=== PATIENT | female | born 1955 | race Hispanic/Latino ===

== ENCOUNTER 2023-05-29 23:35 | Inpatient (IN) | payer OTHER ==
[~2023-05-29] VITALS: Ht 160 cm; Wt 76.2 kg
[2023-05-29 23:56] LABS: BASOPHILS # (AUTO) 0.07 K/uL (0.00-0.20); BASOPHILS % (AUTO) 0.7 % (0.0-5.0); EOSINOPHILS # (AUTO) 0.31 K/uL (0.00-0.70); EOSINOPHILS % (AUTO) 3.3 % (0.0-8.0); IMMATURE GRANULOCYTE ABSOLUTE 0.02 K/uL (0-1); LYMPHOCYTES # (AUTO) 3.3 K/uL (1.0-4.8); LYMPHOCYTES % (AUTO) 35.5 % (21.0-51.0); MEAN CORPUSCULAR HEMOGLOBIN 29.6 pg (27.0-33.0); MEAN CORPUSCULAR HGB CONC 32.7 g/dL (32.0-36.0); MEAN CORPUSCULAR VOLUME 90.5 fL (79-99); MONOCYTES # (AUTO) 0.9 K/uL (0.1-1.0); MONOCYTES % (AUTO) 9.4 % (3.0-13.0); NEUTROPHILS # (AUTO) 4.7 K/uL (1.8-7.7); NEUTROPHILS % (AUTO) 50.9 % (40.0-77.0); PLATELET COUNT (AUTO) 315 K/uL (130-400); RED BLOOD CELL COUNT(AUTO) 4.09 MIL/uL (4.00-5.50); RED CELL DISTRIBUTION WIDTH 12.8 % (11.0-15.5); WHITE BLOOD COUNT (AUTO) 9.3 K/uL (4.8-10.8)
[2023-05-30] VITALS (7 sets, daily range): BP systolic 90–170; BP diastolic 51–78; PULSE 80–90; RESP 16–18; O2SAT 91–96
[2023-05-30 00:07] LABS: CREATININE 0.7 mg/dL (0.5-1.5); POTASSIUM 3.9 mmol/L (3.5-5.1)
[2023-05-30 00:09] LABS: SARS-CoV-2, RNA, NAAT NEGATIVE SARS CoV-2 (NEGATIVE)
[2023-05-30 00:12] LABS: ALBUMIN 3.3 g/dL (3.5-5.0); BILIRUBIN,TOTAL 0.2 mg/dL (0.2-1.0); TOTAL PROTEIN, SERUM 7.3 g/dL (6.0-8.3)
[2023-05-30 00:13] LABS: INFLUENZA TYPE A Negative For Type A (NEGATIVE); INFLUENZA TYPE B Negative For Type B (NEGATIVE)
[2023-05-30 01:00] LABS: APPEARANCE,URINE CLEAR (CLEAR); BILIRUBIN,URINE NEGATIVE (NEGATIVE); COLOR,URINE YELLOW (YELLOW); GLUCOSE, URINE (UA) NEGATIVE (NEGATIVE); KETONES,URINE NEGATIVE (NEGATIVE); LEUKOCYTE ESTERASE ,URINE 75 Leu/uL (NEGATIVE); NITRATE,URINE NEGATIVE (NEGATIVE); OCCULT BLOOD,URINE NEGATIVE (NEGATIVE); PH,URINE 5.5 (5.0-8.0); PROTEIN,URINE 10 mg/dL (NEGATIVE); UROBILINOGEN,URINE 0.2 mg/dL (0.2-1.0)
[2023-05-30 01:01] LABS: ADD UA MICROSCOPIC YES
[2023-05-30 01:06] LABS: MUCUS,URINE RARE LPF (None Seen); SQUAMOUS EPITHELIAL CELL,UR FEW /HPF (0-2)
[2023-05-30] MEDS ORDERED: IOHEXOL 350 MG/ML 100ML INFUS..BTL IV ONE (01:32)
[2023-05-30] MEDS ORDERED: ZOSYN 3.375GM +NS 50ML IVPB ONE (02:00)
[2023-05-30] MEDS ORDERED: MORPHINE 4 MG SYG IVP ONE (02:00)
[2023-05-30] MEDS ORDERED: MORPHINE 5 MG/ML VIAL (5MG OR GREATER DOSE) ONE (02:13)
[2023-05-30] MEDS: ZOSYN 3.375GM+NS 50ML 50 ML IVPB SCH ×3 (03:23→20:53)
[2023-05-30] MEDS: LACTATED RINGERS 1000ML 1,000 ML IV SCH ×2 (03:26→20:53)
[2023-05-30] MEDS ORDERED: NICOTINE 14 MG/ 24 HR PATCH TD SCH (03:30)
[2023-05-30] MEDS ORDERED: ACETAMINOPHEN 325 MG TAB PO PRN (03:30)
[2023-05-30] MEDS ORDERED: MORPHINE 4 MG SYG IV PRN (03:30)
[2023-05-30] MEDS ORDERED: ALBUTEROL 0.083% 2.5 MG/3 ML INH IH PRN (03:30)
[2023-05-30 03:54] LABS: INR 0.94 (0.85-1.15); PROTHROMBIN TIME 10.9 SEC (9.6-11.6)
[2023-05-30 03:56] LABS: PARTIAL THROMBOPLASTIN TIME 28.2 SEC (26.3-35.5)
[2023-05-30 04:03] LABS: MAGNESIUM 1.8 mg/dL (1.80-2.40)
[2023-05-30] MEDS: FAMOTIDINE 20MG VIAL IV SCH ×2 (09:00→20:53)
[2023-05-30] MEDS: NICOTINE 14 MG/ 24 HR PATCH TD SCH (09:00)
[2023-05-30] MEDS: MORPHINE 2 MG SYG IV PRN ×2 (12:28→21:05)
[2023-05-30 14:59] LABS: BASOPHILS # (AUTO) 0.06 K/uL (0.00-0.20); BASOPHILS % (AUTO) 0.3 % (0.0-5.0); EOSINOPHILS # (AUTO) 0.02 K/uL (0.00-0.70); EOSINOPHILS % (AUTO) 0.1 % (0.0-8.0); HEMATOCRIT 34.4 % (36-48); IMMATURE GRANULOCYTE ABSOLUTE 0.08 K/uL (0-1); LYMPHOCYTES # (AUTO) 2.3 K/uL (1.0-4.8); LYMPHOCYTES % (AUTO) 12.3 % (21.0-51.0); MEAN CORPUSCULAR HEMOGLOBIN 29.7 pg (27.0-33.0); MEAN CORPUSCULAR HGB CONC 32.8 g/dL (32.0-36.0); MEAN CORPUSCULAR VOLUME 90.3 fL (79-99); MONOCYTES # (AUTO) 0.8 K/uL (0.1-1.0); MONOCYTES % (AUTO) 4.4 % (3.0-13.0); NEUTROPHILS # (AUTO) 15.6 K/uL (1.8-7.7); NEUTROPHILS % (AUTO) 82.5 % (40.0-77.0); PLATELET COUNT (AUTO) 312 K/uL (130-400); RED BLOOD CELL COUNT(AUTO) 3.81 MIL/uL (4.00-5.50); RED CELL DISTRIBUTION WIDTH 13.1 % (11.0-15.5)
[2023-05-30] MEDS ORDERED: LACTATED RINGERS 1000ML IV SCH (15:00)
[2023-05-30 15:04] LABS: CREATININE 0.6 mg/dL (0.5-1.5); POTASSIUM 3.9 mmol/L (3.5-5.1)
[2023-05-30 15:09] LABS: ALBUMIN 2.6 g/dL (3.5-5.0); BILIRUBIN,TOTAL 0.3 mg/dL (0.2-1.0); TOTAL PROTEIN, SERUM 6.2 g/dL (6.0-8.3)
[2023-05-30] MEDS ORDERED: GUAIFENESIN-DM 200/20 MG 10 ML PO PRN (16:30)
[2023-05-31] MEDS: ACETAMINOPHEN 325 MG TAB PO PRN ×2 (00:14→18:08)
[2023-05-31 04:00] VITALS: BP 97/55; PULSE 77; RESP 17
[2023-05-31] MEDS: ZOSYN 3.375GM+NS 50ML 50 ML IVPB SCH ×3 (04:33→20:39)
[2023-05-31 05:50] LABS: BASOPHILS # (AUTO) 0.04 K/uL (0.00-0.20); BASOPHILS % (AUTO) 0.2 % (0.0-5.0); EOSINOPHILS # (AUTO) 0.08 K/uL (0.00-0.70); EOSINOPHILS % (AUTO) 0.5 % (0.0-8.0); IMMATURE GRANULOCYTE ABSOLUTE 0.09 K/uL (0-1); LYMPHOCYTES # (AUTO) 1.8 K/uL (1.0-4.8); MEAN CORPUSCULAR HEMOGLOBIN 29.2 pg (27.0-33.0); MEAN CORPUSCULAR HGB CONC 31.1 g/dL (32.0-36.0); MONOCYTES # (AUTO) 0.9 K/uL (0.1-1.0); MONOCYTES % (AUTO) 5.4 % (3.0-13.0); NEUTROPHILS # (AUTO) 13.4 K/uL (1.8-7.7); NEUTROPHILS % (AUTO) 82.3 % (40.0-77.0); PLATELET COUNT (AUTO) 292 K/uL (130-400); RED BLOOD CELL COUNT(AUTO) 3.83 MIL/uL (4.00-5.50); RED CELL DISTRIBUTION WIDTH 13.3 % (11.0-15.5); WHITE BLOOD COUNT (AUTO) 16.2 K/uL (4.8-10.8)
[2023-05-31 06:09] LABS: ALBUMIN 2.3 g/dL (3.5-5.0); BILIRUBIN,TOTAL 0.5 mg/dL (0.2-1.0); CREATININE 0.8 mg/dL (0.5-1.5); MAGNESIUM 1.8 mg/dL (1.80-2.40); PHOSPHORUS 3.5 mg/dL (2.5-4.9); POTASSIUM 3.7 mmol/L (3.5-5.1); TOTAL PROTEIN, SERUM 6.2 g/dL (6.0-8.3)
[2023-05-31 08:00] VITALS: BP 114/60; PULSE 86; RESP 17; O2SAT 93
[2023-05-31] MEDS: FAMOTIDINE 20MG VIAL IV SCH ×2 (09:24→20:39)
[2023-05-31] MEDS: NICOTINE 14 MG/ 24 HR PATCH TD SCH (09:28)
[2023-05-31] MEDS: LACTATED RINGERS 1000ML 1,000 ML IV SCH ×2 (09:28→12:30)
[2023-05-31 12:00] VITALS: BP 138/75; PULSE 95; RESP 17
[2023-05-31] MEDS: MORPHINE 2 MG SYG IV PRN (12:31)
[2023-05-31 16:00] VITALS: BP 107/71; PULSE 97; RESP 17
[2023-05-31 19:00] VITALS: BP 120/65; PULSE 92; RESP 18
[2023-05-31 20:40] VITALS: O2SAT 94
[2023-05-31] MEDS: KETOROLAC 30MG VIAL (30MG/ML) IVP PRN (20:46)
[2023-06-01] VITALS (8 sets, daily range): BP systolic 116–151; BP diastolic 65–88; PULSE 76–96; RESP 17–18; O2SAT 92–97
[2023-06-01] MEDS: LACTATED RINGERS 1000ML 1,000 ML IV SCH ×2 (00:55→13:59)
[2023-06-01] MEDS: ZOSYN 3.375GM+NS 50ML 50 ML IVPB SCH ×3 (04:09→19:55)
[2023-06-01] MEDS: KETOROLAC 30MG VIAL (30MG/ML) IVP PRN ×3 (04:14→23:10)
[2023-06-01 05:21] LABS: BASOPHILS # (AUTO) 0.05 K/uL (0.00-0.20); BASOPHILS % (AUTO) 0.3 % (0.0-5.0); EOSINOPHILS # (AUTO) 0.14 K/uL (0.00-0.70); EOSINOPHILS % (AUTO) 0.8 % (0.0-8.0); HEMATOCRIT 33.3 % (36-48); IMMATURE GRANULOCYTE ABSOLUTE 0.06 K/uL (0-1); LYMPHOCYTES # (AUTO) 1.5 K/uL (1.0-4.8); LYMPHOCYTES % (AUTO) 9.2 % (21.0-51.0); MEAN CORPUSCULAR HEMOGLOBIN 29.8 pg (27.0-33.0); MEAN CORPUSCULAR VOLUME 90.2 fL (79-99); MONOCYTES # (AUTO) 1.1 K/uL (0.1-1.0); MONOCYTES % (AUTO) 6.5 % (3.0-13.0); NEUTROPHILS # (AUTO) 13.8 K/uL (1.8-7.7); NEUTROPHILS % (AUTO) 82.8 % (40.0-77.0); PLATELET COUNT (AUTO) 290 K/uL (130-400); RED BLOOD CELL COUNT(AUTO) 3.69 MIL/uL (4.00-5.50); RED CELL DISTRIBUTION WIDTH 13.2 % (11.0-15.5); WHITE BLOOD COUNT (AUTO) 16.6 K/uL (4.8-10.8)
[2023-06-01 05:40] LABS: BILIRUBIN,TOTAL 0.5 mg/dL (0.2-1.0); CREATININE 0.7 mg/dL (0.5-1.5); POTASSIUM 3.6 mmol/L (3.5-5.1); TOTAL PROTEIN, SERUM 6.1 g/dL (6.0-8.3)
[2023-06-01] MEDS: FAMOTIDINE 20MG VIAL IV SCH ×2 (09:11→19:55)
[2023-06-01] MEDS: NICOTINE 14 MG/ 24 HR PATCH TD SCH (09:11)
[2023-06-01] MEDS ORDERED: SIMETHICONE 80 MG TAB.CHEW PO PRN (11:30)
[2023-06-01] MEDS: METRONIDAZOLE 500MG/100ML BAG 100 ML IVPB SCH ×2 (13:59→21:19)
[2023-06-01] MEDS: SIMETHICONE 80 MG TAB.CHEW PO PRN (14:14)
[2023-06-02] VITALS (7 sets, daily range): BP systolic 125–152; BP diastolic 65–86; PULSE 72–82; RESP 16–19; O2SAT 98
[2023-06-02] MEDS: LACTATED RINGERS 1000ML 1,000 ML IV SCH ×3 (03:50→19:53)
[2023-06-02] MEDS: ZOSYN 3.375GM+NS 50ML 50 ML IVPB SCH ×3 (04:11→19:48)
[2023-06-02] MEDS: METRONIDAZOLE 500MG/100ML BAG 100 ML IVPB SCH ×3 (05:03→21:16)
[2023-06-02 05:11] LABS: BASOPHILS # (AUTO) 0.03 K/uL (0.00-0.20); BASOPHILS % (AUTO) 0.2 % (0.0-5.0); EOSINOPHILS # (AUTO) 0.34 K/uL (0.00-0.70); EOSINOPHILS % (AUTO) 2.6 % (0.0-8.0); HEMATOCRIT 31.4 % (36-48); IMMATURE GRANULOCYTE ABSOLUTE 0.08 K/uL (0-1); LYMPHOCYTES # (AUTO) 1.6 K/uL (1.0-4.8); LYMPHOCYTES % (AUTO) 11.9 % (21.0-51.0); MEAN CORPUSCULAR HEMOGLOBIN 29.2 pg (27.0-33.0); MEAN CORPUSCULAR HGB CONC 31.8 g/dL (32.0-36.0); MEAN CORPUSCULAR VOLUME 91.8 fL (79-99); MONOCYTES # (AUTO) 1.3 K/uL (0.1-1.0); MONOCYTES % (AUTO) 9.4 % (3.0-13.0); NEUTROPHILS % (AUTO) 75.3 % (40.0-77.0); PLATELET COUNT (AUTO) 265 K/uL (130-400); RED BLOOD CELL COUNT(AUTO) 3.42 MIL/uL (4.00-5.50); RED CELL DISTRIBUTION WIDTH 13.2 % (11.0-15.5); WHITE BLOOD COUNT (AUTO) 13.3 K/uL (4.8-10.8)
[2023-06-02 05:54] LABS: ALBUMIN 1.9 g/dL (3.5-5.0); BILIRUBIN,TOTAL 0.4 mg/dL (0.2-1.0); CREATININE 0.6 mg/dL (0.5-1.5); POTASSIUM 3.4 mmol/L (3.5-5.1); TOTAL PROTEIN, SERUM 5.9 g/dL (6.0-8.3)
[2023-06-02 07:01] LABS: ERYTHROCYTE SEDIMENTATION RATE 117 MM/HR (0-30)
[2023-06-02] MEDS: FAMOTIDINE 20MG VIAL IV SCH ×2 (09:44→19:47)
[2023-06-02] MEDS: NICOTINE 14 MG/ 24 HR PATCH TD SCH (09:44)
[2023-06-02] MEDS: SIMETHICONE 80 MG TAB.CHEW PO PRN (09:44)
[2023-06-02] MEDS: FLUCONAZOLE 200 MG/NS 100 ML 100 ML IV SCH (09:44)
[2023-06-02] MEDS: KETOROLAC 30MG VIAL (30MG/ML) IVP PRN (16:29)
[2023-06-03] MEDS ORDERED: MAGNESIUM 2GM PREMIX 50ML 50 ML IV PRN
[2023-06-03] MEDS ORDERED: POTASSIUM CHLORIDE 20MEQ/100ML 100 ML IV PRN
[2023-06-03] MEDS: ONDANSETRON 4MG INJ IV PRN ×2 (01:59→22:02)
[2023-06-03] MEDS: SIMETHICONE 80 MG TAB.CHEW PO PRN ×2 (01:59→20:43)
[2023-06-03 03:30] VITALS: BP 124/73; PULSE 73; RESP 18
[2023-06-03] MEDS ORDERED: DIATR MEGLU/DIATRIZOATE SODIUM 30 ML BOTTLE ONE (05:06)
[2023-06-03] MEDS: ZOSYN 3.375GM+NS 50ML 50 ML IVPB SCH ×3 (05:26→20:43)
[2023-06-03] MEDS: METRONIDAZOLE 500MG/100ML BAG 100 ML IVPB SCH ×3 (05:26→21:46)
[2023-06-03] MEDS: LACTATED RINGERS 1000ML 1,000 ML IV SCH (05:32)
[2023-06-03 06:30] LABS: BASOPHILS # (AUTO) 0.05 K/uL (0.00-0.20); BASOPHILS % (AUTO) 0.4 % (0.0-5.0); EOSINOPHILS # (AUTO) 0.18 K/uL (0.00-0.70); EOSINOPHILS % (AUTO) 1.6 % (0.0-8.0); HEMATOCRIT 31.5 % (36-48); IMMATURE GRANULOCYTE ABSOLUTE 0.05 K/uL (0-1); LYMPHOCYTES # (AUTO) 1.6 K/uL (1.0-4.8); LYMPHOCYTES % (AUTO) 14.3 % (21.0-51.0); MEAN CORPUSCULAR HEMOGLOBIN 29.3 pg (27.0-33.0); MEAN CORPUSCULAR HGB CONC 32.7 g/dL (32.0-36.0); MEAN CORPUSCULAR VOLUME 89.7 fL (79-99); MONOCYTES % (AUTO) 9.2 % (3.0-13.0); NEUTROPHILS # (AUTO) 8.3 K/uL (1.8-7.7); NEUTROPHILS % (AUTO) 74.1 % (40.0-77.0); PLATELET COUNT (AUTO) 312 K/uL (130-400); RED BLOOD CELL COUNT(AUTO) 3.51 MIL/uL (4.00-5.50); RED CELL DISTRIBUTION WIDTH 13.2 % (11.0-15.5); WHITE BLOOD COUNT (AUTO) 11.3 K/uL (4.8-10.8)
[2023-06-03 06:56] LABS: ALBUMIN 1.8 g/dL (3.5-5.0); ASPARTATE AMINOTRANSFERASE 13 U/L (10-37); BILIRUBIN,TOTAL 0.4 mg/dL (0.2-1.0); CARBON DIOXIDE 26 mmol/L (21-32); CHLORIDE 106 mmol/L (101-111); CREATININE 0.5 mg/dL (0.5-1.5); GLOMERULAR FILTR. RATE CALC 102 mL/min (>90); GLUCOSE,RANDOM 98 mg/dL (70-105); POTASSIUM 3.4 mmol/L (3.5-5.1); SODIUM SERUM 138 mmol/L (136-145); UREA NITROGEN, BLOOD 16 mg/dL (7-18)
[2023-06-03 07:01] LABS: ALANINE AMINOTRANSFERASE < 6 U/L (12-78)
[2023-06-03 08:00] VITALS: BP 136/96; PULSE 73; RESP 18
[2023-06-03] MEDS ORDERED: IOHEXOL-350 75 ML VIAL IV ONE ×2 (08:19→12:23)
[2023-06-03] MEDS: NICOTINE 14 MG/ 24 HR PATCH TD SCH (09:37)
[2023-06-03] MEDS: FAMOTIDINE 20MG VIAL IV SCH ×2 (09:37→20:43)
[2023-06-03] MEDS: FLUCONAZOLE 200 MG/NS 100 ML 100 ML IV SCH (09:37)
[2023-06-03 11:44] VITALS: BP 158/85; PULSE 76; RESP 18
[2023-06-03 16:00] VITALS: BP 163/93; PULSE 62; RESP 18
[2023-06-03 20:00] VITALS: BP 146/81; PULSE 72; RESP 17; O2SAT 95
[2023-06-04] VITALS (11 sets, daily range): BP systolic 133–155; BP diastolic 75–88; PULSE 68–77; RESP 16–20; O2SAT 95–99
[2023-06-04] MEDS: ZOSYN 3.375GM+NS 50ML 50 ML IVPB SCH ×4 (00:27→21:08)
[2023-06-04 05:28] LABS: BASOPHILS # (AUTO) 0.06 K/uL (0.00-0.20); BASOPHILS % (AUTO) 0.6 % (0.0-5.0); EOSINOPHILS # (AUTO) 0.13 K/uL (0.00-0.70); EOSINOPHILS % (AUTO) 1.3 % (0.0-8.0); HEMATOCRIT 30.9 % (36-48); IMMATURE GRANULOCYTE ABSOLUTE 0.17 K/uL (0-1); LYMPHOCYTES # (AUTO) 1.6 K/uL (1.0-4.8); MEAN CORPUSCULAR HEMOGLOBIN 29.4 pg (27.0-33.0); MONOCYTES # (AUTO) 1.1 K/uL (0.1-1.0); MONOCYTES % (AUTO) 11.1 % (3.0-13.0); NEUTROPHILS % (AUTO) 69.3 % (40.0-77.0); PLATELET COUNT (AUTO) 308 K/uL (130-400); RED BLOOD CELL COUNT(AUTO) 3.47 MIL/uL (4.00-5.50); RED CELL DISTRIBUTION WIDTH 13.4 % (11.0-15.5); WHITE BLOOD COUNT (AUTO) 10.1 K/uL (4.8-10.8)
[2023-06-04 05:41] LABS: ALBUMIN 1.9 g/dL (3.5-5.0); BILIRUBIN,TOTAL 0.5 mg/dL (0.2-1.0); CREATININE 0.6 mg/dL (0.5-1.5); POTASSIUM 3.3 mmol/L (3.5-5.1); TOTAL PROTEIN, SERUM 5.8 g/dL (6.0-8.3)
[2023-06-04] MEDS: METRONIDAZOLE 500MG/100ML BAG 100 ML IVPB SCH ×3 (06:23→23:03)
[2023-06-04] MEDS: FLUCONAZOLE 200 MG/NS 100 ML 100 ML IV SCH (08:23)
[2023-06-04] MEDS: FAMOTIDINE 20MG VIAL IV SCH ×2 (08:23→21:08)
[2023-06-04] MEDS: ONDANSETRON 4MG INJ IV PRN ×3 (08:23→21:54)
[2023-06-04] MEDS: NICOTINE 14 MG/ 24 HR PATCH TD SCH (08:23)
[2023-06-04] MEDS: LACTATED RINGERS 1000ML 1,000 ML IV SCH ×3 (14:01→23:03)
[2023-06-04] MEDS: SIMETHICONE 80 MG TAB.CHEW PO PRN (18:22)
[2023-06-04] MEDS: POTASSIUM CHLORIDE 10% ELIXIR 20 MEQ/15 ML UDCUP PO PRN (19:08)
[2023-06-05] VITALS (8 sets, daily range): BP systolic 133–154; BP diastolic 69–77; PULSE 66–80; RESP 16–20; O2SAT 97–99
[2023-06-05] MEDS: SIMETHICONE 80 MG TAB.CHEW PO PRN (02:25)
[2023-06-05] MEDS: KCL 20 MEQ ERTAB PO PRN (03:08)
[2023-06-05] MEDS: ZOSYN 3.375GM+NS 50ML 50 ML IVPB SCH ×3 (05:29→19:34)
[2023-06-05] MEDS: METRONIDAZOLE 500MG/100ML BAG 100 ML IVPB SCH ×3 (06:05→21:10)
[2023-06-05] MEDS: ONDANSETRON 4MG INJ IV PRN ×2 (06:37→10:03)
[2023-06-05] MEDS: FAMOTIDINE 20MG VIAL IV SCH ×2 (10:02→19:34)
[2023-06-05] MEDS: NICOTINE 14 MG/ 24 HR PATCH TD SCH (10:02)
[2023-06-05] MEDS: FLUCONAZOLE 200 MG/NS 100 ML 100 ML IV SCH (10:02)
[2023-06-05 11:36] LABS: BASOPHILS # (AUTO) 0.05 K/uL (0.00-0.20); BASOPHILS % (AUTO) 0.4 % (0.0-5.0); EOSINOPHILS # (AUTO) 0.07 K/uL (0.00-0.70); EOSINOPHILS % (AUTO) 0.6 % (0.0-8.0); HEMATOCRIT 32.9 % (36-48); IMMATURE GRANULOCYTE ABSOLUTE 0.11 K/uL (0-1); LYMPHOCYTES # (AUTO) 1.9 K/uL (1.0-4.8); LYMPHOCYTES % (AUTO) 15.9 % (21.0-51.0); MEAN CORPUSCULAR HEMOGLOBIN 29.2 pg (27.0-33.0); MEAN CORPUSCULAR HGB CONC 32.2 g/dL (32.0-36.0); MEAN CORPUSCULAR VOLUME 90.6 fL (79-99); MONOCYTES # (AUTO) 1.2 K/uL (0.1-1.0); MONOCYTES % (AUTO) 9.7 % (3.0-13.0); NEUTROPHILS # (AUTO) 8.6 K/uL (1.8-7.7); NEUTROPHILS % (AUTO) 72.5 % (40.0-77.0); PLATELET COUNT (AUTO) 322 K/uL (130-400); RED BLOOD CELL COUNT(AUTO) 3.63 MIL/uL (4.00-5.50); RED CELL DISTRIBUTION WIDTH 13.5 % (11.0-15.5); WHITE BLOOD COUNT (AUTO) 11.9 K/uL (4.8-10.8)
[2023-06-05 11:58] LABS: ALBUMIN 2.1 g/dL (3.5-5.0); BILIRUBIN,TOTAL 0.4 mg/dL (0.2-1.0); CREATININE 0.6 mg/dL (0.5-1.5); POTASSIUM 3.6 mmol/L (3.5-5.1); TOTAL PROTEIN, SERUM 6.1 g/dL (6.0-8.3)
[2023-06-05] MEDS: METOCLOPRAMIDE 10 MG/2 ML VIAL IVP SCH ×2 (12:26→17:08)
[2023-06-05 13:06] LABS: ERYTHROCYTE SEDIMENTATION RATE 98 MM/HR (0-30)
[2023-06-05] MEDS: SUCRALFATE 1 GM TABLET PO SCH ×2 (17:08→19:34)
[2023-06-05] MEDS: LACTATED RINGERS 1000ML 1,000 ML IV SCH (19:38)
[2023-06-06] VITALS (7 sets, daily range): BP systolic 131–154; BP diastolic 67–94; PULSE 64–77; RESP 16–20; O2SAT 97
[2023-06-06] MEDS: SUCRALFATE 1 GM TABLET PO SCH ×4 (04:50→20:45)
[2023-06-06] MEDS: ZOSYN 3.375GM+NS 50ML 50 ML IVPB SCH ×3 (04:50→19:49)
[2023-06-06] MEDS: METRONIDAZOLE 500MG/100ML BAG 100 ML IVPB SCH ×3 (04:52→20:45)
[2023-06-06 05:40] LABS: BASOPHILS # (AUTO) 0.04 K/uL (0.00-0.20); BASOPHILS % (AUTO) 0.4 % (0.0-5.0); EOSINOPHILS # (AUTO) 0.15 K/uL (0.00-0.70); EOSINOPHILS % (AUTO) 1.4 % (0.0-8.0); HEMATOCRIT 32.3 % (36-48); IMMATURE GRANULOCYTE ABSOLUTE 0.07 K/uL (0-1); LYMPHOCYTES # (AUTO) 2.5 K/uL (1.0-4.8); LYMPHOCYTES % (AUTO) 22.1 % (21.0-51.0); MEAN CORPUSCULAR HEMOGLOBIN 29.1 pg (27.0-33.0); MEAN CORPUSCULAR HGB CONC 32.2 g/dL (32.0-36.0); MEAN CORPUSCULAR VOLUME 90.5 fL (79-99); MONOCYTES # (AUTO) 1.2 K/uL (0.1-1.0); MONOCYTES % (AUTO) 10.6 % (3.0-13.0); NEUTROPHILS # (AUTO) 7.2 K/uL (1.8-7.7); NEUTROPHILS % (AUTO) 64.9 % (40.0-77.0); PLATELET COUNT (AUTO) 345 K/uL (130-400); RED BLOOD CELL COUNT(AUTO) 3.57 MIL/uL (4.00-5.50); RED CELL DISTRIBUTION WIDTH 13.8 % (11.0-15.5); WHITE BLOOD COUNT (AUTO) 11.1 K/uL (4.8-10.8)
[2023-06-06 06:00] LABS: ALBUMIN 2.1 g/dL (3.5-5.0); BILIRUBIN,TOTAL 0.3 mg/dL (0.2-1.0); CREATININE 0.6 mg/dL (0.5-1.5); POTASSIUM 3.4 mmol/L (3.5-5.1); TOTAL PROTEIN, SERUM 5.8 g/dL (6.0-8.3)
[2023-06-06] MEDS: KCL 20 MEQ ERTAB PO PRN ×2 (06:24→08:16)
[2023-06-06] MEDS: METOCLOPRAMIDE 10 MG/2 ML VIAL IVP SCH ×3 (08:16→16:34)
[2023-06-06] MEDS: NICOTINE 14 MG/ 24 HR PATCH TD SCH (08:17)
[2023-06-06] MEDS: FAMOTIDINE 20MG VIAL IV SCH ×2 (08:17→19:49)
[2023-06-06] MEDS: FLUCONAZOLE 200 MG/NS 100 ML 100 ML IV SCH (08:17)
[2023-06-06] MEDS: LACTATED RINGERS 1000ML 1,000 ML IV SCH (08:19)
[2023-06-06] MEDS: ACETAMINOPHEN 325 MG TAB PO PRN (19:57)
[2023-06-06] MEDS ORDERED: DIATR MEGLU/DIATRIZOATE SODIUM 30 ML BOTTLE ONE (23:11)
[2023-06-07] MEDS: ONDANSETRON 4MG INJ IV PRN (01:39)
[2023-06-07] MEDS: LACTATED RINGERS 1000ML 1,000 ML IV SCH ×2 (01:40→17:35)
[2023-06-07 03:00] VITALS: BP 151/74; PULSE 78; RESP 18
[2023-06-07] MEDS: SUCRALFATE 1 GM TABLET PO SCH ×4 (04:09→23:15)
[2023-06-07] MEDS: METRONIDAZOLE 500MG/100ML BAG 100 ML IVPB SCH ×3 (05:08→22:22)
[2023-06-07] MEDS: ZOSYN 3.375GM+NS 50ML 50 ML IVPB SCH ×3 (05:08→20:11)
[2023-06-07 05:59] LABS: BASOPHILS # (AUTO) 0.04 K/uL (0.00-0.20); BASOPHILS % (AUTO) 0.4 % (0.0-5.0); EOSINOPHILS # (AUTO) 0.11 K/uL (0.00-0.70); HEMATOCRIT 31.9 % (36-48); IMMATURE GRANULOCYTE ABSOLUTE 0.07 K/uL (0-1); LYMPHOCYTES # (AUTO) 2.3 K/uL (1.0-4.8); LYMPHOCYTES % (AUTO) 21.8 % (21.0-51.0); MEAN CORPUSCULAR HEMOGLOBIN 29.5 pg (27.0-33.0); MEAN CORPUSCULAR HGB CONC 32.6 g/dL (32.0-36.0); MEAN CORPUSCULAR VOLUME 90.6 fL (79-99); MONOCYTES # (AUTO) 0.9 K/uL (0.1-1.0); MONOCYTES % (AUTO) 8.7 % (3.0-13.0); NEUTROPHILS # (AUTO) 7.3 K/uL (1.8-7.7); NEUTROPHILS % (AUTO) 67.4 % (40.0-77.0); PLATELET COUNT (AUTO) 384 K/uL (130-400); RED BLOOD CELL COUNT(AUTO) 3.52 MIL/uL (4.00-5.50); WHITE BLOOD COUNT (AUTO) 10.8 K/uL (4.8-10.8)
[2023-06-07 06:19] LABS: ALBUMIN 2.2 g/dL (3.5-5.0); BILIRUBIN,TOTAL 0.2 mg/dL (0.2-1.0); CREATININE 0.5 mg/dL (0.5-1.5); MAGNESIUM 1.9 mg/dL (1.80-2.40); POTASSIUM 3.6 mmol/L (3.5-5.1); TOTAL PROTEIN, SERUM 6.1 g/dL (6.0-8.3)
[2023-06-07 08:00] VITALS: BP 164/77; PULSE 96; RESP 17; O2SAT 96
[2023-06-07] MEDS: FLUCONAZOLE 200 MG/NS 100 ML 100 ML IV SCH (09:09)
[2023-06-07] MEDS: NICOTINE 14 MG/ 24 HR PATCH TD SCH (09:10)
[2023-06-07] MEDS: FAMOTIDINE 20MG VIAL IV SCH ×2 (09:10→20:11)
[2023-06-07] MEDS: METOCLOPRAMIDE 10 MG/2 ML VIAL IVP SCH ×3 (09:10→17:31)
[2023-06-07] MEDS ORDERED: IOHEXOL 350 MG/ML 100ML INFUS..BTL IV ONE (10:49)
[2023-06-07 12:00] VITALS: BP 121/56; PULSE 72; RESP 18
[2023-06-07] MEDS: POTASSIUM CHLORIDE 10% ELIXIR 20 MEQ/15 ML UDCUP PO PRN ×2 (14:32→17:32)
[2023-06-07] MEDS: ACETAMINOPHEN 325 MG TAB PO PRN (15:42)
[2023-06-07 16:00] VITALS: BP 131/73; PULSE 68; RESP 19
[2023-06-07 20:00] VITALS: BP 133/81; PULSE 66; RESP 18
[2023-06-07 22:10] VITALS: O2SAT 96
[2023-06-08] VITALS (14 sets, daily range): BP systolic 123–166; BP diastolic 63–94; PULSE 58–80; RESP 16–19; O2SAT 93–96
[2023-06-08] MEDS: SUCRALFATE 1 GM TABLET PO SCH ×5 (04:10→23:43)
[2023-06-08] MEDS: ZOSYN 3.375GM+NS 50ML 50 ML IVPB SCH ×3 (04:11→20:31)
[2023-06-08 05:30] LABS: BASOPHILS # (AUTO) 0.05 K/uL (0.00-0.20); BASOPHILS % (AUTO) 0.5 % (0.0-5.0); EOSINOPHILS # (AUTO) 0.24 K/uL (0.00-0.70); EOSINOPHILS % (AUTO) 2.5 % (0.0-8.0); HEMATOCRIT 32.4 % (36-48); IMMATURE GRANULOCYTE ABSOLUTE 0.05 K/uL (0-1); LYMPHOCYTES # (AUTO) 2.2 K/uL (1.0-4.8); LYMPHOCYTES % (AUTO) 22.3 % (21.0-51.0); MEAN CORPUSCULAR HEMOGLOBIN 28.8 pg (27.0-33.0); MEAN CORPUSCULAR HGB CONC 32.1 g/dL (32.0-36.0); MEAN CORPUSCULAR VOLUME 89.8 fL (79-99); MONOCYTES # (AUTO) 0.9 K/uL (0.1-1.0); MONOCYTES % (AUTO) 8.8 % (3.0-13.0); NEUTROPHILS # (AUTO) 6.3 K/uL (1.8-7.7); NEUTROPHILS % (AUTO) 65.4 % (40.0-77.0); PLATELET COUNT (AUTO) 394 K/uL (130-400); RED BLOOD CELL COUNT(AUTO) 3.61 MIL/uL (4.00-5.50); RED CELL DISTRIBUTION WIDTH 13.9 % (11.0-15.5); WHITE BLOOD COUNT (AUTO) 9.7 K/uL (4.8-10.8)
[2023-06-08 05:47] LABS: ALBUMIN 2.4 g/dL (3.5-5.0); BILIRUBIN,TOTAL 0.3 mg/dL (0.2-1.0); CREATININE 0.6 mg/dL (0.5-1.5); MAGNESIUM 2.2 mg/dL (1.80-2.40); POTASSIUM 3.8 mmol/L (3.5-5.1); TOTAL PROTEIN, SERUM 6.3 g/dL (6.0-8.3)
[2023-06-08] MEDS: METRONIDAZOLE 500MG/100ML BAG 100 ML IVPB SCH ×3 (05:53→22:13)
[2023-06-08] MEDS: LACTATED RINGERS 1000ML 1,000 ML IV SCH (06:20)
[2023-06-08] MEDS: METOCLOPRAMIDE 10 MG/2 ML VIAL IVP SCH ×3 (06:32→16:22)
[2023-06-08] MEDS: FAMOTIDINE 20MG VIAL IV SCH ×2 (08:30→20:31)
[2023-06-08] MEDS: NICOTINE 14 MG/ 24 HR PATCH TD SCH (08:30)
[2023-06-08] MEDS: FLUCONAZOLE 200 MG/NS 100 ML 100 ML IV SCH (08:30)
[2023-06-08] MEDS ORDERED: MIDAZOLAM HCL 1 MG/ML 2ML VIAL ONE (12:02)
[2023-06-08] MEDS ORDERED: FENTANYL CITRATE PF 50 MCG/1 ML 2ML VIAL ONE (12:02)
[2023-06-08] MEDS ORDERED: HYDRALAZINE 20MG/ML VIAL IV PRN (16:00)
[2023-06-08] MEDS ORDERED: LISINOPRIL 10 MG TABLET PO ONE (17:00)
[2023-06-08] MEDS: POTASSIUM CHLORIDE 10% ELIXIR 20 MEQ/15 ML UDCUP PO PRN (18:00)
[2023-06-08] MEDS: ACETAMINOPHEN 325 MG TAB PO PRN (20:39)
[2023-06-09] VITALS (7 sets, daily range): BP systolic 118–143; BP diastolic 72–92; PULSE 60–75; RESP 16–19; O2SAT 95–96
[2023-06-09] MEDS: SUCRALFATE 1 GM TABLET PO SCH ×4 (04:30→20:17)
[2023-06-09] MEDS: ZOSYN 3.375GM+NS 50ML 50 ML IVPB SCH ×3 (05:05→20:15)
[2023-06-09] MEDS: LACTATED RINGERS 1000ML 1,000 ML IV SCH ×3 (05:05→23:10)
[2023-06-09 05:49] LABS: BASOPHILS # (AUTO) 0.08 K/uL (0.00-0.20); EOSINOPHILS # (AUTO) 0.25 K/uL (0.00-0.70); EOSINOPHILS % (AUTO) 3.1 % (0.0-8.0); HEMATOCRIT 32.8 % (36-48); IMMATURE GRANULOCYTE ABSOLUTE 0.05 K/uL (0-1); LYMPHOCYTES # (AUTO) 2.2 K/uL (1.0-4.8); LYMPHOCYTES % (AUTO) 27.5 % (21.0-51.0); MEAN CORPUSCULAR HGB CONC 31.7 g/dL (32.0-36.0); MEAN CORPUSCULAR VOLUME 91.4 fL (79-99); MONOCYTES # (AUTO) 0.8 K/uL (0.1-1.0); MONOCYTES % (AUTO) 9.8 % (3.0-13.0); NEUTROPHILS # (AUTO) 4.7 K/uL (1.8-7.7); PLATELET COUNT (AUTO) 402 K/uL (130-400); RED BLOOD CELL COUNT(AUTO) 3.59 MIL/uL (4.00-5.50); RED CELL DISTRIBUTION WIDTH 13.9 % (11.0-15.5); WHITE BLOOD COUNT (AUTO) 8.2 K/uL (4.8-10.8)
[2023-06-09 06:15] LABS: ALBUMIN 2.3 g/dL (3.5-5.0); BILIRUBIN,TOTAL 0.3 mg/dL (0.2-1.0); CREATININE 0.6 mg/dL (0.5-1.5); POTASSIUM 3.9 mmol/L (3.5-5.1); TOTAL PROTEIN, SERUM 6.1 g/dL (6.0-8.3)
[2023-06-09] MEDS: METRONIDAZOLE 500MG/100ML BAG 100 ML IVPB SCH ×3 (06:23→20:15)
[2023-06-09] MEDS: METOCLOPRAMIDE 10 MG/2 ML VIAL IVP SCH ×3 (06:24→17:17)
[2023-06-09] MEDS: FAMOTIDINE 20MG VIAL IV SCH ×2 (09:56→20:17)
[2023-06-09] MEDS: FLUCONAZOLE 200 MG/NS 100 ML 100 ML IV SCH (09:56)
[2023-06-09] MEDS: LISINOPRIL 10 MG TABLET PO SCH (09:57)
[2023-06-09] MEDS: NICOTINE 14 MG/ 24 HR PATCH TD SCH (09:57)
[2023-06-09] MEDS: ACETAMINOPHEN 325 MG TAB PO PRN (17:17)
[2023-06-10 00:30] VITALS: BP 128/72; PULSE 64; RESP 18
[2023-06-10 03:43] VITALS: BP 141/83; PULSE 62; RESP 18
[2023-06-10] MEDS: ZOSYN 3.375GM+NS 50ML 50 ML IVPB SCH (04:37)
[2023-06-10] MEDS: METRONIDAZOLE 500MG/100ML BAG 100 ML IVPB SCH (04:37)
[2023-06-10] MEDS: SUCRALFATE 1 GM TABLET PO SCH (04:38)
[2023-06-10 08:00] VITALS: BP 141/78; PULSE 59; RESP 16; O2SAT 95
[2023-06-10] MEDS: FAMOTIDINE 20MG VIAL IV SCH (08:00)
[2023-06-10] MEDS: METOCLOPRAMIDE 10 MG/2 ML VIAL IVP SCH (08:01)
[2023-06-10] MEDS: LISINOPRIL 10 MG TABLET PO SCH (08:01)
[2023-06-10] MEDS: NICOTINE 14 MG/ 24 HR PATCH TD SCH (08:02)
[2023-06-10] MEDS: FLUCONAZOLE 200 MG/NS 100 ML 100 ML IV SCH (08:02)
[2023-06-10] MEDS ORDERED: LISI5TAB21 PO (10:01)
== END 2023-06-10 11:10 | disposition home or self-care (01) | DRG 391 ==
LOC: EDH 23:35 → EDHIP 23:36 → 3BH 05-30 03:33
PROVIDERS: ADMIT Hospitalist; ATTEND Hospitalist
PROC: 0W9F30Z Drainage of Abdominal Wall with Drainage Device, Percutaneous Approach (ICD-10-PCS; principal; 2023-06-08)
DX: K57.20 Diverticulitis of large intestine with perforation and abscess without bleeding (principal); K65.1 Peritoneal abscess; Z20.822 Contact with and (suspected) exposure to COVID-19; E87.6 Hypokalemia; F17.200 Nicotine dependence, unspecified, uncomplicated; E78.00 Pure hypercholesterolemia, unspecified; J45.909 Unspecified asthma, uncomplicated; D72.829 Elevated white blood cell count, unspecified; Z59.00 Homelessness unspecified
CPT/HCPCS: 10030; 36415; 71045; 72192; 74177; 74178; 76942; 80053; 81001; 82306; 82948; 83605; 83690; 83735; 84100; 84145; 84484; 85025; 85610; 85651; 85730; 86140; 87040; 87071; 87088; 87205; 87635; 87804; 93005; 99152; 99153; C9803; G0378; J1450; J1885; J2250; J2270; J2405; J2543; J2765; J3010; J3475; J3490; J7120; Q9963; Q9967; A4215; C1729; C1769; G0500

== ENCOUNTER 2023-06-24 13:27 | Emergency (ER) | payer OTHER ==
[~2023-06-24 13:27] MED LIST: LISI5TAB21 PO
[2023-06-24 13:40] VITALS: BP 123/74; PULSE 63; RESP 14
== END 2023-06-24 17:19 | disposition home or self-care (01) ==
LOC: EDH 13:27
DX: L02.211 Cutaneous abscess of abdominal wall (principal); Z48.01 Encounter for change or removal of surgical wound dressing
CPT/HCPCS: 99281

== ENCOUNTER 2023-09-29 05:44 | Inpatient (IN) | payer MEDICAID, OTHER ==
[~2023-09-29] VITALS: Ht 160 cm; Wt 108.0 kg
[2023-09-29] VITALS (30 sets, daily range): BP systolic 78–131; BP diastolic 44–62; PULSE 70–90; RESP 11–23; O2SAT 94–95
[2023-09-29] MEDS: ONDANSETRON 4MG INJ IVP ONE (06:15)
[2023-09-29] MEDS: MORPHINE 4 MG SYG IVP ONE (06:16)
[2023-09-29 06:19] LABS: BASOPHILS # (AUTO) 0.02 K/uL (0.00-0.20); BASOPHILS % (AUTO) 0.2 % (0.0-5.0); HEMATOCRIT 39.1 % (36-48); IMMATURE GRANULOCYTE ABSOLUTE 0.05 K/uL (0-1); LYMPHOCYTES # (AUTO) 1.9 K/uL (1.0-4.8); LYMPHOCYTES % (AUTO) 16.7 % (21.0-51.0); MEAN CORPUSCULAR HGB CONC 33.5 g/dL (32.0-36.0); MEAN CORPUSCULAR VOLUME 89.5 fL (79-99); MONOCYTES # (AUTO) 0.8 K/uL (0.1-1.0); NEUTROPHILS # (AUTO) 8.4 K/uL (1.8-7.7); NEUTROPHILS % (AUTO) 75.6 % (40.0-77.0); PLATELET COUNT (AUTO) 327 K/uL (130-400); RED BLOOD CELL COUNT(AUTO) 4.37 MIL/uL (4.00-5.50); RED CELL DISTRIBUTION WIDTH 12.7 % (11.0-15.5); WHITE BLOOD COUNT (AUTO) 11.1 K/uL (4.8-10.8)
[2023-09-29 06:23] LABS: CREATININE 0.8 mg/dL (0.5-1.5); POTASSIUM 4.2 mmol/L (3.5-5.1)
[2023-09-29] MEDS: 0.9%NACL 1000ML 2,500 ML IV ONE (06:27)
[2023-09-29] MEDS: ZOSYN 3.375GM+NS 50ML 50 ML IVPB STA (06:27)
[2023-09-29 06:31] LABS: ALBUMIN 3.2 g/dL (3.5-5.0); BILIRUBIN,TOTAL 0.2 mg/dL (0.2-1.0); TOTAL PROTEIN, SERUM 8.2 g/dL (6.0-8.3)
[2023-09-29] MEDS ORDERED: IOHEXOL 350 MG/ML 100ML INFUS..BTL IV ONE (06:41)
[2023-09-29] MEDS ORDERED: HYDROMORPHONE 1 MG INJ IVP ONE (07:30)
[2023-09-29] MEDS: LEVOFLOXACIN 750 MG/D5W 150 ML 150 ML IV ONE (07:53)
[2023-09-29] MEDS ORDERED: LACTULOSE 20 GM/30 ML UDCUP PO PRN (08:00)
[2023-09-29] MEDS ORDERED: DEXTROSE 50%-WATER 50 ML DISP.SYRIN IV PRN (08:00)
[2023-09-29] MEDS ORDERED: KCL 20 MEQ ERTAB PO PRN (08:00)
[2023-09-29] MEDS ORDERED: HYDROMORPHONE 0.5 MG SYG (0.5MG/0.5ML) IV PRN (08:00)
[2023-09-29] MEDS ORDERED: POTASSIUM CHLORIDE 20MEQ/100ML 100 ML IV PRN (08:00)
[2023-09-29] MEDS ORDERED: GUAIFENESIN-DM 200/20 MG 10 ML PO PRN (08:00)
[2023-09-29] MEDS ORDERED: GLUCAGON 1MG KIT 1 MG ML IM PRN (08:00)
[2023-09-29] MEDS ORDERED: DiphenhydrAMINE HCL 50 MG/ML VIAL IV PRN (08:00)
[2023-09-29] MEDS ORDERED: NITROGLYCERIN 0.4 MG SL TAB SL PRN (08:00)
[2023-09-29] MEDS: HYDROMORPHONE 1 MG INJ IVP ONE (08:07)
[2023-09-29] MEDS: FAMOTIDINE 20MG TAB PO SCH (09:00)
[2023-09-29] MEDS: ENOXAPARIN SODIUM 40 MG/0.4 ML SYRINGE SQ SCH (09:00)
[2023-09-29] MEDS: LACTATED RINGERS 1000ML 1,000 ML IV SCH (09:02)
[2023-09-29] MEDS: ONDANSETRON 4MG INJ IV PRN (12:13)
[2023-09-29] MEDS: ZOSYN 3.375GM+NS 50ML 50 ML IV SCH (12:13)
[2023-09-29] MEDS: HYDROCODONE/ACETAMINOPHEN 5/325 MG TAB PO PRN ×2 (12:13→16:33)
[2023-09-29 15:49] LABS: APPEARANCE,URINE CLEAR (CLEAR); BILIRUBIN,URINE NEGATIVE (NEGATIVE); COLOR,URINE YELLOW (YELLOW); GLUCOSE, URINE (UA) NEGATIVE (NEGATIVE); KETONES,URINE NEGATIVE (NEGATIVE); LEUKOCYTE ESTERASE ,URINE NEGATIVE Leu/uL (NEGATIVE); NITRATE,URINE NEGATIVE (NEGATIVE); OCCULT BLOOD,URINE NEGATIVE (NEGATIVE); PH,URINE 6.5 (5.0-8.0); PROTEIN,URINE 70 mg/dL (NEGATIVE); UROBILINOGEN,URINE 0.2 mg/dL (0.2-1.0)
[2023-09-29 15:50] LABS: ADD UA MICROSCOPIC YES
[2023-09-29 15:52] LABS: BACTERIA,URINE RARE /HPF (None Seen); MUCUS,URINE RARE LPF (None Seen); OTHER CASTS, URINE 3 /LPF (None Seen); SQUAMOUS EPITHELIAL CELL,UR FEW /HPF (0-2)
[2023-09-29] MEDS: LACTATED RINGERS 1000ML IV ONE ×2 (16:33→16:58)
[2023-09-30] VITALS (47 sets, daily range): BP systolic 84–108; BP diastolic 30–66; PULSE 76–107; RESP 9–28; O2SAT 94–98
[2023-09-30 04:48] LABS: BASOPHILS # (AUTO) 0.05 K/uL (0.00-0.20); BASOPHILS % (AUTO) 0.4 % (0.0-5.0); EOSINOPHILS # (AUTO) 0.08 K/uL (0.00-0.70); EOSINOPHILS % (AUTO) 0.7 % (0.0-8.0); IMMATURE GRANULOCYTE ABSOLUTE 0.07 K/uL (0-1); LYMPHOCYTES # (AUTO) 1.2 K/uL (1.0-4.8); LYMPHOCYTES % (AUTO) 10.2 % (21.0-51.0); MEAN CORPUSCULAR HEMOGLOBIN 29.9 pg (27.0-33.0); MEAN CORPUSCULAR HGB CONC 31.9 g/dL (32.0-36.0); MEAN CORPUSCULAR VOLUME 93.8 fL (79-99); MONOCYTES # (AUTO) 0.5 K/uL (0.1-1.0); MONOCYTES % (AUTO) 3.9 % (3.0-13.0); NEUTROPHILS # (AUTO) 9.6 K/uL (1.8-7.7); NEUTROPHILS % (AUTO) 84.2 % (40.0-77.0); PLATELET COUNT (AUTO) 277 K/uL (130-400); RED BLOOD CELL COUNT(AUTO) 3.84 MIL/uL (4.00-5.50); RED CELL DISTRIBUTION WIDTH 13.3 % (11.0-15.5); WHITE BLOOD COUNT (AUTO) 11.4 K/uL (4.8-10.8)
[2023-09-30 05:00] LABS: INR 1.09 (0.85-1.15); PARTIAL THROMBOPLASTIN TIME 27.9 SEC (26.3-35.5); PROTHROMBIN TIME 11.8 SEC (9.6-11.6)
[2023-09-30 05:07] LABS: % IRON SATURATION 5.5 % (22-44)
[2023-09-30 05:21] LABS: ALBUMIN 2.1 g/dL (3.5-5.0); BILIRUBIN,TOTAL 0.4 mg/dL (0.2-1.0); CREATININE 0.9 mg/dL (0.5-1.5); HEMOGLOBIN A1C 5.9 % (4.0-6.0); MAGNESIUM 1.8 mg/dL (1.80-2.40); PHOSPHORUS 3.9 mg/dL (2.5-4.9); POTASSIUM 4.3 mmol/L (3.5-5.1); THYROID STIMULATING HORMONE 2.11 uIU/mL (0.36-3.74); TOTAL PROTEIN, SERUM 6.3 g/dL (6.0-8.3)
[2023-09-30] MEDS: MAGNESIUM 2GM PREMIX 50ML 50 ML IV PRN (05:42)
[2023-09-30] MEDS: ALBUTEROL 0.083% 2.5 MG/3 ML INH IH PRN (08:10)
[2023-09-30 17:59] LABS: CREATININE 0.8 mg/dL (0.5-1.5); POTASSIUM 4.2 mmol/L (3.5-5.1)
[2023-10-01] VITALS (68 sets, daily range): BP systolic 88–131; BP diastolic 45–70; PULSE 73–86; RESP 12–27; O2SAT 93–95
[2023-10-01 05:17] LABS: BASOPHILS # (AUTO) 0.05 K/uL (0.00-0.20); BASOPHILS % (AUTO) 0.3 % (0.0-5.0); EOSINOPHILS # (AUTO) 0.06 K/uL (0.00-0.70); EOSINOPHILS % (AUTO) 0.4 % (0.0-8.0); HEMATOCRIT 32.5 % (36-48); LYMPHOCYTES % (AUTO) 7.2 % (21.0-51.0); MEAN CORPUSCULAR HEMOGLOBIN 29.6 pg (27.0-33.0); MEAN CORPUSCULAR VOLUME 92.6 fL (79-99); MONOCYTES # (AUTO) 0.6 K/uL (0.1-1.0); MONOCYTES % (AUTO) 4.2 % (3.0-13.0); NEUTROPHILS # (AUTO) 12.4 K/uL (1.8-7.7); NEUTROPHILS % (AUTO) 86.5 % (40.0-77.0); PLATELET COUNT (AUTO) 256 K/uL (130-400); RED BLOOD CELL COUNT(AUTO) 3.51 MIL/uL (4.00-5.50); RED CELL DISTRIBUTION WIDTH 13.6 % (11.0-15.5); WHITE BLOOD COUNT (AUTO) 14.3 K/uL (4.8-10.8)
[2023-10-01 05:27] LABS: ALBUMIN 1.9 g/dL (3.5-5.0); BILIRUBIN,TOTAL 0.3 mg/dL (0.2-1.0); CREATININE 0.7 mg/dL (0.5-1.5); TOTAL PROTEIN, SERUM 6.2 g/dL (6.0-8.3)
[2023-10-01] MEDS: LACTATED RINGERS 1000ML 1,000 ML IV SCH (11:55)
[2023-10-01] MEDS: IRON SUCROSE COMPLEX 300 MG in 0.9% NACL 250ML 250 ML IV SCH (12:04)
[2023-10-02] VITALS (70 sets, daily range): BP systolic 87–165; BP diastolic 43–96; PULSE 64–89; RESP 8–21; O2SAT 94–96
[2023-10-02 04:49] LABS: BASOPHILS # (AUTO) 0.05 K/uL (0.00-0.20); BASOPHILS % (AUTO) 0.4 % (0.0-5.0); EOSINOPHILS # (AUTO) 0.12 K/uL (0.00-0.70); EOSINOPHILS % (AUTO) 0.9 % (0.0-8.0); IMMATURE GRANULOCYTE ABSOLUTE 0.18 K/uL (0-1); LYMPHOCYTES # (AUTO) 1.3 K/uL (1.0-4.8); LYMPHOCYTES % (AUTO) 9.7 % (21.0-51.0); MEAN CORPUSCULAR HEMOGLOBIN 29.7 pg (27.0-33.0); MEAN CORPUSCULAR HGB CONC 31.9 g/dL (32.0-36.0); MONOCYTES # (AUTO) 0.9 K/uL (0.1-1.0); MONOCYTES % (AUTO) 6.3 % (3.0-13.0); NEUTROPHILS % (AUTO) 81.4 % (40.0-77.0); PLATELET COUNT (AUTO) 273 K/uL (130-400); RED BLOOD CELL COUNT(AUTO) 3.44 MIL/uL (4.00-5.50); RED CELL DISTRIBUTION WIDTH 13.5 % (11.0-15.5); WHITE BLOOD COUNT (AUTO) 13.5 K/uL (4.8-10.8)
[2023-10-02 05:14] LABS: ALBUMIN 1.6 g/dL (3.5-5.0); BILIRUBIN,TOTAL 0.2 mg/dL (0.2-1.0); CREATININE 0.7 mg/dL (0.5-1.5); POTASSIUM 3.7 mmol/L (3.5-5.1); TOTAL PROTEIN, SERUM 5.8 g/dL (6.0-8.3)
[2023-10-02] MEDS ORDERED: DIATR MEGLU/DIATRIZOATE SODIUM 30 ML BOTTLE ONE (12:25)
[2023-10-02] MEDS ORDERED: IOHEXOL-350 75 ML VIAL IV ONE (17:17)
[2023-10-02] MEDS: MAG/ALUM/SIMETH 30 ML UDCUP PO PRN (20:30)
[2023-10-03] VITALS (34 sets, daily range): BP systolic 98–149; BP diastolic 47–85; PULSE 64–77; RESP 6–23; O2SAT 96–97
[2023-10-03 09:13] LABS: INR 0.99 (0.85-1.15); PROTHROMBIN TIME 11.5 SEC (9.6-11.6)
[2023-10-03] MEDS: M.V.I. IV [ADULT] 10 ML in CLINIMIX-E 5%AA /D15%W 2000ML 2,000 ML IV ONE (10:00)
[2023-10-04] VITALS (22 sets, daily range): BP systolic 100–156; BP diastolic 55–87; PULSE 61–81; RESP 14–20; O2SAT 93–96
[2023-10-04 04:25] LABS: BASOPHILS # (AUTO) 0.07 K/uL (0.00-0.20); BASOPHILS % (AUTO) 0.6 % (0.0-5.0); EOSINOPHILS # (AUTO) 0.12 K/uL (0.00-0.70); EOSINOPHILS % (AUTO) 1.1 % (0.0-8.0); HEMATOCRIT 35.8 % (36-48); IMMATURE GRANULOCYTE ABSOLUTE 0.49 K/uL (0-1); LYMPHOCYTES # (AUTO) 1.6 K/uL (1.0-4.8); LYMPHOCYTES % (AUTO) 14.4 % (21.0-51.0); MEAN CORPUSCULAR HEMOGLOBIN 29.5 pg (27.0-33.0); MEAN CORPUSCULAR HGB CONC 32.1 g/dL (32.0-36.0); MEAN CORPUSCULAR VOLUME 91.8 fL (79-99); MONOCYTES # (AUTO) 1.4 K/uL (0.1-1.0); MONOCYTES % (AUTO) 11.9 % (3.0-13.0); NEUTROPHILS # (AUTO) 7.7 K/uL (1.8-7.7); NEUTROPHILS % (AUTO) 67.7 % (40.0-77.0); PLATELET COUNT (AUTO) 315 K/uL (130-400); RED CELL DISTRIBUTION WIDTH 13.7 % (11.0-15.5); WHITE BLOOD COUNT (AUTO) 11.3 K/uL (4.8-10.8)
[2023-10-04 04:37] LABS: INR 0.98 (0.85-1.15); PROTHROMBIN TIME 11.4 SEC (9.6-11.6)
[2023-10-04 04:38] LABS: PARTIAL THROMBOPLASTIN TIME 32.4 SEC (26.3-35.5)
[2023-10-04 04:39] LABS: CREATININE 0.6 mg/dL (0.5-1.5); POTASSIUM 3.5 mmol/L (3.5-5.1)
[2023-10-04] MEDS: KETOROLAC 15MG/ML VIAL (15MG/ML) ONE (10:12)
[2023-10-04] MEDS ORDERED: FENTANYL CITRATE PF 50 MCG/1 ML 2ML VIAL ONE (12:55)
[2023-10-04] MEDS: FLUCONAZOLE 200 MG/NS 100 ML IV SCH (15:30)
[2023-10-04] MEDS: KETOROLAC 15MG/ML VIAL (15MG/ML) IV PRN (20:27)
[2023-10-05] VITALS (7 sets, daily range): BP systolic 130–161; BP diastolic 72–90; PULSE 68–80; RESP 16–18; O2SAT 95–97
[2023-10-05 04:26] LABS: BASOPHILS % (AUTO) 0.8 % (0.0-5.0); EOSINOPHILS # (AUTO) 0.06 K/uL (0.00-0.70); EOSINOPHILS % (AUTO) 0.5 % (0.0-8.0); HEMATOCRIT 34.6 % (36-48); IMMATURE GRANULOCYTE ABSOLUTE 0.62 K/uL (0-1); LYMPHOCYTES % (AUTO) 15.7 % (21.0-51.0); MEAN CORPUSCULAR HEMOGLOBIN 29.8 pg (27.0-33.0); MEAN CORPUSCULAR HGB CONC 32.4 g/dL (32.0-36.0); MONOCYTES # (AUTO) 1.3 K/uL (0.1-1.0); MONOCYTES % (AUTO) 10.6 % (3.0-13.0); NEUTROPHILS # (AUTO) 8.4 K/uL (1.8-7.7); NEUTROPHILS % (AUTO) 67.4 % (40.0-77.0); PLATELET COUNT (AUTO) 328 K/uL (130-400); RED BLOOD CELL COUNT(AUTO) 3.76 MIL/uL (4.00-5.50); RED CELL DISTRIBUTION WIDTH 13.5 % (11.0-15.5); WHITE BLOOD COUNT (AUTO) 12.4 K/uL (4.8-10.8)
[2023-10-05 04:50] LABS: CREATININE 0.5 mg/dL (0.5-1.5); PHOSPHORUS 3.2 mg/dL (2.5-4.9); POTASSIUM 3.4 mmol/L (3.5-5.1)
[2023-10-05] MEDS: POTASSIUM CHLORIDE 10% ELIXIR 20 MEQ/15 ML UDCUP PO PRN (05:24)
[2023-10-05] MEDS: FAMOTIDINE 20MG VIAL IV PRN (08:57)
[2023-10-05] MEDS: M.V.I. IV [ADULT] 10 ML in CLINIMIX-E 5%AA /D15%W 2000ML 2,000 ML IV ONE (12:29)
[2023-10-05] MEDS ORDERED: COMPOUND IV REFRIGERATED 1 EACH IVSOLN MISC PRN ×2 (12:30→17:30)
[2023-10-05] MEDS ORDERED: COMPOUND IV MISC 1 EACH IVSOLN MISC PRN (12:30)
[2023-10-05] MEDS: HYDROMORPHONE 0.5 MG SYG (0.5MG/0.5ML) IVP PRN (14:22)
[2023-10-05] MEDS: PANTOPRAZOLE 40MG INJ 80 MG in 0.9%NACL 100ML 100 ML IVP SCH (18:08)
[2023-10-06] VITALS (7 sets, daily range): BP systolic 128–157; BP diastolic 72–86; PULSE 63–71; RESP 16–19; O2SAT 95
[2023-10-06 04:55] LABS: BASOPHILS # (AUTO) 0.05 K/uL (0.00-0.20); BASOPHILS % (AUTO) 0.4 % (0.0-5.0); EOSINOPHILS % (AUTO) 0.8 % (0.0-8.0); HEMATOCRIT 31.7 % (36-48); IMMATURE GRANULOCYTE ABSOLUTE 0.63 K/uL (0-1); LYMPHOCYTES # (AUTO) 1.9 K/uL (1.0-4.8); LYMPHOCYTES % (AUTO) 15.8 % (21.0-51.0); MEAN CORPUSCULAR HEMOGLOBIN 29.7 pg (27.0-33.0); MEAN CORPUSCULAR HGB CONC 32.5 g/dL (32.0-36.0); MEAN CORPUSCULAR VOLUME 91.4 fL (79-99); MONOCYTES # (AUTO) 1.2 K/uL (0.1-1.0); MONOCYTES % (AUTO) 10.1 % (3.0-13.0); NEUTROPHILS # (AUTO) 8.2 K/uL (1.8-7.7); NEUTROPHILS % (AUTO) 67.7 % (40.0-77.0); PLATELET COUNT (AUTO) 321 K/uL (130-400); RED BLOOD CELL COUNT(AUTO) 3.47 MIL/uL (4.00-5.50); WHITE BLOOD COUNT (AUTO) 12.1 K/uL (4.8-10.8)
[2023-10-06 05:02] LABS: CREATININE 0.6 mg/dL (0.5-1.5); POTASSIUM 3.4 mmol/L (3.5-5.1)
[2023-10-06 05:17] LABS: BAND NEUTROPHILS % (MANUAL) 9 % (0-2); LYMPHOCYTES % (MANUAL) 17 % (22-44); MAN.DIFF COMMENT-IMPRESSION MANUAL DIFFERENTIAL; MONOCYTES % (MANUAL) 3 % (2-9); PLATELET MORPHOLOGY COMMENT ADEQUATE; SEGMENTED NEUTROPHILS % 71 % (40-70); TOTAL CELLS COUNTED 100; WBC MORPHOLOGY CONSISTENT W/DIFF
[2023-10-06] MEDS: [UNRECOGNIZED DRUG - NUTRITION] IV ONE (20:14)
[2023-10-06] MEDS: DIPHENHYDRAMINE HCL 25 MG CAPSULE PO PRN (23:21)
[2023-10-07] VITALS (8 sets, daily range): BP systolic 124–150; BP diastolic 68–76; PULSE 62–66; RESP 16–20; O2SAT 95
[2023-10-07 05:41] LABS: BASOPHILS # (AUTO) 0.08 K/uL (0.00-0.20); BASOPHILS % (AUTO) 0.7 % (0.0-5.0); EOSINOPHILS % (AUTO) 1.7 % (0.0-8.0); HEMATOCRIT 32.8 % (36-48); IMMATURE GRANULOCYTE ABSOLUTE 0.58 K/uL (0-1); LYMPHOCYTES # (AUTO) 2.1 K/uL (1.0-4.8); LYMPHOCYTES % (AUTO) 17.4 % (21.0-51.0); MEAN CORPUSCULAR HEMOGLOBIN 29.5 pg (27.0-33.0); MEAN CORPUSCULAR HGB CONC 31.7 g/dL (32.0-36.0); MEAN CORPUSCULAR VOLUME 93.2 fL (79-99); MONOCYTES # (AUTO) 0.9 K/uL (0.1-1.0); MONOCYTES % (AUTO) 7.6 % (3.0-13.0); NEUTROPHILS # (AUTO) 8.2 K/uL (1.8-7.7); NEUTROPHILS % (AUTO) 67.8 % (40.0-77.0); PLATELET COUNT (AUTO) 321 K/uL (130-400); RED BLOOD CELL COUNT(AUTO) 3.52 MIL/uL (4.00-5.50); RED CELL DISTRIBUTION WIDTH 14.1 % (11.0-15.5); WHITE BLOOD COUNT (AUTO) 12.1 K/uL (4.8-10.8)
[2023-10-07 05:49] LABS: CREATININE 0.6 mg/dL (0.5-1.5); POTASSIUM 3.7 mmol/L (3.5-5.1)
[2023-10-07] MEDS: HYDROMORPHONE 1 MG INJ IVP PRN (14:30)
[2023-10-07] MEDS: [UNRECOGNIZED DRUG - NUTRITION] IV NR (20:55)
[2023-10-08] VITALS (33 sets, daily range): BP systolic 114–156; BP diastolic 46–79; PULSE 57–78; RESP 15–20; O2SAT 95–97
[2023-10-08] MEDS: LACTATED RINGERS 1000ML 1,000 ML IV ONE (08:25)
[2023-10-08] MEDS ORDERED: PROPOFOL 10 MG/ML 20ML VIAL IV ONE ×2 (09:17→09:57)
[2023-10-08] MEDS ORDERED: FENTANYL CITRATE PF 50 MCG/1 ML 2ML VIAL ONE ×3 (09:17→12:07)
[2023-10-08] MEDS ORDERED: ROCURONIUM BROMIDE 10MG/1ML 5ML VL ONE ×2 (09:17→10:16)
[2023-10-08] MEDS ORDERED: MIDAZOLAM HCL 1 MG/ML 2ML VIAL ONE (09:17)
[2023-10-08] MEDS ORDERED: ROPIVACAINE 0.5% 5MG/ML 30ML ONE (09:34)
[2023-10-08] MEDS ORDERED: SOLU-MEDROL 40MG VIAL ONE ×2 (10:01)
[2023-10-08] MEDS ORDERED: EPHEDRINE SULFATE 50 MG/ML AMPULE ONE (10:07)
[2023-10-08] MEDS ORDERED: OXYMETAZOLINE HCL SPRAY 15 ML BOTTLE ONE (10:41)
[2023-10-08] MEDS ORDERED: LIDOCAINE HCL 2% JELLY 5 ML ONE (10:41)
[2023-10-08] MEDS ORDERED: ONDANSETRON 4MG INJ ONE (10:56)
[2023-10-08] MEDS ORDERED: GLYCOPYRROLATE 0.2 MG/ML 5 ML VIAL ONE (12:02)
[2023-10-08] MEDS ORDERED: NEOSTIGMINE METHYLSULFATE 1MG/ML IV ONE (12:02)
[2023-10-08] MEDS ORDERED: KETOROLAC 30MG VIAL (30MG/ML) ONE (12:04)
[2023-10-08] MEDS: SUGAMMADEX SODIUM 200 MG/2 ML VIAL IV ONE (12:23)
[2023-10-08] MEDS: IPRATROPIUM/ALBUTEROL SULFATE 3 ML SOLUTION IH ONE ×3 (12:46→14:15)
[2023-10-08] MEDS: MEPERIDINE-PF 25 MG/ML SYG ONE ×2 (14:31→14:32)
[2023-10-08] MEDS: FUROSEMIDE 20MG VIAL ONE (14:32)
[2023-10-08] MEDS: KETOROLAC 15MG/ML VIAL (15MG/ML) IM PRN (15:24)
[2023-10-09] VITALS (7 sets, daily range): BP systolic 96–160; BP diastolic 53–79; PULSE 69–80; RESP 16–18; O2SAT 96–98
[2023-10-09] MEDS: MORPHINE 4 MG SYG IM PRN (00:42)
[2023-10-09 05:31] LABS: BASOPHILS # (AUTO) 0.08 K/uL (0.00-0.20); BASOPHILS % (AUTO) 0.3 % (0.0-5.0); HEMATOCRIT 33.5 % (36-48); IMMATURE GRANULOCYTE ABSOLUTE 0.35 K/uL (0-1); LYMPHOCYTES # (AUTO) 1.5 K/uL (1.0-4.8); LYMPHOCYTES % (AUTO) 5.1 % (21.0-51.0); MEAN CORPUSCULAR HEMOGLOBIN 30.1 pg (27.0-33.0); MEAN CORPUSCULAR HGB CONC 32.2 g/dL (32.0-36.0); MEAN CORPUSCULAR VOLUME 93.3 fL (79-99); MONOCYTES # (AUTO) 1.3 K/uL (0.1-1.0); MONOCYTES % (AUTO) 4.6 % (3.0-13.0); NEUTROPHILS # (AUTO) 25.3 K/uL (1.8-7.7); NEUTROPHILS % (AUTO) 88.8 % (40.0-77.0); PLATELET COUNT (AUTO) 360 K/uL (130-400); RED BLOOD CELL COUNT(AUTO) 3.59 MIL/uL (4.00-5.50); RED CELL DISTRIBUTION WIDTH 14.2 % (11.0-15.5); WHITE BLOOD COUNT (AUTO) 28.5 K/uL (4.8-10.8)
[2023-10-09 05:47] LABS: CREATININE 0.7 mg/dL (0.5-1.5); MAGNESIUM 2.4 mg/dL (1.80-2.40); PHOSPHORUS 3.4 mg/dL (2.5-4.9); POTASSIUM 4.6 mmol/L (3.5-5.1)
[2023-10-09] MEDS: [UNRECOGNIZED DRUG - NUTRITION] IV ONE (13:06)
[2023-10-10 04:00] VITALS: BP 104/62; PULSE 80; RESP 20
[2023-10-10 04:48] LABS: BASOPHILS # (AUTO) 0.06 K/uL (0.00-0.20); BASOPHILS % (AUTO) 0.3 % (0.0-5.0); EOSINOPHILS # (AUTO) 0.06 K/uL (0.00-0.70); EOSINOPHILS % (AUTO) 0.3 % (0.0-8.0); HEMATOCRIT 30.2 % (36-48); IMMATURE GRANULOCYTE ABSOLUTE 0.27 K/uL (0-1); LYMPHOCYTES # (AUTO) 1.7 K/uL (1.0-4.8); LYMPHOCYTES % (AUTO) 7.4 % (21.0-51.0); MEAN CORPUSCULAR HEMOGLOBIN 29.8 pg (27.0-33.0); MEAN CORPUSCULAR HGB CONC 31.5 g/dL (32.0-36.0); MEAN CORPUSCULAR VOLUME 94.7 fL (79-99); MONOCYTES # (AUTO) 1.4 K/uL (0.1-1.0); NEUTROPHILS # (AUTO) 19.1 K/uL (1.8-7.7); NEUTROPHILS % (AUTO) 84.8 % (40.0-77.0); PLATELET COUNT (AUTO) 358 K/uL (130-400); RED BLOOD CELL COUNT(AUTO) 3.19 MIL/uL (4.00-5.50); RED CELL DISTRIBUTION WIDTH 14.5 % (11.0-15.5); WHITE BLOOD COUNT (AUTO) 22.5 K/uL (4.8-10.8)
[2023-10-10 05:00] LABS: ALBUMIN 1.8 g/dL (3.5-5.0); BILIRUBIN,TOTAL 0.3 mg/dL (0.2-1.0); CREATININE 0.7 mg/dL (0.5-1.5); POTASSIUM 4.4 mmol/L (3.5-5.1)
[2023-10-10 08:00] VITALS: BP 109/57; PULSE 76; RESP 18
[2023-10-10 08:30] VITALS: O2SAT 97
[2023-10-10 11:00] VITALS: BP 116/62; PULSE 74; RESP 17
[2023-10-10 16:00] VITALS: BP 112/64; PULSE 77; RESP 17
[2023-10-10] MEDS ORDERED: PHENOL 177 ML BOTTLE PO PRN (18:30)
[2023-10-10] MEDS: [UNRECOGNIZED DRUG - NUTRITION] IV ONE (18:32)
[2023-10-10 20:00] VITALS: BP 135/65; PULSE 79; RESP 20; O2SAT 92
[2023-10-10] MEDS ORDERED: METOCLOPRAMIDE 5 MG TABLET PO SCH (21:00)
[2023-10-10] MEDS: METOCLOPRAMIDE 10 MG/2 ML VIAL IVP SCH (21:02)
[2023-10-11] VITALS (11 sets, daily range): BP systolic 109–140; BP diastolic 58–74; PULSE 72–83; RESP 16–19; O2SAT 92–94
[2023-10-11 06:08] LABS: BASOPHILS # (AUTO) 0.07 K/uL (0.00-0.20); BASOPHILS % (AUTO) 0.3 % (0.0-5.0); EOSINOPHILS # (AUTO) 0.16 K/uL (0.00-0.70); EOSINOPHILS % (AUTO) 0.7 % (0.0-8.0); HEMATOCRIT 27.1 % (36-48); IMMATURE GRANULOCYTE ABSOLUTE 0.19 K/uL (0-1); LYMPHOCYTES # (AUTO) 1.7 K/uL (1.0-4.8); MEAN CORPUSCULAR HEMOGLOBIN 29.9 pg (27.0-33.0); MEAN CORPUSCULAR HGB CONC 32.1 g/dL (32.0-36.0); MEAN CORPUSCULAR VOLUME 93.1 fL (79-99); MONOCYTES # (AUTO) 1.6 K/uL (0.1-1.0); MONOCYTES % (AUTO) 7.4 % (3.0-13.0); NEUTROPHILS % (AUTO) 82.7 % (40.0-77.0); PLATELET COUNT (AUTO) 369 K/uL (130-400); RED BLOOD CELL COUNT(AUTO) 2.91 MIL/uL (4.00-5.50); RED CELL DISTRIBUTION WIDTH 14.6 % (11.0-15.5); WHITE BLOOD COUNT (AUTO) 21.8 K/uL (4.8-10.8)
[2023-10-11 06:17] LABS: CREATININE 0.6 mg/dL (0.5-1.5); POTASSIUM 4.4 mmol/L (3.5-5.1)
[2023-10-11] MEDS: HEPARIN 5,000 UNIT VIAL SQ SCH (17:45)
[2023-10-11] MEDS: [UNRECOGNIZED DRUG - NUTRITION] IV ONE (20:47)
[2023-10-12] VITALS (9 sets, daily range): BP systolic 95–129; BP diastolic 58–68; PULSE 62–81; RESP 18–22; O2SAT 94–95
[2023-10-12 05:34] LABS: BASOPHILS # (AUTO) 0.04 K/uL (0.00-0.20); BASOPHILS % (AUTO) 0.2 % (0.0-5.0); EOSINOPHILS # (AUTO) 0.16 K/uL (0.00-0.70); EOSINOPHILS % (AUTO) 0.8 % (0.0-8.0); HEMATOCRIT 26.7 % (36-48); IMMATURE GRANULOCYTE ABSOLUTE 0.13 K/uL (0-1); LYMPHOCYTES # (AUTO) 1.9 K/uL (1.0-4.8); LYMPHOCYTES % (AUTO) 9.7 % (21.0-51.0); MEAN CORPUSCULAR HEMOGLOBIN 29.5 pg (27.0-33.0); MEAN CORPUSCULAR HGB CONC 32.2 g/dL (32.0-36.0); MEAN CORPUSCULAR VOLUME 91.4 fL (79-99); MONOCYTES # (AUTO) 1.7 K/uL (0.1-1.0); MONOCYTES % (AUTO) 8.9 % (3.0-13.0); NEUTROPHILS # (AUTO) 15.3 K/uL (1.8-7.7); NEUTROPHILS % (AUTO) 79.7 % (40.0-77.0); PLATELET COUNT (AUTO) 375 K/uL (130-400); RED BLOOD CELL COUNT(AUTO) 2.92 MIL/uL (4.00-5.50); RED CELL DISTRIBUTION WIDTH 14.4 % (11.0-15.5); WHITE BLOOD COUNT (AUTO) 19.2 K/uL (4.8-10.8)
[2023-10-12 15:12] LABS: CHOLESTEROL 122 mg/dL (<200); HDL CHOLESTEROL 24 mg/dL (35-85); LDL DIRECT 83 mg/dL (0-99); TRIGLYCERIDES 106 mg/dL (30-200)
[2023-10-12] MEDS: KETOROLAC 15MG/ML VIAL (15MG/ML) IV PRN (17:45)
[2023-10-12] MEDS: M.V.I. IV [ADULT] 10 ML in CLINIMIX-E 5%AA /D15%W 2000ML 2,000 ML IV ONE (20:41)
[2023-10-13] VITALS (8 sets, daily range): BP systolic 97–137; BP diastolic 54–76; PULSE 70–83; RESP 16–24; O2SAT 94–96
[2023-10-13 05:08] LABS: BASOPHILS # (AUTO) 0.06 K/uL (0.00-0.20); BASOPHILS % (AUTO) 0.3 % (0.0-5.0); EOSINOPHILS # (AUTO) 0.06 K/uL (0.00-0.70); EOSINOPHILS % (AUTO) 0.3 % (0.0-8.0); HEMATOCRIT 27.8 % (36-48); IMMATURE GRANULOCYTE ABSOLUTE 0.15 K/uL (0-1); LYMPHOCYTES # (AUTO) 1.7 K/uL (1.0-4.8); MEAN CORPUSCULAR HEMOGLOBIN 29.8 pg (27.0-33.0); MEAN CORPUSCULAR HGB CONC 31.7 g/dL (32.0-36.0); MEAN CORPUSCULAR VOLUME 94.2 fL (79-99); MONOCYTES # (AUTO) 1.8 K/uL (0.1-1.0); MONOCYTES % (AUTO) 9.4 % (3.0-13.0); NEUTROPHILS # (AUTO) 15.5 K/uL (1.8-7.7); NEUTROPHILS % (AUTO) 80.2 % (40.0-77.0); PLATELET COUNT (AUTO) 431 K/uL (130-400); RED BLOOD CELL COUNT(AUTO) 2.95 MIL/uL (4.00-5.50); RED CELL DISTRIBUTION WIDTH 14.3 % (11.0-15.5); WHITE BLOOD COUNT (AUTO) 19.4 K/uL (4.8-10.8)
[2023-10-13 05:41] LABS: ALBUMIN 1.8 g/dL (3.5-5.0); BILIRUBIN,TOTAL 1.1 mg/dL (0.2-1.0); CREATININE 0.6 mg/dL (0.5-1.5); POTASSIUM 3.9 mmol/L (3.5-5.1); TOTAL PROTEIN, SERUM 6.8 g/dL (6.0-8.3)
[2023-10-13] MEDS: M.V.I. IV [ADULT] 10 ML in CLINIMIX-E 5%AA /D15%W 2000ML 2,000 ML IV ONE (23:50)
[2023-10-14] VITALS (9 sets, daily range): BP systolic 115–138; BP diastolic 56–72; PULSE 62–71; RESP 17–20; O2SAT 95–97
[2023-10-14 04:38] LABS: BASOPHILS # (AUTO) 0.05 K/uL (0.00-0.20); BASOPHILS % (AUTO) 0.4 % (0.0-5.0); EOSINOPHILS # (AUTO) 0.17 K/uL (0.00-0.70); EOSINOPHILS % (AUTO) 1.2 % (0.0-8.0); HEMATOCRIT 26.2 % (36-48); IMMATURE GRANULOCYTE ABSOLUTE 0.12 K/uL (0-1); LYMPHOCYTES % (AUTO) 13.8 % (21.0-51.0); MEAN CORPUSCULAR HEMOGLOBIN 29.2 pg (27.0-33.0); MEAN CORPUSCULAR HGB CONC 32.1 g/dL (32.0-36.0); MONOCYTES # (AUTO) 1.5 K/uL (0.1-1.0); MONOCYTES % (AUTO) 10.9 % (3.0-13.0); NEUTROPHILS # (AUTO) 10.3 K/uL (1.8-7.7); NEUTROPHILS % (AUTO) 72.8 % (40.0-77.0); PLATELET COUNT (AUTO) 404 K/uL (130-400); RED BLOOD CELL COUNT(AUTO) 2.88 MIL/uL (4.00-5.50); RED CELL DISTRIBUTION WIDTH 14.4 % (11.0-15.5); WHITE BLOOD COUNT (AUTO) 14.1 K/uL (4.8-10.8)
[2023-10-14 05:06] LABS: ALBUMIN 1.8 g/dL (3.5-5.0); BILIRUBIN,TOTAL 0.8 mg/dL (0.2-1.0); CREATININE 0.7 mg/dL (0.5-1.5); POTASSIUM 3.8 mmol/L (3.5-5.1); TOTAL PROTEIN, SERUM 6.8 g/dL (6.0-8.3)
[2023-10-14] MEDS: SIMETHICONE 80 MG TAB.CHEW PO PRN (11:57)
[2023-10-14] MEDS ORDERED: 0.9%NACL 50ML IV SCH (12:30)
[2023-10-14] MEDS: ZOSYN 3.375GM +NS 50ML IVPB SCH (13:51)
[2023-10-14] MEDS: M.V.I. IV [ADULT] 10 ML in CLINIMIX-E 5%AA /D15%W 2000ML 2,000 ML IV NR (21:43)
[2023-10-15] VITALS: BP 103/56; PULSE 74; RESP 20
[2023-10-15 04:00] VITALS: BP 97/58; PULSE 68; RESP 19
[2023-10-15 07:12] LABS: BASOPHILS # (AUTO) 0.03 K/uL (0.00-0.20); BASOPHILS % (AUTO) 0.3 % (0.0-5.0); EOSINOPHILS # (AUTO) 0.15 K/uL (0.00-0.70); EOSINOPHILS % (AUTO) 1.7 % (0.0-8.0); HEMATOCRIT 26.5 % (36-48); IMMATURE GRANULOCYTE ABSOLUTE 0.05 K/uL (0-1); LYMPHOCYTES # (AUTO) 1.8 K/uL (1.0-4.8); LYMPHOCYTES % (AUTO) 19.6 % (21.0-51.0); MEAN CORPUSCULAR HEMOGLOBIN 29.6 pg (27.0-33.0); MEAN CORPUSCULAR HGB CONC 32.1 g/dL (32.0-36.0); MEAN CORPUSCULAR VOLUME 92.3 fL (79-99); MONOCYTES # (AUTO) 0.9 K/uL (0.1-1.0); MONOCYTES % (AUTO) 9.7 % (3.0-13.0); NEUTROPHILS # (AUTO) 6.2 K/uL (1.8-7.7); NEUTROPHILS % (AUTO) 68.1 % (40.0-77.0); PLATELET COUNT (AUTO) 389 K/uL (130-400); RED BLOOD CELL COUNT(AUTO) 2.87 MIL/uL (4.00-5.50); RED CELL DISTRIBUTION WIDTH 14.6 % (11.0-15.5)
[2023-10-15 07:38] LABS: ALBUMIN 1.9 g/dL (3.5-5.0); BILIRUBIN,TOTAL 0.5 mg/dL (0.2-1.0); CREATININE 0.7 mg/dL (0.5-1.5); POTASSIUM 4.2 mmol/L (3.5-5.1); TOTAL PROTEIN, SERUM 6.9 g/dL (6.0-8.3)
[2023-10-15 08:00] VITALS: BP 108/60; PULSE 65; RESP 17; O2SAT 97
[2023-10-15 12:00] VITALS: BP 104/69; PULSE 64; RESP 18
[2023-10-15 16:00] VITALS: BP 108/62; PULSE 75; RESP 18
[2023-10-15 20:00] VITALS: BP 113/63; PULSE 63; RESP 20; O2SAT 96
[2023-10-15] MEDS: M.V.I. IV [ADULT] 10 ML in CLINIMIX-E 5%AA /D15%W 2000ML 2,000 ML IV ONE (21:00)
[2023-10-16] VITALS (8 sets, daily range): BP systolic 94–112; BP diastolic 51–68; PULSE 61–86; RESP 18–20; O2SAT 96
[2023-10-16 05:30] LABS: BASOPHILS # (AUTO) 0.03 K/uL (0.00-0.20); BASOPHILS % (AUTO) 0.4 % (0.0-5.0); EOSINOPHILS # (AUTO) 0.21 K/uL (0.00-0.70); EOSINOPHILS % (AUTO) 2.7 % (0.0-8.0); HEMATOCRIT 25.5 % (36-48); IMMATURE GRANULOCYTE ABSOLUTE 0.07 K/uL (0-1); LYMPHOCYTES % (AUTO) 25.5 % (21.0-51.0); MEAN CORPUSCULAR HEMOGLOBIN 29.5 pg (27.0-33.0); MEAN CORPUSCULAR HGB CONC 31.8 g/dL (32.0-36.0); MEAN CORPUSCULAR VOLUME 92.7 fL (79-99); MONOCYTES # (AUTO) 1.1 K/uL (0.1-1.0); NEUTROPHILS # (AUTO) 4.4 K/uL (1.8-7.7); NEUTROPHILS % (AUTO) 56.5 % (40.0-77.0); PLATELET COUNT (AUTO) 366 K/uL (130-400); RED BLOOD CELL COUNT(AUTO) 2.75 MIL/uL (4.00-5.50); RED CELL DISTRIBUTION WIDTH 14.7 % (11.0-15.5); WHITE BLOOD COUNT (AUTO) 7.8 K/uL (4.8-10.8)
[2023-10-16 05:47] LABS: ALBUMIN 1.8 g/dL (3.5-5.0); BILIRUBIN,TOTAL 0.5 mg/dL (0.2-1.0); CREATININE 0.7 mg/dL (0.5-1.5); POTASSIUM 4.2 mmol/L (3.5-5.1); TOTAL PROTEIN, SERUM 6.7 g/dL (6.0-8.3)
[2023-10-16] MEDS: PANTOPRAZOLE 40 MG TAB DR PO SCH (08:22)
[2023-10-16] MEDS: M.V.I. IV [ADULT] 10 ML in CLINIMIX-E 5%AA /D15%W 2000ML 2,000 ML IV ONE (21:12)
[2023-10-17] VITALS (8 sets, daily range): BP systolic 97–120; BP diastolic 56–74; PULSE 66–76; RESP 18–20; O2SAT 96–97
[2023-10-17 05:05] LABS: BASOPHILS # (AUTO) 0.05 K/uL (0.00-0.20); BASOPHILS % (AUTO) 0.6 % (0.0-5.0); EOSINOPHILS # (AUTO) 0.18 K/uL (0.00-0.70); EOSINOPHILS % (AUTO) 2.1 % (0.0-8.0); HEMATOCRIT 26.6 % (36-48); IMMATURE GRANULOCYTE ABSOLUTE 0.07 K/uL (0-1); LYMPHOCYTES # (AUTO) 1.8 K/uL (1.0-4.8); LYMPHOCYTES % (AUTO) 21.2 % (21.0-51.0); MEAN CORPUSCULAR HEMOGLOBIN 29.5 pg (27.0-33.0); MEAN CORPUSCULAR HGB CONC 31.6 g/dL (32.0-36.0); MEAN CORPUSCULAR VOLUME 93.3 fL (79-99); MONOCYTES # (AUTO) 1.2 K/uL (0.1-1.0); NEUTROPHILS # (AUTO) 5.2 K/uL (1.8-7.7); NEUTROPHILS % (AUTO) 61.3 % (40.0-77.0); PLATELET COUNT (AUTO) 331 K/uL (130-400); RED BLOOD CELL COUNT(AUTO) 2.85 MIL/uL (4.00-5.50); RED CELL DISTRIBUTION WIDTH 14.6 % (11.0-15.5); WHITE BLOOD COUNT (AUTO) 8.5 K/uL (4.8-10.8)
[2023-10-17 05:23] LABS: ALBUMIN 1.9 g/dL (3.5-5.0); BILIRUBIN,TOTAL 0.4 mg/dL (0.2-1.0); CREATININE 0.7 mg/dL (0.5-1.5); POTASSIUM 4.1 mmol/L (3.5-5.1); TOTAL PROTEIN, SERUM 6.9 g/dL (6.0-8.3)
[2023-10-17] MEDS: M.V.I. IV [ADULT] 10 ML in CLINIMIX-E 5%AA /D15%W 2000ML 2,000 ML IV ONE (21:13)
[2023-10-17] MEDS: ACETAMINOPHEN 325 MG TAB PO PRN (21:21)
[2023-10-18] VITALS (8 sets, daily range): BP systolic 96–117; BP diastolic 58–72; PULSE 60–75; RESP 18–19; O2SAT 97
[2023-10-18 06:56] LABS: BASOPHILS # (AUTO) 0.06 K/uL (0.00-0.20); BASOPHILS % (AUTO) 0.8 % (0.0-5.0); EOSINOPHILS # (AUTO) 0.29 K/uL (0.00-0.70); EOSINOPHILS % (AUTO) 3.7 % (0.0-8.0); IMMATURE GRANULOCYTE ABSOLUTE 0.05 K/uL (0-1); LYMPHOCYTES # (AUTO) 1.9 K/uL (1.0-4.8); LYMPHOCYTES % (AUTO) 24.5 % (21.0-51.0); MEAN CORPUSCULAR HEMOGLOBIN 30.3 pg (27.0-33.0); MEAN CORPUSCULAR HGB CONC 32.2 g/dL (32.0-36.0); MEAN CORPUSCULAR VOLUME 94.1 fL (79-99); MONOCYTES # (AUTO) 1.1 K/uL (0.1-1.0); MONOCYTES % (AUTO) 14.7 % (3.0-13.0); NEUTROPHILS # (AUTO) 4.3 K/uL (1.8-7.7); NEUTROPHILS % (AUTO) 55.7 % (40.0-77.0); PLATELET COUNT (AUTO) 320 K/uL (130-400); RED BLOOD CELL COUNT(AUTO) 2.87 MIL/uL (4.00-5.50); RED CELL DISTRIBUTION WIDTH 14.7 % (11.0-15.5); WHITE BLOOD COUNT (AUTO) 7.7 K/uL (4.8-10.8)
[2023-10-18 07:24] LABS: ALBUMIN 1.9 g/dL (3.5-5.0); BILIRUBIN,TOTAL 0.3 mg/dL (0.2-1.0); CREATININE 0.7 mg/dL (0.5-1.5); POTASSIUM 4.1 mmol/L (3.5-5.1)
[2023-10-19] VITALS (8 sets, daily range): BP systolic 95–112; BP diastolic 47–60; PULSE 72–84; RESP 18–19; O2SAT 97–98
[2023-10-19 06:14] LABS: BASOPHILS # (AUTO) 0.06 K/uL (0.00-0.20); BASOPHILS % (AUTO) 0.7 % (0.0-5.0); EOSINOPHILS # (AUTO) 0.26 K/uL (0.00-0.70); EOSINOPHILS % (AUTO) 2.9 % (0.0-8.0); HEMATOCRIT 29.6 % (36-48); IMMATURE GRANULOCYTE ABSOLUTE 0.07 K/uL (0-1); LYMPHOCYTES # (AUTO) 2.2 K/uL (1.0-4.8); LYMPHOCYTES % (AUTO) 24.4 % (21.0-51.0); MEAN CORPUSCULAR HEMOGLOBIN 29.6 pg (27.0-33.0); MEAN CORPUSCULAR HGB CONC 31.8 g/dL (32.0-36.0); MEAN CORPUSCULAR VOLUME 93.1 fL (79-99); MONOCYTES # (AUTO) 1.3 K/uL (0.1-1.0); MONOCYTES % (AUTO) 14.3 % (3.0-13.0); NEUTROPHILS # (AUTO) 5.1 K/uL (1.8-7.7); NEUTROPHILS % (AUTO) 56.9 % (40.0-77.0); PLATELET COUNT (AUTO) 297 K/uL (130-400); RED BLOOD CELL COUNT(AUTO) 3.18 MIL/uL (4.00-5.50); RED CELL DISTRIBUTION WIDTH 14.6 % (11.0-15.5)
[2023-10-19 06:41] LABS: ALBUMIN 2.2 g/dL (3.5-5.0); BILIRUBIN,TOTAL 0.3 mg/dL (0.2-1.0); CREATININE 0.7 mg/dL (0.5-1.5); POTASSIUM 4.5 mmol/L (3.5-5.1); TOTAL PROTEIN, SERUM 7.5 g/dL (6.0-8.3)
[2023-10-19] MEDS: KETOROLAC 15MG/ML VIAL (15MG/ML) IV PRN (20:21)
[2023-10-20] VITALS (8 sets, daily range): BP systolic 95–136; BP diastolic 50–64; PULSE 58–101; RESP 19–20; TEMP 99.5; O2SAT 98
[2023-10-20] MEDS: HYDROCODONE/ACETAMINOPHEN 5/325 MG TAB PO ONE (00:36)
[2023-10-20 05:25] LABS: BASOPHILS # (AUTO) 0.06 K/uL (0.00-0.20); BASOPHILS % (AUTO) 0.5 % (0.0-5.0); EOSINOPHILS # (AUTO) 0.21 K/uL (0.00-0.70); EOSINOPHILS % (AUTO) 1.7 % (0.0-8.0); HEMATOCRIT 29.1 % (36-48); IMMATURE GRANULOCYTE ABSOLUTE 0.11 K/uL (0-1); LYMPHOCYTES # (AUTO) 2.4 K/uL (1.0-4.8); LYMPHOCYTES % (AUTO) 18.8 % (21.0-51.0); MEAN CORPUSCULAR HEMOGLOBIN 29.9 pg (27.0-33.0); MEAN CORPUSCULAR VOLUME 93.6 fL (79-99); MONOCYTES # (AUTO) 1.7 K/uL (0.1-1.0); MONOCYTES % (AUTO) 13.4 % (3.0-13.0); NEUTROPHILS # (AUTO) 8.2 K/uL (1.8-7.7); NEUTROPHILS % (AUTO) 64.7 % (40.0-77.0); PLATELET COUNT (AUTO) 312 K/uL (130-400); RED BLOOD CELL COUNT(AUTO) 3.11 MIL/uL (4.00-5.50); WHITE BLOOD COUNT (AUTO) 12.7 K/uL (4.8-10.8)
[2023-10-20 05:40] LABS: ALBUMIN 2.2 g/dL (3.5-5.0); BILIRUBIN,TOTAL 0.3 mg/dL (0.2-1.0); CREATININE 1.2 mg/dL (0.5-1.5); POTASSIUM 4.9 mmol/L (3.5-5.1); TOTAL PROTEIN, SERUM 7.6 g/dL (6.0-8.3)
[2023-10-20] MEDS ORDERED: SIME125C81 PO (13:59)
[2023-10-20] MEDS ORDERED: METR-172 PO (13:59)
[2023-10-20] MEDS ORDERED: LEVO750T39 PO (13:59)
[2023-10-20] MEDS ORDERED: DICY-20 PO (13:59)
[2023-10-20] MEDS ORDERED: 0.9% NACL 500ML IV.SOLN 500 ML IV SCH (14:00)
[2023-10-20] MEDS: ACETAMINOPHEN 325 MG TAB PO PRN (20:04)
[2023-10-21] VITALS (7 sets, daily range): BP systolic 94–105; BP diastolic 41–69; PULSE 85–98; RESP 18–20; O2SAT 93–96
[2023-10-21 05:37] LABS: BASOPHILS # (AUTO) 0.07 K/uL (0.00-0.20); BASOPHILS % (AUTO) 0.4 % (0.0-5.0); EOSINOPHILS # (AUTO) 0.06 K/uL (0.00-0.70); EOSINOPHILS % (AUTO) 0.4 % (0.0-8.0); HEMATOCRIT 28.5 % (36-48); LYMPHOCYTES # (AUTO) 1.9 K/uL (1.0-4.8); LYMPHOCYTES % (AUTO) 11.8 % (21.0-51.0); MEAN CORPUSCULAR HGB CONC 32.6 g/dL (32.0-36.0); MEAN CORPUSCULAR VOLUME 91.9 fL (79-99); MONOCYTES # (AUTO) 2.1 K/uL (0.1-1.0); MONOCYTES % (AUTO) 12.9 % (3.0-13.0); NEUTROPHILS # (AUTO) 12.1 K/uL (1.8-7.7); NEUTROPHILS % (AUTO) 73.9 % (40.0-77.0); PLATELET COUNT (AUTO) 297 K/uL (130-400); RED CELL DISTRIBUTION WIDTH 15.1 % (11.0-15.5); WHITE BLOOD COUNT (AUTO) 16.4 K/uL (4.8-10.8)
[2023-10-21 05:52] LABS: BILIRUBIN,TOTAL 0.4 mg/dL (0.2-1.0); CREATININE 0.9 mg/dL (0.5-1.5); MAGNESIUM 2.2 mg/dL (1.80-2.40); POTASSIUM 4.1 mmol/L (3.5-5.1); TOTAL PROTEIN, SERUM 7.6 g/dL (6.0-8.3)
[2023-10-22] VITALS: BP 90/56; PULSE 81; RESP 18
[2023-10-22 04:00] VITALS: BP 98/52; PULSE 80; RESP 18
[2023-10-22 08:00] VITALS: BP 92/66; PULSE 82; RESP 18; O2SAT 90
[2023-10-22 10:42] LABS: BASOPHILS # (AUTO) 0.04 K/uL (0.00-0.20); BASOPHILS % (AUTO) 0.4 % (0.0-5.0); EOSINOPHILS # (AUTO) 0.15 K/uL (0.00-0.70); EOSINOPHILS % (AUTO) 1.4 % (0.0-8.0); IMMATURE GRANULOCYTE ABSOLUTE 0.07 K/uL (0-1); LYMPHOCYTES # (AUTO) 1.8 K/uL (1.0-4.8); LYMPHOCYTES % (AUTO) 16.8 % (21.0-51.0); MEAN CORPUSCULAR HEMOGLOBIN 29.8 pg (27.0-33.0); MEAN CORPUSCULAR HGB CONC 32.5 g/dL (32.0-36.0); MEAN CORPUSCULAR VOLUME 91.8 fL (79-99); MONOCYTES # (AUTO) 1.2 K/uL (0.1-1.0); MONOCYTES % (AUTO) 11.1 % (3.0-13.0); NEUTROPHILS # (AUTO) 7.4 K/uL (1.8-7.7); NEUTROPHILS % (AUTO) 69.6 % (40.0-77.0); PLATELET COUNT (AUTO) 312 K/uL (130-400); RED BLOOD CELL COUNT(AUTO) 3.05 MIL/uL (4.00-5.50); RED CELL DISTRIBUTION WIDTH 15.1 % (11.0-15.5); WHITE BLOOD COUNT (AUTO) 10.6 K/uL (4.8-10.8)
[2023-10-22 10:51] LABS: CREATININE 1.1 mg/dL (0.5-1.5)
[2023-10-22 10:55] LABS: BILIRUBIN,TOTAL 0.3 mg/dL (0.2-1.0); TOTAL PROTEIN, SERUM 7.7 g/dL (6.0-8.3)
[2023-10-22 11:55] VITALS: BP 101/66; PULSE 77; RESP 18
[2023-10-22 12:40] LABS: ERYTHROCYTE SEDIMENTATION RATE 144 MM/HR (0-30)
[2023-10-22 13:03] LABS: B-TYPE NATRIURETIC PEPTIDE 74 pg/mL (0-100)
[2023-10-22 16:00] VITALS: BP 104/64; PULSE 79; RESP 18
[2023-10-22 20:00] VITALS: BP 100/53; PULSE 73; RESP 19; O2SAT 94
[2023-10-23] VITALS (7 sets, daily range): BP systolic 82–108; BP diastolic 46–64; PULSE 76–96; RESP 16–20; O2SAT 95–96
[2023-10-23 05:09] LABS: BASOPHILS # (AUTO) 0.03 K/uL (0.00-0.20); BASOPHILS % (AUTO) 0.2 % (0.0-5.0); EOSINOPHILS # (AUTO) 0.18 K/uL (0.00-0.70); EOSINOPHILS % (AUTO) 1.4 % (0.0-8.0); HEMATOCRIT 27.1 % (36-48); IMMATURE GRANULOCYTE ABSOLUTE 0.08 K/uL (0-1); LYMPHOCYTES # (AUTO) 1.5 K/uL (1.0-4.8); LYMPHOCYTES % (AUTO) 11.9 % (21.0-51.0); MEAN CORPUSCULAR HEMOGLOBIN 29.6 pg (27.0-33.0); MEAN CORPUSCULAR HGB CONC 32.8 g/dL (32.0-36.0); MONOCYTES % (AUTO) 7.5 % (3.0-13.0); NEUTROPHILS # (AUTO) 10.2 K/uL (1.8-7.7); NEUTROPHILS % (AUTO) 78.4 % (40.0-77.0); PLATELET COUNT (AUTO) 353 K/uL (130-400); RED BLOOD CELL COUNT(AUTO) 3.01 MIL/uL (4.00-5.50); RED CELL DISTRIBUTION WIDTH 14.8 % (11.0-15.5)
[2023-10-23 05:32] LABS: BILIRUBIN,TOTAL 0.4 mg/dL (0.2-1.0); CREATININE 0.9 mg/dL (0.5-1.5); TOTAL PROTEIN, SERUM 7.4 g/dL (6.0-8.3)
[2023-10-24] VITALS (7 sets, daily range): BP systolic 96–113; BP diastolic 56–64; PULSE 73–91; RESP 18–20; O2SAT 95–96
[2023-10-24 05:18] LABS: BASOPHILS # (AUTO) 0.04 K/uL (0.00-0.20); BASOPHILS % (AUTO) 0.4 % (0.0-5.0); EOSINOPHILS # (AUTO) 0.36 K/uL (0.00-0.70); EOSINOPHILS % (AUTO) 3.7 % (0.0-8.0); HEMATOCRIT 26.7 % (36-48); IMMATURE GRANULOCYTE ABSOLUTE 0.06 K/uL (0-1); LYMPHOCYTES % (AUTO) 20.2 % (21.0-51.0); MEAN CORPUSCULAR HEMOGLOBIN 29.7 pg (27.0-33.0); MEAN CORPUSCULAR HGB CONC 32.2 g/dL (32.0-36.0); MEAN CORPUSCULAR VOLUME 92.1 fL (79-99); MONOCYTES % (AUTO) 10.2 % (3.0-13.0); NEUTROPHILS # (AUTO) 6.3 K/uL (1.8-7.7); NEUTROPHILS % (AUTO) 64.9 % (40.0-77.0); PLATELET COUNT (AUTO) 308 K/uL (130-400); RED CELL DISTRIBUTION WIDTH 14.8 % (11.0-15.5); WHITE BLOOD COUNT (AUTO) 9.7 K/uL (4.8-10.8)
[2023-10-24 05:30] LABS: ALBUMIN 1.9 g/dL (3.5-5.0); BILIRUBIN,TOTAL 0.3 mg/dL (0.2-1.0); POTASSIUM 4.2 mmol/L (3.5-5.1); TOTAL PROTEIN, SERUM 7.4 g/dL (6.0-8.3)
[2023-10-24] MEDS ORDERED: METOCLOPRAMIDE 10 MG/2 ML VIAL IVP PRN (10:00)
[2023-10-24] MEDS ORDERED: MONT-39 PO (19:26)
[2023-10-25] VITALS: BP 111/60; PULSE 72; RESP 20
[2023-10-25 02:15] VITALS: PULSE 72; RESP 18; O2SAT 97
[2023-10-25 04:00] VITALS: BP 104/55; PULSE 78; RESP 20
[2023-10-25 05:15] LABS: BASOPHILS # (AUTO) 0.05 K/uL (0.00-0.20); BASOPHILS % (AUTO) 0.5 % (0.0-5.0); EOSINOPHILS # (AUTO) 0.35 K/uL (0.00-0.70); EOSINOPHILS % (AUTO) 3.6 % (0.0-8.0); HEMATOCRIT 27.9 % (36-48); IMMATURE GRANULOCYTE ABSOLUTE 0.08 K/uL (0-1); LYMPHOCYTES # (AUTO) 2.1 K/uL (1.0-4.8); LYMPHOCYTES % (AUTO) 22.1 % (21.0-51.0); MEAN CORPUSCULAR HEMOGLOBIN 29.5 pg (27.0-33.0); MEAN CORPUSCULAR HGB CONC 31.5 g/dL (32.0-36.0); MEAN CORPUSCULAR VOLUME 93.6 fL (79-99); MONOCYTES # (AUTO) 0.8 K/uL (0.1-1.0); MONOCYTES % (AUTO) 7.9 % (3.0-13.0); NEUTROPHILS # (AUTO) 6.3 K/uL (1.8-7.7); NEUTROPHILS % (AUTO) 65.1 % (40.0-77.0); PLATELET COUNT (AUTO) 290 K/uL (130-400); RED BLOOD CELL COUNT(AUTO) 2.98 MIL/uL (4.00-5.50); RED CELL DISTRIBUTION WIDTH 14.9 % (11.0-15.5); WHITE BLOOD COUNT (AUTO) 9.6 K/uL (4.8-10.8)
[2023-10-25 05:39] LABS: ALBUMIN 2.1 g/dL (3.5-5.0); BILIRUBIN,TOTAL 0.3 mg/dL (0.2-1.0); POTASSIUM 3.8 mmol/L (3.5-5.1); TOTAL PROTEIN, SERUM 7.7 g/dL (6.0-8.3)
[2023-10-25 08:00] VITALS: BP 115/66; PULSE 76; RESP 18
[2023-10-25 10:45] VITALS: O2SAT 97
[2023-10-25 12:00] VITALS: BP 108/70; PULSE 77; RESP 18
== END 2023-10-25 16:15 | disposition home or self-care (01) | DRG 330 ==
LOC: EDH 05:44 → EDHIP 05:45 → 2CH 09:34 → 3DH 10-04 20:08
PROVIDERS: ADMIT Hospitalist; ATTEND Hospitalist
PROC: 0W9G3ZZ Drainage of Peritoneal Cavity, Percutaneous Approach (ICD-10-PCS; 2023-10-04)
PROC: 0D1B0Z4 Bypass Ileum to Cutaneous, Open Approach (ICD-10-PCS; principal; 2023-10-08 11:40)
PROC: 0DTN0ZZ Resection of Sigmoid Colon, Open Approach (ICD-10-PCS; 2023-10-08 11:40)
PROC: 0DB80ZZ Excision of Small Intestine, Open Approach (ICD-10-PCS; 2023-10-08 11:40)
DX: K57.20 Diverticulitis of large intestine with perforation and abscess without bleeding (principal); J90 Pleural effusion, not elsewhere classified; K55.9 Vascular disorder of intestine, unspecified; K56.7 Ileus, unspecified; K91.89 Other postprocedural complications and disorders of digestive system; J98.11 Atelectasis; N73.9 Female pelvic inflammatory disease, unspecified; E66.9 Obesity, unspecified; J45.909 Unspecified asthma, uncomplicated; K52.9 Noninfective gastroenteritis and colitis, unspecified; K66.0 Peritoneal adhesions (postprocedural) (postinfection); B96.29 Other Escherichia coli [E. coli] as the cause of diseases classified elsewhere; N28.1 Cyst of kidney, acquired; Z68.30 Body mass index [BMI] 30.0-30.9, adult; Z79.2 Long term (current) use of antibiotics; Z87.891 Personal history of nicotine dependence; Z98.51 Tubal ligation status
CPT/HCPCS: 10009; 36415; 71045; 74018; 74176; 74177; 74178; 76604; 77012; 80048; 80053; 80061; 81001; 82306; 82550; 82948; 83036; 83540; 83550; 83605; 83690; 83735; 83880; 84100; 84443; 84484; 85025; 85610; 85651; 85730; 86140; 87040; 87070; 87071; 87076; 87077; 87186; 87205; 88307; 88309; 93971; 94640; 94667; 99151; 99153; 99291; A4344; C1894; C9113; G0378; J1170; J1450; J1644; J1650; J1756; J1885; J1940; J1956; J2175; J2250; J2270; J2405; J2543; J2704; J2710; J2765; J2795; J2920; J3010; J3475; J3490; J7050; J7120; Q0163; Q9963; Q9967; A4216; A4222; A4223; A4452; A4600; A4649; A4930; C1713; C1769

== ENCOUNTER 2023-10-28 09:33 | Inpatient (IN) | payer OTHER ==
[~2023-10-28] VITALS: Ht 167.6 cm; Wt 76.4 kg
[~2023-10-28 09:33] MED LIST changes: +DICY-20 PO; +LEVO750T39 PO; -LISI5TAB21 PO; +METR-172 PO; +MONT-39 PO; +SIME125C81 PO
[2023-10-28 10:09] LABS: BASOPHILS # (AUTO) 0.08 K/uL (0.00-0.20); BASOPHILS % (AUTO) 0.6 % (0.0-5.0); EOSINOPHILS # (AUTO) 0.18 K/uL (0.00-0.70); EOSINOPHILS % (AUTO) 1.4 % (0.0-8.0); HEMATOCRIT 33.4 % (36-48); IMMATURE GRANULOCYTE ABSOLUTE 0.08 K/uL (0-1); LYMPHOCYTES # (AUTO) 2.5 K/uL (1.0-4.8); LYMPHOCYTES % (AUTO) 19.4 % (21.0-51.0); MEAN CORPUSCULAR HEMOGLOBIN 29.6 pg (27.0-33.0); MEAN CORPUSCULAR HGB CONC 31.4 g/dL (32.0-36.0); MEAN CORPUSCULAR VOLUME 94.1 fL (79-99); MONOCYTES % (AUTO) 7.6 % (3.0-13.0); NEUTROPHILS % (AUTO) 70.4 % (40.0-77.0); PLATELET COUNT (AUTO) 206 K/uL (130-400); RED BLOOD CELL COUNT(AUTO) 3.55 MIL/uL (4.00-5.50); RED CELL DISTRIBUTION WIDTH 14.8 % (11.0-15.5); WHITE BLOOD COUNT (AUTO) 12.8 K/uL (4.8-10.8)
[2023-10-28 10:15] LABS: APPEARANCE,URINE CLEAR (CLEAR); BILIRUBIN,URINE NEGATIVE (NEGATIVE); COLOR,URINE YELLOW (YELLOW); GLUCOSE, URINE (UA) NEGATIVE (NEGATIVE); KETONES,URINE NEGATIVE (NEGATIVE); LEUKOCYTE ESTERASE ,URINE 25 Leu/uL (NEGATIVE); NITRATE,URINE NEGATIVE (NEGATIVE); OCCULT BLOOD,URINE NEGATIVE (NEGATIVE); PH,URINE 5.5 (5.0-8.0); PROTEIN,URINE 30 mg/dL (NEGATIVE); UROBILINOGEN,URINE 0.2 mg/dL (0.2-1.0)
[2023-10-28 10:18] LABS: ADD UA MICROSCOPIC YES
[2023-10-28 10:20] LABS: ALBUMIN 2.7 g/dL (3.5-5.0); BILIRUBIN,TOTAL 0.3 mg/dL (0.2-1.0); TOTAL PROTEIN, SERUM 8.6 g/dL (6.0-8.3)
[2023-10-28 10:20] LABS: MUCUS,URINE FEW LPF (None Seen); SQUAMOUS EPITHELIAL CELL,UR RARE /HPF (0-2)
[2023-10-28] MEDS: FAMOTIDINE 20MG VIAL IV ONE (11:20)
[2023-10-28] MEDS: METOCLOPRAMIDE 10 MG/2 ML VIAL IVP ONE (11:23)
[2023-10-28] MEDS: CEFTRIAXONE 2GM VIAL IVPB ONE (11:24)
[2023-10-28] MEDS: 0.9%NACL 1000ML 1,434 ML IV ONE (11:25)
[2023-10-28 11:38] LABS: RAPID GROUP A STREP negative (NEGATIVE)
[2023-10-28 11:48] LABS: INFLUENZA TYPE A Negative For Type A (NEGATIVE); INFLUENZA TYPE B Negative For Type B (NEGATIVE)
[2023-10-28 12:05] LABS: COVID19 (SARS ANTIGEN RAPID) PRESUMPTIVE NEGATIVE (NEGATIVE)
[2023-10-28] MEDS ORDERED: 0.9%NACL 50ML IV SCH (14:00)
[2023-10-28 15:23] LABS: MAGNESIUM 1.8 mg/dL (1.80-2.40)
[2023-10-28] MEDS: ZOSYN 3.375GM +NS 50ML IVPB SCH (16:17)
[2023-10-28] MEDS: 0.9%NACL 1000ML 1,000 ML IV SCH (16:17)
[2023-10-28] MEDS: ONDANSETRON 4MG INJ IVP PRN (16:22)
[2023-10-28] MEDS: MORPHINE 2 MG SYG IVP PRN (16:22)
[2023-10-28] MEDS: ACETAMINOPHEN 500 MG TABLET PO PRN (19:56)
[2023-10-28 20:35] VITALS: PULSE 81; RESP 20; O2SAT 95
[2023-10-28] MEDS: FAMOTIDINE 20MG VIAL IV SCH (21:29)
[2023-10-28 23:15] VITALS: BP 113/60; PULSE 94; RESP 18
[2023-10-28 23:20] VITALS: O2SAT 100
[2023-10-29] VITALS (8 sets, daily range): BP systolic 98–118; BP diastolic 50–71; PULSE 83–88; RESP 14–18; O2SAT 93
[2023-10-29 05:25] LABS: BASOPHILS # (AUTO) 0.09 K/uL (0.00-0.20); BASOPHILS % (AUTO) 0.9 % (0.0-5.0); EOSINOPHILS # (AUTO) 0.24 K/uL (0.00-0.70); EOSINOPHILS % (AUTO) 2.3 % (0.0-8.0); HEMATOCRIT 25.5 % (36-48); IMMATURE GRANULOCYTE ABSOLUTE 0.09 K/uL (0-1); LYMPHOCYTES # (AUTO) 1.8 K/uL (1.0-4.8); LYMPHOCYTES % (AUTO) 17.4 % (21.0-51.0); MEAN CORPUSCULAR HEMOGLOBIN 29.7 pg (27.0-33.0); MEAN CORPUSCULAR HGB CONC 32.5 g/dL (32.0-36.0); MEAN CORPUSCULAR VOLUME 91.4 fL (79-99); MONOCYTES # (AUTO) 0.9 K/uL (0.1-1.0); MONOCYTES % (AUTO) 8.9 % (3.0-13.0); NEUTROPHILS # (AUTO) 7.2 K/uL (1.8-7.7); NEUTROPHILS % (AUTO) 69.6 % (40.0-77.0); PLATELET COUNT (AUTO) 166 K/uL (130-400); RED BLOOD CELL COUNT(AUTO) 2.79 MIL/uL (4.00-5.50); RED CELL DISTRIBUTION WIDTH 15.1 % (11.0-15.5); WHITE BLOOD COUNT (AUTO) 10.4 K/uL (4.8-10.8)
[2023-10-29 05:56] LABS: ALBUMIN 2.2 g/dL (3.5-5.0); BILIRUBIN,TOTAL 0.3 mg/dL (0.2-1.0); CREATININE 0.7 mg/dL (0.5-1.5); MAGNESIUM 1.7 mg/dL (1.80-2.40); POTASSIUM 3.8 mmol/L (3.5-5.1); TOTAL PROTEIN, SERUM 6.9 g/dL (6.0-8.3)
[2023-10-29] MEDS: IPRATROPIUM/ALBUTEROL SULFATE 3 ML SOLUTION IH PRN (07:55)
[2023-10-29] MEDS: ZOSYN 3.375GM +NS 50ML IVPB SCH (10:25)
[2023-10-30] VITALS (9 sets, daily range): BP systolic 99–124; BP diastolic 58–65; PULSE 80–92; RESP 18–20; O2SAT 94–95
[2023-10-30] MEDS ORDERED: RENAL DOSE IV SCH (11:00)
[2023-10-30] MEDS ORDERED: POTASSIUM CHLORIDE 10% ELIXIR 20 MEQ/15 ML UDCUP PO PRN (11:00)
[2023-10-30] MEDS ORDERED: POTASSIUM CHLORIDE 20MEQ/100ML 100 ML IV PRN (11:00)
[2023-10-30] MEDS: MAGNESIUM 2GM PREMIX 50ML 50 ML IV PRN (17:54)
[2023-10-30] MEDS: KETOROLAC 15MG/ML VIAL (15MG/ML) IV PRN (18:09)
[2023-10-31] VITALS (8 sets, daily range): BP systolic 106–119; BP diastolic 57–67; PULSE 63–82; RESP 18; O2SAT 95–100
[2023-10-31 06:00] LABS: HEMATOCRIT 24.3 % (36-48); MEAN CORPUSCULAR HEMOGLOBIN 29.7 pg (27.0-33.0); MEAN CORPUSCULAR HGB CONC 32.1 g/dL (32.0-36.0); MEAN CORPUSCULAR VOLUME 92.4 fL (79-99); RED BLOOD CELL COUNT(AUTO) 2.63 MIL/uL (4.00-5.50); WHITE BLOOD COUNT (AUTO) 10.4 K/uL (4.8-10.8)
[2023-10-31 06:19] LABS: CREATININE 0.6 mg/dL (0.5-1.5); MAGNESIUM 2.1 mg/dL (1.80-2.40); POTASSIUM 3.7 mmol/L (3.5-5.1)
[2023-10-31] MEDS: PANTOPRAZOLE 40 MG/VIAL IVP SCH (12:36)
[2023-10-31 14:21] LABS: RETICULOCYTE % (AUTO) 1.99 % (0.42-2.23)
[2023-10-31 15:47] LABS: % IRON SATURATION 17.5 % (22-44)
[2023-11-01] VITALS (11 sets, daily range): BP systolic 112–126; BP diastolic 63–73; PULSE 73–83; RESP 14–18; O2SAT 93–98
[2023-11-01 03:54] LABS: HEMATOCRIT 24.1 % (36-48); MEAN CORPUSCULAR HEMOGLOBIN 29.9 pg (27.0-33.0); MEAN CORPUSCULAR HGB CONC 32.4 g/dL (32.0-36.0); MEAN CORPUSCULAR VOLUME 92.3 fL (79-99); RED BLOOD CELL COUNT(AUTO) 2.61 MIL/uL (4.00-5.50); RED CELL DISTRIBUTION WIDTH 14.8 % (11.0-15.5); WHITE BLOOD COUNT (AUTO) 11.1 K/uL (4.8-10.8)
[2023-11-01 04:08] LABS: CREATININE 0.6 mg/dL (0.5-1.5); POTASSIUM 3.4 mmol/L (3.5-5.1)
[2023-11-01] MEDS: KCL 20 MEQ ERTAB PO PRN (06:15)
[2023-11-02 04:08] VITALS: BP 124/77; PULSE 76; RESP 17
[2023-11-02 04:44] LABS: HEMATOCRIT 23.6 % (36-48); MEAN CORPUSCULAR HEMOGLOBIN 29.6 pg (27.0-33.0); MEAN CORPUSCULAR HGB CONC 32.6 g/dL (32.0-36.0); MEAN CORPUSCULAR VOLUME 90.8 fL (79-99); RED BLOOD CELL COUNT(AUTO) 2.6 MIL/uL (4.00-5.50); RED CELL DISTRIBUTION WIDTH 14.9 % (11.0-15.5); WHITE BLOOD COUNT (AUTO) 9.9 K/uL (4.8-10.8)
[2023-11-02 05:05] LABS: CREATININE 0.6 mg/dL (0.5-1.5); POTASSIUM 3.3 mmol/L (3.5-5.1)
[2023-11-02 06:42] VITALS: PULSE 86; RESP 18; O2SAT 95
[2023-11-02 08:00] VITALS: BP 118/73; PULSE 79; RESP 18
[2023-11-02 12:00] VITALS: BP 115/63; PULSE 77; RESP 18
[2023-11-02] MEDS ORDERED: ONDA4TAB10 PO (13:29)
== END 2023-11-02 14:10 | disposition home or self-care (01) | DRG 641 ==
LOC: EDH 09:33 → EDHIP 09:34 → UNDOADMIN 13:40 → EDHIP 13:40 → 4DH 22:06
PROVIDERS: ADMIT Internal Medicine; ATTEND Internal Medicine
DX: E86.0 Dehydration (principal); E66.9 Obesity, unspecified; I10 Essential (primary) hypertension; J45.909 Unspecified asthma, uncomplicated; M54.50 Low back pain, unspecified; Z87.891 Personal history of nicotine dependence; Z90.49 Acquired absence of other specified parts of digestive tract; Z93.3 Colostomy status; Z98.51 Tubal ligation status; Z68.27 Body mass index [BMI] 27.0-27.9, adult
CPT/HCPCS: 36415; 71045; 74176; 80048; 80053; 81001; 82607; 82728; 83605; 83690; 83735; 84145; 85025; 85027; 85651; 86140; 87040; 87070; 87076; 87420; 87426; 87804; 87880; 94640; 94664; C9113; G0378; J0696; J1885; J2270; J2405; J2543; J2765; J3475; J3490; J7030

== ENCOUNTER 2024-04-10 09:12 | Emergency (ER) | payer MEDICAID ==
[~2024-04-10] VITALS: Ht 152.4 cm; Wt 68.0 kg
[~2024-04-10 09:12] MED LIST changes: -DICY-20 PO; +DICY10CA2 PO; +ONDA-243 PO
[2024-04-10 10:02] LABS: APPEARANCE,URINE CLEAR (CLEAR); BILIRUBIN,URINE NEGATIVE (NEGATIVE); COLOR,URINE LIGHT-YELLOW (YELLOW); GLUCOSE, URINE (UA) NEGATIVE (NEGATIVE); KETONES,URINE NEGATIVE (NEGATIVE); LEUKOCYTE ESTERASE ,URINE 250 Leu/uL (NEGATIVE); NITRATE,URINE NEGATIVE (NEGATIVE); OCCULT BLOOD,URINE NEGATIVE (NEGATIVE); PROTEIN,URINE NEGATIVE (NEGATIVE); UROBILINOGEN,URINE 0.2 mg/dL (0.2-1.0)
[2024-04-10 10:07] LABS: POTASSIUM 3.7 mmol/L (3.5-5.1)
[2024-04-10 10:15] LABS: ADD UA MICROSCOPIC YES
[2024-04-10] MEDS ORDERED: IOHEXOL-350 75 ML VIAL IV ONE (10:19)
[2024-04-10 10:22] LABS: BASOPHILS # (AUTO) 0.07 K/uL (0.00-0.20); EOSINOPHILS # (AUTO) 0.38 K/uL (0.00-0.70); EOSINOPHILS % (AUTO) 5.3 % (0.0-8.0); HEMATOCRIT 39.6 % (36-48); IMMATURE GRANULOCYTE ABSOLUTE 0.01 K/uL (0-1); LYMPHOCYTES % (AUTO) 42.1 % (21.0-51.0); MEAN CORPUSCULAR HEMOGLOBIN 30.8 pg (27.0-33.0); MEAN CORPUSCULAR HGB CONC 32.6 g/dL (32.0-36.0); MEAN CORPUSCULAR VOLUME 94.5 fL (79-99); MONOCYTES # (AUTO) 0.7 K/uL (0.1-1.0); NEUTROPHILS % (AUTO) 41.5 % (40.0-77.0); PLATELET COUNT (AUTO) 238 K/uL (130-400); RED BLOOD CELL COUNT(AUTO) 4.19 MIL/uL (4.00-5.50); RED CELL DISTRIBUTION WIDTH 12.7 % (11.0-15.5); WHITE BLOOD COUNT (AUTO) 7.1 K/uL (4.8-10.8)
[2024-04-10 10:27] LABS: MUCUS,URINE RARE LPF (None Seen); SQUAMOUS EPITHELIAL CELL,UR RARE /HPF (0-2)
[2024-04-10 10:30] LABS: BACTERIA,URINE RARE /HPF (None Seen)
[2024-04-10] MEDS ORDERED: LACT10SO5 PO (11:07)
[2024-04-10 11:25] VITALS: BP 122/65; PULSE 59; RESP 18; TEMP 97.9; O2SAT 99
== END 2024-04-10 11:34 | disposition home or self-care (01) ==
LOC: EDH 09:12
DX: R10.31 Right lower quadrant pain (principal); K59.00 Constipation, unspecified; Z43.3 Encounter for attention to colostomy; E78.00 Pure hypercholesterolemia, unspecified; I10 Essential (primary) hypertension; J45.909 Unspecified asthma, uncomplicated; Z79.899 Other long term (current) drug therapy
CPT/HCPCS: 99285; 74177; 80048; 83690; 85025; 87086; 81001; 36415; Q9967

== ENCOUNTER → 2024-05-03 | Outpatient (CLI) | payer OTHER, SELFPAY ==
[~2024-05-03] MED LIST changes: +LACT10SO5 PO
== END | disposition home or self-care (01) ==
LOC: RAH 04-12 12:49
PROVIDERS: ATTEND Surgery
DX: K57.20 Diverticulitis of large intestine with perforation and abscess without bleeding (principal); Z93.2 Ileostomy status
CPT/HCPCS: 74270; Q9958

== ENCOUNTER 2024-11-30 08:00 | Inpatient (IN) | payer OTHER ==
[~2024-11-30] VITALS: Ht 157.5 cm; Wt 82.1 kg
[2024-11-30 09:00] LABS: BASOPHILS # (AUTO) 0.07 K/uL (0.00-0.20); EOSINOPHILS # (AUTO) 0.41 K/uL (0.00-0.70); IMMATURE GRANULOCYTE ABSOLUTE 0.01 K/uL (0-1); LYMPHOCYTES # (AUTO) 2.2 K/uL (1.0-4.8); LYMPHOCYTES % (AUTO) 31.9 % (21.0-51.0); MEAN CORPUSCULAR HEMOGLOBIN 30.3 pg (27.0-33.0); MEAN CORPUSCULAR HGB CONC 32.1 g/dL (32.0-36.0); MEAN CORPUSCULAR VOLUME 94.5 fL (79-99); MONOCYTES # (AUTO) 0.6 K/uL (0.1-1.0); MONOCYTES % (AUTO) 8.7 % (3.0-13.0); NEUTROPHILS # (AUTO) 3.5 K/uL (1.8-7.7); NEUTROPHILS % (AUTO) 52.3 % (40.0-77.0); PLATELET COUNT (AUTO) 247 K/uL (130-400); RED BLOOD CELL COUNT(AUTO) 4.02 MIL/uL (4.00-5.50); RED CELL DISTRIBUTION WIDTH 12.6 % (11.0-15.5); WHITE BLOOD COUNT (AUTO) 6.8 K/uL (4.8-10.8)
[2024-11-30 09:08] VITALS: BP 153/71; PULSE 72; RESP 18; TEMP 98.1
[2024-11-30] MEDS ORDERED: ACET-2743 PO (09:11)
[2024-11-30] MEDS ORDERED: salbutamol IH (09:11)
[2024-11-30 09:16] LABS: ALANINE AMINOTRANSFERASE 25 U/L (12-78); ALBUMIN 3.7 g/dL (3.5-5.0); ASPARTATE AMINOTRANSFERASE 19 U/L (10-37); BILIRUBIN,DIRECT < 0.1 mg/dL (0.0-0.3); BILIRUBIN,TOTAL 0.2 mg/dL (0.2-1.0); CARBON DIOXIDE 27 mmol/L (21-32); CHLORIDE 106 mmol/L (101-111); CREATININE 0.8 mg/dL (0.5-1.0); GLOMERULAR FILTR. RATE CALC 80 mL/min (>90); GLUCOSE,RANDOM 108 mg/dL (70-105); POTASSIUM 4.4 mmol/L (3.5-5.1); SODIUM SERUM 141 mmol/L (136-145); TOTAL PROTEIN, SERUM 7.6 g/dL (6.0-8.3); UREA NITROGEN, BLOOD 16 mg/dL (7-18)
[2024-11-30 09:20] LABS: INR 0.97 (0.85-1.15); PROTHROMBIN TIME 10.3 SEC (9.6-11.6)
--- NOTE | 2024-11-30 15:04 | HMCIMG ---
PORTABLE CHEST RADIOGRAPH INDICATION: PRE OP COMPARISON: 10/28/2023 FINDINGS: Heart size is normal. The pulmonary vascularity and timmy appear normal. No abnormal pulmonary parenchymal opacity or consolidation identified. Hyperexpansion of the lungs and flattening of the diaphragms suggests an underlying chronic obstructive pulmonary airway disease process. No significant pleural effusion noted. No pneumothorax detected. IMPRESSION: Findings suggesting the presence of an underlying chronic obstructive pulmonary airway disease process without superimposed pneumonia.
[2024-12-04] VITALS (26 sets, daily range): BP systolic 129–164; BP diastolic 67–92; PULSE 63–70; RESP 12–18; TEMP 97.4–98.1; O2SAT 97–98
[2024-12-04] MEDS: ceFAZolin SODIUM 2 GM VIAL ONE (07:01)
[2024-12-04] MEDS: LACTATED RINGERS 1000ML 1,000 ML IV ONE (07:01)
[2024-12-04] MEDS ORDERED: proPOFol 10 MG/ML 20ML VIAL IV ONE (10:05)
[2024-12-04] MEDS ORDERED: LIDOCAINE PF 100MG/5ML (2%) SYRINGE 5ML ONE (10:05)
[2024-12-04] MEDS ORDERED: MIDAZOLAM HCL 1 MG/ML 2ML VIAL ONE (10:05)
[2024-12-04] MEDS ORDERED: FENTanyl CITRate PF 50 MCG/1 ML 2ML VIAL ONE ×2 (10:06→11:33)
[2024-12-04] MEDS ORDERED: SUCCINYLCHOLINE CHLORIDE 20 MG/ML 10 ML VIAL ONE (10:06)
[2024-12-04] MEDS ORDERED: rocuRONium bROMide 10MG/1ML 5ML VL ONE (10:06)
[2024-12-04] MEDS ORDERED: ondanSETRON 4MG INJ ONE (11:00)
[2024-12-04] MEDS ORDERED: GLYCOPYRROLATE 0.2 MG/ML 5 ML VIAL ONE (11:07)
[2024-12-04] MEDS: SUGAMMADEX SODIUM 200 MG/2 ML VIAL IV ONE (11:23)
[2024-12-04] MEDS: MEPERIDINE-PF 50 MG/ML SYG ONE (12:18)
[2024-12-04] MEDS: LACTATED RINGERS 1000ML 1,000 ML IV SCH (13:30)
--- NOTE | 2024-12-04 13:38 | OP ---
Operative Note: DATE OF PROCEDURE: 12/04/24 SURGEON: PAUL LIN MD ADMINISTRATIVE UNDERWRITER: [] ANESTHESIA: [] General ANESTHESIOLOGIST/MUSICAL THERAPIST: [] PREOPERATIVE DIAGNOSIS: [] Ileostomy status POSTOPERATIVE DIAGNOSIS: [] The same SYNOPSIS: [] PROCEDURE: [] Closure of ileostomy ESTIMATED BLOOD LOSS: [] Minimal INDICATIONS: [] DESCRIPTION OF PROCEDURE: [] With the patient under general anesthesia I did the an elliptical incision around the loop ileostomy. Using cautery and blunt dissection I was able to get to the fascia in the ileostomy was completely freed. After this was done I transected one of the loop of the ileostomy with a ARVIN 75 blue. I did the same thing to the other looped of the ileostomy. Using a electrical device a remove the mesentery of this area. I then do a sdjy-ax-sond anastomosis using ARVIN 75 and closing the enterotomy with ARVIN 75 blue. I closed the mesenteric defect with a 3-0 Vicryl. I reinforced the anastomosis with 3-0 silk. After this was done and adequate hemostasis I reduced the small bowel to the abdomen. I closed the ileostomy site with the interrupted figure eight 0 Prolene sutures. After irrigation I placed 3-0 Vicryl to approximate subcutaneous tissue and the skin was closed with staplers. Local anesthesia was given to the patient PAUL LIN MD Dec 04, 2024 13:38
[2024-12-04] MEDS: ketOROlac 15MG/ML VIAL (15MG/ML) IV SCH (17:25)
[2024-12-05 01:05] VITALS: BP 116/73; PULSE 67; RESP 19; TEMP 98.1
[2024-12-05 04:14] LABS: BASOPHILS # (AUTO) 0.01 K/uL (0.00-0.20); BASOPHILS % (AUTO) 0.1 % (0.0-5.0); HEMATOCRIT 35.6 % (36-48); IMMATURE GRANULOCYTE ABSOLUTE 0.03 K/uL (0-1); LYMPHOCYTES # (AUTO) 1.4 K/uL (1.0-4.8); LYMPHOCYTES % (AUTO) 12.3 % (21.0-51.0); MEAN CORPUSCULAR HEMOGLOBIN 30.5 pg (27.0-33.0); MEAN CORPUSCULAR VOLUME 95.2 fL (79-99); MONOCYTES # (AUTO) 0.9 K/uL (0.1-1.0); MONOCYTES % (AUTO) 7.8 % (3.0-13.0); NEUTROPHILS # (AUTO) 9.4 K/uL (1.8-7.7); NEUTROPHILS % (AUTO) 79.5 % (40.0-77.0); PLATELET COUNT (AUTO) 234 K/uL (130-400); RED BLOOD CELL COUNT(AUTO) 3.74 MIL/uL (4.00-5.50); RED CELL DISTRIBUTION WIDTH 12.5 % (11.0-15.5); WHITE BLOOD COUNT (AUTO) 11.8 K/uL (4.8-10.8)
[2024-12-05 04:26] VITALS: BP 117/63; PULSE 46; RESP 18; TEMP 98.4
[2024-12-05 04:43] LABS: ALBUMIN 3.1 g/dL (3.5-5.0); BILIRUBIN,TOTAL 0.3 mg/dL (0.2-1.0); CREATININE 0.8 mg/dL (0.5-1.0); POTASSIUM 4.2 mmol/L (3.5-5.1); TOTAL PROTEIN, SERUM 6.8 g/dL (6.0-8.3)
[2024-12-05 08:00] VITALS: BP 110/63; PULSE 64; RESP 18; TEMP 98.2
[2024-12-05] MEDS: HEParin 5,000 UNIT VIAL SQ SCH (09:02)
--- NOTE | 2024-12-05 13:28 | NUR ---
DCP -- Home Patient speaks Estonian. Patient lives alone in a one bedroom house with a walk in shower. States she is unemployed, remains independent and does not drive. States she is able to complete ADL's on her own. States she has a walker with a seat. Denies home health services, home care provider or dialysis. PCP - Shreya Ramachandran MD Pharmacy - [facility]. Upon discharge, states She Taylor, Daughter [phone]/Kera Brush, Daughter [phone] and assist with care, as needed. HX - Status post Closure of ileostomy with Dr. Whalen Addendum: 12/05/24 at 1338 by JAYA BONILLA RN CM Amended: Links added.
[2024-12-05 16:00] VITALS: BP 148/74; PULSE 65; RESP 18; TEMP 98.5
--- NOTE | 2024-12-05 16:39 | PN ---
This is a 69-year-old female status post ileostomy reversal Interval history: This 69-year-old female seen in her room resting WBCs unremarkable hemoglobin stable Patient's pain controlled Patient on clear liquids and passing minimal flatus Patient compliant with the abdominal binder Physical exam General: Awake alert and oriented Heart: Regular rate and rhythm} Lungs: [Clear to auscultation no distress Abdomen: [ Incisions clean abdominal binder in place bandaging in place Assessment : This is a 69-year-old female status post ileostomy reversal Plan: Patient to remain on clear liquids today we will start advancement of diet tomorrow Patient to continue with IV fluids and IV antibiotics Dr. Whalen to be updated in patient's status Patient encouraged to ambulate Surgical team to follow patient closely Vitals/Labs Vital Signs Date Time Temp Pulse Resp B/P (MAP) Pulse Ox O2 Delivery O2 Flow Rate FiO2 12/05/24 16:00 98.4 65 18 148/74 95 Room Air 12/04/24 23:50 0 21 Laboratory Tests 12/05/24 03:43 Medications Current Medications Cefazolin Sodium 2 gm STK-MED ONCE .ROUTE Last administered on 12/04/24at 10:20; Start 12/04/24 at 06:37; Stop 12/04/24 at 06:37; Status DC Lactated Ringer's 1,000 ml @ As Directed STK-MED ONCE IV Last administered on 12/04/24at 07:01; Start 12/04/24 at 06:37; Stop 12/04/24 at 06:37; Status DC Lidocaine HCl 100 mg STK-MED ONCE .ROUTE; Start 12/04/24 at 10:05; Stop 12/04/24 at 10:06; Status DC Midazolam HCl 2 mg STK-MED ONCE .ROUTE; Start 12/04/24 at 10:05; Stop 12/04/24 at 10:06; Status DC Propofol 200 mg STK-MED ONCE IV; Start 12/04/24 at 10:05; Stop 12/04/24 at 10:06; Status DC Succinylcholine Chloride 200 mg STK-MED ONCE .ROUTE; Start 12/04/24 at 10:06; Stop 12/04/24 at 10:06; Status DC Rocuronium [place] 50 mg STK-MED ONCE .ROUTE; Start 12/04/24 at 10:06; Stop 12/04/24 at 10:06; Status DC Fentanyl Citrate 100 mcg STK-MED ONCE .ROUTE; Start 12/04/24 at 10:06; Stop 12/04/24 at 10:06; Status DC Ondansetron HCl 4 mg STK-MED ONCE .ROUTE; Start 12/04/24 at 11:00; Stop 12/04/24 at 11:01; Status DC Glycopyrrolate 1 mg STK-MED ONCE .ROUTE; Start 12/04/24 at 11:07; Stop 12/04/24 at 11:07; Status DC Fentanyl Citrate 100 mcg STK-MED ONCE .ROUTE; Start 12/04/24 at 11:33; Stop 12/04/24 at 11:33; Status DC Meperidine HCl 50 mg STK-MED ONCE .ROUTE Last administered on 12/04/24at 12:18; Start 12/04/24 at 12:15; Stop 12/04/24 at 12:16; Status DC Lactated Ringer's 1,000 ml @ 75 mls/hr [id number] IV Last administered on 12/05/24at 02:39; Start 12/04/24 at 13:30; Stop 01/03/25 at 13:29 Morphine Sulfate 4 mg Q6H PRN IVP; Start 12/04/24 at 17:30; Stop 12/11/24 at 17:29 Ketorolac Tromethamine 15 mg Q6H IV Last administered on 12/05/24at 11:09; Start 12/04/24 at 17:30; Stop 12/09/24 at 17:29 Ondansetron HCl 4 mg Q6H PRN IVP; Start 12/04/24 at 17:30; Stop 01/03/25 at 17:29 Heparin Sodium (Porcine) 5,000 unit TID SQ Last administered on 12/05/24at 09:02; Start 12/05/24 at 09:00; Stop 01/04/25 at 08:59 CELINE FLOWER Jr. Dec 05, 2024 16:39
[2024-12-05 19:48] VITALS: O2SAT 98
[2024-12-05 20:47] VITALS: BP 151/78; PULSE 71; RESP 19; TEMP 98.4
[2024-12-06] VITALS (9 sets, daily range): BP systolic 132–154; BP diastolic 62–89; PULSE 65–89; RESP 17–19; TEMP 98.1–99.3; O2SAT 92–96
[2024-12-06] MEDS: acetaMINOPHEN 500 MG TABLET PO PRN (08:15)
[2024-12-06] MEDS: ondanSETRON 4MG INJ IVP PRN (10:47)
[2024-12-06] MEDS: morPHINE 4 MG SYG IVP PRN (15:03)
--- NOTE | 2024-12-06 16:48 | PN ---
This is a 69-year-old female postop day two for ileostomy reversal Interval history: This 69-year-old female seen in her room resting Patient appears to be tolerating clear liquids Patient with the abdominal binder in place No new labs drawn today Patient is having positive flatus Physical exam General: Awake alert and oriented Heart: Regular rate and rhythm} Lungs: Clear to auscultation no distress Abdomen: [Soft, nontender, nondistended incision from surgery clean and dry bowel ostomy site with packing in place Assessment : This is a 69-year-old female status post ileostomy reversal Plan: Patient to be advanced to fulls but not further Patient encouraged to ambulate Repeat CBC and CMP tomorrow Surgical team to follow patient closely Dr. Novak to be updated in patient's status Vitals/Labs Vital Signs Date Time Temp Pulse Resp B/P (MAP) Pulse Ox O2 Delivery O2 Flow Rate FiO2 12/06/24 16:00 98.1 67 19 133/72 93 Nasal Cannula 2.0 12/05/24 19:48 21 Medications Current Medications Cefazolin Sodium 2 gm STK-MED ONCE .ROUTE Last administered on 12/04/24at 10:20; Start 12/04/24 at 06:37; Stop 12/04/24 at 06:37; Status DC Lactated Ringer's 1,000 ml @ As Directed STK-MED ONCE IV Last administered on 12/04/24at 07:01; Start 12/04/24 at 06:37; Stop 12/04/24 at 06:37; Status DC Lidocaine HCl 100 mg STK-MED ONCE .ROUTE; Start 12/04/24 at 10:05; Stop 12/04/24 at 10:06; Status DC Midazolam HCl 2 mg STK-MED ONCE .ROUTE; Start 12/04/24 at 10:05; Stop 12/04/24 at 10:06; Status DC Propofol 200 mg STK-MED ONCE IV; Start 12/04/24 at 10:05; Stop 12/04/24 at 10:06; Status DC Succinylcholine Chloride 200 mg STK-MED ONCE .ROUTE; Start 12/04/24 at 10:06; Stop 12/04/24 at 10:06; Status DC Rocuronium [place] 50 mg STK-MED ONCE .ROUTE; Start 12/04/24 at 10:06; Stop 12/04/24 at 10:06; Status DC Fentanyl Citrate 100 mcg STK-MED ONCE .ROUTE; Start 12/04/24 at 10:06; Stop 12/04/24 at 10:06; Status DC Ondansetron HCl 4 mg STK-MED ONCE .ROUTE; Start 12/04/24 at 11:00; Stop 12/04/24 at 11:01; Status DC Glycopyrrolate 1 mg STK-MED ONCE .ROUTE; Start 12/04/24 at 11:07; Stop 12/04/24 at 11:07; Status DC Fentanyl Citrate 100 mcg STK-MED ONCE .ROUTE; Start 12/04/24 at 11:33; Stop 12/04/24 at 11:33; Status DC Meperidine HCl 50 mg STK-MED ONCE .ROUTE Last administered on 12/04/24at 12:18; Start 12/04/24 at 12:15; Stop 12/04/24 at 12:16; Status DC Lactated Ringer's 1,000 ml @ 75 mls/hr [id number] IV Last administered on 12/06/24at 05:31; Start 12/04/24 at 13:30; Stop 01/03/25 at 13:29 Morphine Sulfate 4 mg Q6H PRN IVP Last administered on 12/06/24at 15:03; Start 12/04/24 at 17:30; Stop 12/11/24 at 17:29 Ketorolac Tromethamine 15 mg Q6H IV Last administered on 12/06/24at 11:34; Start 12/04/24 at 17:30; Stop 12/09/24 at 17:29 Ondansetron HCl 4 mg Q6H PRN IVP Last administered on 12/06/24at 10:47; Start 12/04/24 at 17:30; Stop 01/03/25 at 17:29 Heparin Sodium (Porcine) 5,000 unit TID SQ Last administered on 12/06/24at 15:03; Start 12/05/24 at 09:00; Stop 01/04/25 at 08:59 Acetaminophen 500 mg Q6H PRN PO Last administered on 12/06/24at 08:15; Start 12/05/24 at 21:00; Stop 01/04/25 at 20:59 CELINE FLOWER Jr. Dec 06, 2024 16:48
[2024-12-06] MEDS: FAMOTIDINE 20MG VIAL IV SCH (20:59)
[2024-12-07] VITALS (8 sets, daily range): BP systolic 115–124; BP diastolic 66–78; PULSE 85–108; RESP 17–21; TEMP 98.1–98.8; O2SAT 93–96
[2024-12-07 04:13] LABS: BASOPHILS # (AUTO) 0.02 K/uL (0.00-0.20); BASOPHILS % (AUTO) 0.3 % (0.0-5.0); EOSINOPHILS # (AUTO) 0.02 K/uL (0.00-0.70); EOSINOPHILS % (AUTO) 0.3 % (0.0-8.0); HEMATOCRIT 35.4 % (36-48); IMMATURE GRANULOCYTE ABSOLUTE 0.01 K/uL (0-1); LYMPHOCYTES # (AUTO) 1.5 K/uL (1.0-4.8); LYMPHOCYTES % (AUTO) 19.9 % (21.0-51.0); MEAN CORPUSCULAR HEMOGLOBIN 30.7 pg (27.0-33.0); MEAN CORPUSCULAR HGB CONC 32.5 g/dL (32.0-36.0); MEAN CORPUSCULAR VOLUME 94.4 fL (79-99); MONOCYTES # (AUTO) 0.8 K/uL (0.1-1.0); MONOCYTES % (AUTO) 10.1 % (3.0-13.0); NEUTROPHILS # (AUTO) 5.3 K/uL (1.8-7.7); NEUTROPHILS % (AUTO) 69.3 % (40.0-77.0); PLATELET COUNT (AUTO) 228 K/uL (130-400); RED BLOOD CELL COUNT(AUTO) 3.75 MIL/uL (4.00-5.50); RED CELL DISTRIBUTION WIDTH 12.7 % (11.0-15.5); WHITE BLOOD COUNT (AUTO) 7.7 K/uL (4.8-10.8)
[2024-12-07 04:30] LABS: ALBUMIN 2.7 g/dL (3.5-5.0); BILIRUBIN,TOTAL 0.5 mg/dL (0.2-1.0); CREATININE 0.8 mg/dL (0.5-1.0); POTASSIUM 3.5 mmol/L (3.5-5.1); TOTAL PROTEIN, SERUM 6.3 g/dL (6.0-8.3)
[2024-12-07] MEDS ORDERED: PoTASSium chl 10% ELIXIR 20MEQ 20 MEQ/15 ML UDCUP PO PRN (06:00)
--- NOTE | 2024-12-07 15:40 | PN ---
This is a 69-year-old female postop day three for ileostomy reversal Interval history: This 69-year-old female seen in her room Patient with an episode of emesis yesterday Incisions clean and dry Abdomen soft labs and vitals unremarkable Patient on full liquid diet Patient complaining of reflux Physical exam General: Awake alert and oriented Heart: Regular rate and rhythm} Lungs: Clear to auscultation no distress Abdomen: [Soft, nontender, nondistended incisions clean Assessment : This is a 69-year-old female status post ileostomy reversal Plan: Patient to be started on IV PPI Patient to be kept on full liquid diet for today with possible advancement plan for tomorrow Surgical team to follow patient closely Repeat CBC and CMP tomorrow Dr. Novak to be updated in patient's status Vitals/Labs Vital Signs Date Time Temp Pulse Resp B/P (MAP) Pulse Ox O2 Delivery O2 Flow Rate FiO2 12/07/24 15:33 98.1 87 21 115/68 90 Room Air 12/07/24 03:53 2.0 12/06/24 19:48 21 Laboratory Tests 12/07/24 04:08 Medications Current Medications Cefazolin Sodium 2 gm STK-MED ONCE .ROUTE Last administered on 12/04/24at 10:20; Start 12/04/24 at 06:37; Stop 12/04/24 at 06:37; Status DC Lactated Ringer's 1,000 ml @ As Directed STK-MED ONCE IV Last administered on 12/04/24at 07:01; Start 12/04/24 at 06:37; Stop 12/04/24 at 06:37; Status DC Lidocaine HCl 100 mg STK-MED ONCE .ROUTE; Start 12/04/24 at 10:05; Stop 12/04/24 at 10:06; Status DC Midazolam HCl 2 mg STK-MED ONCE .ROUTE; Start 12/04/24 at 10:05; Stop 12/04/24 at 10:06; Status DC Propofol 200 mg STK-MED ONCE IV; Start 12/04/24 at 10:05; Stop 12/04/24 at 10:06; Status DC Succinylcholine Chloride 200 mg STK-MED ONCE .ROUTE; Start 12/04/24 at 10:06; Stop 12/04/24 at 10:06; Status DC Rocuronium [place] 50 mg STK-MED ONCE .ROUTE; Start 12/04/24 at 10:06; Stop 12/04/24 at 10:06; Status DC Fentanyl Citrate 100 mcg STK-MED ONCE .ROUTE; Start 12/04/24 at 10:06; Stop 12/04/24 at 10:06; Status DC Ondansetron HCl 4 mg STK-MED ONCE .ROUTE; Start 12/04/24 at 11:00; Stop 12/04/24 at 11:01; Status DC Glycopyrrolate 1 mg STK-MED ONCE .ROUTE; Start 12/04/24 at 11:07; Stop 12/04/24 at 11:07; Status DC Fentanyl Citrate 100 mcg STK-MED ONCE .ROUTE; Start 12/04/24 at 11:33; Stop 12/04/24 at 11:33; Status DC Meperidine HCl 50 mg STK-MED ONCE .ROUTE Last administered on 12/04/24at 12:18; Start 12/04/24 at 12:15; Stop 12/04/24 at 12:16; Status DC Lactated Ringer's 1,000 ml @ 75 mls/hr [id number] IV Last administered on 12/07/24at 08:00; Start 12/04/24 at 13:30; Stop 01/03/25 at 13:29 Morphine Sulfate 4 mg Q6H PRN IVP Last administered on 12/07/24at 10:56; Start 12/04/24 at 17:30; Stop 12/11/24 at 17:29 Ketorolac Tromethamine 15 mg Q6H IV Last administered on 12/07/24at 12:26; Start 12/04/24 at 17:30; Stop 12/09/24 at 17:29 Ondansetron HCl 4 mg Q6H PRN IVP Last administered on 12/07/24at 15:25; Start 12/04/24 at 17:30; Stop 01/03/25 at 17:29 Heparin Sodium (Porcine) 5,000 unit TID SQ Last administered on 12/07/24at 13:52; Start 12/05/24 at 09:00; Stop 01/04/25 at 08:59 Acetaminophen 500 mg Q6H PRN PO Last administered on 12/06/24at 08:15; Start 12/05/24 at 21:00; Stop 01/04/25 at 20:59 Famotidine 20 mg BID IV Last administered on 12/07/24at 07:55; Start 12/06/24 at 21:00; Stop 12/07/24 at 15:20; Status DC Potassium Chloride 100 ml @ 100 mls/hr AD PRN IV; Start 12/07/24 at 06:00; Stop 01/06/25 at 05:59 Potassium Chloride 20 meq AD PRN PO; Start 12/07/24 at 06:00; Stop 01/06/25 at 05:59 Potassium Chloride 20 meq AD PRN PO; Start 12/07/24 at 06:00; Stop 01/06/25 at 05:59 Pantoprazole Sodium 40 mg BID IVP; Start 12/07/24 at 21:00; Stop 01/06/25 at 20:59 CELINE FLOWER Jr. Dec 07, 2024 15:40
[2024-12-07] MEDS: PoTASSium chloRIDE 20MEQ ER 20 MEQ ERTAB PO PRN (17:31)
[2024-12-07] MEDS: PANTOPrazole 40 MG/VIAL IVP SCH (19:48)
--- NOTE | 2024-12-07 19:50 | NUR ---
MEDS SHIFT ASSESSMENT DONE, PLEASE REFER TO CHART. PT CLAIMS OF HAVING POST OP PAINS STILL. RE-POSITIONED COMFORTABLY IN BED WITH HOB ELEVATED. TYLENOL PO GIVEN FOR PAIN AND DUE MEDS ADMINISTERED, TOLERATED WELL. WILL RE-ASSESS PT.
[2024-12-08] VITALS (7 sets, daily range): BP systolic 114–140; BP diastolic 63–77; PULSE 73–85; RESP 17–18; TEMP 98.1–98.8; O2SAT 93
--- NOTE | 2024-12-08 04:00 | NUR ---
PAIN PT COMPLAINTS OF ABDOMINAL PAIN AND NAUSEA. MEDICATED WITH MORPHINE AND ZOFRAN IV. SEAFOOD CLERK IN TO DRAW BLOOD. WILL RE-ASSESS PT. Addendum: 12/08/24 at 0407 by JEANNIE GUNTER RN RN Amended: Links added.
[2024-12-08 04:38] LABS: HEMATOCRIT 35.1 % (36-48); MEAN CORPUSCULAR HEMOGLOBIN 30.1 pg (27.0-33.0); MEAN CORPUSCULAR HGB CONC 31.6 g/dL (32.0-36.0); MEAN CORPUSCULAR VOLUME 95.1 fL (79-99); RED BLOOD CELL COUNT(AUTO) 3.69 MIL/uL (4.00-5.50); RED CELL DISTRIBUTION WIDTH 12.8 % (11.0-15.5); WHITE BLOOD COUNT (AUTO) 5.6 K/uL (4.8-10.8)
[2024-12-08 05:01] LABS: ALBUMIN 2.5 g/dL (3.5-5.0); BILIRUBIN,TOTAL 0.5 mg/dL (0.2-1.0); POTASSIUM 3.7 mmol/L (3.5-5.1); TOTAL PROTEIN, SERUM 6.4 g/dL (6.0-8.3)
--- NOTE | 2024-12-08 06:16 | NUR ---
ROUNDS PT STILL ASLEEP AT THIS TIME WITH RESPIRATIONS EVEN AND UNLABORED. NO NOTED DISTRESS. KEPT UNDISTURBED FOR NOW. CALL LIGHT WITHIN REACH. FOR MORE CARE.
--- NOTE | 2024-12-08 16:40 | PN ---
This is a 69-year-old female postop day four for ileostomy reversal Interval history: This 69-year-old female seen in her room Patient with continued nausea KUB performed earlier today currently pending Patient reporting flatus and bowel movements Abdomen no significant tenderness noted No other acute events reported at this time Physical exam General: Awake alert and oriented Heart: Regular rate and rhythm} Lungs: Clear to auscultation no distress Abdomen: [Soft, nontender, nondistended Assessment : This is a 69-year-old female status post ileostomy reversal Plan: Patient to continue with current antiemetic medications Reglan to be started for assistance Patient to be made NPO for now Patient to continue ambulation Surgical team to follow patient closely nursing report any further acute events Vitals/Labs Vital Signs Date Time Temp Pulse Resp B/P (MAP) Pulse Ox O2 Delivery O2 Flow Rate FiO2 12/08/24 11:37 98.8 73 18 123/68 93 Room Air 12/08/24 08:00 3 32 Laboratory Tests 12/08/24 04:00 Medications Current Medications Cefazolin Sodium 2 gm STK-MED ONCE .ROUTE Last administered on 12/04/24at 10:20; Start 12/04/24 at 06:37; Stop 12/04/24 at 06:37; Status DC Lactated Ringer's 1,000 ml @ As Directed STK-MED ONCE IV Last administered on 12/04/24at 07:01; Start 12/04/24 at 06:37; Stop 12/04/24 at 06:37; Status DC Lidocaine HCl 100 mg STK-MED ONCE .ROUTE; Start 12/04/24 at 10:05; Stop 12/04/24 at 10:06; Status DC Midazolam HCl 2 mg STK-MED ONCE .ROUTE; Start 12/04/24 at 10:05; Stop 12/04/24 at 10:06; Status DC Propofol 200 mg STK-MED ONCE IV; Start 12/04/24 at 10:05; Stop 12/04/24 at 10:06; Status DC Succinylcholine Chloride 200 mg STK-MED ONCE .ROUTE; Start 12/04/24 at 10:06; Stop 12/04/24 at 10:06; Status DC Rocuronium [place] 50 mg STK-MED ONCE .ROUTE; Start 12/04/24 at 10:06; Stop 12/04/24 at 10:06; Status DC Fentanyl Citrate 100 mcg STK-MED ONCE .ROUTE; Start 12/04/24 at 10:06; Stop 12/04/24 at 10:06; Status DC Ondansetron HCl 4 mg STK-MED ONCE .ROUTE; Start 12/04/24 at 11:00; Stop 12/04/24 at 11:01; Status DC Glycopyrrolate 1 mg STK-MED ONCE .ROUTE; Start 12/04/24 at 11:07; Stop 12/04/24 at 11:07; Status DC Fentanyl Citrate 100 mcg STK-MED ONCE .ROUTE; Start 12/04/24 at 11:33; Stop 12/04/24 at 11:33; Status DC Meperidine HCl 50 mg STK-MED ONCE .ROUTE Last administered on 12/04/24at 12:18; Start 12/04/24 at 12:15; Stop 12/04/24 at 12:16; Status DC Lactated Ringer's 1,000 ml @ 75 mls/hr [id number] IV Last administered on 12/07/24at 23:37; Start 12/04/24 at 13:30; Stop 01/03/25 at 13:29 Morphine Sulfate 4 mg Q6H PRN IVP Last administered on 12/08/24at 03:53; Start 12/04/24 at 17:30; Stop 12/11/24 at 17:29 Ketorolac Tromethamine 15 mg Q6H IV Last administered on 12/08/24at 10:47; Start 12/04/24 at 17:30; Stop 12/09/24 at 17:29 Ondansetron HCl 4 mg Q6H PRN IVP Last administered on 12/08/24at 09:46; Start 12/04/24 at 17:30; Stop 01/03/25 at 17:29 Heparin Sodium (Porcine) 5,000 unit TID SQ Last administered on 12/08/24at 08:18; Start 12/05/24 at 09:00; Stop 01/04/25 at 08:59 Acetaminophen 500 mg Q6H PRN PO Last administered on 12/08/24at 09:25; Start 12/05/24 at 21:00; Stop 01/04/25 at 20:59 Famotidine 20 mg BID IV Last administered on 12/07/24at 07:55; Start 12/06/24 at 21:00; Stop 12/07/24 at 15:20; Status DC Potassium Chloride 100 ml @ 100 mls/hr AD PRN IV; Start 12/07/24 at 06:00; Stop 01/06/25 at 05:59 Potassium Chloride 20 meq AD PRN PO; Start 12/07/24 at 06:00; Stop 01/06/25 at 05:59 Potassium Chloride 20 meq AD PRN PO Last administered on 12/07/24at 19:49; Start 12/07/24 at 06:00; Stop 01/06/25 at 05:59 Pantoprazole Sodium 40 mg BID IVP Last administered on 12/08/24at 08:12; Start 12/07/24 at 21:00; Stop 01/06/25 at 20:59 Metoclopramide HCl 5 mg BID IVP; Start 12/08/24 at 21:00; Stop 01/07/25 at 20:59 CELINE FLOWER Jr. PA Dec 08, 2024 16:40
--- NOTE | 2024-12-08 16:54 | HMCIMG ---
ABD 1VW HISTORY: Apnea and vomiting COMPARISON: 05/03/2024 FINDINGS: A frontal projection of the abdomen was obtained. Small bowel dilatation is seen with colonic distention. Fecal material is seen in the colon. Degenerative changes of the thoracolumbar spine are noted. IMPRESSIO 1. Small bowel dilatation or colonic distention.
[2024-12-08] MEDS: metoCLOPRAmide 10 MG/2 ML VIAL IVP SCH (19:46)
--- NOTE | 2024-12-08 19:50 | NUR ---
MEDS SHIFT ASSESSMENT DONE, PLEASE REFER TO CHART. TRIED TO REMOVE O2 BUT PT DROPS TO 90% ON RA. KEEP O2 ON VIA NC AT 2LPM. KEPT COMFORTABLE IN BED WITH HOB ELEVATED. ENCOURAGED TO USE IS EVERY HOUR WHILE AWAKE. DUE MEDS ADMINISTERED, TOLERATED WELL. KEPT NPO ORDERED. CALL LIGHT WITHIN REACH.
[2024-12-09 04:00] VITALS: BP 129/71; PULSE 74; RESP 18; TEMP 98.1
--- NOTE | 2024-12-09 04:00 | NUR ---
PAIN PT CALLS AND COMPLAINTS OF ABDOMINAL PAINS. MEDICATED WITH MORPHINE IV. KEPT COMFORTABLE IN BED. WILL RE-ASSESS PT. Addendum: 12/09/24 at 0405 by JEANNIE GUNTER RN RN Amended: Links added.
--- NOTE | 2024-12-09 05:18 | NUR ---
PAIN PT AWAKENED AND STILL COMPLAINTS OF ABDOMINAL PAINS. SCHEDULED TORADOL IV ADMINISTERED. KEPT RESTED AND COMFORTABLE. WILL RE-ASSESS PT.
[2024-12-09 08:00] VITALS: BP 108/62; PULSE 74; RESP 16; TEMP 98.3; O2SAT 96
--- NOTE | 2024-12-09 11:38 | PN ---
GENERAL SURGERY PROGRESS NOTE Date/Time Patient Seen: [12/09/2024 ] Problem List: [ ] Interval History: [69-year-old female, postop day 5., ileostomy reversal by Dr. Whalen Patient had been placed NPO yesterday due to complaints of nausea KUB done yesterday showed small bowel dilation Today, patient states she had a large bowel movement and has been passing gas No further complaints of nausea or vomiting this morning Abdomen exam shows soft, nontender, nondistended with positive bowel movements Surgical incision to right lower quadrant with toñito in place, edges well approximated, no drainage or erythema We will start patient on clear liquid diet today Recommend not advancing diet yet Encourage ambulation Surgical team will continue to follow closely Dr. Whalen/Roxanne updated on patient's status] Current Medications Medications (Trade) Dose Ordered Sig/Paul Route Start Time Stop Time Status Last Admin Dose Admin Famotidine (Pepcid 20mg Vial) 20 mg BID IV 12/06/24 21:00 12/07/24 15:20 DC 12/07/24 07:55 20 MG Heparin Sodium (Porcine) (HEParin 5,000 UNIT VIAL) 5,000 unit TID SQ 12/05/24 09:00 01/04/25 08:59 12/09/24 08:21 5,000 UNIT Ketorolac Tromethamine (toRADol) 15 mg Q6H IV 12/04/24 17:30 12/09/24 17:29 12/09/24 05:18 15 MG Lactated Ringer's 1,000 ml @ 75 mls/hr [id number] IV 12/04/24 13:30 01/03/25 13:29 12/08/24 23:20 75 MLS/HR Metoclopramide HCl (regLAN 10MG IV) 5 mg BID IVP 12/08/24 21:00 01/07/25 20:59 12/09/24 08:14 5 MG Pantoprazole Sodium (PROTonix 40MG INJ) 40 mg BID IVP 12/07/24 21:00 01/06/25 20:59 12/09/24 08:14 40 MG Vital Signs (last 8hr) Date Time Temp Pulse Resp B/P (MAP) Pulse Ox O2 Delivery O2 Flow Rate FiO2 12/09/24 08:00 96 Nasal Cannula* 2 28 12/09/24 08:00 98.2 74 16 108/62 96 Nasal Cannula 2.0 12/09/24 04:00 98.1 74 18 129/71 97 Nasal Cannula 2.0 Laboratory: [ ] Hematology Labs: Test 12/08/24 04:00 Range/Units White Blood Count 5.6 # 4.8-10.8 K/uL Red Blood Count 3.69 L 4.00-5.50 MIL/uL Hemoglobin 11.1 L 12.0-16.0 g/dL Hematocrit 35.1 L 36-48 % Mean Corpuscular Volume 95.1 79-99 fL Mean Corpuscular Hemoglobin 30.1 27.0-33.0 pg Mean Corpuscular Hemoglobin Concent 31.6 L 32.0-36.0 g/dL Red Cell Distribution Width 12.8 11.0-15.5 % Platelet Count 245 130-400 K/uL Mean Platelet Volume 10.2 7.5-10.5 fL Nucleated Red Blood Cells 0.0 0.0-0.19 % Chemistry Labs: Test 12/08/24 04:00 Range/Units Sodium Level 142 136-145 mmol/L Potassium Level 3.7 3.5-5.1 mmol/L Chloride Level 102 101-111 mmol/L Carbon Dioxide Level 30 21-32 mmol/L Blood Urea Nitrogen 24 H 7-18 mg/dL Creatinine 1.0 0.5-1.0 mg/dL Glomerular Filtration Rate Calc 61 >90 mL/min Random Glucose 113 H 70-105 mg/dL Total Calcium 9.1 8.5-10.1 mg/dL Total Bilirubin 0.5 0.2-1.0 mg/dL Aspartate Amino Transf (AST/SGOT) 28 10-37 U/L Alanine Aminotransferase (ALT/SGPT) 29 # 12-78 U/L Alkaline Phosphatase 60 50-136 U/L Total Protein 6.4 6.0-8.3 g/dL Albumin 2.5 L 3.5-5.0 g/dL Diagnostics / Radiology: [Copy/Paste Echos/Imaging Report here] Impression and Plan: [ ] ATTESTATION BY PHYSICIAN I have seen and examined the patient. I reviewed the documentation, medical decision making, and treatment plan as noted by the mid-level provider above. I agree with the findings and plan of care. MD PRASANNA SHRESTHA LETICIA A EQUIPMENT ANALYST Dec 09, 2024 11:38
[2024-12-09 12:00] VITALS: BP 134/79; PULSE 84; RESP 16; TEMP 98.4
[2024-12-09] MEDS: PSYLLIUM SEED 1 EACH PACKET PO ONE (14:57)
--- NOTE | 2024-12-09 15:22 | NUR ---
PT mario attempted, patient refused reports that she has already walked the halls, takes self to restroom and transfers. Pt has abd binder in place. Pt reports pain but refuses meds bc they make her feel worse. Nurse is aware. Pt education provided on walking more, ad giulia to decrease pain and other risks. Pt with no further needs at this time. DC home no PT needs.
[2024-12-09 16:00] VITALS: BP 143/80; PULSE 86; RESP 18; TEMP 98.4
[2024-12-09 19:50] VITALS: O2SAT 96
--- NOTE | 2024-12-09 19:50 | NUR ---
MEDS SHIFT ASSESSMENT ODNE, PLEASE REFER TO CHART. NO REPORTED ABDOMINAL PAINS NOR NAUSEA AT THIS TIME. DUE IV MEDS AMDINISTERED, TOLERATED WELL. KEPT COMFORTABLE IN BED WITH HOB ELEVATED. CALL LIGHT WITHIN REACH.
[2024-12-09 20:00] VITALS: BP 130/72; PULSE 75; RESP 16; TEMP 98.8
--- NOTE | 2024-12-09 21:28 | NUR ---
PAIN PT COMPLAINTS OF ABDOMINAL PAINS AND NAUSEA. MEDICATED WITH TYLENOL PO AND ZOFRAN IV. ICE CHIPS PROVIDED TO TAKE WELL. KEPT COMFORTABLE IN BED WITH HOB ELEVATED. WILL RE-ASSESS PT.
--- NOTE | 2024-12-09 21:44 | NUR ---
PAGED PT WANTS A STRONG PAIN MEDICATION. PAGED DR LIN VIA ANSWERING SERVICE, AWAITING CALL BACK.
--- NOTE | 2024-12-09 22:03 | NUR ---
RE-PAGED NO CALL BACK FROM . RE-PAGED VIA ANSWERING SERVICE, AWAITING CALL BACK.
--- NOTE | 2024-12-09 22:26 | NUR ---
MD DR LIN CALLED BACK AND REFERRED PT'S PAIN COMPLAINTS. NEW MED ORDER RECEIVED, PLEASE REFER TO CPOE. WILL MEDICATE PT.
[2024-12-09] MEDS: morPHINE 2 MG SYG IVP PRN (22:32)
[2024-12-10] VITALS (9 sets, daily range): BP systolic 119–147; BP diastolic 59–76; PULSE 74–85; RESP 16–24; TEMP 97.5–98.6; O2SAT 92–93
[2024-12-10 09:50] LABS: BASOPHILS # (AUTO) 0.05 K/uL (0.00-0.20); BASOPHILS % (AUTO) 0.6 % (0.0-5.0); EOSINOPHILS # (AUTO) 0.06 K/uL (0.00-0.70); EOSINOPHILS % (AUTO) 0.7 % (0.0-8.0); HEMATOCRIT 33.8 % (36-48); IMMATURE GRANULOCYTE ABSOLUTE 0.06 K/uL (0-1); LYMPHOCYTES # (AUTO) 1.4 K/uL (1.0-4.8); LYMPHOCYTES % (AUTO) 17.3 % (21.0-51.0); MEAN CORPUSCULAR HEMOGLOBIN 30.5 pg (27.0-33.0); MEAN CORPUSCULAR VOLUME 95.5 fL (79-99); MONOCYTES # (AUTO) 1.6 K/uL (0.1-1.0); NEUTROPHILS # (AUTO) 4.9 K/uL (1.8-7.7); NEUTROPHILS % (AUTO) 60.7 % (40.0-77.0); PLATELET COUNT (AUTO) 237 K/uL (130-400); RED BLOOD CELL COUNT(AUTO) 3.54 MIL/uL (4.00-5.50); RED CELL DISTRIBUTION WIDTH 12.5 % (11.0-15.5); WHITE BLOOD COUNT (AUTO) 8.1 K/uL (4.8-10.8)
[2024-12-10 10:00] LABS: ALBUMIN 2.3 g/dL (3.5-5.0); BILIRUBIN,TOTAL 0.3 mg/dL (0.2-1.0); CREATININE 0.6 mg/dL (0.5-1.0); POTASSIUM 3.4 mmol/L (3.5-5.1); TOTAL PROTEIN, SERUM 6.2 g/dL (6.0-8.3)
[2024-12-10] MEDS ORDERED: IOHEXOL-350 75 ML VIAL IV ONE (10:48)
--- NOTE | 2024-12-10 10:57 | PN ---
GENERAL SURGERY PROGRESS NOTE Date/Time Patient Seen: [12/10/2024 ] Problem List: [ ] Interval History: [69-year-old female, postop day 6., ileostomy reversal by Dr. Whalen Patient has been having diarrhea since yesterday Today complaining of increased abdominal pain, distention and continues with diarrhea Patient has been tolerating clear liquids Abdomen exam today shows abdominal distention with tenderness on the left upper quadrant Surgical incision to right lower quadrant with toñito in place, edges well approximated, no drainage or erythema Order stat CBC and CMP Stat CT abdomen pelvis with oral and IV contrast Continue with Metamucil Add simethicone 80 mg q.i.d. Add probiotics daily Surgical team will continue to follow closely Dr. Oliveira updated on patient's status] Current Medications Medications (Trade) Dose Ordered Sig/Paul Route Start Time Stop Time Status Last Admin Dose Admin Famotidine (Pepcid 20mg Vial) 20 mg BID IV 12/06/24 21:00 12/07/24 15:20 DC 12/07/24 07:55 20 MG Heparin Sodium (Porcine) (HEParin 5,000 UNIT VIAL) 5,000 unit TID SQ 12/05/24 09:00 01/04/25 08:59 12/10/24 08:46 5,000 UNIT Ketorolac Tromethamine (toRADol) 15 mg Q6H IV 12/04/24 17:30 12/09/24 17:29 DC 12/09/24 05:18 15 MG Lactated Ringer's 1,000 ml @ 75 mls/hr [id number] IV 12/04/24 13:30 01/03/25 13:29 12/10/24 02:09 75 MLS/HR Metoclopramide HCl (regLAN 10MG IV) 5 mg BID IVP 12/08/24 21:00 01/07/25 20:59 12/10/24 08:31 5 MG Pantoprazole Sodium (PROTonix 40MG INJ) 40 mg BID IVP 12/07/24 21:00 01/06/25 20:59 12/10/24 08:31 40 MG Simethicone (Mylicon) 80 mg QID PO 12/10/24 13:00 01/09/25 12:59 Physical Examination: GENERAL: [Patient with obvious discomfort today.] HEAD: [Normocephalic.] EYES: [Conjunctiva and sclera normal.] ENT: [Hearing grossly intact.] NECK: [Supple without JVD.] LUNGS: [Clear breath sounds bilaterally..] HEART: [Normal rate and rhythm.] VASC: [No edema.] ABD: [Bowel sounds normal, diffuse distention and left upper quadrant tenderness on palpation, RLQ surgical incision with edges well approximated with toñito, no drainage or signs of infection.] : [Not examined] EXT: [No edema.] SKIN: [No lesions noted.] NEURO: [Awake, alert, and oriented x3. No focal sensory or strength deficits noted.] Vital Signs (last 8hr) Date Time Temp Pulse Resp B/P (MAP) Pulse Ox O2 Delivery O2 Flow Rate FiO2 12/10/24 08:00 92 Nasal Cannula* 1 24 12/10/24 07:50 98.1 81 18 133/72 92 Nasal Cannula 1.0 12/10/24 03:52 97.9 83 16 122/68 94 Nasal Cannula 1.0 Laboratory: [ ] Hematology Labs: Test 12/10/24 09:40 Range/Units White Blood Count 8.1 4.8-10.8 K/uL Red Blood Count 3.54 L 4.00-5.50 MIL/uL Hemoglobin 10.8 L 12.0-16.0 g/dL Hematocrit 33.8 L 36-48 % Mean Corpuscular Volume 95.5 79-99 fL Mean Corpuscular Hemoglobin 30.5 27.0-33.0 pg Mean Corpuscular Hemoglobin Concent 32.0 32.0-36.0 g/dL Red Cell Distribution Width 12.5 11.0-15.5 % Platelet Count 237 130-400 K/uL Mean Platelet Volume 9.7 7.5-10.5 fL Immature Granulocyte % (Auto) 0.7 0-1 % Neutrophils (%) (Auto) 60.7 40.0-77.0 % Lymphocytes (%) (Auto) 17.3 L 21.0-51.0 % Monocytes (%) (Auto) 20.0 H 3.0-13.0 % Eosinophils (%) (Auto) 0.7 0.0-8.0 % Basophils (%) (Auto) 0.6 0.0-5.0 % Neutrophils # (Auto) 4.9 1.8-7.7 K/uL Lymphocytes # (Auto) 1.4 1.0-4.8 K/uL Monocytes # (Auto) 1.6 H 0.1-1.0 K/uL Eosinophils # (Auto) 0.06 0.00-0.70 K/uL Basophils # (Auto) 0.05 0.00-0.20 K/uL Absolute Immature Granulocyte (auto 0.06 0-1 K/uL Nucleated Red Blood Cells 0.0 0.0-0.19 % Chemistry Labs: Test 12/10/24 09:40 Range/Units Sodium Level 139 136-145 mmol/L Potassium Level 3.4 L 3.5-5.1 mmol/L Chloride Level 104 101-111 mmol/L Carbon Dioxide Level 29 21-32 mmol/L Blood Urea Nitrogen 20 H 7-18 mg/dL Creatinine 0.6 0.5-1.0 mg/dL Glomerular Filtration Rate Calc 97 >90 mL/min Random Glucose 103 70-105 mg/dL Total Calcium 9.2 8.5-10.1 mg/dL Total Bilirubin 0.3 0.2-1.0 mg/dL Aspartate Amino Transf (AST/SGOT) 22 10-37 U/L Alanine Aminotransferase (ALT/SGPT) 26 12-78 U/L Alkaline Phosphatase 59 50-136 U/L Total Protein 6.2 6.0-8.3 g/dL Albumin 2.3 L 3.5-5.0 g/dL Diagnostics / Radiology: [Copy/Paste Echos/Imaging Report here] Impression and Plan: [ ] ATTESTATION BY PHYSICIAN I have seen and examined the patient. I reviewed the documentation, medical decision making, and treatment plan as noted by the mid-level provider above. I agree with the findings and plan of care. MD PRASANNA HUNT LETICIA A [employer] Dec 10, 2024 10:57
--- NOTE | 2024-12-10 11:14 | HMCIMG ---
Exam Type: CT ABDOMEN/PELVIS W/WO CONTRAS Clinical Information: BOWEL OBSTRUCTION Comparison: None Contrast: 100 cc's Isovue 370 IV, no complications or adverse reactions CT Dose Index (CTDI): 31.60 mGy Dose Length Product (DLP): 1740.80 total mGy-cm Findings: There is dilatation of the entire large bowel. While no large bowel obstruction site is identified, there is dilatation of the proximal to mid small bowel, with transition point within the right lower quadrant at the site of prior small bowel surgery, close to and overlying incisional hernia of the right lower anterior abdominal wall. This probably represents early obstruction, probably caused by the site of anastomosis. There is a fluid collection of the right anterior abdominal wall subcutaneous tissues measuring 8.8 x 3.5 cm suggestive of seroma versus abscess. Overlying surgical staple changes seen. No evidence of nephro or ureterolithiasis is found. No hydronephrosis or ureteral dilatation is seen. The lung bases are clear. The stomach is unremarkable. It shows no wall thickening. No gross ulceration is seen. It is not overly distended. There are no surrounding inflammatory changes. No wall lesions are identified to suggest cancer. The spleen is unremarkable. It is not enlarged. The pancreas shows normal anatomy. It is not fatty replaced. It shows no lesions. The pancreatic duct is not dilated. The gallbladder is unremarkable. It shows no cholelithiasis. The gallbladder wall is normal in thickness. There is no pericholecystic fluid. The is no acute or chronic inflammation noted. The adrenal glands are unremarkable. There is no enlargement. No lesions are noted. The liver is unremarkable. It shows no focal masses. The appendix is unremarkable. It shows no evidence of inflammation. No appendicolith is seen. The urinary bladder is unremarkable. There is no wall thickening to suggest tumor or inflammation. There are no intraluminal calculi. There are no diverticula. There is no evidence of chronic bladder outlet obstruction. There is no evidence of urinary bladder distention to suggest urinary retention. The other pelvic structures are unremarkable. The bony and vascular structures are unremarkable for the patient's age. IMPRESSION: Evolving small bowel obstruction at anastomosis site. 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 This study was performed using dose reduction techniques to include automated exposure control and/or adjustment of the mA and/or kV according to patient size.
[2024-12-10] MEDS: SIMETHICONE 80 MG TAB.CHEW PO SCH (13:00)
[2024-12-10] MEDS: PoTASSium chloRIDE 20MEQ/100ML 100 ML IV PRN (18:39)
[2024-12-11 03:55] VITALS: BP 122/73; PULSE 102; RESP 20; TEMP 98.3
[2024-12-11 08:00] VITALS: O2SAT 93
--- NOTE | 2024-12-11 16:29 | PN ---
This is a 69-year-old female postop day seven for ileostomy reversal by Dr. Whalen Interval history: This 69-year-old female seen in her room resting Patient with a episodes of nausea and vomiting with diarrhea throughout the day Abdomen soft but distended CT imaging reviewed WBCs and vitals stable Physical exam General: Awake alert and oriented Heart: Regular rate and rhythm} Lungs: Clear to auscultation no distress Abdomen: [Soft, nontender, some distention Assessment : This is a 69-year-old female status post ileostomy reversal Plan: Patient is made NPO for now Repeat CMP and CBC tomorrow KUB stat No immediate surgical intervention Patient encouraged to continue ambulating continue with the aggressive IS Dr. Hawley to be updated in patient's status and surgical team to follow patient closely Vitals/Labs Vital Signs Date Time Temp Pulse Resp B/P (MAP) Pulse Ox O2 Delivery O2 Flow Rate FiO2 12/11/24 08:00 93 Nasal Cannula* 1 24 12/11/24 03:55 98.2 102 20 122/73 Medications Current Medications Cefazolin Sodium 2 gm STK-MED ONCE .ROUTE Last administered on 12/04/24at 10:20; Start 12/04/24 at 06:37; Stop 12/04/24 at 06:37; Status DC Lactated Ringer's 1,000 ml @ As Directed STK-MED ONCE IV Last administered on 12/04/24at 07:01; Start 12/04/24 at 06:37; Stop 12/04/24 at 06:37; Status DC Lidocaine HCl 100 mg STK-MED ONCE .ROUTE; Start 12/04/24 at 10:05; Stop 12/04/24 at 10:06; Status DC Midazolam HCl 2 mg STK-MED ONCE .ROUTE; Start 12/04/24 at 10:05; Stop 12/04/24 at 10:06; Status DC Propofol 200 mg STK-MED ONCE IV; Start 12/04/24 at 10:05; Stop 12/04/24 at 10:06; Status DC Succinylcholine Chloride 200 mg STK-MED ONCE .ROUTE; Start 12/04/24 at 10:06; Stop 12/04/24 at 10:06; Status DC Rocuronium [place] 50 mg STK-MED ONCE .ROUTE; Start 12/04/24 at 10:06; Stop 12/04/24 at 10:06; Status DC Fentanyl Citrate 100 mcg STK-MED ONCE .ROUTE; Start 12/04/24 at 10:06; Stop 12/04/24 at 10:06; Status DC Ondansetron HCl 4 mg STK-MED ONCE .ROUTE; Start 12/04/24 at 11:00; Stop 12/04/24 at 11:01; Status DC Glycopyrrolate 1 mg STK-MED ONCE .ROUTE; Start 12/04/24 at 11:07; Stop 12/04/24 at 11:07; Status DC Fentanyl Citrate 100 mcg STK-MED ONCE .ROUTE; Start 12/04/24 at 11:33; Stop 12/04/24 at 11:33; Status DC Meperidine HCl 50 mg STK-MED ONCE .ROUTE Last administered on 12/04/24at 12:18; Start 12/04/24 at 12:15; Stop 12/04/24 at 12:16; Status DC Lactated Ringer's 1,000 ml @ 75 mls/hr [id number] IV Last administered on 12/11/24at 04:16; Start 12/04/24 at 13:30; Stop 01/03/25 at 13:29 Morphine Sulfate 4 mg Q6H PRN IVP Last administered on 12/09/24at 17:01; Start 12/04/24 at 17:30; Stop 12/09/24 at 20:29; Status DC Ketorolac Tromethamine 15 mg Q6H IV Last administered on 12/09/24at 05:18; Start 12/04/24 at 17:30; Stop 12/09/24 at 17:29; Status DC Ondansetron HCl 4 mg Q6H PRN IVP Last administered on 12/09/24at 21:32; Start 12/04/24 at 17:30; Stop 01/03/25 at 17:29 Heparin Sodium (Porcine) 5,000 unit TID SQ Last administered on 12/11/24at 14:14; Start 12/05/24 at 09:00; Stop 01/04/25 at 08:59 Acetaminophen 500 mg Q6H PRN PO Last administered on 12/09/24at 21:28; Start 12/05/24 at 21:00; Stop 01/04/25 at 20:59 Famotidine 20 mg BID IV Last administered on 12/07/24at 07:55; Start 12/06/24 at 21:00; Stop 12/07/24 at 15:20; Status DC Potassium Chloride 100 ml @ 100 mls/hr AD PRN IV Last administered on 12/10/24at 18:39; Start 12/07/24 at 06:00; Stop 01/06/25 at 05:59 Potassium Chloride 20 meq AD PRN PO; Start 12/07/24 at 06:00; Stop 01/06/25 at 05:59 Potassium Chloride 20 meq AD PRN PO Last administered on 12/07/24at 19:49; Start 12/07/24 at 06:00; Stop 01/06/25 at 05:59 Pantoprazole Sodium 40 mg BID IVP Last administered on 12/11/24at 08:03; Start 12/07/24 at 21:00; Stop 01/06/25 at 20:59 Metoclopramide HCl 5 mg BID IVP Last administered on 12/11/24at 08:04; Start 12/08/24 at 21:00; Stop 01/07/25 at 20:59 Psyllium Hydrophilic Mucilloid 1 tbs ONCE ONCE PO Last administered on 12/09/24at 14:57; Start 12/09/24 at 15:00; Stop 12/09/24 at 15:01; Status DC Morphine Sulfate 2 mg Q4H PRN IVP Last administered on 12/11/24at 12:52; Start 12/09/24 at 22:30; Stop 12/16/24 at 22:29 Simethicone 80 mg QID PO Last administered on 12/11/24at 12:44; Start 12/10/24 at 13:00; Stop 01/09/25 at 12:59 Iohexol 75 ml STK-MED ONCE IV; Start 12/10/24 at 10:48; Stop 12/10/24 at 10:49; Status DC CELINE FLOWER Jr. PA Dec 11, 2024 16:29
--- NOTE | 2024-12-11 16:48 | HMCIMG ---
ABD 1VW HISTORY: Small bowel obstruction COMPARISON: None FINDINGS: A frontal projection of the abdomen was obtained. There is gastric distention. Small bowel dilatation is seen. Fecal material is seen in the colon. Degenerative changes of the thoracolumbar spine are noted. IMPRESSION: 1. Gaseous distention of small bowel dilatation suggestive of obstruction.
[2024-12-11 17:16] VITALS: BP 133/72; PULSE 75; RESP 18; TEMP 99.6
--- NOTE | 2024-12-11 18:18 | NUR ---
K[facility] RESULTS Attempted to call AUDREY Barrientos of KUB results twice and he did not answer.
[2024-12-11 19:49] VITALS: O2SAT 96
[2024-12-11 20:00] VITALS: BP 128/70; PULSE 81; RESP 19; TEMP 98.6
[2024-12-11] MEDS: LACTATED RINGERS 1000ML 1,000 ML IV SCH (20:30)
[2024-12-11 23:58] VITALS: BP 136/71; PULSE 83; RESP 19; TEMP 98.9
[2024-12-12] VITALS (8 sets, daily range): BP systolic 127–152; BP diastolic 71–80; PULSE 71–75; RESP 16–20; TEMP 98–98.9; O2SAT 94–98
[2024-12-12 04:27] LABS: HEMATOCRIT 30.4 % (36-48); MEAN CORPUSCULAR HEMOGLOBIN 30.4 pg (27.0-33.0); MEAN CORPUSCULAR HGB CONC 32.2 g/dL (32.0-36.0); MEAN CORPUSCULAR VOLUME 94.4 fL (79-99); RED BLOOD CELL COUNT(AUTO) 3.22 MIL/uL (4.00-5.50); WHITE BLOOD COUNT (AUTO) 9.3 K/uL (4.8-10.8)
[2024-12-12 04:36] LABS: CREATININE 0.6 mg/dL (0.5-1.0)
[2024-12-12 04:48] LABS: POTASSIUM 2.7 mmol/L (3.5-5.1)
--- NOTE | 2024-12-12 11:17 | PN ---
This is a status post ileostomy reversal with postoperative small bowel obstruction Interval history: This 69-year-old female seen in her room resting KUB yesterday concerning for obstruction but patient with multiple bowel movements throughout the night Abdomen is still slightly distended WBCs unremarkable hemoglobin stable Potassium 2.7 currently being covered No other acute events reported at this time Patient is still NPO Physical exam General: Awake alert and oriented Heart: Regular rate and rhythm} Lungs: [Clear to auscultation no distress Abdomen: [Soft, distended Assessment : This is a 69-year-old female this post ileostomy reversal with postoperative concerns of ileus versus obstruction Plan: KUB to be ordered for today Patient encouraged to ambulate Patient to remain NPO Continue with conservative management Surgical team to follow patient closely and Dr. Whalen to be updated on patient's status Vitals/Labs Vital Signs Date Time Temp Pulse Resp B/P (MAP) Pulse Ox O2 Delivery O2 Flow Rate FiO2 12/12/24 08:00 98 Nasal Cannula* 1 24 12/12/24 07:58 98.1 75 20 148/80 Laboratory Tests 12/12/24 04:13 Medications Current Medications Cefazolin Sodium 2 gm STK-MED ONCE .ROUTE Last administered on 12/04/24at 10:20; Start 12/04/24 at 06:37; Stop 12/04/24 at 06:37; Status DC Lactated Ringer's 1,000 ml @ As Directed STK-MED ONCE IV Last administered on 12/04/24at 07:01; Start 12/04/24 at 06:37; Stop 12/04/24 at 06:37; Status DC Lidocaine HCl 100 mg STK-MED ONCE .ROUTE; Start 12/04/24 at 10:05; Stop 12/04/24 at 10:06; Status DC Midazolam HCl 2 mg STK-MED ONCE .ROUTE; Start 12/04/24 at 10:05; Stop 12/04/24 at 10:06; Status DC Propofol 200 mg STK-MED ONCE IV; Start 12/04/24 at 10:05; Stop 12/04/24 at 10:06; Status DC Succinylcholine Chloride 200 mg STK-MED ONCE .ROUTE; Start 12/04/24 at 10:06; Stop 12/04/24 at 10:06; Status DC Rocuronium [place] 50 mg STK-MED ONCE .ROUTE; Start 12/04/24 at 10:06; Stop 12/04/24 at 10:06; Status DC Fentanyl Citrate 100 mcg STK-MED ONCE .ROUTE; Start 12/04/24 at 10:06; Stop 12/04/24 at 10:06; Status DC Ondansetron HCl 4 mg STK-MED ONCE .ROUTE; Start 12/04/24 at 11:00; Stop 12/04/24 at 11:01; Status DC Glycopyrrolate 1 mg STK-MED ONCE .ROUTE; Start 12/04/24 at 11:07; Stop 12/04/24 at 11:07; Status DC Fentanyl Citrate 100 mcg STK-MED ONCE .ROUTE; Start 12/04/24 at 11:33; Stop 12/04/24 at 11:33; Status DC Meperidine HCl 50 mg STK-MED ONCE .ROUTE Last administered on 12/04/24at 12:18; Start 12/04/24 at 12:15; Stop 12/04/24 at 12:16; Status DC Lactated Ringer's 1,000 ml @ 75 mls/hr [id number] IV Last administered on 12/11/24at 04:16; Start 12/04/24 at 13:30; Stop 12/11/24 at 19:13; Status DC Morphine Sulfate 4 mg Q6H PRN IVP Last administered on 12/09/24at 17:01; Start 12/04/24 at 17:30; Stop 12/09/24 at 20:29; Status DC Ketorolac Tromethamine 15 mg Q6H IV Last administered on 12/09/24at 05:18; Start 12/04/24 at 17:30; Stop 12/09/24 at 17:29; Status DC Ondansetron HCl 4 mg Q6H PRN IVP Last administered on 12/09/24at 21:32; Start 12/04/24 at 17:30; Stop 01/03/25 at 17:29 Heparin Sodium (Porcine) 5,000 unit TID SQ Last administered on 12/12/24at 08:27; Start 12/05/24 at 09:00; Stop 01/04/25 at 08:59 Acetaminophen 500 mg Q6H PRN PO Last administered on 12/09/24at 21:28; Start 12/05/24 at 21:00; Stop 01/04/25 at 20:59 Famotidine 20 mg BID IV Last administered on 12/07/24at 07:55; Start 12/06/24 at 21:00; Stop 12/07/24 at 15:20; Status DC Potassium Chloride 100 ml @ 100 mls/hr AD PRN IV Last administered on 12/12/24at 08:30; Start 12/07/24 at 06:00; Stop 01/06/25 at 05:59 Potassium Chloride 20 meq AD PRN PO; Start 12/07/24 at 06:00; Stop 01/06/25 at 05:59 Potassium Chloride 20 meq AD PRN PO Last administered on 12/07/24at 19:49; Start 12/07/24 at 06:00; Stop 01/06/25 at 05:59 Pantoprazole Sodium 40 mg BID IVP Last administered on 12/12/24at 08:21; Start 12/07/24 at 21:00; Stop 01/06/25 at 20:59 Metoclopramide HCl 5 mg BID IVP Last administered on 12/12/24at 08:22; Start 12/08/24 at 21:00; Stop 01/07/25 at 20:59 Psyllium Hydrophilic Mucilloid 1 tbs ONCE ONCE PO Last administered on 12/09/24at 14:57; Start 12/09/24 at 15:00; Stop 12/09/24 at 15:01; Status DC Morphine Sulfate 2 mg Q4H PRN IVP Last administered on 12/11/24at 12:52; Start 12/09/24 at 22:30; Stop 12/16/24 at 22:29 Simethicone 80 mg QID PO Last administered on 12/11/24at 12:44; Start 12/10/24 at 13:00; Stop 01/09/25 at 12:59 Iohexol 75 ml STK-MED ONCE IV; Start 12/10/24 at 10:48; Stop 12/10/24 at 10:49; Status DC Lactated Ringer's 1,000 ml @ 125 mls/hr Q8H IV Last administered on 12/12/24at 10:59; Start 12/11/24 at 19:30; Stop 01/10/25 at 19:29 CELINE FLOWER Jr. PA Dec 12, 2024 11:17
--- NOTE | 2024-12-12 12:58 | HMCIMG ---
ABD 1VW HISTORY: Small bowel obstruction COMPARISON: 12/11/2024 FINDINGS: A frontal projection of the abdomen was obtained. Small bowel dilatation is seen. Fecal material is seen in the colon. Degenerative changes of the thoracolumbar spine are noted. IMPRESSION: 1. Small bowel dilatation.
--- NOTE | 2024-12-12 16:28 | NUR ---
Nutrition consult per LOS >7 Reviewed labs, notes, and medications. Pt s/p ileostomy reversal, no solids food since admin, NPO status, IV abx, IV fluids, sedated, K 2.7(L) per chart review. Wt via standing scale, 25%PO intake, last BM 12/12/24 diarrhea, no edema, incision wound, well nourished, 440 ml balance 12/12/24 per nursing. Pt high risk of PCM due to Pt's diet status. Advance diet when medically feasible to HH diet+ prostat jello tid w/ trays. Recommendations: -Advance diet when medically feasible to HH diet + prostat jello tid w/ trays -Monitor PO intake when able -Encourage PO intake as able -Monitor BM -If no BM >3 days consider stool softener -Monitor electrolytes -Replenish electrolytes per protocol -Monitor wts -Reweigh as able -Order Vit D, vit b-12 labs to rule out deficiencies -Provide b-complex QD to aid in wound healing -Recommend Pt to follow up with PCP -Monitor goals of care RD to follow + available for consult per protocol Addendum: 12/12/24 at [address] Amended: Links added.
--- NOTE | 2024-12-13 02:43 | NUR ---
nurse note patient alert and oriented times 3. plan of care discussed with her and she verbalized understanding. patient calls for assistance to the bedside commode. encouraged patient to walk, but she prefers to sleep tonight. She is still distended on her abdomen, but is having loose bowel movements tonight and passing gas. She refused her mylicon tonight because she gets "nauseated with it." Charge nurse simone soto rn, placed a 20 gauge IV catheter on patient's left forearm and the right arm IV catheter was removed because her arm was infiltrated at 19:00. Catheter tip intact. patient has slept about 4 hours tonight intermittently. patient prefers her abdominal binder ON tonight. call light within reach, bed alarm on, 2 side rails up. will continue to monitor patient.
--- NOTE | 2024-12-13 03:23 | NUR ---
wound care wound care done on patient's right lower abdomen incision with betadine, nonadhesive gauze, 4x4, and medipore tape. incision looked clean and intact with 6 toñito. wound picture taken via ipad.
[2024-12-13 04:00] VITALS: BP 142/75; PULSE 75; RESP 20; TEMP 98.2
[2024-12-13 04:57] LABS: BASOPHILS # (AUTO) 0.06 K/uL (0.00-0.20); BASOPHILS % (AUTO) 0.7 % (0.0-5.0); EOSINOPHILS # (AUTO) 0.14 K/uL (0.00-0.70); EOSINOPHILS % (AUTO) 1.7 % (0.0-8.0); HEMATOCRIT 31.1 % (36-48); IMMATURE GRANULOCYTE ABSOLUTE 0.42 K/uL (0-1); LYMPHOCYTES # (AUTO) 2.1 K/uL (1.0-4.8); LYMPHOCYTES % (AUTO) 25.2 % (21.0-51.0); MEAN CORPUSCULAR HEMOGLOBIN 30.2 pg (27.0-33.0); MEAN CORPUSCULAR HGB CONC 31.8 g/dL (32.0-36.0); MEAN CORPUSCULAR VOLUME 94.8 fL (79-99); MONOCYTES # (AUTO) 1.3 K/uL (0.1-1.0); MONOCYTES % (AUTO) 16.1 % (3.0-13.0); NEUTROPHILS # (AUTO) 4.2 K/uL (1.8-7.7); NEUTROPHILS % (AUTO) 51.1 % (40.0-77.0); PLATELET COUNT (AUTO) 233 K/uL (130-400); RED BLOOD CELL COUNT(AUTO) 3.28 MIL/uL (4.00-5.50); RED CELL DISTRIBUTION WIDTH 12.9 % (11.0-15.5); WHITE BLOOD COUNT (AUTO) 8.1 K/uL (4.8-10.8)
[2024-12-13 05:16] LABS: CREATININE 0.6 mg/dL (0.5-1.0); MAGNESIUM 1.9 mg/dL (1.80-2.40); POTASSIUM 3.1 mmol/L (3.5-5.1)
[2024-12-13 08:00] VITALS: BP 149/76; PULSE 74; RESP 18; TEMP 98.7; O2SAT 94
[2024-12-13 12:00] VITALS: BP 143/70; PULSE 72; RESP 19; TEMP 98.8
[2024-12-13 16:00] VITALS: BP 141/67; PULSE 72; RESP 18; TEMP 98.3
[2024-12-13 19:00] VITALS: BP 148/77; PULSE 69; RESP 18; TEMP 98.5
[2024-12-13 20:00] VITALS: O2SAT 96
[2024-12-14 00:24] VITALS: BP 157/77; PULSE 66; RESP 18; TEMP 98.6
[2024-12-14 04:33] VITALS: BP 163/75; PULSE 66; RESP 18; TEMP 98.5
[2024-12-14 08:00] VITALS: BP 143/47; PULSE 66; RESP 19; TEMP 98.4; O2SAT 94
[2024-12-14 11:25] VITALS: BP 148/71; PULSE 67; RESP 18; TEMP 98.5
--- NOTE | 2024-12-14 15:10 | NUR ---
PATIENT DISCHARGED HOME ID BAND AND IV REMOVED. DISCHARGE INSTRUCTIONS EXPLAINED AND GIVEN TO PATIENT. PATIENT VERBALIZED UNDERSTANDING. BELONGINGS PACKED AND TAKEN BY PATIENT. WHEELED DOWN TO PRIVATE CAR.
== END 2024-12-14 15:10 | disposition home or self-care (01) | DRG 230 ==
LOC: DAHIP 12-04 05:43 → 3AH 12-04 12:50
PROVIDERS: ADMIT Surgery; ATTEND Surgery
PROC: 0DBB0ZZ Excision of Ileum, Open Approach (ICD-10-PCS; principal; 2024-12-04 08:00)
DX: Z43.2 Encounter for attention to ileostomy (principal)
CPT/HCPCS: 36415; 71045; 74018; 74178; 80048; 80053; 80076; 82306; 82607; 82948; 83735; 84132; 85025; 85027; 85610; 88304; A4344; A4450; G0378; J0330; J1644; J1885; J2003; J2175; J2250; J2270; J2405; J2470; J2704; J2765; J3010; J3480; J3490; J7120; Q9967; A4215; A4216; A4221; A4222; A4223; A4600; A4649; A4663; A6260; J0690

== ENCOUNTER 2025-06-19 18:14 | Inpatient (IN) | payer OTHER ==
[~2025-06-19] VITALS: Ht 162.6 cm; Wt 78.5 kg
[~2025-06-19 18:14] MED LIST changes: +ACET-2743 PO; -DICY10CA2 PO; -LACT10SO5 PO; -LEVO750T39 PO; -METR-172 PO; -MONT-39 PO; -ONDA-243 PO; -SIME125C81 PO; +salbutamol IH
[2025-06-19 18:48] LABS: IMMATURE GRANULOCYTE ABSOLUTE 0.05 K/uL (0-1); NUCLEATED RED BLOOD CELLS 0.0 % (0.0-0.19); PLATELET COUNT (AUTO) 269 K/uL (130-400); RED BLOOD CELL COUNT(AUTO) 4.20 MIL/uL (4.00-5.50); RED CELL DISTRIBUTION WIDTH 13.6 % (11.0-15.5); WHITE BLOOD COUNT (AUTO) 11.9 K/uL (4.8-10.8)
[2025-06-19 18:57] LABS: CREATININE 1.0 mg/dL (0.5-1.0); GLOMERULAR FILTR. RATE CALC 61.0 mL/min (>90); GLUCOSE,RANDOM 118.0 mg/dL (70-105); SODIUM SERUM 144.0 mmol/L (136-145); UREA NITROGEN, BLOOD 16.0 mg/dL (7-18)
[2025-06-19] MEDS: MAG/ALUM/SIMETH 30 ML UDCUP PO ONE (19:00)
[2025-06-19] MEDS: LIDOCAINE HCL 2% VISCOUS 15 ML UDCUP PO ONE (19:00)
[2025-06-19 19:02] LABS: ASPARTATE AMINOTRANSFERASE 26.0 U/L (10-37); TOTAL PROTEIN, SERUM 7.7 g/dL (6.0-8.3)
--- NOTE | 2025-06-19 19:14 | ERN ---
General Chief Complaint: Abdominal Pain Stated Complaint: ABDOMINAL PAIN Time Seen by MD: 18:17 Time Seen by Midlevel: 18:17 Source: patient History of Present Illness Initial Comments 70-year-old female who presents to the emergency department due to abdominal pain. Patient reports abdominal discomfort initiated three days ago but severe abdominal pain initiated this morning. Reports nausea but denies any vomiting, diarrhea, fever, dysuria or further associated symptoms. The patient had a colostomy bag reversal done five months ago. PMHx asthma, HTN is worse Allergies: Coded Allergies: No Known Allergies (Unverified Allergy, Unknown, 05/29/23) Home Meds Reported Medications [salbutamol] No Conflict Check, 2 PUFF IH AD PRN for SHORTNESS OF BREATH 11/30/24 Acetaminophen (Tylenol Extra Strength) 500 Mg Tablet, 1000 MG PO AD PRN for PAIN, TAB 11/30/24 Past Medical History Past Medical History: Asthma, High Cholesterol, Hypertension Past Surgical History: None Surgical History Other: colostomy reversal Family History Family History: Negative Social History Social History: Negative, Lives with family ROS Dictation Constitutional: Negative for fever,chills, and weight loss Eyes: Negative for injury, pain,redness, and discharge ENT: Negative for injury,pain or swelling Cardiovascular: Negative for chest pain, palpitations, and edema Respiratory: Negative for shortness of breath, cough, and wheezing, Abdomen/GI: Positive abdominal pain, nausea Negative for vomiting, diarrhea, and constipation Back: Negative for injury and pain : Negative for painful urination, bleeding or discharge MS/Extremity: Negative for injury and deformity Skin: Negative for rash, and discoloration Neuro: Negative for headache, weakness, numbness, tingling, and seizure Psych: Negative for suicide ideation, homicidal ideation, and hallucinations Physical Exam Physical Exam Dictation General: awake, alert, no acute distress Head/Face: Normocephalic, atraumatic Eyes: PERRL, EOMI, normal conjuctiva ENT: oral cavity clear, oral mucosa moist Neck: Supple, normal range of motion Cardiovascular: RRR, normal S1/S2 Respiratory: CTAB, no respiratory distress, no rales or wheezes Abdomen: Soft, non-tender, non-distended, normal bowel sounds, no guarding or rebound. Skin: Warm, dry, normal turgor, no rash MS/Extremity: Pulses equal, no cyanosis, neurovascular intact, FROM Neuro: COAx4, GCS 15, strength 5/5, CN 2-12 intact, normal cerebellar exam, normal gait, Psych: Normal behavior, mood, and affect normal Results Laboratory and Microbiology Lab and Micro Result Laboratory Tests Test 06/19/25 18:34 06/19/25 22:28 White Blood Count 11.9 K/uL (4.8-10.8) H Red Blood Count 4.20 MIL/uL (4.00-5.50) Hemoglobin 12.4 g/dL (12.0-16.0) Hematocrit 38.7 % (36-48) Mean Corpuscular Volume 92.1 fL (79-99) Mean Corpuscular Hemoglobin 29.5 pg (27.0-33.0) Mean Corpuscular Hemoglobin Concent 32.0 g/dL (32.0-36.0) Red Cell Distribution Width 13.6 % (11.0-15.5) Platelet Count 269 K/uL (130-400) Mean Platelet Volume 9.7 fL (7.5-10.5) Immature Granulocyte % (Auto) 0.4 % (0-1) Neutrophils (%) (Auto) 74.3 % (40.0-77.0) Lymphocytes (%) (Auto) 18.4 % (21.0-51.0) L Monocytes (%) (Auto) 5.4 % (3.0-13.0) Eosinophils (%) (Auto) 1.0 % (0.0-8.0) Basophils (%) (Auto) 0.5 % (0.0-5.0) Neutrophils # (Auto) 8.8 K/uL (1.8-7.7) H Lymphocytes # (Auto) 2.2 K/uL (1.0-4.8) Monocytes # (Auto) 0.6 K/uL (0.1-1.0) Eosinophils # (Auto) 0.12 K/uL (0.00-0.70) Basophils # (Auto) 0.06 K/uL (0.00-0.20) Absolute Immature Granulocyte (auto 0.05 K/uL (0-1) Nucleated Red Blood Cells 0.0 % (0.0-0.19) Sodium Level 144 mmol/L (136-145) Potassium Level 4.2 mmol/L (3.5-5.1) Chloride Level 103 mmol/L (101-111) Carbon Dioxide Level 32 mmol/L (21-32) Blood Urea Nitrogen 16 mg/dL (7-18) Creatinine 1.0 mg/dL (0.5-1.0) Glomerular Filtration Rate Calc 61 mL/min (>90) Random Glucose 118 mg/dL (70-105) H Total Calcium 9.7 mg/dL (8.5-10.1) Total Bilirubin 0.2 mg/dL (0.2-1.0) Direct Bilirubin 0.1 mg/dL (0.0-0.3) Aspartate Amino Transf (AST/SGOT) 26 U/L (10-37) Alanine Aminotransferase (ALT/SGPT) 36 U/L (12-78) Alkaline Phosphatase 80 U/L (50-136) Troponin I High Sensitivity 8 ng/L (4-50) Total Protein 7.7 g/dL (6.0-8.3) Albumin 4.0 g/dL (3.5-5.0) Lipase 33 U/L (16-77) Urine Color YELLOW (YELLOW) Urine Appearance CLEAR (CLEAR) Urine pH 7.0 (5.0-8.0) Urine Specific [place] 1.039 (1.001-1.031) Urine Protein 100 mg/dL (NEGATIVE) H Urine Glucose (UA) NEGATIVE mg/dL (NEGATIVE) Urine Ketones 5 mg/dL (NEGATIVE) H Urine Occult Blood NEGATIVE (NEGATIVE) Urine Nitrate NEGATIVE (NEGATIVE) Urine Bilirubin 0.5 mg/dL (NEGATIVE) H Urine Urobilinogen 3 mg/dL (0.2-1.0) H Urine Leukocyte Esterase 250 Ca/uL (NEGATIVE) H Urine RBC 6-10 /HPF (0-1) H Urine WBC 26-50 /HPF (0-1) H Urine Squamous Epithelial Cells MOD /HPF (0-2) Urine Bacteria None /HPF (None Seen) Urine Hyaline Casts 2-5 /LPF (0-1 /LPF) H Labs Reviewed?: Yes EKG/XRAY/US/CT/MRI CT Scan Comment REASON: abdominal pain ORDERING PHYSICIAN: ELI ANDRADE PAC PROCEDURE: ABD PEL WO - CT ABDOMEN/PELVIS W/O CONTRAST EXAM: CT Abdomen and Pelvis Without IV Contrast. CLINICAL HISTORY: Patient presents with abdominal pain. TECHNIQUE: Axial computed tomography images of the abdomen and pelvis were obtained without intravenous contrast. CONTRAST: No IV contrast. COMPARISON: None provided. FINDINGS: LUNG BASES: The lung bases are clear. No pleural effusions. LIVER: The liver is enlarged, measuring 19.5 cm in craniocaudal span, with diffuse hepatic steatosis. GALLBLADDER AND BILE DUCTS: The gallbladder is within normal limits. No radioopaque gallstones. No biliary ductal dilatation. PANCREAS: Unremarkable. SPLEEN: Unremarkable. ADRENAL GLANDS: Right adrenal gland calcification is identified. The left retinal gland appears unremarkable. KIDNEYS, URETERS, AND BLADDER: A 5.6 cm right renal cyst is identified in the lower pole. A 2.9 cm left renal cyst is seen in the interpolar region. No hydronephrosis, hydroureter, or urinary calculi. The urinary bladder is unremarkable. 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 The small bowel loops are dilated, with a maximum caliber of approximately 4.3 cm, demonstrating air-fluid levels, concerning for small bowel obstruction. An abrupt transition is seen at the site of bowel anastomosis in the right lower quadrant, where anastomotic sutures are visualized. There is fecal content within the small bowel loops in the right lower quadrant near the anastomotic site, consistent with the small bowel feces sign. Mild hiatus hernia. APPENDIX: The appendix is visualized and appears unremarkable. PERITONEUM: No free air or free fluid. LYMPH NODES: No lymphadenopathy. REPRODUCTIVE: Unremarkable as visualized. VASCULATURE: No abdominal aortic aneurysm. BONES: Multilevel mild degenerative changes in the spine. No aggressive osseous lesion or acute fracture. ABDOMINAL WALL: Divarication of recti with ventral abdominal wall herniation containing omental fat, small bowel loops, and transverse colon. IMPRESSION: Small bowel obstruction with transition point at the site of bowel anastomosis in the right lower quadrant. Small bowel feces sign in the right lower quadrant consistent with bowel obstruction. 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 Mild hiatus hernia. Hepatomegaly with diffuse hepatic steatosis. Bilateral renal cysts. Right adrenal gland calcification is identified. /Forgan DICTATED BY: SORIN ALEGRE Jr., MD DATE: 06/19/252301 ELECTRONICALLY SIGNED BY: SORIN ALEGRE Jr., MD DATE: 06/19/252301 [facility] ED course delayed due to abdominal CT. Patient care transition to Dr. Hernandez due to shift ending. Assumed care at 10:00 p.m. Differential diagnosis: Gastritis, gastroenteritis, constipation, obstruction, diverticulitis, colitis This is a 70-year-old female who has had abdominal surgeries in the past and a colostomy reversal comes into the emergency room with complaints of epigastric pain right upper quadrant pain and constipation. Labs were significant for a leukocytosis of 11.9 BNP 7 and liver function is with a normal limits 10:[address] scan of the abdomen and pelvis-finally resulted which shows multiple abnormalities including small-bowel obstruction. I updated the patient and her daughter and recommended admission to the hospital. Gave her an empiric antibiotic and possible NG tube placement low intermittent suctioned Patient and daughter are agreeable Rationale: Tests considered and ordered secondary to shared decision making include: labs, ECG and radiology Previous outside records reviewed: Old ER visits. Risk of complication and/or morbidity or mortality of patient management: None Medications-Per medication reconciliation Need for hospitalization: Patient does meet criteria for hospitalization. Need for emergency major/minor surgery: No There are no social concerns with this patient. Prescription drug management Prescriptions will include symptomatic care Patient's prior external medical records from other ER visits were reviewed by me as indicated. Prior testing and results from previous visits were reviewed. Prior tests were taken into account with medical decision making and resource utilization, independent historian/historians were used to obtain complete medical history. I independently interpreted the test that were performed, results were reviewed by me and considered findings on radiology if ordered. Medical management and examination interpretation discussions were had by me with other qualified healthcare professionals as indicated for the patient's care. ED Course Orders Procedure Category Date Status Time Cbc With Differential LAB 06/19/25 Complete 18:23 Basic Metabolic Panel LAB 06/19/25 Complete 18:23 Urinalysis LAB 06/19/25 Complete W/Microscopic 18:23 Hepatic Function Panel LAB 06/19/25 Complete 18:23 Lipase LAB 06/19/25 Complete 18:23 12 Lead Ekg Tracing- EKG 06/19/25 Complete Technical 18:56 Troponin I High LAB 06/19/25 Complete Sensitivity 18:56 Pantoprazole 40mg Tab PHA 06/19/25 Complete (Protonix 40mg Tab 19:00 Lidocaine Hcl 2% PHA 06/19/25 Complete Viscous (Lidocaine Hcl 19:00 Mag/Alum/Simeth 30ml PHA 06/19/25 Complete (Maalox Plus 30ml) 19:00 Ct Abdomen/Pelvis W/O CT 06/19/25 Resulted Contrast 21:03 Hydromorphone 0.5mg PHA 06/19/25 In Process Syg (Dilaudid 0.5mg 23:00 Ondansetron 4mg Inj PHA 06/19/25 In Process (Zofran 4mg Inj) 23:00 0.9%Nacl 1000ml (Ns PHA 06/19/25 In Process 1000ml) 23:00 Culture Urine MARIO 06/19/25 Logged 22:42 Current Medications Medications (Trade) Dose Ordered Sig/Paul Route PRN Reason Start Time Stop Time Status Last Admin Dose Admin Al Hydroxide/Mg Hydroxide (MAALox PLUS 30ML) 30 ml ONCE ONCE PO 06/19/25 19:00 06/19/25 19:01 DC Hydromorphone HCl (DiLAUDid 0.5MG INJ) 0.5 mg ONCE ONCE IVP 06/19/25 23:00 06/19/25 23:01 Lidocaine HCl (Lidocaine HCl 2% Viscous) 10 ml ONCE ONCE PO 06/19/25 19:00 06/19/25 19:01 DC Ondansetron HCl (zoFRAN 4MG INJ) 4 mg ONCE ONCE IVP 06/19/25 23:00 06/19/25 23:01 Pantoprazole Sodium (PROTonix 40MG TAB) 40 mg ONCE ONCE PO 06/19/25 19:00 06/19/25 19:01 DC Sodium Chloride 1,000 ml @ 125 mls/hr ONCE ONCE IV 06/19/25 23:00 06/20/25 06:59 Vital Signs Date Time Temp Pulse Resp B/P (MAP) Pulse Ox O2 Delivery O2 Flow Rate FiO2 06/19/25 18:20 98.2 70 18 201/84 97 Room Air* 0 21 06/19/25 18:17 98.2 70 18 201/84 97 Room Air 0 10:45 p.m. patient accepted by [facility] mid-level provider for [facility] hospitalist group for admission and further management DX & DISP Disposition: Inpatient Decision to Admit Time: 22:25 Departure Impression: Primary Impression: Small bowel obstruction Additional Impressions: Abdominal pain, Constipation Condition: Stable Additional Instructions: Patient was informed of all the diagnostic labs and procedures conducted in the emergency room today and demonstrated understanding of the results. I personally reviewed and interpreted all the diagnostic exams performed in the ER today. The patient will be admitted to the hospital for further treatment and evaluation. Disposition-admit to facility Condition-stable/guarded Course-uncertain at this time Pain status-decreased Assessment-exam unchanged Admission Certification- I certify that the patients status is appropriate and is based on my best clinical judgment and the patient's condition as documented in the medical records Referrals: JACOB MARTÍNEZ MD (PCP) ELI ANDRADE Jun 19, 2025 19:14 OLEG HERNANDEZ MD Jun 19, 2025 22:26
--- NOTE | 2025-06-19 19:28 | EKG ---
[facility] Test Date: 2025-06-19 Test Time: 19:21:42 Pat Name: ROSALBA CASAS Department: ED Room: ED Gender: F Special Delivery Mail Carrier: [phone] 1955 Requested By: ELI ANDRADE Order Number: [id number] Reading MD: Lizeth Munoz Measurements Intervals [place] Rate: 63 P: 0 RI: 66 QRS: -39 QRSD: 104 T: 33 QT: 431 QTc: 441 Interpretive Statements Sinus rhythm Left axis deviation Compared to ECG 05/29/2023 23:56:01 Left-axis deviation now present Left anterior fascicular block no longer present Electronically Signed On 06-20-2025 10:25:45 CDT by Lizeth Munoz Please click the below link to view image of tracing.
--- NOTE | 2025-06-19 22:03 | HMCIMG ---
EXAM: CT Abdomen and Pelvis Without IV Contrast. CLINICAL HISTORY: Patient presents with abdominal pain. TECHNIQUE: Axial computed tomography images of the abdomen and pelvis were obtained without intravenous contrast. CONTRAST: No IV contrast. COMPARISON: None provided. FINDINGS: LUNG BASES: The lung bases are clear. No pleural effusions. LIVER: The liver is enlarged, measuring 19.5 cm in craniocaudal span, with diffuse hepatic steatosis. GALLBLADDER AND BILE DUCTS: The gallbladder is within normal limits. No radioopaque gallstones. No biliary ductal dilatation. PANCREAS: Unremarkable. SPLEEN: Unremarkable. ADRENAL GLANDS: Right adrenal gland calcification is identified. The left retinal gland appears unremarkable. KIDNEYS, URETERS, AND BLADDER: A 5.6 cm right renal cyst is identified in the lower pole. A 2.9 cm left renal cyst is seen in the interpolar region. No hydronephrosis, hydroureter, or urinary calculi. The urinary bladder is unremarkable. 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 The small bowel loops are dilated, with a maximum caliber of approximately 4.3 cm, demonstrating air-fluid levels, concerning for small bowel obstruction. An abrupt transition is seen at the site of bowel anastomosis in the right lower quadrant, where anastomotic sutures are visualized. There is fecal content within the small bowel loops in the right lower quadrant near the anastomotic site, consistent with the small bowel feces sign. Mild hiatus hernia. APPENDIX: The appendix is visualized and appears unremarkable. PERITONEUM: No free air or free fluid. LYMPH NODES: No lymphadenopathy. REPRODUCTIVE: Unremarkable as visualized. VASCULATURE: No abdominal aortic aneurysm. BONES: Multilevel mild degenerative changes in the spine. No aggressive osseous lesion or acute fracture. ABDOMINAL WALL: Divarication of recti with ventral abdominal wall herniation containing omental fat, small bowel loops, and transverse colon. IMPRESSION: Small bowel obstruction with transition point at the site of bowel anastomosis in the right lower quadrant. Small bowel feces sign in the right lower quadrant consistent with bowel obstruction. 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 Mild hiatus hernia. Hepatomegaly with diffuse hepatic steatosis. Bilateral renal cysts. Right adrenal gland calcification is identified. /Natalie
--- NOTE | 2025-06-19 22:38 | NUR ---
ASSUMED PT CARE
[2025-06-19 22:41] LABS: APPEARANCE,URINE CLEAR (CLEAR); GLUCOSE, URINE (UA) NEGATIVE (NEGATIVE); LEUKOCYTE ESTERASE ,URINE 250 Leu/uL (NEGATIVE); NITRATE,URINE NEGATIVE (NEGATIVE); OCCULT BLOOD,URINE NEGATIVE (NEGATIVE); SQUAMOUS EPITHELIAL CELL,UR MOD /HPF (0-2)
[2025-06-19] MEDS: 0.9%NACL 1000ML 1,000 ML IV ONE (22:47)
--- NOTE | 2025-06-19 23:19 | NUR ---
JENNIFER CONTACT NUMBER: [phone] EBENEZER LOOMIS
--- NOTE | 2025-06-19 23:20 | HP ---
[facility] HISTORY AND PHYSICAL Date of Service: Jun 19, 2025 Time of Service: 23:20 PCP: Duarte Cash HISTORY OF PRESENT ILLNESS: This is a 70-year-old Sierra Leonean-speaking female with past medical history of asthma, hyperlipidemia and hypertension who presents to the ED for complaints of abdominal pain which started three days ago pain intensity has been progressively getting worse today associated with nausea . Patient's pain is located around epigastric area. Patient reports she has last bowel movement was today and it was normal and small. Patient also reports she has colostomy bag reversal five months ago. Today patient started having nonbloody vomiting x3 episodes so she decided to come to the ED for evaluation Seen and examined patient in the ER awake alert and coherent appears comfortable. Patient reports she is feeling much better at this time. Patient has an NG tube attached to low intermittent suction. Patient denies fever, chills, chest pain, palpitation, shortness of breath and diarrhea. Latest vital signs temperature 98.8, heart rate 75, blood pressure 141/74, saturation 99% on room air. Labs: WBC 11, neutrophils 74, hemoglobin 12, hematocrit 38, platelet count 269. Glucose 118 the rest of the chemistries normal. Urinalysis positive with esterase. Chest x-ray result is still pending at this time. CT abdomen and pelvis without contrast result revealed small bowel obstruction with transition point at the site of bowel anastomosis in the right lower quadrant. Small bowel feces sign in the right lower quadrant consistent with bowel obstruction. Ventral abdominal wall herniation due to devarication of recti with herniation of omental fat and bowel loops mild hiatus hernia hepatomegaly with diffuse hepatic steatosis. Bilateral renal cysts. Right adrenal gland calcification is identified. While in the ER patient received Protonix 40 mg p.o., Maalox +30 mL p.o., Dilaudid 0.5 mg IV, Zofran 4 mg IV NS at 1:25 a.m. and Zosyn 3.375 IV. We will admit patient for further medical management. REVIEW OF SYSTEMS CONSTITUTIONAL: Denies fevers, chills, or night sweats. No unintentional weight loss reported. NEUROLOGICAL: Denies headache, amaurosis fugax, motor weakness, sensory deficit, vertigo/spinning sensation, gait abnormalities, or tremors. ENT: No hearing loss, otalgia, otorrhea, rhinitis, rhinorrhea, hoarseness, or sore throat. CARDIOVASCULAR: Denies any exertional angina, dyspnea on exertion, orthopnea, paroxysmal nocturnal dyspnea, palpitations, life-threatening arrhythmias, claudication. PULMONARY: Denies any shortness of breath, cough, phlegm/sputum, hemoptysis, pleuritic chest pain. SLEEP: Denies morning headaches, daytime somnolence or napping. Denies difficulty falling asleep, staying asleep, waking from sleep. Denies knowledge of snoring. GASTROINTESTINAL: Complaints of nausea vomiting and abdominal pain epigastric area Denies any type of dysphagia to either liquids or solids. Denies nausea, vomiting, pyrosis, early satiety, abdominal pain, diarrhea, constipation, or changes in stool consistency or caliber. Denies coffee-ground emesis, hemat emesis, hematochezia, or melanotic stools. GENITOURINARY: Denies frequency, urgency, nocturia, hematuria or incontinence (Storage/Irritative symptoms.) Low urinary stream, straining to void, urinary intermittency or hesitancy, splitting of the voiding stream, terminal dribbling. ENDOCRINOLOGIC: Denies polyuria, polydipsia, polyphagia or heat/cold intolerances. HEMATOLOGIC: Denies thrombophilia/previous clots, or coagulopathy/bleeding disorders. ONCOLOGIC: Denies personal history of malignancy. DERMATOLOGIC: Denies rashes or pruritus. PSYCHIATRIC: Denies any suicidal or homicidal ideation. Denies hallucinations. PAST MEDICAL HISTORY: [ asthma, hyperlipidemia and hypertension ] PAST SURGICAL HISTORY: [ Colostomy reversal] PAST SOCIAL HISTORY: [ Patient lives alone. Patient denies alcohol tobacco and recreational drug use ] FAMILY HISTORY: [ Diabetes ] Coded Allergies: No Known Allergies (Unverified Allergy, Unknown, 05/29/23) PHYSICAL EXAM GENERAL APPEARANCE: The patient is awake, alert, and oriented, in no acute cardiopulmonary distress. NEUROLOGICAL: Cranial nerves II-XII grossly intact. Motor is 5/5 in bilateral upper and lower extremities proximal to distal. No sensory deficits. HEENT: Face is symmetric. Pupils are equal and reactive. Extraocular movements are intact. NECK: Supple. No JVD. No thyromegaly. No submental, submandibular, pre- /postauricular, occipital or supraclavicular lymphadenopathy. CHEST: Normal chest expansion. No Telemetry. LUNGS: Absence of any rales, rhonchi or any wheezing. CARDIOVASCULAR: Regular. S1 and S2 normal. No appreciable rubs, murmurs or gallops. ABDOMEN: Round distended and firm.+ NGT There is no rebound, voluntary guarding, or rigidity. : Deferred. No Carter. EXTREMITIES: Non-edematous and not cyanotic. No clubbing. Good capillary refill. SKIN: No skin breakdown. Vital Sign (Last 24 Hours) 06/19/25 23:13 Temp 98.8 Pulse 75 Resp 18 B/P (MAP) 141/74 Pulse Ox 99 O2 Delivery Room Air* O2 Flow Rate 0 FiO2 21 LABS: Laboratory: Test 06/19/25 22:28 06/19/25 18:34 Range/Units Urine Color YELLOW YELLOW Urine Appearance CLEAR CLEAR Urine pH 7.0 5.0-8.0 Urine Specific [place] 1.039 H 1.001-1.031 Urine Protein 100 H NEGATIVE mg/dL Urine Glucose (UA) NEGATIVE NEGATIVE mg/dL Urine Ketones 5 H NEGATIVE mg/dL Urine Occult Blood NEGATIVE NEGATIVE Urine Nitrate NEGATIVE NEGATIVE Urine Bilirubin 0.5 H NEGATIVE mg/dL Urine Urobilinogen 3 H 0.2-1.0 mg/dL Urine Leukocyte Esterase 250 H NEGATIVE Ca/uL Urine RBC 6-10 H 0-1 /HPF Urine WBC 26-50 H 0-1 /HPF Urine Squamous Epithelial Cells MOD 0-2 /HPF Urine Bacteria None None Seen /HPF Urine Hyaline Casts 2-5 H 0-1 /LPF /LPF White Blood Count 11.9 H 4.8-10.8 K/uL Red Blood Count 4.20 4.00-5.50 MIL/uL Hemoglobin 12.4 12.0-16.0 g/dL Hematocrit 38.7 36-48 % Mean Corpuscular Volume 92.1 79-99 fL Mean Corpuscular Hemoglobin 29.5 27.0-33.0 pg Mean Corpuscular Hemoglobin Concent 32.0 32.0-36.0 g/dL Red Cell Distribution Width 13.6 11.0-15.5 % Platelet Count 269 130-400 K/uL Mean Platelet Volume 9.7 7.5-10.5 fL Immature Granulocyte % (Auto) 0.4 0-1 % Neutrophils (%) (Auto) 74.3 40.0-77.0 % Lymphocytes (%) (Auto) 18.4 L 21.0-51.0 % Monocytes (%) (Auto) 5.4 3.0-13.0 % Eosinophils (%) (Auto) 1.0 0.0-8.0 % Basophils (%) (Auto) 0.5 0.0-5.0 % Neutrophils # (Auto) 8.8 H 1.8-7.7 K/uL Lymphocytes # (Auto) 2.2 1.0-4.8 K/uL Monocytes # (Auto) 0.6 0.1-1.0 K/uL Eosinophils # (Auto) 0.12 0.00-0.70 K/uL Basophils # (Auto) 0.06 0.00-0.20 K/uL Absolute Immature Granulocyte (auto 0.05 0-1 K/uL Nucleated Red Blood Cells 0.0 0.0-0.19 % Sodium Level 144 136-145 mmol/L Potassium Level 4.2 3.5-5.1 mmol/L Chloride Level 103 101-111 mmol/L Carbon Dioxide Level 32 21-32 mmol/L Blood Urea Nitrogen 16 7-18 mg/dL Creatinine 1.0 0.5-1.0 mg/dL Glomerular Filtration Rate Calc 61 >90 mL/min Random Glucose 118 H 70-105 mg/dL Total Calcium 9.7 8.5-10.1 mg/dL Total Bilirubin 0.2 0.2-1.0 mg/dL Direct Bilirubin 0.1 0.0-0.3 mg/dL Aspartate Amino Transf (AST/SGOT) 26 10-37 U/L Alanine Aminotransferase (ALT/SGPT) 36 12-78 U/L Alkaline Phosphatase 80 50-136 U/L Troponin I High Sensitivity 8 4-50 ng/L Total Protein 7.7 6.0-8.3 g/dL Albumin 4.0 3.5-5.0 g/dL Lipase 33 16-77 U/L DIAGNOSTICS / RADIOLOGY: [ ] ASSESSMENT: Acute small bowel obstruction POA Mild hiatal hernia per CT POA Constipation POA Hypertension POA Hyperlipidemia POA Obesity POA Asthma POA History of colostomy reversal POA PLAN: We will admit patient in medical telemetry We will keep nothing by mouth Continue on NG tube to low intermittent suction Continue Zosyn IV Q 8 hours for empiric coverage We will start NS @ 100 ml / hr x2 bags and re evaluate We will start on Protonix 40 mg IV daily for GI prophylaxis We will replace electrolytes as needed per protocol We will add prn medication for fever,pain,cough , nausea and vomiting We will reconcile home meds once medlist available We will follow-up chest x-ray and urine culture results We will seek general surgeon consultation We will request labs in am Further orders to follow depending on above results Case discussed with attending physician and came up with above treatment and plan of care. ADVANCED CARE PLANNING 1. Which of the following were discussed? Hospice Care - No Therapeutic options Yes Advance Directives - No Other discussions - 2. Discussed with who? Patient 3. Voluntary nature of this service was explained to the patient? Yes 4. Amount of time spent - __23 min 5. Reviewed by Physician? (if this service was performed by NPP) Yes Patient seen and examined by me. Agree with note by TARIFF COUNSEL SEE ADDITIONAL ORDERS PER CHART DISCUSSED WITH NURSING STAFF THOMAS DOOLEY BARREL RIFLER Jun 19, 2025 23:20
[2025-06-19] MEDS: ZOSYN 3.375GM +NS 50ML IV ONE (23:22)
--- NOTE | 2025-06-19 23:25 | NUR ---
NIL MEDS AVAIL AT BEDSIDE INSTRUCTED DAUGHTER TO BRING THEM OVER PHILLIP
[2025-06-20] MEDS: 0.9%NACL 1000ML 1,000 ML IV SCH (00:18)
--- NOTE | 2025-06-20 01:17 | HMCIMG ---
EXAM: CR Chest, 1 view CLINICAL HISTORY: NGT placement. COMPARISON: None provided. FINDINGS: The nasogastric tube tip is below the diaphragm and not completely included in this image. Mild COPD. Mild biapical pleural scars. Mild bibasilar atelectasis. Mildly enlarged cardiac silhouette. No pleural effusion or pneumothorax. No acute osseous abnormality. Degenerative osseous changes. IMPRESSION: The nasogastric tube tip is below the diaphragm and not completely included in this image. Mild COPD. Mild biapical pleural scars. Mild bibasilar atelectasis. Mildly enlarged cardiac silhouette. /Porter
--- NOTE | 2025-06-20 02:50 | NUR ---
GASTRIC OUTPUT 1.1L
[2025-06-20] MEDS: ZOSYN 3.375GM+NS 50ML 50 ML IV SCH (05:53)
[2025-06-20 06:35] LABS: INR 0.96 (0.85-1.15)
[2025-06-20 06:38] LABS: ASPARTATE AMINOTRANSFERASE 24.0 U/L (10-37); CREATININE 0.9 mg/dL (0.5-1.0); GLOMERULAR FILTR. RATE CALC 69.0 mL/min (>90); GLUCOSE,RANDOM 146.0 mg/dL (70-105); SODIUM SERUM 144.0 mmol/L (136-145); TOTAL PROTEIN, SERUM 7.3 g/dL (6.0-8.3); UREA NITROGEN, BLOOD 22.0 mg/dL (7-18)
[2025-06-20 06:43] LABS: IMMATURE GRANULOCYTE ABSOLUTE 0.01 K/uL (0-1); NUCLEATED RED BLOOD CELLS 0.0 % (0.0-0.19); PLATELET COUNT (AUTO) 254 K/uL (130-400); RED BLOOD CELL COUNT(AUTO) 4.04 MIL/uL (4.00-5.50); RED CELL DISTRIBUTION WIDTH 13.9 % (11.0-15.5); WHITE BLOOD COUNT (AUTO) 8.4 K/uL (4.8-10.8)
--- NOTE | 2025-06-20 10:13 | NUR ---
DCP: HOME sw met with pt who states she lives alone in her small apt. Pt states she has no provider, able to complete ADLS on her own. Pt also able to clean, cook and do laundry. Family transports as needed. Pt has a CpaP and shower chair. No HH or HD. Seen at [facility] for medical care and meds. Pt states daughter Kera Shah [phone] from [facility] and will stay with pt for a few days after dc. URSULA GREGORY [phone] Addendum: 06/20/25 at 1017 by SANTI ZAVALA Amended: Links added.
--- NOTE | 2025-06-20 16:40 | PN ---
[facility] PROGRESS NOTE Date of Service: Jun 20, 2025 Time of Service: 16:[address] Mello SUBJECTIVE: [ 06/19 This is a 70-year-old Pashto-speaking female with past medical history of asthma, hyperlipidemia and hypertension who presents to the ED for complaints of abdominal pain which started three days ago pain intensity has been progressively getting worse today associated with nausea . Patient's pain is located around epigastric area. Patient reports she has last bowel movement was today and it was normal and small. Patient also reports she has colostomy bag reversal five months ago. Today patient started having nonbloody vomiting x3 episodes so she decided to come to the ED for evaluation Seen and examined patient in the ER awake alert and coherent appears comfortable. Patient reports she is feeling much better at this time. Patient has an NG tube attached to low intermittent suction. Patient denies fever, chills, chest pain, palpitation, shortness of breath and diarrhea. Latest vital signs temperature 98.8, heart rate 75, blood pressure 141/74, saturation 99% on room air. Labs: WBC 11, neutrophils 74, hemoglobin 12, hematocrit 38, platelet count 269. Glucose 118 the rest of the chemistries normal. Urinalysis positive with esterase. Chest x-ray result is still pending at this time. CT abdomen and pelvis without contrast result revealed small bowel obstruction with transition point at the site of bowel anastomosis in the right lower quadrant. Small bowel feces sign in the right lower quadrant consistent with bowel obstruction. Ventral abdominal wall herniation due to devarication of recti with herniation of omental fat and bowel loops mild hiatus hernia hepatomegaly with diffuse hepatic steatosis. Bilateral renal cysts. Right adrenal gland calcification is identified. While in the ER patient received Protonix 40 mg p.o., Maalox +30 mL p.o., Dilaudid 0.5 mg IV, Zofran 4 mg IV NS at 1:25 a.m. and Zosyn 3.375 IV. We will admit patient for further medical management. 06/20 patient was seen by nurse practitioner and physician during rounding in emergency department in room ED 13. Due to nausea and vomiting NG tube was placed and so far we have 400 cc removed from the stomach. Dr. Hernandez surgeon was consulted for small bowel obstruction. As per CT abdomen/pelvis showed small-bowel obstruction with transition point at the site of bowel anastomosis in the right lower quadrant. Small bowel feces sign in the right lower quadrant consistent with a bowel obstruction. Ventral abdominal wall herniation due to the variation of rectum with herniation of omental fat and bowel loops. Mild hiatal hernia. Hepatomegaly with diffuse hepatic steatosis. Bilateral renal cyst. Right adrenal gland calcification is identified. Chest x-ray showed NG tube, mild COPD, mild pleural scars. Mild bibasilar atelectasis. Mild enlarged cardiac silhouette. UA came back positive for leukocytosis. WBC is trending down today is 8.4. Patient continues to be on Zosyn antibiotics in the meantime. We will continue to monitor patient in the meantime. A.m. labs] REVIEW OF SYSTEMS CONSTITUTIONAL: Denies fevers, chills, or night sweats. No unintentional weight loss reported. NEUROLOGICAL: Denies headache, amaurosis fugax, motor weakness, sensory deficit, vertigo/spinning sensation, gait abnormalities, or tremors. ENT: No hearing loss, otalgia, otorrhea, rhinitis, rhinorrhea, hoarseness, or sore throat. CARDIOVASCULAR: Denies any exertional angina, dyspnea on exertion, orthopnea, paroxysmal nocturnal dyspnea, palpitations, life-threatening arrhythmias, claudication. PULMONARY: Denies any shortness of breath, cough, phlegm/sputum, hemoptysis, pleuritic chest pain. SLEEP: Denies morning headaches, daytime somnolence or napping. Denies difficulty falling asleep, staying asleep, waking from sleep. Denies knowledge of snoring. GASTROINTESTINAL: Complaints of nausea vomiting and abdominal pain epigastric area Denies any type of dysphagia to either liquids or solids. Denies nausea, vomiting, pyrosis, early satiety, abdominal pain, diarrhea, constipation, or changes in stool consistency or caliber. Denies coffee-ground emesis, hematemesis, hematochezia, or melanotic stools. GENITOURINARY: Denies frequency, urgency, nocturia, hematuria or incontinence (Storage/Irritative symptoms.) Low urinary stream, straining to void, urinary intermittency or hesitancy, splitting of the voiding stream, terminal dribbling. ENDOCRINOLOGIC: Denies polyuria, polydipsia, polyphagia or heat/cold intolerances. HEMATOLOGIC: Denies thrombophilia/previous clots, or coagulopathy/bleeding disorders. ONCOLOGIC: Denies personal history of malignancy. DERMATOLOGIC: Denies rashes or pruritus. PSYCHIATRIC: Denies any suicidal or homicidal ideation. Denies hallucinations. PHYSICAL EXAM GENERAL APPEARANCE: The patient is awake, alert, and oriented, in no acute cardiopulmonary distress. NEUROLOGICAL: Cranial nerves II-XII grossly intact. Motor is 5/5 in bilateral upper and lower extremities proximal to distal. No sensory deficits. HEENT: Face is symmetric. Pupils are equal and reactive. Extraocular movements are intact. NECK: Supple. No JVD. No thyromegaly. No submental, submandibular, pre- /postauricular, occipital or supraclavicular lymphadenopathy. CHEST: Normal chest expansion. No Telemetry. LUNGS: Absence of any rales, rhonchi or any wheezing. CARDIOVASCULAR: Regular. S1 and S2 normal. No appreciable rubs, murmurs or gallops. ABDOMEN: Round distended and firm.+ NGT There is no rebound, voluntary guarding, or rigidity. : Deferred. No Carter. EXTREMITIES: Non-edematous and not cyanotic. No clubbing. Good capillary refill. SKIN: No skin breakdown. Vital Signs (last 8hr) Date Time Temp Pulse Resp B/P (MAP) Pulse Ox O2 Delivery O2 Flow Rate FiO2 06/20/25 14:56 98.4 74 18 129/68 93 Room Air* 0 21 06/20/25 12:03 98.4 77 18 114/58 96 Nasal Cannula* 2 28 06/20/25 11:01 98.4 76 19 123/66 96 Nasal Cannula* 2 28 LABS: Laboratory: Test 06/20/25 06:06 06/19/25 22:28 06/19/25 18:34 Range/Units White Blood Count 8.4 # 4.8-10.8 K/uL Red Blood Count 4.04 4.00-5.50 MIL/uL Hemoglobin 11.9 L 12.0-16.0 g/dL Hematocrit 37.9 36-48 % Mean Corpuscular Volume 93.8 79-99 fL Mean Corpuscular Hemoglobin 29.5 27.0-33.0 pg Mean Corpuscular Hemoglobin Concent 31.4 L 32.0-36.0 g/dL Red Cell Distribution Width 13.9 11.0-15.5 % Platelet Count 254 130-400 K/uL Mean Platelet Volume 9.9 7.5-10.5 fL Immature Granulocyte % (Auto) 0.1 0-1 % Neutrophils (%) (Auto) 78.6 H 40.0-77.0 % Lymphocytes (%) (Auto) 8.9 L 21.0-51.0 % Monocytes (%) (Auto) 11.5 3.0-13.0 % Eosinophils (%) (Auto) 0.4 0.0-8.0 % Basophils (%) (Auto) 0.5 0.0-5.0 % Neutrophils # (Auto) 6.6 1.8-7.7 K/uL Lymphocytes # (Auto) 0.8 L 1.0-4.8 K/uL Monocytes # (Auto) 1.0 0.1-1.0 K/uL Eosinophils # (Auto) 0.03 0.00-0.70 K/uL Basophils # (Auto) 0.04 0.00-0.20 K/uL Absolute Immature Granulocyte (auto 0.01 0-1 K/uL Nucleated Red Blood Cells 0.0 0.0-0.19 % White Cell Morphology Comment See comments Prothrombin Time 10.2 9.6-11.6 SEC Prothromb Time International Ratio 0.96 0.85-1.15 Activated Partial Thromboplast Time 25.1 L 26.3-35.5 SEC Sodium Level 144 136-145 mmol/L Potassium Level 3.9 3.5-5.1 mmol/L Chloride Level 105 101-111 mmol/L Carbon Dioxide Level 30 21-32 mmol/L Blood Urea Nitrogen 22 H 7-18 mg/dL Creatinine 0.9 0.5-1.0 mg/dL Glomerular Filtration Rate Calc 69 >90 mL/min Random Glucose 146 H 70-105 mg/dL Total Calcium 9.1 8.5-10.1 mg/dL Magnesium Level 2.40 1.80-2.40 mg/dL Total Bilirubin 0.6 # 0.2-1.0 mg/dL Aspartate Amino Transf (AST/SGOT) 24 10-37 U/L Alanine Aminotransferase (ALT/SGPT) 32 12-78 U/L Alkaline Phosphatase 67 50-136 U/L Total Protein 7.3 6.0-8.3 g/dL Albumin 3.6 3.5-5.0 g/dL Urine Color YELLOW YELLOW Urine Appearance CLEAR CLEAR Urine pH 7.0 5.0-8.0 Urine Specific [place] 1.039 H 1.001-1.031 Urine Protein 100 H NEGATIVE mg/dL Urine Glucose (UA) NEGATIVE NEGATIVE mg/dL Urine Ketones 5 H NEGATIVE mg/dL Urine Occult Blood NEGATIVE NEGATIVE Urine Nitrate NEGATIVE NEGATIVE Urine Bilirubin 0.5 H NEGATIVE mg/dL Urine Urobilinogen 3 H 0.2-1.0 mg/dL Urine Leukocyte Esterase 250 H NEGATIVE Ca/uL Urine RBC 6-10 H 0-1 /HPF Urine WBC 26-50 H 0-1 /HPF Urine Squamous Epithelial Cells MOD 0-2 /HPF Urine Bacteria None None Seen /HPF Urine Hyaline Casts 2-5 H 0-1 /LPF /LPF Direct Bilirubin 0.1 0.0-0.3 mg/dL Troponin I High Sensitivity 8 4-50 ng/L Lipase 33 16-77 U/L Current Medications Medications (Trade) Dose Ordered Sig/Paul Route PRN Reason Start Time Stop Time Status Last Admin Dose Admin Acetaminophen (TYLenol 325MG TAB) 650 mg Q4H PRN PO MILD PAIN (1-3) 06/20/25 00:00 07/20/25 00:00 Acetaminophen (TYLenol 325MG TAB) 650 mg Q6H PRN PO TEMPERATURE GREATER THAN 101.5 06/20/25 00:00 07/20/25 00:00 Morphine Sulfate (morPHINE 4MG SYG) 2 mg Q4H PRN IV MODERATE PAIN (4-6) 06/19/25 23:45 06/26/25 23:44 06/20/25 14:19 2 MG Ondansetron HCl (zoFRAN 4MG INJ) 4 mg Q6H PRN IV NAUSEA/VOMITING 06/20/25 00:00 07/20/25 00:00 06/20/25 09:47 4 MG Pantoprazole Sodium (PROTonix 40MG INJ) 40 mg DAILY IVP 06/20/25 09:00 07/20/25 08:59 06/20/25 09:47 40 MG Piperacillin Sod/ Tazobactam Sod 50 ml @ 12.5 mls/hr ZOSY8 IV 06/20/25 05:00 06/30/25 04:59 06/20/25 14:07 12.5 MLS/HR Sodium Chloride 1,000 ml @ 100 mls/hr Q10H IV 06/20/25 00:00 07/20/25 00:00 06/20/25 09:52 100 MLS/HR DIAGNOSTICS / RADIOLOGY: [ ] ASSESSMENT: Acute small bowel obstruction POA Mild hiatal hernia per CT POA Bilateral renal cyst right adrenal gland calcified per CT abdomen/pelvis POA Hepatomegaly per CT abdomen/pelvis POA Constipation POA Uncontrolled Hypertension POA Acute complicated cystitis POA Hyperlipidemia POA Uncontrolled diabetes mellitus type 2 with hyperglycemia POA Multifactorial anemia POA Obesity POA Asthma POA History of colostomy reversal POA PLAN: Due to nausea and vomiting NG tube was placed and so far we have 400 cc removed from the stomach. Dr. Hernandez surgeon was consulted for small bowel obstruction. As per CT abdomen/pelvis showed small-bowel obstruction with transition point at the site of bowel anastomosis in the right lower quadrant. Small bowel feces sign in the right lower quadrant consistent with a bowel obstruction. Ventral abdominal wall herniation due to the variation of rectum with herniation of omental fat and bowel loops. Mild hiatal hernia. Hepatomegaly with diffuse hepatic steatosis. Bilateral renal cyst. Right adrenal gland calcification is identified. Chest x-ray showed NG tube, mild COPD, mild pleural scars. Mild bibasilar atelectasis. Mild enlarged cardiac silhouette. UA came back positive for leukocytosis. WBC is trending down today is 8.4. Patient continues to be on Zosyn antibiotics in the meantime. We will continue to monitor patient in the meantime. A.m. labs Patient admitted to medical-surgical floor with tele NPO Continue on NG tube to low intermittent suction Continue Zosyn IV Q 8 hours for empiric coverage Continue NS @ 100 ml / hr x2 bags and re evaluate Continue Protonix 40 mg IV daily for GI prophylaxis We will replace electrolytes as needed per protocol We will add prn medication for fever,pain,cough , nausea and vomiting We will reconcile home meds once medlist available We will request labs in am Further orders to follow depending on above results Case discussed with attending physician and came up with above treatment and plan of care. ATTESTATION BY PHYSICIAN I have seen and examined the patient. I reviewed the documentation, medical decision making, and treatment plan as noted by the mid-level provider above. I agree with the findings and plan of care. Kiki Mello MD, KATARZYNA B [employer] C[employer] SUPERVISOR Jun 20, 2025 16:40
[2025-06-20 17:35] LABS: INFLUENZA TYPE A Negative For Type A (NEGATIVE); INFLUENZA TYPE B Negative For Type B (NEGATIVE)
--- NOTE | 2025-06-20 17:37 | CONS ---
CONSULT NOTE: Consulting physician:Dr Mello Consulting service: General surgery Reason for consultation: Small-bowel obstruction History of present illness: This is a 70-year-old female known to our practice who has undergone multiple surgeries with most recent surgery in November for ileostomy reversal. Patient has been consulted to surgery for concerns of small-bowel obstruction. Patient has been doing well since November with no significant issues but over the last three days began with the abdominal discomfort which progressively worsened prompting patient and family to come to the hospital. Upon initial workup concerns for obstruction noted at the anastomotic site. For that reason NG tube was placed. Minimal input noted. Patient however now reporting flatus. Abdomen nondistended nontender. Patient currently NPO Medical history: asthma, hyperlipidemia and hypertension PAST SURGICAL HISTORY: Colostomy reversal PAST SOCIAL HISTORY: Patient lives alone. Patient denies alcohol tobacco and recreational drug use Review of systems: General: No Fever, No Chills, No Night Sweats, No Fatigue, No Malaise, No Appetite, No Other HEENT: No Head Aches, No Visual Changes, No Eye Pain, No Ear Pain, No Dysphasia, No Sinus Congestion, No Post Nasal Drip, No Sore Throat, No Other Pulmonary: No Dyspnea, No Cough, No Pleuritic Chest Pain, No Other Cardiovascular: No: Chest Pain, Palpitations, Orthopnea, Paroxysmal No Dyspnea, Edema, Lt Headedness, Other Gastrointestinal: No: Nausea, Vomiting, Diarrhea, Constipation, Melena, Hematochezia, Other Genitourinary: No Dysuria, No Frequency, No Incontinence, No Hematuria, No Retention, No Other Musculoskeletal: No: other, neck pain, shoulder pain, arm pain, back pain, hand pain, leg pain, foot pain Skin: No Urticaria, No Rash, No Other Neurological: No: Weakness, Numbness, Incoordination, Change in speech, Co nfusion, Seizures, Other Physical exam: General: Awake alert and oriented NG in place Heart: Regular rate and rhythm} Lungs: Clear to auscultation no distress Abdomen: [Soft, nontender, nondistended Assessment: This is a 70-year-old female with concerns of small bowel obstruction Plan: At this point in time we will order stat KUB to assess for continued obstruction If improvement noted and no obstruction present patient to have NG tube removed and started on clear liquids Plan will be for continued conservative management No surgical intervention at this time Dr. Novak to be updated in patient's status and surgical team to follow patient closely Surgical case has been discussed with my supervising physician in the above plan was formulated and agreed upon Supervising physicians evaluation the patient be done within next 24 hours We appreciate the hospitalist team for us to participate in patient's care. Greater than 55 minutes of time spent patient, reviewing chart, working on documentation CELINE FLOWER Jr. PAC Jun 20, 2025 17:37
[2025-06-20 18:00] VITALS: BP 147/70; PULSE 80; RESP 16; TEMP 97.8
--- NOTE | 2025-06-20 18:15 | HMCIMG ---
EXAM: CR Abdomen, 2 View. CLINICAL HISTORY: EVALUATE SBO COMPARISON: CT dated June 19, 2025. FINDINGS: Enteric tube terminates within the stomach BOWEL: Abundant colonic fecal matter may reflect constipation. Colonic bowel loops are normal in caliber. Prominent small bowel loops within the right abdomen measuring up to 3.6 cm suggestive of a persistent small bowel obstruction. No pneumatosis intestinalis, pneumoperitoneum, or portal venous gas. PERITONEUM/SOFT TISSUES: No free air evident. No pathologic appearing calcification. BONES: No acute osseous abnormality. IMPRESSION: 1. Prominent small bowel loops in right abdomen up to 3.6 cm, suggestive of persistent small bowel obstruction. /[place]
[2025-06-20 22:50] VITALS: BP 148/81; PULSE 78; RESP 20; TEMP 98
[2025-06-20 23:22] VITALS: O2SAT 92
[2025-06-21] VITALS (7 sets, daily range): BP systolic 127–152; BP diastolic 62–78; PULSE 64–74; RESP 16–18; TEMP 97.8–98.4; O2SAT 94
[2025-06-21 03:50] LABS: IMMATURE GRANULOCYTE ABSOLUTE 0.01 K/uL (0-1); NUCLEATED RED BLOOD CELLS 0.0 % (0.0-0.19); PLATELET COUNT (AUTO) 239 K/uL (130-400); RED BLOOD CELL COUNT(AUTO) 3.68 MIL/uL (4.00-5.50); RED CELL DISTRIBUTION WIDTH 14.1 % (11.0-15.5); WHITE BLOOD COUNT (AUTO) 7.3 K/uL (4.8-10.8)
[2025-06-21 04:07] LABS: ASPARTATE AMINOTRANSFERASE 19.0 U/L (10-37); CREATINE KINASE, TOTAL 50.0 U/L (21-232); CREATININE 0.7 mg/dL (0.5-1.0); GLOMERULAR FILTR. RATE CALC 93.0 mL/min (>90); GLUCOSE,RANDOM 106.0 mg/dL (70-105); SODIUM SERUM 144.0 mmol/L (136-145); TOTAL PROTEIN, SERUM 6.3 g/dL (6.0-8.3); UREA NITROGEN, BLOOD 19.0 mg/dL (7-18)
[2025-06-21] MEDS ORDERED: LOSA25TA41 PO (12:37)
[2025-06-21] MEDS ORDERED: ROSU5TAB51 PO (12:38)
--- NOTE | 2025-06-21 13:34 | PN ---
[facility] PROGRESS NOTE Date of Service: Jun 21, 2025 Time of Service: 13:[address] Andrews SUBJECTIVE: [ 06/19 This is a 70-year-old Martiniquais-speaking female with past medical history of asthma, hyperlipidemia and hypertension who presents to the ED for c omplaints of abdominal pain which started three days ago pain intensity has been progressively getting worse today associated with nausea . Patient's pain is located around epigastric area. Patient reports she has last bowel movement was today and it was normal and small. Patient also reports she has colostomy bag reversal five months ago. Today patient started having nonbloody vomiting x3 episodes so she decided to come to the ED for evaluation Seen and examined patient in the ER awake alert and coherent appears comfortable. Patient reports she is feeling much better at this time. Patient has an NG tube attached to low intermittent suction. Patient denies fever, chills, chest pain, palpitation, shortness of breath and diarrhea. Latest vital signs temperature 98.8, heart rate 75, blood pressure 141/74, saturation 99% on room air. Labs: WBC 11, neutrophils 74, hemoglobin 12, hematocrit 38, platelet count 269. Glucose 118 the rest of the chemistries normal. Urinalysis positive with esterase. Chest x-ray result is still pending at this time. CT abdomen and pelvis without contrast result revealed small bowel obstruction with transition point at the site of bowel anastomosis in the right lower quadrant. Small bowel feces sign in the right lower quadrant consistent with bowel obstruction. Ventral abdominal wall herniation due to devarication of recti with herniation of omental fat and bowel loops mild hiatus hernia hepatomegaly with diffuse hepatic steatosis. Bilateral renal cysts. Right adrenal gland calcification is identified. While in the ER patient received Protonix 40 mg p.o., Maalox +30 mL p.o., Dilaudid 0.5 mg IV, Zofran 4 mg IV NS at 1:25 a.m. and Zosyn 3.375 IV. We will admit patient for further medical management. 06/20 patient was seen by nurse practitioner and physician during rounding in emergency department in room ED 13. Due to nausea and vomiting NG tube was placed and so far we have 400 cc removed from the stomach. Dr. Hernandez surgeon was consulted for small bowel obstruction. As per CT abdomen/pelvis showed small-bowel obstruction with transition point at the site of bowel anastomosis in the right lower quadrant. Small bowel feces sign in the right lower quadrant consistent with a bowel obstruction. Ventral abdominal wall herniation due to the variation of rectum with herniation of omental fat and bowel loops. Mild hiatal hernia. Hepatomegaly with diffuse hepatic steatosis. Bilateral renal cyst. Right adrenal gland calcification is identified. Chest x-ray showed NG tube, mild COPD, mild pleural scars. Mild bibasilar atelectasis. Mild enlarged cardiac silhouette. UA came back positive for leukocytosis. WBC is trending down today is 8.4. Patient continues to be on Zosyn antibiotics in the meantime. We will continue to monitor patient in the meantime. A.m. labs 06/21 patient was seen by nurse practitioner and physician during rounding in [place] [id number]. Patient continues to have NG tube connected to intermittent suctioning. About 200 cc was withdrawn during inspector fuel hose. We will repeat KUB for further evaluation of small-bowel obstruction. Patient was also evaluated by the surgeon and no surgical procedure at this moment. We will continue to monitor patient in the meantime. A.m. labs.] REVIEW OF SYSTEMS CONSTITUTIONAL: Denies fevers, chills, or night sweats. No unintentional weight loss reported. NEUROLOGICAL: Denies headache, amaurosis fugax, motor weakness, sensory deficit, vertigo/spinning sensation, gait abnormalities, or tremors. ENT: No hearing loss, otalgia, otorrhea, rhinitis, rhinorrhea, hoarseness, or sore throat. CARDIOVASCULAR: Denies any exertional angina, dyspnea on exertion, orthopnea, paroxysmal nocturnal dyspnea, palpitations, life-threatening arrhythmias, claudication. PULMONARY: Denies any shortness of breath, cough, phlegm/sputum, hemoptysis, pleuritic chest pain. SLEEP: Denies morning headaches, daytime somnolence or napping. Denies difficulty falling asleep, staying asleep, waking from sleep. Denies knowledge of snoring. GASTROINTESTINAL: Complaints of nausea vomiting and abdominal pain epigastric area Denies any type of dysphagia to either liquids or solids. Denies nausea, vomiting, pyrosis, early satiety, abdominal pain, diarrhea, constipation, or changes in stool consistency or caliber. Denies coffee-ground emesis, hematemesis, hematochezia, or melanotic stools. GENITOURINARY: Denies frequency, urgency, nocturia, hematuria or incontinence (Storage/Irritative symptoms.) Low urinary stream, straining to void, urinary intermittency or hesitancy, splitting of the voiding stream, terminal dribbling. ENDOCRINOLOGIC: Denies polyuria, polydipsia, polyphagia or heat/cold int olerances. HEMATOLOGIC: Denies thrombophilia/previous clots, or coagulopathy/bleeding disorders. ONCOLOGIC: Denies personal history of malignancy. DERMATOLOGIC: Denies rashes or pruritus. PSYCHIATRIC: Denies any suicidal or homicidal ideation. Denies hallucinations. PHYSICAL EXAM GENERAL APPEARANCE: The patient is awake, alert, and oriented, in no acute cardiopulmonary distress. NEUROLOGICAL: Cranial nerves II-XII grossly intact. Motor is 5/5 in bilateral upper and lower extremities proximal to distal. No sensory deficits. HEENT: Face is symmetric. Pupils are equal and reactive. Extraocular movements are intact. NECK: Supple. No JVD. No thyromegaly. No submental, submandibular, pre- /postauricular, occipital or supraclavicular lymphadenopathy. CHEST: Normal chest expansion. No Telemetry. LUNGS: Absence of any rales, rhonchi or any wheezing. CARDIOVASCULAR: Regular. S1 and S2 normal. No appreciable rubs, murmurs or gallops. ABDOMEN: Round distended and firm.+ NGT There is no rebound, voluntary guarding, or rigidity. : Deferred. No Carter. EXTREMITIES: Non-edematous and not cyanotic. No clubbing. Good capillary refill. SKIN: No skin breakdown. Vital Signs (last 8hr) Date Time Temp Pulse Resp B/P (MAP) Pulse Ox O2 Delivery O2 Flow Rate FiO2 06/21/25 08:00 98.1 69 16 138/78 94 Room Air 06/21/25 07:30 94 Nasal Cannula* 2 28 LABS: Laboratory: Test 06/21/25 03:34 06/20/25 17:10 06/20/25 06:06 06/19/25 22:28 Range/Units White Blood Count 7.3 4.8-10.8 K/uL Red Blood Count 3.68 L 4.00-5.50 MIL/uL Hemoglobin 10.9 L 12.0-16.0 g/dL Hematocrit 35.0 L 36-48 % Mean Corpuscular Volume 95.1 79-99 fL Mean Corpuscular Hemoglobin 29.6 27.0-33.0 pg Mean Corpuscular Hemoglobin Concent 31.1 L 32.0-36.0 g/dL Red Cell Distribution Width 14.1 11.0-15.5 % Platelet Count 239 130-400 K/uL Mean Platelet Volume 9.8 7.5-10.5 fL Immature Granulocyte % (Auto) 0.1 0-1 % Neutrophils (%) (Auto) 58.6 40.0-77.0 % Lymphocytes (%) (Auto) 27.2 21.0-51.0 % Monocytes (%) (Auto) 11.2 3.0-13.0 % Eosinophils (%) (Auto) 2.5 0.0-8.0 % Basophils (%) (Auto) 0.4 0.0-5.0 % Neutrophils # (Auto) 4.3 1.8-7.7 K/uL Lymphocytes # (Auto) 2.0 1.0-4.8 K/uL Monocytes # (Auto) 0.8 0.1-1.0 K/uL Eosinophils # (Auto) 0.18 0.00-0.70 K/uL Basophils # (Auto) 0.03 0.00-0.20 K/uL Absolute Immature Granulocyte (auto 0.01 0-1 K/uL Nucleated Red Blood Cells 0.0 0.0-0.19 % Sodium Level 144 136-145 mmol/L Potassium Level 3.7 3.5-5.1 mmol/L Chloride Level 109 101-111 mmol/L Carbon Dioxide Level 28 21-32 mmol/L Blood Urea Nitrogen 19 H 7-18 mg/dL Creatinine 0.7 0.5-1.0 mg/dL Glomerular Filtration Rate Calc 93 >90 mL/min Random Glucose 106 H 70-105 mg/dL Lactic Acid Level 0.9 0.8-2.5 mmol/L Total Calcium 8.5 8.5-10.1 mg/dL Magnesium Level 2.50 H 1.80-2.40 mg/dL Total Bilirubin 0.4 # 0.2-1.0 mg/dL Direct Bilirubin 0.2 0.0-0.3 mg/dL Aspartate Amino Transf (AST/SGOT) 19 10-37 U/L Alanine Aminotransferase (ALT/SGPT) 26 12-78 U/L Alkaline Phosphatase 46 #L 50-136 U/L Ammonia 23 11-32 umol/L Total Creatine Kinase 50 # 21-232 U/L B-Type Natriuretic Peptide 96 0-100 pg/mL Total Protein 6.3 6.0-8.3 g/dL Albumin 3.1 L 3.5-5.0 g/dL Amylase Level 40 25-115 U/L Procalcitonin 0.10 0.05-0.5 ng/mL Free Thyroxine (T4) Direct 0.81 0.76-1.46 ng/dL Free Triiodothyronine (T3) pg/mL 1.58 L 2.18-3.98 pg/mL Influenza Type A Antigen Negative For Type A NEGATIVE Influenza Type B Antigen Negative For Type B NEGATIVE White Cell Morphology Comment See comments Prothrombin Time 10.2 9.6-11.6 SEC Prothromb Time International Ratio 0.96 0.85-1.15 Activated Partial Thromboplast Time 25.1 L 26.3-35.5 SEC Hemoglobin A1c 6.3 H 4.0-6.0 % Estimated Average Glucose (eAG) 134 H 70-126 mg/dL Urine Color YELLOW YELLOW Urine Appearance CLEAR CLEAR Urine pH 7.0 5.0-8.0 Urine Specific Dania 1.039 H 1.001-1.031 Urine Protein 100 H NEGATIVE mg/dL Urine Glucose (UA) NEGATIVE NEGATIVE mg/dL Urine Ketones 5 H NEGATIVE mg/dL Urine Occult Blood NEGATIVE NEGATIVE Urine Nitrate NEGATIVE NEGATIVE Urine Bilirubin 0.5 H NEGATIVE mg/dL Urine Urobilinogen 3 H 0.2-1.0 mg/dL Urine Leukocyte Esterase 250 H NEGATIVE Ca/uL Urine RBC 6-10 H 0-1 /HPF Urine WBC 26-50 H 0-1 /HPF Urine Squamous Epithelial Cells MOD 0-2 /HPF Urine Bacteria None None Seen /HPF Urine Hyaline Casts 2-5 H 0-1 /LPF /LPF Test 06/19/25 18:34 Range/Units Troponin I High Sensitivity 8 4-50 ng/L Lipase 33 16-77 U/L Current Medications Medications (Trade) Dose Ordered Sig/Paul Route PRN Reason Start Time Stop Time Status Last Admin Dose Admin Acetaminophen (TYLenol 325MG TAB) 650 mg Q4H PRN PO MILD PAIN (1-3) 06/20/25 00:00 07/20/25 00:00 Acetaminophen (TYLenol 325MG TAB) 650 mg Q6H PRN PO TEMPERATURE GREATER THAN 101.5 06/20/25 00:00 07/20/25 00:00 06/21/25 09:01 650 MG Morphine Sulfate (morPHINE 4MG SYG) 2 mg Q4H PRN IV MODERATE PAIN (4-6) 06/19/25 23:45 06/26/25 23:44 06/20/25 23:10 2 MG Ondansetron HCl (zoFRAN 4MG INJ) 4 mg Q6H PRN IV NAUSEA/VOMITING 06/20/25 00:00 07/20/25 00:00 06/20/25 09:47 4 MG Pantoprazole Sodium (PROTonix 40MG INJ) 40 mg DAILY IVP 06/20/25 09:00 07/20/25 08:59 06/21/25 08:38 40 MG Piperacillin Sod/ Tazobactam Sod 50 ml @ 12.5 mls/hr ZOSY8 IV 06/20/25 05:00 06/30/25 04:59 06/21/25 04:47 12.5 MLS/HR Sodium Chloride 1,000 ml @ 100 mls/hr Q10H IV 06/20/25 00:00 07/20/25 00:00 06/21/25 04:47 100 MLS/HR DIAGNOSTICS / RADIOLOGY: [ ] ASSESSMENT: Acute small bowel obstruction POA Mild hiatal hernia per CT POA Bilateral renal cyst right adrenal gland calcified per CT abdomen/pelvis POA Hepatomegaly per CT abdomen/pelvis POA Constipation POA Uncontrolled Hypertension POA Acute complicated cystitis POA Hyperlipidemia POA Uncontrolled diabetes mellitus type 2 with hyperglycemia POA Multifactorial anemia POA Obesity POA Asthma POA History of colostomy reversal POA PLAN: Patient continues to have NG tube connected to intermittent suctioning. About 200 cc was withdrawn during inspector fuel hose. We will repeat KUB for further evaluation of small-bowel obstruction. Patient was also evaluated by the surgeon and no surgical procedure at this moment. We will continue to monitor patient in the meantime. A.m. labs. As per CT abdomen/pelvis showed small-bowel obstruction with transition point at the site of bowel anastomosis in the right lower quadrant. Small bowel feces sign in the right lower quadrant consistent with a bowel obstruction. Ventral abdominal wall herniation due to the variation of rectum with herniation of omental fat and bowel loops. Mild hiatal hernia. Hepatomegaly with diffuse hepatic steatosis. Bilateral renal cyst. Right adrenal gland calcification is identified. Chest x-ray showed NG tube, mild COPD, mild pleural scars. Mild bibasilar atelectasis. Mild enlarged cardiac silhouette. Patient admitted to medical-surgical floor with tele NPO Continue on NG tube to low intermittent suction Continue Zosyn IV Q 8 hours for empiric coverage Continue NS @ 100 ml / hr x2 bags and re evaluate Continue Protonix 40 mg IV daily for GI prophylaxis We will replace electrolytes as needed per protocol We will add prn medication for fever,pain,cough , nausea and vomiting We will reconcile home meds once medlist available We will request labs in am Further orders to follow depending on above results Case discussed with attending physician and came up with above treatment and plan of care. ATTESTATION BY PHYSICIAN I have seen and examined the patient. I reviewed the documentation, medical decision making, and treatment plan as noted by the mid-level provider above. I agree with the findings and plan of care. Giacomo Andrews IV, MD, [facility] Jun 21, 2025 13:34
--- NOTE | 2025-06-21 15:04 | PN ---
This is a 70-year-old female with concerns of small bowel obstruction Interval history: This 70-year-old female seen in her room resting No nausea or vomiting NG to LIS with minimal output Patient with significant flatus reported by patient and family Abdomen is soft nontender KUB yesterday concerning for possible obstruction KUB today currently pending Physical exam General: Awake alert and oriented Heart: Regular rate and rhythm} Lungs: Clear to auscultation no distress Abdomen: [Soft, nontender, nondistended Assessment : This is a 70-year-old female with concerns of small bowel obstruction Plan: With multiple episodes of flatus we will clamp NG tube We will await KUB findings Continue with conservative management If no obstruction noted on imaging NG tube to be removed and patient to be allowed clear liquids Dr. Whalen to be updated in patient's status and surgical team to follow patient closely Surgical case has been discussed with my supervising physician in the above plan was formulated and agreed upon We appreciate the hospitalist team for us to participate in patient's care. Greater than 45 minutes of time spent patient, reviewing chart, working on documentation Vitals/Labs Vital Signs Date Time Temp Pulse Resp B/P (MAP) Pulse Ox O2 Delivery O2 Flow Rate FiO2 06/21/25 12:00 98.2 68 16 133/72 93 Nasal Cannula 1.0 06/21/25 07:30 28 Laboratory Tests 06/21/25 03:34 Medications Current Medications Pantoprazole Sodium 40 mg ONCE ONCE PO; Start 06/19/25 at 19:00; Stop 06/19/25 at 19:01; Status DC Lidocaine HCl 10 ml ONCE ONCE PO; Start 06/19/25 at 19:00; Stop 06/19/25 at 19:01; Status DC Al Hydroxide/Mg Hydroxide 30 ml ONCE ONCE PO; Start 06/19/25 at 19:00; Stop 06/19/25 at 19:01; Status DC Hydromorphone HCl 0.5 mg ONCE ONCE IVP Last administered on 06/19/25at 22:47; Start 06/19/25 at 23:00; Stop 06/19/25 at 23:01; Status DC Ondansetron HCl 4 mg ONCE ONCE IVP Last administered on 06/19/25at 22:47; Start 06/19/25 at 23:00; Stop 06/19/25 at 23:01; Status DC Sodium Chloride 1,000 ml @ 125 mls/hr ONCE ONCE IV Last administered on 06/19/25at 22:47; Start 06/19/25 at 23:00; Stop 06/20/25 at 06:59; Status DC Piperacillin Sod/ Tazobactam Sod 3.375 gm ONCE ONCE IV Last administered on 06/19/25at 23:22; Start 06/19/25 at 23:00; Stop 06/19/25 at 23:01; Status DC Acetaminophen 650 mg Q6H PRN PO; Start 06/20/25 at 00:00; Stop 07/20/25 at 00:00 Acetaminophen 650 mg Q4H PRN PO Last administered on 06/21/25at 14:43; Start 06/20/25 at 00:00; Stop 07/20/25 at 00:00 Ondansetron HCl 4 mg Q6H PRN IV Last administered on 06/20/25at 09:47; Start 06/20/25 at 00:00; Stop 07/20/25 at 00:00 Piperacillin Sod/ Tazobactam Sod 50 ml @ 12.5 mls/hr ZOSY8 IV Last administered on 06/21/25at 13:41; Start 06/20/25 at 05:00; Stop 06/30/25 at 04:59 Morphine Sulfate 2 mg Q4H PRN IV Last administered on 06/20/25at 23:10; Start 06/19/25 at 23:45; Stop 06/26/25 at 23:44 Sodium Chloride 1,000 ml @ 100 mls/hr Q10H IV Last administered on 06/21/25at 04:47; Start 06/20/25 at 00:00; Stop 07/20/25 at 00:00 Pantoprazole Sodium 40 mg DAILY IVP Last administered on 06/21/25at 08:38; Start 06/20/25 at 09:00; Stop 07/20/25 at 08:59 CELINE FLOWER Jr. PAC Jun 21, 2025 15:04
[2025-06-22] VITALS: BP 135/69; PULSE 60; RESP 18; TEMP 98.3
[2025-06-22 04:00] VITALS: BP 134/68; PULSE 63; RESP 18; TEMP 98.1
[2025-06-22 04:09] LABS: IMMATURE GRANULOCYTE ABSOLUTE 0.03 K/uL (0-1); NUCLEATED RED BLOOD CELLS 0.0 % (0.0-0.19); PLATELET COUNT (AUTO) 214 K/uL (130-400); RED BLOOD CELL COUNT(AUTO) 3.63 MIL/uL (4.00-5.50); RED CELL DISTRIBUTION WIDTH 13.2 % (11.0-15.5); WHITE BLOOD COUNT (AUTO) 7.4 K/uL (4.8-10.8)
[2025-06-22 04:41] LABS: ASPARTATE AMINOTRANSFERASE 17.0 U/L (10-37); CREATININE 0.7 mg/dL (0.5-1.0); GLOMERULAR FILTR. RATE CALC 93.0 mL/min (>90); GLUCOSE,RANDOM 86.0 mg/dL (70-105); SODIUM SERUM 144.0 mmol/L (136-145); TOTAL PROTEIN, SERUM 6.5 g/dL (6.0-8.3); UREA NITROGEN, BLOOD 18.0 mg/dL (7-18)
[2025-06-22 08:15] VITALS: BP 150/78; PULSE 77; RESP 16; TEMP 98.6
--- NOTE | 2025-06-22 12:21 | PN ---
[facility] PROGRESS NOTE Date of Service: Jun 22, 2025 Time of Service: 12:[address] Andrews SUBJECTIVE: [ 06/19 This is a 70-year-old French-speaking female with past medical history of asthma, hyperlipidemia and hypertension who presents to the ED for complaints of abdominal pain which started three days ago pain intensity has been progressively getting worse today associated with nausea . Patient's pain is located around epigastric area. Patient reports she has last bowel movement was today and it was normal and small. Patient also reports she has colostomy bag reversal five months ago. Today patient started having nonbloody vomiting x3 episodes so she decided to come to the ED for evaluation Seen and examined patient in the ER awake alert and coherent appears comfortable. Patient reports she is feeling much better at this time. Patient has an NG tube attached to low intermittent suction. Patient denies fever, chills, chest pain, palpitation, shortness of breath and diarrhea. Latest vital signs temperature 98.8, heart rate 75, blood pressure 141/74, saturation 99% on room air. Labs: WBC 11, neutrophils 74, hemoglobin 12, hematocrit 38, platelet count 269. Glucose 118 the rest of the chemistries normal. Urinalysis positive with esterase. Chest x-ray result is still pending at this time. CT abdomen and pelvis without contrast result revealed small bowel obstruction with transition point at the site of bowel anastomosis in the right lower quadrant. Small bowel feces sign in the right lower quadrant consistent with bowel obstruction. Ventral abdominal wall herniation due to devarication of recti with herniation of omental fat and bowel loops mild hiatus hernia hepatomegaly with diffuse hepatic steatosis. Bilateral renal cysts. Right adrenal gland calcification is identified. While in the ER patient received Protonix 40 mg p.o., Maalox +30 mL p.o., Dilaudid 0.5 mg IV, Zofran 4 mg IV NS at 1:25 a.m. and Zosyn 3.375 IV. We will admit patient for further medical management. 06/20 patient was seen by nurse practitioner and physician during rounding in emergency department in room ED 13. Due to nausea and vomiting NG tube was placed and so far we have 400 cc removed from the stomach. Dr. Hernandez surgeon was consulted for small bowel obstruction. As per CT abdomen/pelvis showed small-bowel obstruction with transition point at the site of bowel anastomosis in the right lower quadrant. Small bowel feces sign in the right lower quadrant consistent with a bowel obstruction. Ventral abdominal wall herniation due to the variation of rectum with herniation of omental fat and bowel loops. Mild hiatal hernia. Hepatomegaly with diffuse hepatic steatosis. Bilateral renal cyst. Right adrenal gland calcification is identified. Chest x-ray showed NG tube, mild COPD, mild pleural scars. Mild bibasilar atelectasis. Mild enlarged cardiac silhouette. UA came back positive for leukocytosis. WBC is trending down today is 8.4. Patient continues to be on Zosyn antibiotics in the meantime. We will continue to monitor patient in the meantime. A.m. labs 06/21 patient was seen by nurse practitioner and physician during rounding in r oom 427. Patient continues to have NG tube connected to intermittent suctioning. About 200 cc was withdrawn during night guard. We will repeat KUB for further evaluation of small-bowel obstruction. Patient was also evaluated by the surgeon and no surgical procedure at this moment. We will continue to monitor patient in the meantime. A.m. labs. 06/22 patient was seen by GRADALL OPERATOR and physician during rounding in room 427. Patient continues to be connected to to NG tube intermittent suctioning. Most recent KUB is pending results. As per surgery no surgical intervention at this moment. Patient will continue to be on Zosyn. Final urine culture showed mixed mary. Chest x-ray negative. Patient will receive 20 mEq of potassium through IV. We will continue to monitor patient in the meantime. A.m. labs.] REVIEW OF SYSTEMS CONSTITUTIONAL: Denies fevers, chills, or night sweats. No unintentional weight loss reported. NEUROLOGICAL: Denies headache, amaurosis fugax, motor weakness, sensory deficit, vertigo/spinning sensation, gait abnormalities, or tremors. ENT: No hearing loss, otalgia, otorrhea, rhinitis, rhinorrhea, hoarseness, or sore throat. CARDIOVASCULAR: Denies any exertional angina, dyspnea on exertion, orthopnea, paroxysmal nocturnal dyspnea, palpitations, life-threatening arrhythmias, claudication. PULMONARY: Denies any shortness of breath, cough, phlegm/sputum, hemoptysis, pleuritic chest pain. SLEEP: Denies morning headaches, daytime somnolence or napping. Denies difficulty falling asleep, staying asleep, waking from sleep. Denies knowledge of snoring. GASTROINTESTINAL: Complaints of nausea vomiting and abdominal pain epigastric area Denies any type of dysphagia to either liquids or solids. Denies nausea, vomiting, pyrosis, early satiety, abdominal pain, diarrhea, constipation, or changes in stool consistency or caliber. Denies coffee-ground emesis, hematemesis, hematochezia, or melanotic stools. GENITOURINARY: Denies frequency, urgency, nocturia, hematuria or incontinence (Storage/Irritative symptoms.) Low urinary stream, straining to void, urinary intermittency or hesitancy, splitting of the voiding stream, terminal dribbling. ENDOCRINOLOGIC: Denies polyuria, polydipsia, polyphagia or heat/cold intolerances. HEMATOLOGIC: Denies thrombophilia/previous clots, or coagulopathy/bleeding disorders. ONCOLOGIC: Denies personal history of malignancy. DERMATOLOGIC: Denies rashes or pruritus. PSYCHIATRIC: Denies any suicidal or homicidal ideation. Denies hallucinations. PHYSICAL EXAM GENERAL APPEARANCE: The patient is awake, alert, and oriented, in no acute cardiopulmonary distress. NEUROLOGICAL: Cranial nerves II-XII grossly intact. Motor is 5/5 in bilateral upper and lower extremities proximal to distal. No sensory deficits. HEENT: Face is symmetric. Pupils are equal and reactive. Extraocular movements are intact. NECK: Supple. No JVD. No thyromegaly. No submental, submandibular, pre- /postauricular, occipital or supraclavicular lymphadenopathy. CHEST: Normal chest expansion. No Telemetry. LUNGS: Absence of any rales, rhonchi or any wheezing. CARDIOVASCULAR: Regular. S1 and S2 normal. No appreciable rubs, murmurs or gallops. ABDOMEN: Round distended and firm.+ NGT There is no rebound, voluntary guarding, or rigidity. : Deferred. No Carter. EXTREMITIES: Non-edematous and not cyanotic. No clubbing. Good capillary refill. SKIN: No skin breakdown. Vital Signs (last 8hr) Date Time Temp Pulse Resp B/P (MAP) Pulse Ox O2 Delivery O2 Flow Rate FiO2 06/22/25 08:15 98.6 77 16 150/78 94 Room Air LABS: Laboratory: Test 06/22/25 03:32 06/21/25 03:34 06/20/25 17:10 Range/Units White Blood Count 7.4 4.8-10.8 K/uL Red Blood Count 3.63 L 4.00-5.50 MIL/uL Hemoglobin 10.8 L 12.0-16.0 g/dL Hematocrit 34.4 L 36-48 % Mean Corpuscular Volume 94.8 79-99 fL Mean Corpuscular Hemoglobin 29.8 27.0-33.0 pg Mean Corpuscular Hemoglobin Concent 31.4 L 32.0-36.0 g/dL Red Cell Distribution Width 13.2 11.0-15.5 % Platelet Count 214 130-400 K/uL Mean Platelet Volume 9.7 7.5-10.5 fL Immature Granulocyte % (Auto) 0.4 0-1 % Neutrophils (%) (Auto) 61.3 40.0-77.0 % Lymphocytes (%) (Auto) 24.6 21.0-51.0 % Monocytes (%) (Auto) 9.9 3.0-13.0 % Eosinophils (%) (Auto) 3.3 0.0-8.0 % Basophils (%) (Auto) 0.5 0.0-5.0 % Neutrophils # (Auto) 4.5 1.8-7.7 K/uL Lymphocytes # (Auto) 1.8 1.0-4.8 K/uL Monocytes # (Auto) 0.7 0.1-1.0 K/uL Eosinophils # (Auto) 0.24 0.00-0.70 K/uL Basophils # (Auto) 0.04 0.00-0.20 K/uL Absolute Immature Granulocyte (auto 0.03 0-1 K/uL Nucleated Red Blood Cells 0.0 0.0-0.19 % Sodium Level 144 136-145 mmol/L Potassium Level 3.6 3.5-5.1 mmol/L Chloride Level 108 101-111 mmol/L Carbon Dioxide Level 27 21-32 mmol/L Blood Urea Nitrogen 18 7-18 mg/dL Creatinine 0.7 0.5-1.0 mg/dL Glomerular Filtration Rate Calc 93 >90 mL/min Random Glucose 86 70-105 mg/dL Total Calcium 8.9 8.5-10.1 mg/dL Magnesium Level 2.30 1.80-2.40 mg/dL Total Bilirubin 0.4 0.2-1.0 mg/dL Aspartate Amino Transf (AST/SGOT) 17 10-37 U/L Alanine Aminotransferase (ALT/SGPT) 23 12-78 U/L Alkaline Phosphatase 44 L 50-136 U/L Total Protein 6.5 6.0-8.3 g/dL Albumin 3.0 L 3.5-5.0 g/dL Lactic Acid Level 0.9 0.8-2.5 mmol/L Direct Bilirubin 0.2 0.0-0.3 mg/dL Ammonia 23 11-32 umol/L Total Creatine Kinase 50 # 21-232 U/L B-Type Natriuretic Peptide 96 0-100 pg/mL Amylase Level 40 25-115 U/L Procalcitonin 0.10 0.05-0.5 ng/mL Free Thyroxine (T4) Direct 0.81 0.76-1.46 ng/dL Free Triiodothyronine (T3) pg/mL 1.58 L 2.18-3.98 pg/mL Influenza Type A Antigen Negative For Type A NEGATIVE Influenza Type B Antigen Negative For Type B NEGATIVE Current Medications Medications (Trade) Dose Ordered Sig/Paul Route PRN Reason Start Time Stop Time Status Last Admin Dose Admin Acetaminophen (TYLenol 325MG TAB) 650 mg Q4H PRN PO MILD PAIN (1-3) 06/20/25 00:00 07/20/25 00:00 06/21/25 14:43 650 MG Acetaminophen (TYLenol 325MG TAB) 650 mg Q6H PRN PO TEMPERATURE GREATER THAN 101.5 06/20/25 00:00 07/20/25 00:00 Morphine Sulfate (morPHINE 4MG SYG) 2 mg Q4H PRN IV MODERATE PAIN (4-6) 06/19/25 23:45 06/26/25 23:44 06/21/25 21:48 2 MG Ondansetron HCl (zoFRAN 4MG INJ) 4 mg Q6H PRN IV NAUSEA/VOMITING 06/20/25 00:00 07/20/25 00:00 06/20/25 09:47 4 MG Pantoprazole Sodium (PROTonix 40MG INJ) 40 mg DAILY IVP 06/20/25 09:00 07/20/25 08:59 06/22/25 08:28 40 MG Piperacillin Sod/ Tazobactam Sod 50 ml @ 12.5 mls/hr ZOSY8 IV 06/20/25 05:00 06/30/25 04:59 06/22/25 05:21 12.5 MLS/HR Sodium Chloride 1,000 ml @ 100 mls/hr Q10H IV 06/20/25 00:00 07/20/25 00:00 06/22/25 02:51 100 MLS/HR DIAGNOSTICS / RADIOLOGY: [ ] ASSESSMENT: Acute small bowel obstruction POA Mild hiatal hernia per CT POA Bilateral renal cyst right adrenal gland calcified per CT abdomen/pelvis POA Hepatomegaly per CT abdomen/pelvis POA Constipation POA Uncontrolled Hypertension POA Acute complicated cystitis POA Hyperlipidemia POA Uncontrolled diabetes mellitus type 2 with hyperglycemia POA Multifactorial anemia POA Obesity POA Asthma POA History of colostomy reversal POA PLAN: Patient continues to be connected to to NG tube intermittent suctioning. Most recent KUB is pending results. As per surgery no surgical intervention at this moment. Patient will continue to be on Zosyn. Final urine culture showed mixed mary. Chest x-ray negative. Patient will receive 20 mEq of potassium through IV. We will continue to monitor patient in the meantime. A.m. labs. As per CT abdomen/pelvis showed small-bowel obstruction with transition point at the site of bowel anastomosis in the right lower quadrant. Small bowel feces sign in the right lower quadrant consistent with a bowel obstruction. Ventral abdominal wall herniation due to the variation of rectum with herniation of omental fat and bowel loops. Mild hiatal hernia. Hepatomegaly with diffuse hepatic steatosis. Bilateral renal cyst. Right adrenal gland calcification is identified. Chest x-ray showed NG tube, mild COPD, mild pleural scars. Mild bibasilar atelectasis. Mild enlarged cardiac silhouette. Patient admitted to medical-surgical floor with tele NPO Continue on NG tube to low intermittent suction Continue Zosyn IV Q 8 hours for empiric coverage Continue NS @ 100 ml / hr x2 bags and re evaluate Continue Protonix 40 mg IV daily for GI prophylaxis We will replace electrolytes as needed per protocol We will add prn medication for fever,pain,cough , nausea and vomiting We will reconcile home meds once medlist available We will request labs in am Further orders to follow depending on above results Case discussed with attending physician and came up with above treatment and plan of care. ATTESTATION BY PHYSICIAN I have seen and examined the patient. I reviewed the documentation, medical decision making, and treatment plan as noted by the mid-level provider above. I agree with the findings and plan of care. Giacomo Andrews IV, MD, [facility] Jun 22, 2025 12:21
[2025-06-22] MEDS ORDERED: guaiFENesin-DM 200/20MG 10ML PO PRN (12:30)
[2025-06-22 13:58] VITALS: BP 145/76; PULSE 70; RESP 16; TEMP 98.7
--- NOTE | 2025-06-22 15:27 | HMCIMG ---
EXAM: ABDOMINAL RADIOGRAPH, SINGLE VIEW Technique: A single supine frontal projection of the abdomen was obtained. Evaluation is limited by single-view technique; small pneumoperitoneum, subtle obstruction, and small calcifications may be less conspicuous without upright or decubitus views. Clinical Information: History of small bowel obstruction. Comparison: Abdominal radiograph dated June 20 at 17:13 Eastern Daylight Time. Findings: Compared with the prior examination, there is a significant reduction in fecal loading. The bowel gas pattern is mild and nonobstructive on this supine view. Colonic loops are normal in caliber. There is no radiographic evidence of pneumatosis intestinalis, portal venous gas, or pneumoperitoneum on this single view. No abnormal or pathologic calcifications are identified. The visualized osseous structures show no acute abnormality.IMPRESSION: 1. Significant reduction in fecal loading compared to prior study. 2. No evidence of small bowel obstruction on this single supine view, with mild and nonobstructive bowel gas pattern and normal caliber colonic loops. 3. No radiographic evidence of pneumatosis intestinalis, portal venous gas, or pneumoperitoneum, acknowledging limitations of single-view technique. 4. No acute osseous abnormalities in visualized structures. /[place]
[2025-06-22 16:03] VITALS: BP 150/75; PULSE 62; RESP 17; TEMP 97.7
--- NOTE | 2025-06-22 16:37 | PN ---
This is a 70-year-old female with concerns for small bowel obstruction Interval history: This 70-year-old female seen in her room resting Patient with no abdominal pain Patient is passing gas with lots of flatus KUB showing no small-bowel obstruction Patient is stable Physical exam General: Awake alert and oriented Heart: Regular rate and rhythm} Lungs: Clear to auscultation no distress Abdomen: [Soft, nontender, nondistended Assessment : This is a 70-year-old female with resolving small-bowel obstruction Plan: At this point in time NG tube will be removed Patient to be started on clear liquids but not advanced until tomorrow Patient encouraged to ambulate Continue with conservative management and no surgical intervention Surgical case has been discussed with my supervising physician in the above plan was formulated and agreed upon We appreciate the hospitalist team for us to participate in patient's care. Greater than 45 minutes of time spent patient, reviewing chart, working on documentation Vitals/Labs Vital Signs Date Time Temp Pulse Resp B/P (MAP) Pulse Ox O2 Delivery O2 Flow Rate FiO2 06/22/25 16:03 97.7 62 17 150/75 95 Room Air 06/21/25 20:00 0 21 Laboratory Tests 06/22/25 03:32 Medications Current Medications Pantoprazole Sodium 40 mg ONCE ONCE PO; Start 06/19/25 at 19:00; Stop 06/19/25 at 19:01; Status DC Lidocaine HCl 10 ml ONCE ONCE PO; Start 06/19/25 at 19:00; Stop 06/19/25 at 19:01; Status DC Al Hydroxide/Mg Hydroxide 30 ml ONCE ONCE PO; Start 06/19/25 at 19:00; Stop 06/19/25 at 19:01; Status DC Hydromorphone HCl 0.5 mg ONCE ONCE IVP Last administered on 06/19/25at 22:47; Start 06/19/25 at 23:00; Stop 06/19/25 at 23:01; Status DC Ondansetron HCl 4 mg ONCE ONCE IVP Last administered on 06/19/25at 22:47; Start 06/19/25 at 23:00; Stop 06/19/25 at 23:01; Status DC Sodium Chloride 1,000 ml @ 125 mls/hr ONCE ONCE IV Last administered on 06/19/25at 22:47; Start 06/19/25 at 23:00; Stop 06/20/25 at 06:59; Status DC Piperacillin Sod/ Tazobactam Sod 3.375 gm ONCE ONCE IV Last administered on 06/19/25at 23:22; Start 06/19/25 at 23:00; Stop 06/19/25 at 23:01; Status DC Acetaminophen 650 mg Q6H PRN PO; Start 06/20/25 at 00:00; Stop 07/20/25 at 00:00 Acetaminophen 650 mg Q4H PRN PO Last administered on 06/21/25at 14:43; Start 06/20/25 at 00:00; Stop 07/20/25 at 00:00 Ondansetron HCl 4 mg Q6H PRN IV Last administered on 06/20/25at 09:47; Start 06/20/25 at 00:00; Stop 07/20/25 at 00:00 Piperacillin Sod/ Tazobactam Sod 50 ml @ 12.5 mls/hr ZOSY8 IV Last administered on 06/22/25at 14:52; Start 06/20/25 at 05:00; Stop 06/30/25 at 04:59 Morphine Sulfate 2 mg Q4H PRN IV Last administered on 06/21/25at 21:48; Start 06/19/25 at 23:45; Stop 06/26/25 at 23:44 Sodium Chloride 1,000 ml @ 100 mls/hr Q10H IV Last administered on 06/22/25at 02:51; Start 06/20/25 at 00:00; Stop 07/20/25 at 00:00 Pantoprazole Sodium 40 mg DAILY IVP Last administered on 06/22/25at 08:28; Start 06/20/25 at 09:00; Stop 07/20/25 at 08:59 Potassium Chloride 100 ml @ 50 mls/hr ONCE ONCE IV Last administered on 06/22/25at 08:36; Start 06/22/25 at 07:00; Stop 06/22/25 at 08:59; Status DC Guaifenesin/ Dextromethorphan 10 ml Q6H PRN PO; Start 06/22/25 at 12:30; Stop 07/22/25 at 12:29 CELINE FLOWER Jr. PAC Jun 22, 2025 16:37
--- NOTE | 2025-06-22 17:20 | NUR ---
NASOGASTRIC tube removed at this time, PATIENT TOLERATED WELL, PATIENT STATES FEELS RELIEF NOW THAT NGT IS OUT, GIVEN SIPS OF WATER MISTY WELL,
[2025-06-22 20:00] VITALS: BP 142/71; PULSE 64; RESP 20; TEMP 98.7
[2025-06-23] VITALS: BP 142/72; PULSE 62; RESP 20; TEMP 98.5
[2025-06-23 04:00] VITALS: BP 145/76; PULSE 58; RESP 18; TEMP 97.9
[2025-06-23 04:36] LABS: IMMATURE GRANULOCYTE ABSOLUTE 0.02 K/uL (0-1); NUCLEATED RED BLOOD CELLS 0.0 % (0.0-0.19); PLATELET COUNT (AUTO) 213 K/uL (130-400); RED BLOOD CELL COUNT(AUTO) 3.77 MIL/uL (4.00-5.50); RED CELL DISTRIBUTION WIDTH 12.9 % (11.0-15.5); WHITE BLOOD COUNT (AUTO) 8.0 K/uL (4.8-10.8)
[2025-06-23 04:52] LABS: ASPARTATE AMINOTRANSFERASE 13.0 U/L (10-37); CREATININE 0.7 mg/dL (0.5-1.0); GLOMERULAR FILTR. RATE CALC 93.0 mL/min (>90); GLUCOSE,RANDOM 76.0 mg/dL (70-105); SODIUM SERUM 144.0 mmol/L (136-145); TOTAL PROTEIN, SERUM 6.4 g/dL (6.0-8.3); UREA NITROGEN, BLOOD 18.0 mg/dL (7-18)
[2025-06-23 08:05] VITALS: O2SAT 93
[2025-06-23 08:21] VITALS: BP 136/69; PULSE 58; RESP 16; TEMP 98.2
--- NOTE | 2025-06-23 10:00 | PN ---
This is a 70-year-old female with concerns of small bowel obstruction Interval history: This 70-year-old female seen in her room resting Patient on clear liquid diet and tolerating No abdominal pain reported No acute events reported overnight Multiple bowel movements reported Physical exam General: Awake alert and oriented Heart: Regular rate and rhythm} Lungs: Clear to auscultation no distress Abdomen: [Soft, nontender, nondistended Assessment : This is a 70-year-old female with a resolving small-bowel obstruction Plan: From surgical standpoint we can advance diet as tolerated No surgical intervention at this time If tolerating soft diet patient cleared for discharge Surgical team to sign off at this time. Thank you Surgical case has been discussed with my supervising physician in the above plan was formulated and agreed upon We appreciate the hospitalist team for us to participate in patient's care. Greater than 45 minutes of time spent patient, reviewing chart, working on documentation Vitals/Labs Vital Signs Date Time Temp Pulse Resp B/P (MAP) Pulse Ox O2 Delivery O2 Flow Rate FiO2 06/23/25 04:00 97.9 58 18 145/76 95 Nasal Cannula 1.0 22 Laboratory Tests 06/23/25 04:20 Medications Current Medications Pantoprazole Sodium 40 mg ONCE ONCE PO; Start 06/19/25 at 19:00; Stop 06/19/25 at 19:01; Status DC Lidocaine HCl 10 ml ONCE ONCE PO; Start 06/19/25 at 19:00; Stop 06/19/25 at 19:01; Status DC Al Hydroxide/Mg Hydroxide 30 ml ONCE ONCE PO; Start 06/19/25 at 19:00; Stop 06/19/25 at 19:01; Status DC Hydromorphone HCl 0.5 mg ONCE ONCE IVP Last administered on 06/19/25at 22:47; Start 06/19/25 at 23:00; Stop 06/19/25 at 23:01; Status DC Ondansetron HCl 4 mg ONCE ONCE IVP Last administered on 06/19/25at 22:47; Start 06/19/25 at 23:00; Stop 06/19/25 at 23:01; Status DC Sodium Chloride 1,000 ml @ 125 mls/hr ONCE ONCE IV Last administered on 06/19/25at 22:47; Start 06/19/25 at 23:00; Stop 06/20/25 at 06:59; Status DC Piperacillin Sod/ Tazobactam Sod 3.375 gm ONCE ONCE IV Last administered on 06/19/25at 23:22; Start 06/19/25 at 23:00; Stop 06/19/25 at 23:01; Status DC Acetaminophen 650 mg Q6H PRN PO; Start 06/20/25 at 00:00; Stop 07/20/25 at 00:00 Acetaminophen 650 mg Q4H PRN PO Last administered on 06/23/25at 08:52; Start 06/20/25 at 00:00; Stop 07/20/25 at 00:00 Ondansetron HCl 4 mg Q6H PRN IV Last administered on 06/22/25at 17:23; Start 06/20/25 at 00:00; Stop 07/20/25 at 00:00 Piperacillin Sod/ Tazobactam Sod 50 ml @ 12.5 mls/hr ZOSY8 IV Last administered on 06/23/25at 04:52; Start 06/20/25 at 05:00; Stop 06/30/25 at 04:59 Morphine Sulfate 2 mg Q4H PRN IV Last administered on 06/21/25at 21:48; Start 06/19/25 at 23:45; Stop 06/26/25 at 23:44 Sodium Chloride 1,000 ml @ 100 mls/hr Q10H IV Last administered on 06/23/25at 08:44; Start 06/20/25 at 00:00; Stop 07/20/25 at 00:00 Pantoprazole Sodium 40 mg DAILY IVP Last administered on 06/23/25at 08:44; Start 06/20/25 at 09:00; Stop 07/20/25 at 08:59 Potassium Chloride 100 ml @ 50 mls/hr ONCE ONCE IV Last administered on 06/22/25at 08:36; Start 06/22/25 at 07:00; Stop 06/22/25 at 08:59; Status DC Guaifenesin/ Dextromethorphan 10 ml Q6H PRN PO; Start 06/22/25 at 12:30; Stop 07/22/25 at 12:29 Ketorolac Tromethamine 15 mg Q6H PRN IV Last administered on 06/22/25at 22:15; Start 06/22/25 at 17:00; Stop 06/27/25 at 16:59 CELINE FLOWER Jr. PAC Jun 23, 2025 10:00
[2025-06-23 12:20] VITALS: BP 129/68; PULSE 64; RESP 16; TEMP 97.9
[2025-06-23] MEDS ORDERED: PANT40TA55 PO (15:18)
[2025-06-23] MEDS ORDERED: POLY119P2 PO (15:18)
--- NOTE | 2025-06-23 15:30 | NUR ---
DISCHARGE INSTRUCTIONS GIVEN TO PT REGARDING F/U APPOINTMENTS AND INFORMATION. PT VERBALIZED UNDERSTANDING. IV CATHETER REMOVED AND INTACT. PT PENDING TRANSPORTATION TO ARRIVE. Addendum: 06/23/25 at 1552 by JACQUELINE CLEMENTE LVN LVN PATIENT WENT DOWN VIA WHEELCHAIR TO PRIVATE CAR. NO FURTHER COMMENTS.
[2025-06-23] MEDS ORDERED: AMOX1TAB16 PO (15:48)
--- NOTE | 2025-06-23 15:49 | DS ---
Discharge Summary Hospital Course Summary: DATE OF ADMISSION:[06/19/2025] DATE OF DISCHARGE:[06/23/2025] DISPOSITION:[Home] CONDITION:[Medically stable] CONSULTANTS:[Surgeon] FOLLOW UP APPOINTMENTS:[PCP 2 to 3 days. Surgeon within 1 to 2 weeks] PROCEDURES: None [] IMAGING: report attached to summary MICROBIOLOGY: report attached to summary ACTIVITY:[Independent] HOME MEDICATIONS: see [facility] NEW MEDICATIONS:[Pantoprazole 40 mg daily. MiraLax 17 g p.o. daily PRN for constipation. Augmentin 875 mg p.o. b.i.d. x5 days] EMERGENCY INSTRUCTIONS: The patient was instructed to present to the nearest Emergency departmentr or call 911 once their symptoms will return or worsen Call Center Team Leader(s): Patient is 70 years old female who came to emergency department with a complaint of abdominal pain which started about three days prior to admission that was getting worse and was associated with the nausea and vomiting. The patient stated that the pain was around epigastric pain. Patient underwent CT of the abdomen and pelvis which shows small bowel obstruction POA chest x-ray was negative. NG tube was inserted and was connected to intermittent suctioning. Surgeon was consulted. During hospitalization patient was kept NPO and consulted to NG tube. UA showed positive for leukocytosis final urine culture showed mixed mary. Repeated KUB showed no obstruction. Surgeon signed off and cleared patient to go home. NG tube was removed patient was placed on diet. Already had a bowel movement and is passing gases as well. Patient denies any shortness of breath, chest pain, nausea, vomiting or abdominal pain. Patient and family member at the bedside were instructed regarding the further plan/discharge recommendation. Follow up with PCP in 2 to 3 days. Follow up with surgeon within 1 to 2 weeks. Procedure(s): REVIEW OF SYSTEMS CONSTITUTIONAL: Denies fevers, chills, or night sweats. No unintentional weight loss reported. NEUROLOGICAL: Denies headache, amaurosis fugax, motor weakness, sensory deficit, vertigo/spinning sensation, gait abnormalities, or tremors. ENT: No hearing loss, otalgia, otorrhea, rhinitis, rhinorrhea, hoarseness, or sore throat. CARDIOVASCULAR: Denies any exertional angina, dyspnea on exertion, orthopnea, paroxysmal nocturnal dyspnea, palpitations, life-threatening arrhythmias, claudication. PULMONARY: Denies any shortness of breath, cough, phlegm/sputum, hemoptysis, pleuritic chest pain. SLEEP: Denies morning headaches, daytime somnolence or napping. Denies difficulty falling asleep, staying asleep, waking from sleep. Denies knowledge of snoring. GASTROINTESTINAL: Patient denies any nausea, vomiting or abdominal pain. Yousuf es any type of dysphagia to either liquids or solids. Denies nausea, vomiting, pyrosis, early satiety, abdominal pain, diarrhea, constipation, or changes in stool consistency or caliber. Denies coffee-ground emesis, hematemesis, hematochezia, or melanotic stools. GENITOURINARY: Denies frequency, urgency, nocturia, hematuria or incontinence (Storage/Irritative symptoms.) Low urinary stream, straining to void, urinary intermittency or hesitancy, splitting of the voiding stream, terminal dribbling. ENDOCRINOLOGIC: Denies polyuria, polydipsia, polyphagia or heat/cold intolerances. HEMATOLOGIC: Denies thrombophilia/previous clots, or coagulopathy/bleeding disorders. ONCOLOGIC: Denies personal history of malignancy. DERMATOLOGIC: Denies rashes or pruritus. PSYCHIATRIC: Denies any suicidal or homicidal ideation. Denies hallucinations. PHYSICAL EXAM GENERAL APPEARANCE: The patient is awake, alert, and oriented, in no acute cardiopulmonary distress. NEUROLOGICAL: Cranial nerves II-XII grossly intact. Motor is 5/5 in bilateral upper and lower extremities proximal to distal. No sensory deficits. HEENT: Face is symmetric. Pupils are equal and reactive. Extraocular movements are intact. NECK: Supple. No JVD. No thyromegaly. No submental, submandibular, pre- /postauricular, occipital or supraclavicular lymphadenopathy. CHEST: Normal chest expansion. No Telemetry. LUNGS: Absence of any rales, rhonchi or any wheezing. CARDIOVASCULAR: Regular. S1 and S2 normal. No appreciable rubs, murmurs or gallops. ABDOMEN: There is no rebound, voluntary guarding, or rigidity. : Deferred. No Carter. EXTREMITIES: Non-edematous and not cyanotic. No clubbing. Good capillary refill. SKIN: No skin breakdown. Assessment/Plan: ASSESSMENT: Acute small bowel obstruction POA Mild hiatal hernia per CT POA Bilateral renal cyst right adrenal gland calcified per CT abdomen/pelvis POA Hepatomegaly per CT abdomen/pelvis POA Constipation POA Uncontrolled Hypertension POA Acute complicated cystitis POA Hyperlipidemia POA Uncontrolled diabetes mellitus type 2 with hyperglycemia POA Multifactorial anemia POA Obesity POA Asthma POA History of colostomy reversal POA Home Medications: Active Scripts Polyethylene Glycol 3350 (Miralax) 17 Gram/Dose Powder, 17 GM PO DAILY for constipation for 30 Days, #255 GM 0 Refills dissolve in water Prov:DOM OLSON [employer]PLANT WORKER 06/23/25 Pantoprazole Sodium (Protonix) 40 Mg Ectab, 1 TAB PO DAILY for 30 Days, #30 TAB 0 Refills Prov:DOM OLSON [employer]PL[employer] WORKER 06/23/25 Reported Medications Rosuvastatin Calcium (Rosuvastatin Calcium) 5 Mg Tablet, 1 TAB PO DAILY for high cholesterol for 30 Days, #30 TAB 0 Refills 06/21/25 Losartan Potassium (Losartan Potassium) 25 Mg Tablet, 1 TAB PO DAILY for 30 Days, #30 TAB 0 Refills 06/21/25 Discontinued Reported Medications [salbutamol] No Conflict Check, 2 PUFF IH AD PRN for SHORTNESS OF BREATH 11/30/24 Acetaminophen (Tylenol Extra Strength) 500 Mg Tablet, 1000 MG PO AD PRN for PAIN, TAB 11/30/24 Time spent arranging discharge: 31-60 minutes ATTESTATION BY PHYSICIAN I have seen and examined the patient. I reviewed the documentation, medical decision making, and treatment plan as noted by the mid-level provider above. I agree with the findings and plan of care. Forrest Walden MD, [facility] Jun 23, 2025 15:49
[2025-06-24 00:08] LABS: QUANTIFERON MITOGEN VALUE >10.00 IU/mL (.); QUANTIFERON NIL VALUE 0.06 IU/mL (.)
== END 2025-06-23 15:50 | disposition home or self-care (01) | DRG 247 ==
LOC: EDH 18:14 → EDHIP 23:52 → 4DH 06-20 22:51
PROVIDERS: ADMIT Hospitalist; ATTEND Hospitalist
PROC: 0D9670Z Drainage of Stomach with Drainage Device, Via Natural or Artificial Opening (ICD-10-PCS; principal; 2025-06-20)
DX: K56.609 Unspecified intestinal obstruction, unspecified as to partial versus complete obstruction (principal); R16.0 Hepatomegaly, not elsewhere classified; K76.0 Fatty (change of) liver, not elsewhere classified; D64.9 Anemia, unspecified; E11.65 Type 2 diabetes mellitus with hyperglycemia; E66.9 Obesity, unspecified; E78.00 Pure hypercholesterolemia, unspecified; I10 Essential (primary) hypertension; K44.9 Diaphragmatic hernia without obstruction or gangrene; N30.00 Acute cystitis without hematuria; N28.1 Cyst of kidney, acquired; J98.11 Atelectasis; J44.89 Other specified chronic obstructive pulmonary disease; Z83.3 Family history of diabetes mellitus; Z93.3 Colostomy status; Z68.29 Body mass index [BMI] 29.0-29.9, adult
CPT/HCPCS: 36415; 71045; 74018; 74176; 80048; 80053; 80076; 81001; 82140; 82150; 82550; 83036; 83605; 83690; 83735; 83880; 84145; 84439; 84481; 84484; 85025; 85610; 85730; 86480; 87086; 87804; 93005; 96374; 96375; 99285; G0378; J1171; J1885; J2270; J2405; J2470; J2543; J3480; J7030

== ENCOUNTER 2025-07-07 11:31 | Inpatient (IN) | payer SELFPAY ==
[~2025-07-07] VITALS: Ht 154.9 cm; Wt 80.7 kg
[~2025-07-07 11:31] MED LIST changes: -ACET-2743 PO; +AMOX1TAB16 PO; +LOSA25TA41 PO; +PANT40TA55 PO; +POLY119P2 PO; +ROSU5TAB51 PO; -salbutamol IH
--- NOTE | 2025-07-07 11:51 | NUR ---
PENDING GFR RESULTS, IV SITE, & CONSENT FOR CT EXAM.
[2025-07-07 12:02] LABS: IMMATURE GRANULOCYTE ABSOLUTE 0.05 K/uL (0-1); NUCLEATED RED BLOOD CELLS 0.0 % (0.0-0.19); PLATELET COUNT (AUTO) 377 K/uL (130-400); RED BLOOD CELL COUNT(AUTO) 4.52 MIL/uL (4.00-5.50); RED CELL DISTRIBUTION WIDTH 13.6 % (11.0-15.5); WHITE BLOOD COUNT (AUTO) 12.1 K/uL (4.8-10.8)
[2025-07-07 12:11] LABS: CREATININE 0.9 mg/dL (0.5-1.0); GLOMERULAR FILTR. RATE CALC 69.0 mL/min (>90); GLUCOSE,RANDOM 124.0 mg/dL (70-105); SODIUM SERUM 137.0 mmol/L (136-145); UREA NITROGEN, BLOOD 27.0 mg/dL (7-18)
[2025-07-07 12:15] LABS: ASPARTATE AMINOTRANSFERASE 27.0 U/L (10-37); TOTAL PROTEIN, SERUM 7.9 g/dL (6.0-8.3)
[2025-07-07] MEDS ORDERED: IOHEXOL-350 75 ML VIAL IV ONE (12:19)
--- NOTE | 2025-07-07 13:59 | HMCIMG ---
EXAM: CT Abdomen and Pelvis with IV contrast CLINICAL HISTORY: diffused abd pain r/o sbo TECHNIQUE: Axial computed tomography images of the abdomen and pelvis with intravenous contrast. CONTRAST: with intravenous contrast. COMPARISON: 06/19. FINDINGS: LUNG BASES: The lung bases appear clear. No pleural effusions are seen. LIVER: Fatty liver. GALLBLADDER AND BILE DUCTS: The gallbladder appears within normal limits. No radioopaque gallstones are seen. No biliary ductal dilatation is evident. PANCREAS: Unremarkable. SPLEEN: Unremarkable. ADRENAL GLANDS: Unremarkable. KIDNEYS, URETERS, AND BLADDER: Kidneys unremarkable except for bilateral cyst. STOMACH AND BOWEL: Colonic diverticulosis. There is a small bowel obstruction with a transition point at the level of an anastomosis within the right lower abdomen. There is diastases of the rectus muscles with protrusion of fat and small bowel. APPENDIX: No evidence of acute appendicitis on CT examination. PERITONEUM: No free fluid. No free air. LYMPH NODES: No lymphadenopathy is evident. REPRODUCTIVE: Unremarkable as visualized. VASCULATURE: No evidence of abdominal aortic aneurysm. BONES: No aggressive appearing osseous lesion. No acute osseous pathology evident. MISCELLANEOUS: Moderate loss of disc height at L5/S1. IMPRESSION: 1. Small bowel obstruction with transition point at right lower abdominal anastomosis. Findings not significantly changed. 2. Diastasis of rectus muscles with protrusion of fat and small bowel. 3. Colonic diverticulosis. 4. Fatty liver. 5. Bilateral renal cysts. 6. Moderate loss of disc height at L5/S1. /[place]
[2025-07-07 14:11] LABS: ADD UA MICROSCOPIC YES; APPEARANCE,URINE CLEAR (CLEAR); GLUCOSE, URINE (UA) NEGATIVE (NEGATIVE); LEUKOCYTE ESTERASE ,URINE NEGATIVE Leu/uL (NEGATIVE); NITRATE,URINE NEGATIVE (NEGATIVE); OCCULT BLOOD,URINE NEGATIVE (NEGATIVE); SQUAMOUS EPITHELIAL CELL,UR MANY /HPF (0-2)
--- NOTE | 2025-07-07 14:20 | ERN ---
General Chief Complaint: Abdominal Pain Stated Complaint: ABD PAIN, POSSIBLE SBO Time Seen by MD: 11:37 Time Seen by Midlevel: 11:37 Source: patient History of Present Illness Initial Comments 70-year-old female with a previous history of small-bowel obstructions presents to the emergency department for evaluation of diffuse abdominal pain that started last night. She reports two episodes of vomiting yesterday. None today. She was hospitalized two weeks ago for the same complaint after she was found to have a small-bowel obstruction. Allergies: Coded Allergies: No Known Allergies (Unverified Allergy, Unknown, 05/29/23) Home Meds Active Scripts Amoxicillin/Potassium Clav (Amox Tr-K Clv 875-125 mg Tab) 875 Mg-125 Mg Tablet, 1 TAB PO BID for 5 Days, #20 TAB 0 Refills Prov:DOM OLSON [employer] BLENDER 06/23/25 Polyethylene Glycol 3350 (Miralax) 17 Gram/Dose Powder, 17 GM PO DAILY for constipation for 30 Days, #255 GM 0 Refills dissolve in water Prov:DOM OLSON [employer] BL[employer]ER 06/23/25 Pantoprazole Sodium (Protonix) 40 Mg Ectab, 1 TAB PO DAILY for 30 Days, #30 TAB 0 Refills Prov:DOM OLSON [employer] BL[employer]ER 06/23/25 Reported Medications Rosuvastatin Calcium (Rosuvastatin Calcium) 5 Mg Tablet, 1 TAB PO DAILY for high cholesterol for 30 Days, #30 TAB 0 Refills 06/21/25 Losartan Potassium (Losartan Potassium) 25 Mg Tablet, 1 TAB PO DAILY for 30 Days, #30 TAB 0 Refills 06/21/25 Past Medical History Past Medical History: Asthma, High Cholesterol, Hypertension Medical History Other: SBO Past Surgical History: None Surgical History Other: colostomy reversal Family History Family History: Negative Social History Social History: Negative, Lives with family ROS Dictation CONSTITUTIONAL: Negative except for HPI HEAD/FACE: Negative except for HPI EENT: Negative except for HPI RESPIRATORY: Negative except for HPI GASTROINTESTINAL/ABDOMINAL: Negative except for HPI GENITOURINARY: Negative except for HPI MUSCULOSKELETAL: Negative except for HPI INTEGUMENTARY: Negative except for HPI NEUROLOGICAL/PSYCH: Negative except for HPI HEMATOLOGIC/LYMPHATIC: Negative except for HPI All Systems Negative, Except as noted above. 13 point review of systems assessed and all negative except for above. Physical Exam Physical Exam Dictation Vital Signs reviewed General Appearance: Alert, oriented x 3, no acute distress, well developed, nourished. Head and Face: non-traumatic. Eyes: PERRL, pink conjunctivas, eyelid no trauma, anterior chamber with arcus senilis. Ears: Pinnas intact and no signs of trauma or erythema ear canals clear and no discharge TM no erythema Nose: No discharge, no bleeding. Oropharynx: Mouth normal, tongue pink, pharynx clear,no erythema, tonsils no exudates, no abscesses noted, mucous membrane moist Neck: Supple, non-tender, no thyromegaly, no masses, no JVD, no bruits Breast:Deferred Chest:No tenderness, no crepitus, no paradoxical movement, no retractions Lungs:Clear, well-ventilated, symmetric, no rales, no wheezing, no rhonchi, no stridor, good breath sounds bilaterally Heart: Regular rate, regular rhythm, no murmur, no gallops Vascular: no peripheral edema, Abdomen: Soft, positive bowel sounds, nondistended, no guarding, Diffuse abdominal tenderness, no rebound, no masses no hepatomegaly, no splenomegaly, no Candelario's sign, no hernias. Rectal: Deferred Genital: Deferred Neurological: Normal speech, motor function intact, sensory function intact Musculoskeletal: Neck nontender, full range of motion, back nontender, full range of motion, Extremities: nontender, full range of motion Skin: Color pink, dry, no turgor, no rash, no lacerations, no abrasions, no contusions. Lymphatic: Deferred Results Laboratory and Microbiology Lab and Micro Result Labs Reviewed?: Yes MDM MDM: Differential diagnosis: Small-bowel obstruction, diverticulitis, dehydration, Rationale: Tests considered and ordered secondary to shared decision making include: Previous outside records reviewed: Old ER visits. Risk of complication and/or morbidity or mortality of patient management: None Medications-Per medication reconciliation Need for hospitalization: Patient does meet criteria for hospitalization. Need for emergency major/minor surgery: No There are no social concerns with this patient. Prescription drug management Prescriptions will include symptomatic care Patient's prior external medical records from other ER visits were reviewed by me as indicated. Prior testing and results from previous visits were reviewed. Prior tests were taken into account with medical decision making and resource utilization, independent historian/historians were used to obtain complete medical history. I independently interpreted the test that were performed, results were reviewed by me and considered findings on radiology if ordered. Medical management and examination interpretation discussions were had by me with other qualified healthcare professionals as indicated for the patient's care. ED Course DX & DISP Disposition: Inpatient Departure Impression: Primary Impression: Small bowel obstruction Condition: Stable Referrals: JACOB MARTÍNEZ MD (PCP) I have reviewed the case, and I agree with, Diagnosis and Plan I performed the substantive portion of the visit. I have reviewed and personally made and approve the management plan that is documented in the note by myself or the CARMEN. I acknowledge for responsibility for the patient's management plan. VISH VALLE PAC Jul 07, 2025 14:20
[2025-07-07] MEDS ORDERED: MAGNESIUM 2GM PREMIX 50ML 50 ML IV PRN (15:00)
[2025-07-07] MEDS ORDERED: PoTASSium chl 10% ELIXIR 20MEQ 20 MEQ/15 ML UDCUP PO PRN (15:00)
[2025-07-07] MEDS ORDERED: FAMOTIDINE 20MG VIAL IV PRN (15:00)
[2025-07-07] MEDS ORDERED: guaiFENesin-DM 200/20MG 10ML PO PRN (15:00)
[2025-07-07] MEDS ORDERED: DEXTROSE 50%-WATER 50 ML DISP.SYRIN IV PRN (15:00)
[2025-07-07] MEDS ORDERED: PoTASSium chloRIDE 20MEQ ER 20 MEQ ERTAB PO PRN (15:00)
[2025-07-07] MEDS ORDERED: GLUCAGON 1MG KIT 1 MG ML IM PRN (15:00)
[2025-07-07] MEDS ORDERED: NITROGLYCERIN 0.4 MG SL TAB SL PRN (15:00)
[2025-07-07] MEDS ORDERED: LACTULOSE 20 GM/30 ML UDCUP PO PRN (15:00)
[2025-07-07] MEDS ORDERED: MAG/ALUM/SIMETH 30 ML UDCUP PO PRN (15:00)
--- NOTE | 2025-07-07 15:05 | HP ---
[facility] HISTORY AND PHYSICAL Date of Service: Jul 07, 2025 Time of Service: 14:48 HISTORY OF PRESENT ILLNESS: [ Patient is 70 years old female with a past medical history of asthma, hyperlipidemia, hypertension, colostomy reversal, who came to emergency departme with a complaint of diffuse abdominal pain that started last night. Patient stated that just recently she was discharged from [facility] with the same diagnosis of small-bowel obstructions were it resolved on its own. Patient has been vomiting since yesterday no vomiting reported today at all. Most recent vital signs temperature 98.1 pulse 89 respiration rate 18 blood pressure 111/68 patient is on room air satting 99%. Sodium 137 potassium 4.4 chloride 99 CO2 28 BUN 27 creatinine 0.9 GFR 69 random glucose 124 bilirubin 0.5 AST 27 ALT 35 albumin 3.9 lipase 36. WBC 12.1 hemoglobin 13.2 hematocrit 41.[address] abdomen/pelvis shows small bowel obstruction, diverticulosis, bilateral renal cysts. Patient will be admitted under hospitalist care for further evaluation/recommendations. We will consult surgeon for further plan and evaluation. A.m. labs. REVIEW OF SYSTEMS CONSTITUTIONAL: Denies fevers, chills, or night sweats. No unintentional weight loss reported. NEUROLOGICAL: Denies headache, amaurosis fugax, motor weakness, sensory deficit, vertigo/spinning sensation, gait abnormalities, or tremors. ENT: No hearing loss, otalgia, otorrhea, rhinitis, rhinorrhea, hoarseness, or sore throat. CARDIOVASCULAR: Denies any exertional angina, dyspnea on exertion, orthopnea, paroxysmal nocturnal dyspnea, palpitations, life-threatening arrhythmias, claudication. PULMONARY: Denies any shortness of breath, cough, phlegm/sputum, hemoptysis, pleuritic chest pain. SLEEP: Denies morning headaches, daytime somnolence or napping. Denies difficulty falling asleep, staying asleep, waking from sleep. Denies knowledge of snoring. GASTROINTESTINAL: Denies any type of dysphagia to either liquids or solids. Denies pyrosis, early satiety, diarrhea, constipation, or changes in stool consistency or caliber. Denies coffee-ground emesis, hematemesis, hematochezia, or melanotic stools. Patient complains of severe abdominal pain with nausea and vomiting GENITOURINARY: Denies frequency, urgency, nocturia, hematuria or incontinence (Storage/Irritative symptoms.) Low urinary stream, straining to void, urinary intermittency or hesitancy, splitting of the voiding stream, terminal dribbling. ENDOCRINOLOGIC: Denies polyuria, polydipsia, polyphagia or heat/cold intolerances. HEMATOLOGIC: Denies thrombophilia/previous clots, or coagulopathy/bleeding disorders. ONCOLOGIC: Denies personal history of malignancy. DERMATOLOGIC: Denies rashes or pruritus. PSYCHIATRIC: Denies any suicidal or homicidal ideation. Denies hallucinations. PAST MEDICAL HISTORY: [ Asthma, hyperlipidemia, hypertension, small-bowel obstruction two weeks ago] PAST SURGICAL HISTORY: [ Colostomy reversal ] PAST SOCIAL HISTORY: [ Patient denies any ] FAMILY HISTORY: [ Patient lives at home with the family members ] Coded Allergies: No Known Allergies (Unverified Allergy, Unknown, 05/29/23) PHYSICAL EXAM GENERAL APPEARANCE: The patient is awake, alert, and oriented, in no acute cardiopulmonary distress. NEUROLOGICAL: Cranial nerves II-XII grossly intact. Motor is 5/5 in bilateral upper and lower extremities proximal to distal. No sensory deficits. HEENT: Face is symmetric. Pupils are equal and reactive. Extraocular movements are intact. NECK: Supple. No JVD. No thyromegaly. No submental, submandibular, pre- /postauricular, occipital or supraclavicular lymphadenopathy. CHEST: Normal chest expansion. No Telemetry. LUNGS: Absence of any rales, rhonchi or any wheezing. CARDIOVASCULAR: Regular. S1 and S2 normal. No appreciable rubs, murmurs or gallops. ABDOMEN: Soft, nontender, and nondistended. There is no rebound, voluntary guarding, or rigidity. : Deferred. No Carter. EXTREMITIES: Non-edematous and not cyanotic. No clubbing. Good capillary refill. SKIN: No skin breakdown. Vital Sign (Last 24 Hours) 07/07/25 07/07/25 11:34 13:46 Temp 98.1 Pulse 89 Resp 18 B/P (MAP) 111/68 Pulse Ox 99 O2 Delivery Room Air* O2 Flow Rate 0 FiO2 21 LABS: Laboratory: Test 07/07/25 13:45 07/07/25 11:53 Range/Units Urine Color YELLOW YELLOW Urine Appearance CLEAR CLEAR Urine pH 7.5 5.0-8.0 Urine Specific [place] OVER 1.001-1.031 Urine Protein 30 H NEGATIVE mg/dL Urine Glucose (UA) NEGATIVE NEGATIVE mg/dL Urine Ketones NEGATIVE NEGATIVE mg/dL Urine Occult Blood NEGATIVE NEGATIVE Urine Nitrate NEGATIVE NEGATIVE Urine Bilirubin NEGATIVE NEGATIVE mg/dL Urine Urobilinogen 2.0 H 0.2-1.0 mg/dL Urine Leukocyte Esterase NEGATIVE NEGATIVE Ca/uL Urine RBC 2-5 H 0-1 /HPF Urine WBC 2-5 H 0-1 /HPF Urine Squamous Epithelial Cells MANY 0-2 /HPF Urine Bacteria None None Seen /HPF White Blood Count 12.1 H 4.8-10.8 K/uL Red Blood Count 4.52 4.00-5.50 MIL/uL Hemoglobin 13.2 12.0-16.0 g/dL Hematocrit 41.3 36-48 % Mean Corpuscular Volume 91.4 79-99 fL Mean Corpuscular Hemoglobin 29.2 27.0-33.0 pg Mean Corpuscular Hemoglobin Concent 32.0 32.0-36.0 g/dL Red Cell Distribution Width 13.6 11.0-15.5 % Platelet Count 377 130-400 K/uL Mean Platelet Volume 9.6 7.5-10.5 fL Immature Granulocyte % (Auto) 0.4 0-1 % Neutrophils (%) (Auto) 78.9 H 40.0-77.0 % Lymphocytes (%) (Auto) 11.3 L 21.0-51.0 % Monocytes (%) (Auto) 8.2 3.0-13.0 % Eosinophils (%) (Auto) 0.7 0.0-8.0 % Basophils (%) (Auto) 0.5 0.0-5.0 % Neutrophils # (Auto) 9.5 H 1.8-7.7 K/uL Lymphocytes # (Auto) 1.4 1.0-4.8 K/uL Monocytes # (Auto) 1.0 0.1-1.0 K/uL Eosinophils # (Auto) 0.09 0.00-0.70 K/uL Basophils # (Auto) 0.06 0.00-0.20 K/uL Absolute Immature Granulocyte (auto 0.05 0-1 K/uL Nucleated Red Blood Cells 0.0 0.0-0.19 % Sodium Level 137 136-145 mmol/L Potassium Level 4.4 3.5-5.1 mmol/L Chloride Level 99 L 101-111 mmol/L Carbon Dioxide Level 28 21-32 mmol/L Blood Urea Nitrogen 27 H 7-18 mg/dL Creatinine 0.9 0.5-1.0 mg/dL Glomerular Filtration Rate Calc 69 >90 mL/min Random Glucose 124 H 70-105 mg/dL Total Calcium 9.7 8.5-10.1 mg/dL Total Bilirubin 0.5 0.2-1.0 mg/dL Aspartate Amino Transf (AST/SGOT) 27 10-37 U/L Alanine Aminotransferase (ALT/SGPT) 35 12-78 U/L Alkaline Phosphatase 71 50-136 U/L Total Protein 7.9 6.0-8.3 g/dL Albumin 3.9 3.5-5.0 g/dL Lipase 36 16-77 U/L Current Medications Medications (Trade) Dose Ordered Sig/Paul Route PRN Reason Start Time Stop Time Status Last Admin Dose Admin Dextrose (D50w) 50 ml AD PRN IV HYPOGLYCEMIA PROTOCOL 07/07/25 15:00 08/06/25 14:59 Glucagon (Glucagon 1mg Kit) 1 mg AD PRN IM HYPOGLYCEMIA PROTOCOL 07/07/25 15:00 08/06/25 14:59 Insulin Human Regular (humuLIN R 100 UNIT/ML 3ML) INSULIN SLIDING SCAL... ACHS SQ 07/07/25 16:30 08/06/25 16:29 Magnesium Sulfate 50 ml @ 0 mls/hr PROTOCOL PRN IV other 07/07/25 15:00 08/06/25 14:59 Potassium Chloride 100 ml @ 100 mls/hr AD PRN IV POTASSIUM PROTOCOL 07/07/25 15:00 08/06/25 14:59 Potassium Chloride (K-Dur/Klor-Con 20meq) 20 meq AD PRN PO POTASSIUM PROTOCOL 07/07/25 15:00 08/06/25 14:59 Potassium Chloride (KCl 10% Elixir 20meq/15ml) 20 meq AD PRN PO POTASSIUM PROTOCOL 07/07/25 15:00 08/06/25 14:59 DIAGNOSTICS / RADIOLOGY: [ ] ASSESSMENT: [ Acute small bowel obstruction POA Severe nausea and vomiting POA Intractable abdominal pain POA Diverticulosis as per CT abdomen/pelvis Bilateral renal cyst as per CT abdomen/pelvis Asthma POA Hyperlipidemia POA Uncontrolled diabetes mellitus type 2 with hypoglycemia POA Uncontrolled hypertension POA History of colostomy reversal History of small-bowel obstruction ] PLAN: [ Patient will be admitted under hospitalist care to medical-surgical floor Consult surgeon for small bowel obstruction Keep NPO Urinalysis negative Prophylaxis Zosyn Normal saline at 100 mL/hour A.m. labs CT abdomen/pelvis shows small bowel obstruction, diverticulosis, bilateral renal cysts Chest x-ray pending Home medication to be reconciled once updated by RN with the most recent labs Hyper and hypoglycemia protocol Hypomagnesemia protocol Hypokalemia protocol Strict eyes and nose P SCDs Heparin 5000 subQ b.i.d. for prophylaxis PRN medications Case management for disposition PT for evaluation ] ADVANCED CARE PLANNING 1. Which of the following were discussed? Hospice Care - Yes / No Therapeutic options - Yes / No Advance Directives - Yes / No Other discussions - 2. Discussed with who? patients 3. Voluntary nature of this service was explained to the patient? Yes / No 4. Amount of time spent - ___more than 35 min____ 5. Reviewed by Physician? (if this service was performed by NPP) Yes / No ATTESTATION BY PHYSICIAN I have seen and examined the patient. I reviewed the documentation, medical decision making, and treatment plan as noted by the mid-level provider above. I agree with the findings and plan of care. Giacomo Andrews IV, MD, [facility] Jul 07, 2025 15:05
--- NOTE | 2025-07-07 15:07 | NUR ---
SURGICAL CONSULT DONE WITH DR. WANG, ORDERED TO BE NPO AND NG TUBE TO [facility]
[2025-07-07] MEDS: 0.9%NACL 1000ML 1,000 ML IV SCH (15:26)
[2025-07-07 15:35] LABS: INFLUENZA TYPE A Negative For Type A (NEGATIVE); INFLUENZA TYPE B Negative For Type B (NEGATIVE)
[2025-07-07 17:50] VITALS: BP 144/65; PULSE 72; RESP 16; TEMP 97.9
--- NOTE | 2025-07-07 17:50 | NUR ---
GOT REPORT FROM JOE PALACIOS FROM ER. PATIENT WAS BROUGHT VIA ER BED WITH ALL HER BELONGINGS.
[2025-07-07 18:30] VITALS: O2SAT 93
[2025-07-07 20:25] VITALS: O2SAT 94
[2025-07-07 20:29] VITALS: BP 128/66; PULSE 76; RESP 16; TEMP 98
[2025-07-07] MEDS: FAMOTIDINE 20MG VIAL IV SCH (20:29)
[2025-07-07] MEDS: ZOSYN 3.375GM+NS 50ML 50 ML IV SCH (21:38)
[2025-07-08] VITALS (9 sets, daily range): BP systolic 112–141; BP diastolic 61–84; PULSE 65–71; RESP 14–18; TEMP 97.7–98.2; O2SAT 95
[2025-07-08 05:06] LABS: IMMATURE GRANULOCYTE ABSOLUTE 0.01 K/uL (0-1); NUCLEATED RED BLOOD CELLS 0.0 % (0.0-0.19); PLATELET COUNT (AUTO) 328 K/uL (130-400); RED BLOOD CELL COUNT(AUTO) 4.03 MIL/uL (4.00-5.50); RED CELL DISTRIBUTION WIDTH 14.0 % (11.0-15.5); WHITE BLOOD COUNT (AUTO) 5.6 K/uL (4.8-10.8)
[2025-07-08 05:34] LABS: ASPARTATE AMINOTRANSFERASE 23.0 U/L (10-37); CREATINE KINASE, TOTAL 42.0 U/L (21-232); CREATININE 0.9 mg/dL (0.5-1.0); GLOMERULAR FILTR. RATE CALC 69.0 mL/min (>90); GLUCOSE,RANDOM 114.0 mg/dL (70-105); SODIUM SERUM 139.0 mmol/L (136-145); TOTAL PROTEIN, SERUM 6.8 g/dL (6.0-8.3); UREA NITROGEN, BLOOD 23.0 mg/dL (7-18)
--- NOTE | 2025-07-08 07:44 | HMCIMG ---
EXAM: CR Chest, 1 View. CLINICAL HISTORY: Congestion; evaluation of nasogastric tube placement. COMPARISON: CR ??? CHEST 1VW ??? 06/19/2025. FINDINGS: Lungs: Mild hyperinflation with stable biapical pleural scarring and mild bibasilar atelectasis. No focal infiltrate or acute parenchymal abnormality. Pleural spaces: No pleural effusion or pneumothorax. Mediastinum / Heart: Mild cardiomegaly, stable. Mediastinal contours preserved. Nasogastric tube visualized with tip below the diaphragm, not fully included in the image field. Bones: No acute osseous abnormality; mild degenerative changes. IMPRESSION: * Nasogastric tube tip projects below the diaphragm, incompletely visualized???appears appropriately directed toward the stomach. * Stable mild cardiomegaly. * Stable biapical pleural scarring and bibasilar atelectasis. * Mild hyperinflated lung rae consistent with COPD. * No new pulmonary infiltrate, effusion, or pneumothorax. Compared with the prior chest radiograph dated 06-19-2025, there is no significant interval change. /[place]
--- NOTE | 2025-07-08 11:12 | CONS ---
GENERAL SURGERY CONSULTATION NOTE DATE OF CONSULTATION: Jul 08, 2025 TIME OF CONSULTATION: 11:01 CONSULTING SERVICE: Adarsh Garrison MD REQUESTING PHYSICAIN: [ ] REASON FOR CONSULTATION: [ ] HISTORY OF PRESENT ILLNESS: 70-year-old female with a history that years ago had exploratory laparotomy for perforated diverticulitis. Since then has had her ileostomy reversed two years ago. She was here two weeks ago with a bowel obstruction. Reports after that admission she was able to tolerate fluids but still had some abdominal discomfort yesterday got worse with nausea vomiting reason why she came into the ER found to have another bowel obstruction. She did have a bowel movement yesterday she reports. But had not passed gas. Today she is already passing gas and the abdominal pain has completely resolved. PAST MEDICAL HISTORY: Hypertension, obesity, incisional hernia PAST SURGICAL HISTORY: Exploratory laparotomy with sigmoid resection, ileostomy creation and then reversal. Tubal ligation, colonoscopy less than a year ago FAMILY HISTORY: [ ] SOCIAL HISTORY: Denies any alcohol tobacco or any illicit drug use Current Medications Medications (Trade) Dose Ordered Sig/Paul Route Start Time Stop Time Status Last Admin Dose Admin Famotidine (Pepcid 20mg Vial) 20 mg BID IV 07/07/25 21:00 08/06/25 20:59 07/08/25 09:11 20 MG Heparin Sodium (Porcine) (HEParin 5,000 UNIT VIAL) 5,000 unit BID SQ 07/07/25 21:00 08/06/25 20:59 07/08/25 09:23 5,000 UNIT Insulin Human Regular (humuLIN R 100 UNIT/ML 3ML) INSULIN SLIDING SCAL... ACHS SQ 07/07/25 16:30 08/06/25 16:29 Piperacillin Sod/ Tazobactam Sod 50 ml @ 12.5 mls/hr ZOSY8 IV 07/07/25 21:00 07/17/25 20:59 07/08/25 06:12 12.5 MLS/HR Sodium Chloride 1,000 ml @ 100 mls/hr Q10H IV 07/07/25 15:00 08/06/25 14:59 07/07/25 15:26 100 MLS/HR Allergies: Coded Allergies: No Known Allergies (Unverified Allergy, Unknown, 05/29/23) REVIEW OF SYSTEMS: MATERIALS TECH: [Denies headaches or blurring of vision.] RESP: [No cough, chest pain or SOB.] CVS: [No palpitaions.] GI: Recurrent abdominal pain and swelling of the right lower quadrant AHNNA: [No dysuria or hematuria.] Musculoskeletal: [No swelling or joint pain.] BACK: [No pain or swelling.] All other systems are reviewed and essentially negative pertinent positives in HPI. PHYSICAL EXAMINATION: GENERAL: [Patient is lying comfortably HEAD: [Normal with no signs of head trauma NECK: Trachea midline LUNGS: No respiratory distress HEART: [Regular rate and rhythm. ABD: [Bowel sounds present,soft, nontender, there is a midline umbilical hernia incisional hernia that is soft and reducible. No rebound no peritonitis EXT: [ Warm soft, non tender.] SKIN: [ No rashes or lesions.] NEURO: [ Awake Alert and oriented x3. Vital Signs (last 8hr) Date Time Temp Pulse Resp B/P (MAP) Pulse Ox O2 Delivery O2 Flow Rate FiO2 07/08/25 08:25 98.1 69 16 134/66 95 Room Air 07/08/25 03:56 97.9 65 16 127/66 96 Room Air 0.0 LABORATORY: [ ] Hematology Labs: Test 07/08/25 04:36 Range/Units White Blood Count 5.6 # 4.8-10.8 K/uL Red Blood Count 4.03 4.00-5.50 MIL/uL Hemoglobin 11.8 L 12.0-16.0 g/dL Hematocrit 37.6 36-48 % Mean Corpuscular Volume 93.3 79-99 fL Mean Corpuscular Hemoglobin 29.3 27.0-33.0 pg Mean Corpuscular Hemoglobin Concent 31.4 L 32.0-36.0 g/dL Red Cell Distribution Width 14.0 11.0-15.5 % Platelet Count 328 130-400 K/uL Mean Platelet Volume 10.0 7.5-10.5 fL Immature Granulocyte % (Auto) 0.2 0-1 % Neutrophils (%) (Auto) 61.6 40.0-77.0 % Lymphocytes (%) (Auto) 23.4 21.0-51.0 % Monocytes (%) (Auto) 12.5 3.0-13.0 % Eosinophils (%) (Auto) 1.8 0.0-8.0 % Basophils (%) (Auto) 0.5 0.0-5.0 % Neutrophils # (Auto) 3.5 1.8-7.7 K/uL Lymphocytes # (Auto) 1.3 1.0-4.8 K/uL Monocytes # (Auto) 0.7 0.1-1.0 K/uL Eosinophils # (Auto) 0.10 0.00-0.70 K/uL Basophils # (Auto) 0.03 0.00-0.20 K/uL Absolute Immature Granulocyte (auto 0.01 0-1 K/uL Nucleated Red Blood Cells 0.0 0.0-0.19 % Chemistry Labs: Test 07/08/25 10:52 07/08/25 04:36 07/07/25 11:53 Range/Units Whole Blood Glucose 113 H 70-110 MG/DL Sodium Level 139 136-145 mmol/L Potassium Level 3.8 3.5-5.1 mmol/L Chloride Level 103 101-111 mmol/L Carbon Dioxide Level 30 21-32 mmol/L Blood Urea Nitrogen 23 H 7-18 mg/dL Creatinine 0.9 0.5-1.0 mg/dL Glomerular Filtration Rate Calc 69 >90 mL/min Random Glucose 114 H 70-105 mg/dL Lactic Acid Level 1.2 0.8-2.5 mmol/L Total Calcium 8.8 8.5-10.1 mg/dL Magnesium Level 2.50 H 1.80-2.40 mg/dL Total Bilirubin 0.6 0.2-1.0 mg/dL Direct Bilirubin 0.1 0.0-0.3 mg/dL Aspartate Amino Transf (AST/SGOT) 23 10-37 U/L Alanine Aminotransferase (ALT/SGPT) 25 # 12-78 U/L Alkaline Phosphatase 56 50-136 U/L Ammonia 25 11-32 umol/L Total Creatine Kinase 42 21-232 U/L B-Type Natriuretic Peptide 12 0-100 pg/mL Total Protein 6.8 6.0-8.3 g/dL Albumin 3.2 L 3.5-5.0 g/dL Amylase Level 57 # 25-115 U/L Lipase 20 16-77 U/L Procalcitonin 0.20 0.05-0.5 ng/mL Thyroid Stimulating Hormone (TSH) 0.70 # 0.36-3.74 uIU/mL Free Thyroxine (T4) Direct 0.93 0.76-1.46 ng/dL Hemoglobin A1c 6.1 H 4.0-6.0 % Estimated Average Glucose (eAG) 128 H 70-126 mg/dL DIAGNOSTICS / RADIOLOGY: [Copy/Paste Echos/Imaging Report here] ASSESSMENT: Recurrent bowel obstruction PLAN: NPO/IVF/continue with the NG tube to LIS. We will repeat abdominal x-rays tomorrow. Because of the recurrent bowel obstructions would like once she has opened up to get a upper GI series to evaluate the anastomosis. She is already passing gas. Obstruction seems to be resolving. Not ready to remove the NG tube. No surgical intervention planned. CLOVER WANG MD Jul 08, 2025 11:12
--- NOTE | 2025-07-08 12:38 | PN ---
[facility] PROGRESS NOTE Date of Service: Jul 08, 2025 Time of Service: 12:[address] Andrews SUBJECTIVE: [ 07/07 Patient is 70 years old female with a past medical history of asthma, hyperlipidemia, hypertension, colostomy reversal, who came to emergency dep artment with a complaint of diffuse abdominal pain that started last night. Patient stated that just recently she was discharged from [facility] with the same diagnosis of small-bowel obstructions were it resolved on its own. Patient has been vomiting since yesterday no vomiting reported today at all. 07/08 patient was seen by nurse practitioner and physician during rounding in room 119. Patient on this moment has a NG tube drain about 180 cc overnight. As per surgeon Dr. Oliveira, patient remain NPO and we will repeat CT abdomen/pelvis in the morning. Further plan given based on results. Patient denies any shortness of breath, chest pain, nausea, vomiting and any other discomfort other than NG tube. Continue Zosyn. We will continue to monitor patient in the meantime. A.m. labs. ] REVIEW OF SYSTEMS CONSTITUTIONAL: Denies fevers, chills, or night sweats. No unintentional weight loss reported. NEUROLOGICAL: Denies headache, amaurosis fugax, motor weakness, sensory deficit, vertigo/spinning sensation, gait abnormalities, or tremors. ENT: No hearing loss, otalgia, otorrhea, rhinitis, rhinorrhea, hoarseness, or sore throat. CARDIOVASCULAR: Denies any exertional angina, dyspnea on exertion, orthopnea, paroxysmal nocturnal dyspnea, palpitations, life-threatening arrhythmias, claudication. PULMONARY: Denies any shortness of breath, cough, phlegm/sputum, hemoptysis, pleuritic chest pain. SLEEP: Denies morning headaches, daytime somnolence or napping. Denies difficulty falling asleep, staying asleep, waking from sleep. Denies knowledge of snoring. GASTROINTESTINAL: Denies any type of dysphagia to either liquids or solids. Denies pyrosis, early satiety, diarrhea, constipation, or changes in stool consistency or caliber. Denies coffee-ground emesis, hematemesis, hematochezia, or melanotic stools. Patient complains of severe abdominal pain with no nausea and no vomiting GENITOURINARY: Denies frequency, urgency, nocturia, hematuria or incontinence (Storage/Irritative symptoms.) Low urinary stream, straining to void, urinary intermittency or hesitancy, splitting of the voiding stream, terminal dribbling. ENDOCRINOLOGIC: Denies polyuria, polydipsia, polyphagia or heat/cold intolerances. HEMATOLOGIC: Denies thrombophilia/previous clots, or coagulopathy/bleeding disorders. ONCOLOGIC: Denies personal history of malignancy. DERMATOLOGIC: Denies rashes or pruritus. PSYCHIATRIC: Denies any suicidal or homicidal ideation. Denies hallucinations. PHYSICAL EXAM GENERAL APPEARANCE: The patient is awake, alert, and oriented, in no acute cardiopulmonary distress. NEUROLOGICAL: Cranial nerves II-XII grossly intact. Motor is 5/5 in bilateral upper and lower extremities proximal to distal. No sensory deficits. HEENT: Face is symmetric. Pupils are equal and reactive. Extraocular movements are intact. NECK: Supple. No JVD. No thyromegaly. No submental, submandibular, pre- /postauricular, occipital or supraclavicular lymphadenopathy. CHEST: Normal chest expansion. No Telemetry. LUNGS: Absence of any rales, rhonchi or any wheezing. CARDIOVASCULAR: Regular. S1 and S2 normal. No appreciable rubs, murmurs or g allops. ABDOMEN: Soft, nontender, and nondistended. There is no rebound, voluntary gua rding, or rigidity. : Deferred. No Carter. EXTREMITIES: Non-edematous and not cyanotic. No clubbing. Good capillary refill. SKIN: No skin breakdown. Vital Signs (last 8hr) Date Time Temp Pulse Resp B/P (MAP) Pulse Ox O2 Delivery O2 Flow Rate FiO2 07/08/25 08:25 98.1 69 16 134/66 95 Room Air LABS: Laboratory: Test 07/08/25 10:52 07/08/25 04:36 07/07/25 15:02 07/07/25 13:45 Range/Units Whole Blood Glucose 113 H 70-110 MG/DL White Blood Count 5.6 # 4.8-10.8 K/uL Red Blood Count 4.03 4.00-5.50 MIL/uL Hemoglobin 11.8 L 12.0-16.0 g/dL Hematocrit 37.6 36-48 % Mean Corpuscular Volume 93.3 79-99 fL Mean Corpuscular Hemoglobin 29.3 27.0-33.0 pg Mean Corpuscular Hemoglobin Concent 31.4 L 32.0-36.0 g/dL Red Cell Distribution Width 14.0 11.0-15.5 % Platelet Count 328 130-400 K/uL Mean Platelet Volume 10.0 7.5-10.5 fL Immature Granulocyte % (Auto) 0.2 0-1 % Neutrophils (%) (Auto) 61.6 40.0-77.0 % Lymphocytes (%) (Auto) 23.4 21.0-51.0 % Monocytes (%) (Auto) 12.5 3.0-13.0 % Eosinophils (%) (Auto) 1.8 0.0-8.0 % Basophils (%) (Auto) 0.5 0.0-5.0 % Neutrophils # (Auto) 3.5 1.8-7.7 K/uL Lymphocytes # (Auto) 1.3 1.0-4.8 K/uL Monocytes # (Auto) 0.7 0.1-1.0 K/uL Eosinophils # (Auto) 0.10 0.00-0.70 K/uL Basophils # (Auto) 0.03 0.00-0.20 K/uL Absolute Immature Granulocyte (auto 0.01 0-1 K/uL Nucleated Red Blood Cells 0.0 0.0-0.19 % Sodium Level 139 136-145 mmol/L Potassium Level 3.8 3.5-5.1 mmol/L Chloride Level 103 101-111 mmol/L Carbon Dioxide Level 30 21-32 mmol/L Blood Urea Nitrogen 23 H 7-18 mg/dL Creatinine 0.9 0.5-1.0 mg/dL Glomerular Filtration Rate Calc 69 >90 mL/min Random Glucose 114 H 70-105 mg/dL Lactic Acid Level 1.2 0.8-2.5 mmol/L Total Calcium 8.8 8.5-10.1 mg/dL Magnesium Level 2.50 H 1.80-2.40 mg/dL Total Bilirubin 0.6 0.2-1.0 mg/dL Direct Bilirubin 0.1 0.0-0.3 mg/dL Aspartate Amino Transf (AST/SGOT) 23 10-37 U/L Alanine Aminotransferase (ALT/SGPT) 25 # 12-78 U/L Alkaline Phosphatase 56 50-136 U/L Ammonia 25 11-32 umol/L Total Creatine Kinase 42 21-232 U/L B-Type Natriuretic Peptide 12 0-100 pg/mL Total Protein 6.8 6.0-8.3 g/dL Albumin 3.2 L 3.5-5.0 g/dL Amylase Level 57 # 25-115 U/L Lipase 20 16-77 U/L Procalcitonin 0.20 0.05-0.5 ng/mL Thyroid Stimulating Hormone (TSH) 0.70 # 0.36-3.74 uIU/mL Free Thyroxine (T4) Direct 0.93 0.76-1.46 ng/dL Influenza Type A Antigen Negative For Type A NEGATIVE Influenza Type B Antigen Negative For Type B NEGATIVE Urine Color YELLOW YELLOW Urine Appearance CLEAR CLEAR Urine pH 7.5 5.0-8.0 Urine Specific [place] OVER 1.001-1.031 Urine Protein 30 H NEGATIVE mg/dL Urine Glucose (UA) NEGATIVE NEGATIVE mg/dL Urine Ketones NEGATIVE NEGATIVE mg/dL Urine Occult Blood NEGATIVE NEGATIVE Urine Nitrate NEGATIVE NEGATIVE Urine Bilirubin NEGATIVE NEGATIVE mg/dL Urine Urobilinogen 2.0 H 0.2-1.0 mg/dL Urine Leukocyte Esterase NEGATIVE NEGATIVE Ca/uL Urine RBC 2-5 H 0-1 /HPF Urine WBC 2-5 H 0-1 /HPF Urine Squamous Epithelial Cells MANY 0-2 /HPF Urine Bacteria None None Seen /HPF Test 07/07/25 11:53 Range/Units Hemoglobin A1c 6.1 H 4.0-6.0 % Estimated Average Glucose (eAG) 128 H 70-126 mg/dL Current Medications Medications (Trade) Dose Ordered Sig/Paul Route PRN Reason Start Time Stop Time Status Last Admin Dose Admin Acetaminophen (TYLenol 325MG TAB) 650 mg Q4H PRN PO MILD PAIN (1-3) 07/07/25 15:00 08/06/25 14:59 Acetaminophen (TYLenol 325MG TAB) 650 mg Q6H PRN PO MILD PAIN (1-3) 07/07/25 15:00 07/07/25 14:50 DC Acetaminophen (TYLenol 325MG TAB) 650 mg Q6H PRN PO TEMPERATURE GREATER THAN 101.5 07/07/25 15:00 08/06/25 14:59 Al Hydroxide/Mg Hydroxide (MAALox PLUS 30ML) 30 ml Q6H PRN PO INDIGESTION 07/07/25 15:00 08/06/25 14:59 Dextrose (D50w) 50 ml AD PRN IV HYPOGLYCEMIA PROTOCOL 07/07/25 15:00 08/06/25 14:59 Diphenhydramine HCl (BENAdryl INJ) 25 mg Q6H PRN IV SEVERE ITCHING/RASH 07/07/25 15:00 08/06/25 14:59 Famotidine (Pepcid 20mg Vial) 20 mg BID IV 07/07/25 21:00 08/06/25 20:59 07/08/25 09:11 20 MG Famotidine (Pepcid 20mg Vial) 20 mg BID PRN IV NAUSEA/VOMITING 07/07/25 15:00 07/07/25 14:50 DC Glucagon (Glucagon 1mg Kit) 1 mg AD PRN IM HYPOGLYCEMIA PROTOCOL 07/07/25 15:00 08/06/25 14:59 Guaifenesin/ Dextromethorphan (RobiTUSSin DM 200/20MG 10ML) 10 ml Q4H PRN PO COUGH 07/07/25 15:00 08/06/25 14:59 Heparin Sodium (Porcine) (HEParin 5,000 UNIT VIAL) 5,000 unit BID SQ 07/07/25 21:00 08/06/25 20:59 07/08/25 09:23 5,000 UNIT Hydralazine HCl (APRESOLine 20MG INJ) 10 mg Q6H PRN IV For:SBP above 160;DBP above 90 07/07/25 15:00 08/06/25 14:59 Ibuprofen (moTRIN) 800 mg Q8H PRN PO MODERATE PAIN (4-6) 07/07/25 15:00 08/06/25 14:59 Insulin Human Regular (humuLIN R 100 UNIT/ML 3ML) INSULIN SLIDING SCAL... ACHS SQ 07/07/25 16:30 08/06/25 16:29 Ketorolac Tromethamine (toRADol) 15 mg Q8H PRN IV MODERATE PAIN (4-6) IF NPO 07/07/25 15:00 07/12/25 14:59 07/08/25 09:11 15 MG Lactulose (Constulose 20gm/ 30ml Udcup) 20 gm BID PRN PO CONSTIPATION 07/07/25 15:00 08/06/25 14:59 Magnesium Sulfate 50 ml @ 0 mls/hr PROTOCOL PRN IV other 07/07/25 15:00 08/06/25 14:59 Morphine Sulfate (morPHINE 2MG SYG) 1 mg Q4H PRN IVP SEVERE PAIN (7-10) 07/07/25 15:00 07/14/25 14:59 07/08/25 00:36 1 MG Nitroglycerin (Nitrostat) 0.4 mg PROTOCOL PRN SL CHEST PAIN 07/07/25 15:00 08/06/25 14:59 Ondansetron HCl (zoFRAN 4MG INJ) 4 mg Q6H PRN IV NAUSEA/VOMITING 07/07/25 15:00 08/06/25 14:59 Piperacillin Sod/ Tazobactam Sod 50 ml @ 12.5 mls/hr ZOSY8 IV 07/07/25 21:00 07/17/25 20:59 07/08/25 06:12 12.5 MLS/HR Potassium Chloride 100 ml @ 100 mls/hr AD PRN IV POTASSIUM PROTOCOL 07/07/25 15:00 08/06/25 14:59 Potassium Chloride (K-Dur/Klor-Con 20meq) 20 meq AD PRN PO POTASSIUM PROTOCOL 07/07/25 15:00 08/06/25 14:59 Potassium Chloride (KCl 10% Elixir 20meq/15ml) 20 meq AD PRN PO POTASSIUM PROTOCOL 07/07/25 15:00 08/06/25 14:59 Sodium Chloride 1,000 ml @ 100 mls/hr Q10H IV 07/07/25 15:00 08/06/25 14:59 07/08/25 12:20 100 MLS/HR Zolpidem Tartrate (AmbIEN) 5 mg HS PRN PO INSOMNIA 07/07/25 15:00 08/06/25 14:59 DIAGNOSTICS / RADIOLOGY: [ ] ASSESSMENT: [ Acute small bowel obstruction POA Severe nausea and vomiting POA Intractable abdominal pain POA Diverticulosis as per CT abdomen/pelvis Bilateral renal cyst as per CT abdomen/pelvis Asthma POA Hyperlipidemia POA Uncontrolled diabetes mellitus type 2 with hypoglycemia POA Uncontrolled hypertension POA History of colostomy reversal History of small-bowel obstruction ] PLAN: [ Patient will be admitted under hospitalist care to medical-surgical floor CT abdomen/pelvis pending Further plan as per surgeon Keep NPO Urinalysis negative Prophylaxis Zosyn Normal saline at 100 mL/hour A.m. labs CT abdomen/pelvis shows small bowel obstruction, diverticulosis, bilateral renal cysts Chest x-ray pending Home medication to be reconciled once updated by RN with the most recent labs Hyper and hypoglycemia protocol Hypomagnesemia protocol Hypokalemia protocol Strict eyes and nose P SCDs Heparin 5000 subQ b.i.d. for prophylaxis PRN medications Case management for disposition PT for evaluation ] ATTESTATION BY PHYSICIAN I have seen and examined the patient. I reviewed the documentation, medical de cision making, and treatment plan as noted by the mid-level provider above. I agree with the findings and plan of care. Giacomo Andrews IV, MD, [employer] Jul 08, 2025 12:38
--- NOTE | 2025-07-08 13:15 | NUR ---
DCP HOME Pt awake, alert, oriented x3 Norwegian speaking primary point of contact is daughter Kera Brush [phone] at bedside. Pt lives alone in an apartment, independent. Provided community resource [facility], anticipated discharge is home. Addendum: 07/08/25 at 1320 by KOURTNEY PORRAS RN CM Amended: Links added.
[2025-07-08] MEDS: PoTASSium chloRIDE 20MEQ ER 20 MEQ ERTAB PO ONE (19:58)
[2025-07-09 03:42] LABS: IMMATURE GRANULOCYTE ABSOLUTE 0.02 K/uL (0-1); NUCLEATED RED BLOOD CELLS 0.0 % (0.0-0.19); PLATELET COUNT (AUTO) 305 K/uL (130-400); RED BLOOD CELL COUNT(AUTO) 3.81 MIL/uL (4.00-5.50); RED CELL DISTRIBUTION WIDTH 13.8 % (11.0-15.5); WHITE BLOOD COUNT (AUTO) 5.7 K/uL (4.8-10.8)
[2025-07-09 04:02] VITALS: BP 139/67; PULSE 69; RESP 16; TEMP 98
[2025-07-09 04:02] LABS: ASPARTATE AMINOTRANSFERASE 16.0 U/L (10-37); CREATININE 0.9 mg/dL (0.5-1.0); GLOMERULAR FILTR. RATE CALC 69.0 mL/min (>90); GLUCOSE,RANDOM 94.0 mg/dL (70-105); SODIUM SERUM 141.0 mmol/L (136-145); TOTAL PROTEIN, SERUM 6.6 g/dL (6.0-8.3); UREA NITROGEN, BLOOD 22.0 mg/dL (7-18)
[2025-07-09 07:29] VITALS: BP 129/68; PULSE 62; RESP 18; TEMP 97.9
[2025-07-09 08:33] VITALS: O2SAT 97
--- NOTE | 2025-07-09 08:55 | NUR ---
NG NG TUBE DISCONTINUED. PT TOLERATED WELL. BED POSITION TO LOWEST POSITION. CALL LIGHT WITH IN REACH. FAMILY AT BEDSIDE.
--- NOTE | 2025-07-09 09:44 | PN ---
No acute events reported overnight. Patient reporting passing gas. NG tube output has been none overnight. Only pain patient has in the throat pain from the NG tube shallow Vital signs reviewed and stable Patient in no distress Cardiovascular regular rhythm NG tube in place with no output Since yesterday Abdomen is soft, not tender no rebound no peritonitis small umbilical hernia soft and reducible Assessment and plan I reviewed KUB from this morning and I do not see any signs of obstruction clinically patient not obstructed. Okay to DC the NG tube and start her on a clear liquid diet. Get a small-bowel follow-through. We will continue Vitals/Labs Vital Signs Date Time Temp Pulse Resp B/P (MAP) Pulse Ox O2 Delivery O2 Flow Rate FiO2 07/09/25 07:29 97.9 62 18 129/68 97 Room Air 07/09/25 04:02 0.0 07/08/25 20:00 21 Laboratory Tests 07/09/25 03:00 Medications Current Medications Iohexol 75 ml STK-MED ONCE IV; Start 07/07/25 at 12:19; Stop 07/07/25 at 12:19; Status DC Insulin Human Regular INSULIN SLIDING SCAL... ACHS SQ; Start 07/07/25 at 16:30; Stop 08/06/25 at 16:29 Dextrose 50 ml AD PRN IV; Start 07/07/25 at 15:00; Stop 08/06/25 at 14:59 Glucagon 1 mg AD PRN IM; Start 07/07/25 at 15:00; Stop 08/06/25 at 14:59 Potassium Chloride 100 ml @ 100 mls/hr AD PRN IV; Start 07/07/25 at 15:00; Stop 08/06/25 at 14:59 Potassium Chloride 20 meq AD PRN PO; Start 07/07/25 at 15:00; Stop 08/06/25 at 14:59 Potassium Chloride 20 meq AD PRN PO; Start 07/07/25 at 15:00; Stop 08/06/25 at 14:59 Magnesium Sulfate 50 ml @ 0 mls/hr PROTOCOL PRN IV; Start 07/07/25 at 15:00; Stop 08/06/25 at 14:59 Diphenhydramine HCl 25 mg Q6H PRN IV; Start 07/07/25 at 15:00; Stop 08/06/25 at 14:59 Acetaminophen 650 mg Q6H PRN PO; Start 07/07/25 at 15:00; Stop 08/06/25 at 14:59 Acetaminophen 650 mg Q4H PRN PO; Start 07/07/25 at 15:00; Stop 08/06/25 at 14:59 Ondansetron HCl 4 mg Q6H PRN IV; Start 07/07/25 at 15:00; Stop 08/06/25 at 14:59 Zolpidem Tartrate 5 mg HS PRN PO; Start 07/07/25 at 15:00; Stop 08/06/25 at 14:59 Al Hydroxide/Mg Hydroxide 30 ml Q6H PRN PO; Start 07/07/25 at 15:00; Stop 08/06/25 at 14:59 Lactulose 20 gm BID PRN PO; Start 07/07/25 at 15:00; Stop 08/06/25 at 14:59 Nitroglycerin 0.4 mg PROTOCOL PRN SL; Start 07/07/25 at 15:00; Stop 08/06/25 at 14:59 Guaifenesin/ Dextromethorphan 10 ml Q4H PRN PO; Start 07/07/25 at 15:00; Stop 08/06/25 at 14:59 Famotidine 20 mg BID PRN IV; Start 07/07/25 at 15:00; Stop 07/07/25 at 14:50; Status DC Heparin Sodium (Porcine) 5,000 unit BID SQ Last administered on 07/09/25at 08:38; Start 07/07/25 at 21:00; Stop 08/06/25 at 20:59 Acetaminophen 650 mg Q6H PRN PO; Start 07/07/25 at 15:00; Stop 07/07/25 at 14:50; Status DC Ibuprofen 800 mg Q8H PRN PO; Start 07/07/25 at 15:00; Stop 08/06/25 at 14:59 Ketorolac Tromethamine 15 mg Q8H PRN IV Last administered on 07/08/25at 19:56; Start 07/07/25 at 15:00; Stop 07/12/25 at 14:59 Morphine Sulfate 1 mg Q4H PRN IVP Last administered on 07/09/25at 04:22; Start 07/07/25 at 15:00; Stop 07/14/25 at 14:59 Piperacillin Sod/ Tazobactam Sod 50 ml @ 12.5 mls/hr ZOSY8 IV Last administered on 07/09/25at 04:22; Start 07/07/25 at 21:00; Stop 07/17/25 at 20:59 Sodium Chloride 1,000 ml @ 100 mls/hr Q10H IV Last administered on 07/08/25at 12:20; Start 07/07/25 at 15:00; Stop 08/06/25 at 14:59 Hydralazine HCl 10 mg Q6H PRN IV; Start 07/07/25 at 15:00; Stop 08/06/25 at 14:59 Famotidine 20 mg BID IV Last administered on 07/09/25at 08:33; Start 07/07/25 at 21:00; Stop 08/06/25 at 20:59 Potassium Chloride 40 meq ONCE ONCE PO; Start 07/08/25 at 21:00; Stop 07/08/25 at 21:01; Status DC CLOVER WANG MD Jul 09, 2025 09:44
--- NOTE | 2025-07-09 10:06 | PN ---
[facility] PROGRESS NOTE Date of Service: Jul 09, 2025 Time of Service: 10:[address] Chakraborty SUBJECTIVE: [ 07/07 Patient is 70 years old female with a past medical history of asthma, hyperlipidemia, hypertension, colostomy reversal, who came to emergency depa rtment with a complaint of diffuse abdominal pain that started last night. Patient stated that just recently she was discharged from [facility] with the same diagnosis of small-bowel obstructions were it resolved on its own. Patient has been vomiting since yesterday no vomiting reported today at all. 07/08 patient was seen by nurse practitioner and physician during rounding in room 119. Patient on this moment has a NG tube drain about 180 cc overnight. As per surgeon Dr. Oliveira, patient remain NPO and we will repeat CT abdomen/pelvis in the morning. Further plan given based on results. Patient denies any shortness of breath, chest pain, nausea, vomiting and any other discomfort other than NG tube. Continue Zosyn. We will continue to monitor patient in the meantime. A.m. labs. 07/09 patient was seen by nurse practitioner and physician during rounding in room 119. Patient was evaluated by the surgeon and at this moment they recommending to discontinue NG tube. Patient will be started on a clear liquid diet and then in the afternoon patient will undergo ultrasound abdomen. Urine culture grew E coli. Infectious disease doctor was consulted for antibiotic treatment. We will continue to monitor patient in the meantime. Anticipated di scharge hours.] REVIEW OF SYSTEMS CONSTITUTIONAL: Denies fevers, chills, or night sweats. No unintentional weight loss reported. NEUROLOGICAL: Denies headache, amaurosis fugax, motor weakness, sensory deficit, vertigo/spinning sensation, gait abnormalities, or tremors. ENT: No hearing loss, otalgia, otorrhea, rhinitis, rhinorrhea, hoarseness, or sore throat. CARDIOVASCULAR: Denies any exertional angina, dyspnea on exertion, orthopnea, paroxysmal nocturnal dyspnea, palpitations, life-threatening arrhythmias, claudication. PULMONARY: Denies any shortness of breath, cough, phlegm/sputum, hemoptysis, pleuritic chest pain. SLEEP: Denies morning headaches, daytime somnolence or napping. Denies difficulty falling asleep, staying asleep, waking from sleep. Denies knowledge of snoring. GASTROINTESTINAL: Denies any type of dysphagia to either liquids or solids. Denies pyrosis, early satiety, diarrhea, constipation, or changes in stool consistency or caliber. Denies coffee-ground emesis, hematemesis, hematochezia, or melanotic stools. Denies any abdominal pain with no nausea and no vomiting GENITOURINARY: Denies frequency, urgency, nocturia, hematuria or incontinence (Storage/Irritative symptoms.) Low urinary stream, straining to void, urinary intermittency or hesitancy, splitting of the voiding stream, terminal dribbling. ENDOCRINOLOGIC: Denies polyuria, polydipsia, polyphagia or heat/cold intolerances. HEMATOLOGIC: Denies thrombophilia/previous clots, or coagulopathy/bleeding disorders. ONCOLOGIC: Denies personal history of malignancy. DERMATOLOGIC: Denies rashes or pruritus. PSYCHIATRIC: Denies any suicidal or homicidal ideation. Denies hallucinations. PHYSICAL EXAM GENERAL APPEARANCE: The patient is awake, alert, and oriented, in no acute cardiopulmonary distress. NEUROLOGICAL: Cranial nerves II-XII grossly intact. Motor is 5/5 in bilateral upper and lower extremities proximal to distal. No sensory deficits. HEENT: Face is symmetric. Pupils are equal and reactive. Extraocular movements are intact. NECK: Supple. No JVD. No thyromegaly. No submental, submandibular, pre-/postauricular, occipital or supraclavicular lymphadenopathy. CHEST: Normal chest expansion. No Telemetry. LUNGS: Absence of any rales, rhonchi or any wheezing. CARDIOVASCULAR: Regular. S1 and S2 normal. No appreciable rubs, murmurs or gallops. ABDOMEN: Soft, nontender, and nondistended. There is no rebound, voluntary guarding, or rigidity. : Deferred. No Carter. EXTREMITIES: Non-edematous and not cyanotic. No clubbing. Good capillary refill. SKIN: No skin breakdown. Vital Signs (last 8hr) Date Time Temp Pulse Resp B/P (MAP) Pulse Ox O2 Delivery O2 Flow Rate FiO2 07/09/25 07:29 97.9 62 18 129/68 97 Room Air 07/09/25 04:02 98.1 69 16 139/67 94 Room Air 0.0 LABS: Laboratory: Test 07/09/25 06:15 07/09/25 03:00 07/08/25 04:36 07/07/25 15:02 Range/Units Whole Blood Glucose 110 70-110 MG/DL White Blood Count 5.7 4.8-10.8 K/uL Red Blood Count 3.81 L 4.00-5.50 MIL/uL Hemoglobin 11.2 L 12.0-16.0 g/dL Hematocrit 35.6 L 36-48 % Mean Corpuscular Volume 93.4 79-99 fL Mean Corpuscular Hemoglobin 29.4 27.0-33.0 pg Mean Corpuscular Hemoglobin Concent 31.5 L 32.0-36.0 g/dL Red Cell Distribution Width 13.8 11.0-15.5 % Platelet Count 305 130-400 K/uL Mean Platelet Volume 10.4 7.5-10.5 fL Immature Granulocyte % (Auto) 0.4 0-1 % Neutrophils (%) (Auto) 62.8 40.0-77.0 % Lymphocytes (%) (Auto) 20.4 L 21.0-51.0 % Monocytes (%) (Auto) 11.2 3.0-13.0 % Eosinophils (%) (Auto) 4.1 0.0-8.0 % Basophils (%) (Auto) 1.1 0.0-5.0 % Neutrophils # (Auto) 3.6 1.8-7.7 K/uL Lymphocytes # (Auto) 1.2 1.0-4.8 K/uL Monocytes # (Auto) 0.6 0.1-1.0 K/uL Eosinophils # (Auto) 0.23 0.00-0.70 K/uL Basophils # (Auto) 0.06 0.00-0.20 K/uL Absolute Immature Granulocyte (auto 0.02 0-1 K/uL Nucleated Red Blood Cells 0.0 0.0-0.19 % Sodium Level 141 136-145 mmol/L Potassium Level 3.8 3.5-5.1 mmol/L Chloride Level 106 101-111 mmol/L Carbon Dioxide Level 29 21-32 mmol/L Blood Urea Nitrogen 22 H 7-18 mg/dL Creatinine 0.9 0.5-1.0 mg/dL Glomerular Filtration Rate Calc 69 >90 mL/min Random Glucose 94 70-105 mg/dL Total Calcium 8.8 8.5-10.1 mg/dL Magnesium Level 2.40 1.80-2.40 mg/dL Total Bilirubin 0.3 # 0.2-1.0 mg/dL Aspartate Amino Transf (AST/SGOT) 16 10-37 U/L Alanine Aminotransferase (ALT/SGPT) 26 12-78 U/L Alkaline Phosphatase 51 50-136 U/L Total Protein 6.6 6.0-8.3 g/dL Albumin 3.0 L 3.5-5.0 g/dL Lactic Acid Level 1.2 0.8-2.5 mmol/L Direct Bilirubin 0.1 0.0-0.3 mg/dL Ammonia 25 11-32 umol/L Total Creatine Kinase 42 21-232 U/L B-Type Natriuretic Peptide 12 0-100 pg/mL Amylase Level 57 # 25-115 U/L Lipase 20 16-77 U/L Procalcitonin 0.20 0.05-0.5 ng/mL Thyroid Stimulating Hormone (TSH) 0.70 # 0.36-3.74 uIU/mL Free Thyroxine (T4) Direct 0.93 0.76-1.46 ng/dL Influenza Type A Antigen Negative For Type A NEGATIVE Influenza Type B Antigen Negative For Type B NEGATIVE Test 07/07/25 13:45 07/07/25 11:53 Range/Units Urine Color YELLOW YELLOW Urine Appearance CLEAR CLEAR Urine pH 7.5 5.0-8.0 Urine Specific [place] OVER 1.001-1.031 Urine Protein 30 H NEGATIVE mg/dL Urine Glucose (UA) NEGATIVE NEGATIVE mg/dL Urine Ketones NEGATIVE NEGATIVE mg/dL Urine Occult Blood NEGATIVE NEGATIVE Urine Nitrate NEGATIVE NEGATIVE Urine Bilirubin NEGATIVE NEGATIVE mg/dL Urine Urobilinogen 2.0 H 0.2-1.0 mg/dL Urine Leukocyte Esterase NEGATIVE NEGATIVE Ca/uL Urine RBC 2-5 H 0-1 /HPF Urine WBC 2-5 H 0-1 /HPF Urine Squamous Epithelial Cells MANY 0-2 /HPF Urine Bacteria None None Seen /HPF Hemoglobin A1c 6.1 H 4.0-6.0 % Estimated Average Glucose (eAG) 128 H 70-126 mg/dL Current Medications Medications (Trade) Dose Ordered Sig/Paul Route PRN Reason Start Time Stop Time Status Last Admin Dose Admin Acetaminophen (TYLenol 325MG TAB) 650 mg Q4H PRN PO MILD PAIN (1-3) 07/07/25 15:00 08/06/25 14:59 Acetaminophen (TYLenol 325MG TAB) 650 mg Q6H PRN PO MILD PAIN (1-3) 07/07/25 15:00 07/07/25 14:50 DC Acetaminophen (TYLenol 325MG TAB) 650 mg Q6H PRN PO TEMPERATURE GREATER THAN 101.5 07/07/25 15:00 08/06/25 14:59 Al Hydroxide/Mg Hydroxide (MAALox PLUS 30ML) 30 ml Q6H PRN PO INDIGESTION 07/07/25 15:00 08/06/25 14:59 Dextrose (D50w) 50 ml AD PRN IV HYPOGLYCEMIA PROTOCOL 07/07/25 15:00 08/06/25 14:59 Diphenhydramine HCl (BENAdryl INJ) 25 mg Q6H PRN IV SEVERE ITCHING/RASH 07/07/25 15:00 08/06/25 14:59 Famotidine (Pepcid 20mg Vial) 20 mg BID IV 07/07/25 21:00 08/06/25 20:59 07/09/25 08:33 20 MG Famotidine (Pepcid 20mg Vial) 20 mg BID PRN IV NAUSEA/VOMITING 07/07/25 15:00 07/07/25 14:50 DC Glucagon (Glucagon 1mg Kit) 1 mg AD PRN IM HYPOGLYCEMIA PROTOCOL 07/07/25 15:00 08/06/25 14:59 Guaifenesin/ Dextromethorphan (RobiTUSSin DM 200/20MG 10ML) 10 ml Q4H PRN PO COUGH 07/07/25 15:00 08/06/25 14:59 Heparin Sodium (Porcine) (HEParin 5,000 UNIT VIAL) 5,000 unit BID SQ 07/07/25 21:00 08/06/25 20:59 07/09/25 08:38 5,000 UNIT Hydralazine HCl (APRESOLine 20MG INJ) 10 mg Q6H PRN IV For:SBP above 160;DBP above 90 07/07/25 15:00 08/06/25 14:59 Ibuprofen (moTRIN) 800 mg Q8H PRN PO MODERATE PAIN (4-6) 07/07/25 15:00 08/06/25 14:59 Insulin Human Regular (humuLIN R 100 UNIT/ML 3ML) INSULIN SLIDING SCAL... ACHS SQ 07/07/25 16:30 08/06/25 16:29 Ketorolac Tromethamine (toRADol) 15 mg Q8H PRN IV MODERATE PAIN (4-6) IF NPO 07/07/25 15:00 07/12/25 14:59 07/08/25 19:56 15 MG Lactulose (Constulose 20gm/ 30ml Udcup) 20 gm BID PRN PO CONSTIPATION 07/07/25 15:00 08/06/25 14:59 Magnesium Sulfate 50 ml @ 0 mls/hr PROTOCOL PRN IV other 07/07/25 15:00 08/06/25 14:59 Morphine Sulfate (morPHINE 2MG SYG) 1 mg Q4H PRN IVP SEVERE PAIN (7-10) 07/07/25 15:00 07/14/25 14:59 07/09/25 04:22 1 MG Nitroglycerin (Nitrostat) 0.4 mg PROTOCOL PRN SL CHEST PAIN 07/07/25 15:00 08/06/25 14:59 Ondansetron HCl (zoFRAN 4MG INJ) 4 mg Q6H PRN IV NAUSEA/VOMITING 07/07/25 15:00 08/06/25 14:59 Piperacillin Sod/ Tazobactam Sod 50 ml @ 12.5 mls/hr ZOSY8 IV 07/07/25 21:00 07/17/25 20:59 07/09/25 04:22 12.5 MLS/HR Potassium Chloride 100 ml @ 100 mls/hr AD PRN IV POTASSIUM PROTOCOL 07/07/25 15:00 08/06/25 14:59 Potassium Chloride (K-Dur/Klor-Con 20meq) 20 meq AD PRN PO POTASSIUM PROTOCOL 07/07/25 15:00 08/06/25 14:59 Potassium Chloride (KCl 10% Elixir 20meq/15ml) 20 meq AD PRN PO POTASSIUM PROTOCOL 07/07/25 15:00 08/06/25 14:59 Sodium Chloride 1,000 ml @ 100 mls/hr Q10H IV 07/07/25 15:00 08/06/25 14:59 07/08/25 12:20 100 MLS/HR Zolpidem Tartrate (AmbIEN) 5 mg HS PRN PO INSOMNIA 07/07/25 15:00 08/06/25 14:59 DIAGNOSTICS / RADIOLOGY: [ ] ASSESSMENT: [ Acute small bowel obstruction POA Severe nausea and vomiting POA Intractable abdominal pain POA Diverticulosis as per CT abdomen/pelvis Bilateral renal cyst as per CT abdomen/pelvis Asthma POA Hyperlipidemia POA Uncontrolled diabetes mellitus type 2 with hypoglycemia POA Uncontrolled hypertension POA History of colostomy reversal History of small-bowel obstruction ] PLAN: [ Patient will be admitted under hospitalist care to medical-surgical floor Patient was evaluated by the surgeon and at this moment they recommending to discontinue NG tube. Patient will be started on a clear liquid diet and then in the afternoon patient will undergo ultrasound abdomen. Urine culture grew E coli. Infectious disease doctor was consulted for antibiotic treatment. We will continue to monitor patient in the meantime. Anticipated discharge [id number] hours. Further plan as per surgeon Urinalysis e coli Prophylaxis Zosyn Normal saline at 100 mL/hour A.m. labs CT abdomen/pelvis shows small bowel obstruction, diverticulosis, bilateral renal cysts Chest x-ray neg Home medication to be reconciled once updated by RN with the most recent labs Hyper and hypoglycemia protocol Hypomagnesemia protocol Hypokalemia protocol Strict I and O SCDs Heparin 5000 subQ b.i.d. for prophylaxis PRN medications Case management for disposition PT for evaluation ] ATTESTATION BY PHYSICIAN I have seen and examined the patient. I reviewed the documentation, medical decision making, and treatment plan as noted by the mid-level provider above. I agree with the findings and plan of care. ROSS CHAKRABORTY MD, KATARZYNA B [facility] Jul 09, 2025 10:06
[2025-07-09 11:38] VITALS: BP 120/73; PULSE 63; RESP 18; TEMP 97.9
--- NOTE | 2025-07-09 14:17 | HMCIMG ---
EXAM: CR Abdomen, 2 View. CLINICAL HISTORY: EVALUATE SBO COMPARISON: CT dated 07/07 19:22 EEST An x-ray dated 06/21/2025 . Findings: Compared with the prior examination, there is a significant reduction in fecal loading. The bowel gas pattern is mild and nonobstructive on this supine view. Colonic loops are normal in caliber. There is no radiographic evidence of pneumatosis intestinalis, portal venous gas, or pneumoperitoneum on this single view. No abnormal or pathologic calcifications are identified. The visualized osseous structures show no acute abnormality.IMPRESSION: 1. Significant reduction in fecal loading compared to prior study. 2. No evidence of small bowel obstruction on this single supine view, with mild and nonobstructive bowel gas pattern and normal caliber colonic loops. 3. No radiographic evidence of pneumatosis intestinalis, portal venous gas, or pneumoperitoneum, acknowledging limitations of single-view technique. 4. No acute osseous abnormalities in visualized structures. 5. Compared to prior studies, no interval changes seen. /[place]
[2025-07-09 16:03] VITALS: BP 141/73; PULSE 62; RESP 18; TEMP 98
[2025-07-09 20:00] VITALS: BP 134/71; PULSE 59; RESP 16; TEMP 97.9; O2SAT 96
[2025-07-10] VITALS (8 sets, daily range): BP systolic 128–157; BP diastolic 73–80; PULSE 55–59; RESP 16–19; TEMP 97.6–98.4; O2SAT 95–98
[2025-07-10 07:31] LABS: ASPARTATE AMINOTRANSFERASE 17.0 U/L (10-37); CREATININE 0.8 mg/dL (0.5-1.0); GLOMERULAR FILTR. RATE CALC 79.0 mL/min (>90); GLUCOSE,RANDOM 89.0 mg/dL (70-105); SODIUM SERUM 138.0 mmol/L (136-145); TOTAL PROTEIN, SERUM 6.9 g/dL (6.0-8.3); UREA NITROGEN, BLOOD 14.0 mg/dL (7-18)
[2025-07-10 08:47] LABS: IMMATURE GRANULOCYTE ABSOLUTE 0.01 K/uL (0-1); NUCLEATED RED BLOOD CELLS 0.0 % (0.0-0.19); PLATELET COUNT (AUTO) 287 K/uL (130-400); RED BLOOD CELL COUNT(AUTO) 3.87 MIL/uL (4.00-5.50); RED CELL DISTRIBUTION WIDTH 13.2 % (11.0-15.5); WHITE BLOOD COUNT (AUTO) 4.8 K/uL (4.8-10.8)
--- NOTE | 2025-07-10 10:39 | PN ---
INFECTIOUS DISEASE PROGRESS NOTE Date of Service: Jul 10, 2025 SUBJECTIVE: This is a 70-year-old female patient who presented to the hospital with abdominal pain and vomiting. A CT of the vomiting done on admission shows small bowel obstruction of the right lower abdominal anastomosis. Patient was evaluated by General surgery on NG tube was placed to low intermittent suction. Yesterday a repeat KUB showed no evidence of small-bowel obstruction with nonobstructive bowel gas pattern. The NG tube was removed and patient was started on clear liquid diet. No reports of vomiting after consumption. Abdomen is soft. A urine culture collected on admission came back positive for E coli and the reason for this consult. Patient has been started on Zosyn and we will continue. PHYSICAL EXAM EYES: Anicteric. Pupils equal and reactive. HENT: No oral thrush seen, moist Oral mucosa. NECK: Supple, no JVD or thyromegaly. LUNGS: Good air entry. No rales, no rhonchi. CARDIOVASCULAR: S1, S2 regular. No murmur heard. ABDOMEN: Soft, non tender, bowel sounds present. Abdominal pain POA. CENTRAL NERVOUS SYSTEM: Awake, alert, oriented x 3. SKIN: No rashes, no swelling. LYMPHATICS: No peripheral lymphadenopathy. MUSCULOSKELETAL: No joint swelling, erythema or tenderness. EXTREMITIES: No cyanosis or clubbing. BACK: No deformity, no pressure ulcer. GENITOURINARY: No dysuria or hematuria. Vital Sign (Last 12 Hours) 07/10/25 07/10/25 07/10/25 00:00 04:00 07:55 Temp 97.5 97.9 97.7 Pulse 59 55 58 Resp 16 17 19 B/P (MAP) 130/73 144/75 138/80 Pulse Ox 95 96 98 O2 Delivery Room Air Room Air Room Air Intake & Output (last 24hrs) 07/09/25 07/09/25 07/10/25 15:00 23:00 07:00 Intake Total 200 ml 1180.0 ml Balance 200 ml 1180.0 ml LABS: Laboratory: Test 07/10/25 05:34 07/10/25 04:20 Range/Units Whole Blood Glucose 106 70-110 MG/DL White Blood Count 4.8 4.8-10.8 K/uL Red Blood Count 3.87 L 4.00-5.50 MIL/uL Hemoglobin 11.2 L 12.0-16.0 g/dL Hematocrit 35.1 L 36-48 % Mean Corpuscular Volume 90.7 79-99 fL Mean Corpuscular Hemoglobin 28.9 27.0-33.0 pg Mean Corpuscular Hemoglobin Concent 31.9 L 32.0-36.0 g/dL Red Cell Distribution Width 13.2 11.0-15.5 % Platelet Count 287 130-400 K/uL Mean Platelet Volume 9.7 7.5-10.5 fL Immature Granulocyte % (Auto) 0.2 0-1 % Neutrophils (%) (Auto) 52.5 40.0-77.0 % Lymphocytes (%) (Auto) 30.7 21.0-51.0 % Monocytes (%) (Auto) 10.0 3.0-13.0 % Eosinophils (%) (Auto) 5.4 0.0-8.0 % Basophils (%) (Auto) 1.2 0.0-5.0 % Neutrophils # (Auto) 2.5 1.8-7.7 K/uL Lymphocytes # (Auto) 1.5 1.0-4.8 K/uL Monocytes # (Auto) 0.5 0.1-1.0 K/uL Eosinophils # (Auto) 0.26 0.00-0.70 K/uL Basophils # (Auto) 0.06 0.00-0.20 K/uL Absolute Immature Granulocyte (auto 0.01 0-1 K/uL Nucleated Red Blood Cells 0.0 0.0-0.19 % Sodium Level 138 136-145 mmol/L Potassium Level 3.8 3.5-5.1 mmol/L Chloride Level 105 101-111 mmol/L Carbon Dioxide Level 24 21-32 mmol/L Blood Urea Nitrogen 14 7-18 mg/dL Creatinine 0.8 0.5-1.0 mg/dL Glomerular Filtration Rate Calc 79 >90 mL/min Random Glucose 89 70-105 mg/dL Total Calcium 9.3 8.5-10.1 mg/dL Magnesium Level 2.10 1.80-2.40 mg/dL Total Bilirubin 0.3 0.2-1.0 mg/dL Aspartate Amino Transf (AST/SGOT) 17 10-37 U/L Alanine Aminotransferase (ALT/SGPT) 23 12-78 U/L Alkaline Phosphatase 52 50-136 U/L Total Protein 6.9 6.0-8.3 g/dL Albumin 3.1 L 3.5-5.0 g/dL DIAGNOSTICS / RADIOLOGY: PATIENT: ROSALBA ORLANDO ACCT: [id number] LOC: 1MS U: [id number] AGE/SX: 70/F ROOM: [facility] RE07/07/[address]: ROSS CHAKRABORTY MD : 1955 BED: 1 DIS: STATUS: ADM IN TLOC: SPEC: [id number] EDWARDO: 07/07/25 STATUS: COMP REQ: [id number] RECD: 07/08/25 [facility] DR: DOM OLSON POLICY WRITER SALES SOURCE: [facility] [place] ENTR: 07/08/[address]: NONE SPDESC: CLEAN CAT JACOB MARTÍNEZ MD, RAQUEL M MD ORDERED: AERO ID & SENS Procedure Result Dar Date-Time AEROBIC ID & SENSITIVITIES Final 07/09/25-0631 [facility] DESCRIPTION: DAY 1: COLONY COUNT: >100,000 CFU/ML GRAM NEGATIVE RODS IDENTIFICATION AND SENSITIVITY TO FOLLOW ESCHERICHIA COLI E COLI M.I.C. RX --------- ---- AMPICILLIN >16 R AZTREONAM <=4 S CEFAZOLIN <=2 S CEFTAZIDIME/AVIBACTAM <=8 S CIPROFLOXACIN >2 R GENTAMICIN <=2 S LEVOFLOXACIN 4 R NITROFURANTOIN <=32 S MEROPENEM <=1 S PIPERACILLIN/TAZOBACTAM <=8 S TRIMETHOPRIM/SUFLAMETHOXAZOLE >/38 R ASSESSMENT: Urinary tract infection with E coli. Abdominal pain. Small-bowel obstruction, resolved. PLAN: Continue Zosyn. Continue pain management. Continue GI prophylaxis. Patient has been started on clear liquid diet. Continue antiemetics as needed. This case was reviewed and discussed with my supervising physician Dr. Anguiano and the above assessment and plan was formulated and agreed upon. ATTESTATION BY PHYSICIAN I have seen and examined the patient. I reviewed the documentation, medical decision making, and treatment plan as noted by the mid-level provider above. I agree with the findings and plan of care. AMANDEEP ANGUIANO MD, MIRTA L [facility] Jul 10, 2025 10:39
--- NOTE | 2025-07-10 12:21 | PN ---
[facility] PROGRESS NOTE Date of Service: Jul 10, 2025 Time of Service: 12:13 SUBJECTIVE: [ 07/07 Patient is 70 years old female with a past medical history of asthma, hyperlipidemia, hypertension, colostomy reversal, who came to emergency department with a complaint of diffuse abdominal pain that started last night. Patient stated that just recently she was discharged from [facility] with the same diagnosis of small-bowel obstructions were it resolved on its own. Patient has been vomiting since yesterday no vomiting reported today at all. 07/08 patient was seen by nurse practitioner and physician during rounding in room 119. Patient on this moment has a NG tube drain about 180 cc overnight. As per surgeon Dr. Oliveira, patient remain NPO and we will repeat CT abdomen/pelvis in the morning. Further plan given based on results. Patient denies any shortness of breath, chest pain, nausea, vomiting and any other discomfort other than NG tube. Continue Zosyn. We will continue to monitor patient in the meantime. A.m. labs. 07/09 patient was seen by nurse practitioner and physician during rounding in room 119. Patient was evaluated by the surgeon and at this moment they recommending to discontinue NG tube. Patient will be started on a clear liquid diet and then in the afternoon patient will undergo ultrasound abdomen. Urine culture grew E coli. Infectious disease doctor was consulted for antibiotic treatment. We will continue to monitor patient in the meantime. Anticipated discharge [id number] hours.] 07/10 patient was seen in the room today, NG tube has been discontinued. Patient was started with clear liquid diet for which she has tolerated. The KUB showed no evidence of current small-bowel obstruction or acute abdominal complication. There is an improvement in fecal loading compared to previous imaging. The findings are reassuring by clinically correlation of ongoing monitoring are recommended. Patient today is asymptomatic. We are awaiting for general surgeon if we can advance her diet. She can also be discharged if her diet has been tolerated. So far her abdomen is soft nontender with hypoactive bowel sounds. REVIEW OF SYSTEMS CONSTITUTIONAL: Denies fevers, chills, or night sweats. No unintentional weight loss reported. NEUROLOGICAL: Denies headache, amaurosis fugax, motor weakness, sensory defi cit, vertigo/spinning sensation, gait abnormalities, or tremors. ENT: No hearing loss, otalgia, otorrhea, rhinitis, rhinorrhea, hoarseness, or sore throat. CARDIOVASCULAR: Denies any exertional angina, dyspnea on exertion, orthopnea, paroxysmal nocturnal dyspnea, palpitations, life-threatening arrhythmias, claudication. PULMONARY: Denies any shortness of breath, cough, phlegm/sputum, hemoptysis, pleuritic chest pain. SLEEP: Denies morning headaches, daytime somnolence or napping. Denies difficulty falling asleep, staying asleep, waking from sleep. Denies knowledge of snoring. GASTROINTESTINAL: Denies any type of dysphagia to either liquids or solids. Denies pyrosis, early satiety, diarrhea, constipation, or changes in stool consistency or caliber. Denies coffee-ground emesis, hematemesis, hematochezia, or melanotic stools. Denies any abdominal pain with no nausea and no vomiting GENITOURINARY: Denies frequency, urgency, nocturia, hematuria or incontinence (Storage/Irritative symptoms.) Low urinary stream, straining to void, urinary intermittency or hesitancy, splitting of the voiding stream, terminal dribbling. ENDOCRINOLOGIC: Denies polyuria, polydipsia, polyphagia or heat/cold intolerances. HEMATOLOGIC: Denies thrombophilia/previous clots, or coagulopathy/bleeding disorders. ONCOLOGIC: Denies personal history of malignancy. DERMATOLOGIC: Denies rashes or pruritus. PSYCHIATRIC: Denies any suicidal or homicidal ideation. Denies hallucinations. PHYSICAL EXAM GENERAL APPEARANCE: The patient is awake, alert, and oriented, in no acute cardiopulmonary distress. NEUROLOGICAL: Cranial nerves II-XII grossly intact. Motor is 5/5 in bilateral upper and lower extremities proximal to distal. No sensory deficits. HEENT: Face is symmetric. Pupils are equal and reactive. Extraocular movements are intact. NECK: Supple. No JVD. No thyromegaly. No submental, submandibular, pre- /postauricular, occipital or supraclavicular lymphadenopathy. CHEST: Normal chest expansion. No Telemetry. LUNGS: Absence of any rales, rhonchi or any wheezing. CARDIOVASCULAR: Regular. S1 and S2 normal. No appreciable rubs, murmurs or gallops. ABDOMEN: Soft, nontender, and nondistended. There is no rebound, voluntary guarding, or rigidity. : Deferred. No Carter. EXTREMITIES: Non-edematous and not cyanotic. No clubbing. Good capillary refill. SKIN: No skin breakdown. Vital Signs (last 8hr) Date Time Temp Pulse Resp B/P (MAP) Pulse Ox O2 Delivery O2 Flow Rate FiO2 07/10/25 11:34 98.1 56 18 128/75 97 Room Air 07/10/25 07:55 97.7 58 19 138/80 98 Room Air LABS: Laboratory: Test 07/10/25 11:13 07/10/25 04:20 Range/Units Whole Blood Glucose 101 70-110 MG/DL White Blood Count 4.8 4.8-10.8 K/uL Red Blood Count 3.87 L 4.00-5.50 MIL/uL Hemoglobin 11.2 L 12.0-16.0 g/dL Hematocrit 35.1 L 36-48 % Mean Corpuscular Volume 90.7 79-99 fL Mean Corpuscular Hemoglobin 28.9 27.0-33.0 pg Mean Corpuscular Hemoglobin Concent 31.9 L 32.0-36.0 g/dL Red Cell Distribution Width 13.2 11.0-15.5 % Platelet Count 287 130-400 K/uL Mean Platelet Volume 9.7 7.5-10.5 fL Immature Granulocyte % (Auto) 0.2 0-1 % Neutrophils (%) (Auto) 52.5 40.0-77.0 % Lymphocytes (%) (Auto) 30.7 21.0-51.0 % Monocytes (%) (Auto) 10.0 3.0-13.0 % Eosinophils (%) (Auto) 5.4 0.0-8.0 % Basophils (%) (Auto) 1.2 0.0-5.0 % Neutrophils # (Auto) 2.5 1.8-7.7 K/uL Lymphocytes # (Auto) 1.5 1.0-4.8 K/uL Monocytes # (Auto) 0.5 0.1-1.0 K/uL Eosinophils # (Auto) 0.26 0.00-0.70 K/uL Basophils # (Auto) 0.06 0.00-0.20 K/uL Absolute Immature Granulocyte (auto 0.01 0-1 K/uL Nucleated Red Blood Cells 0.0 0.0-0.19 % Sodium Level 138 136-145 mmol/L Potassium Level 3.8 3.5-5.1 mmol/L Chloride Level 105 101-111 mmol/L Carbon Dioxide Level 24 21-32 mmol/L Blood Urea Nitrogen 14 7-18 mg/dL Creatinine 0.8 0.5-1.0 mg/dL Glomerular Filtration Rate Calc 79 >90 mL/min Random Glucose 89 70-105 mg/dL Total Calcium 9.3 8.5-10.1 mg/dL Magnesium Level 2.10 1.80-2.40 mg/dL Total Bilirubin 0.3 0.2-1.0 mg/dL Aspartate Amino Transf (AST/SGOT) 17 10-37 U/L Alanine Aminotransferase (ALT/SGPT) 23 12-78 U/L Alkaline Phosphatase 52 50-136 U/L Total Protein 6.9 6.0-8.3 g/dL Albumin 3.1 L 3.5-5.0 g/dL Current Medications Medications (Trade) Dose Ordered Sig/Paul Route PRN Reason Start Time Stop Time Status Last Admin Dose Admin Acetaminophen (TYLenol 325MG TAB) 650 mg Q4H PRN PO MILD PAIN (1-3) 07/07/25 15:00 08/06/25 14:59 07/10/25 10:03 650 MG Acetaminophen (TYLenol 325MG TAB) 650 mg Q6H PRN PO MILD PAIN (1-3) 07/07/25 15:00 07/07/25 14:50 DC Acetaminophen (TYLenol 325MG TAB) 650 mg Q6H PRN PO TEMPERATURE GREATER THAN 101.5 07/07/25 15:00 08/06/25 14:59 Al Hydroxide/Mg Hydroxide (MAALox PLUS 30ML) 30 ml Q6H PRN PO INDIGESTION 07/07/25 15:00 08/06/25 14:59 Dextrose (D50w) 50 ml AD PRN IV HYPOGLYCEMIA PROTOCOL 07/07/25 15:00 08/06/25 14:59 Diphenhydramine HCl (BENAdryl INJ) 25 mg Q6H PRN IV SEVERE ITCHING/RASH 07/07/25 15:00 08/06/25 14:59 Famotidine (Pepcid 20mg Vial) 20 mg BID IV 07/07/25 21:00 08/06/25 20:59 07/10/25 10:03 20 MG Famotidine (Pepcid 20mg Vial) 20 mg BID PRN IV NAUSEA/VOMITING 07/07/25 15:00 07/07/25 14:50 DC Glucagon (Glucagon 1mg Kit) 1 mg AD PRN IM HYPOGLYCEMIA PROTOCOL 07/07/25 15:00 08/06/25 14:59 Guaifenesin/ Dextromethorphan (RobiTUSSin DM 200/20MG 10ML) 10 ml Q4H PRN PO COUGH 07/07/25 15:00 08/06/25 14:59 Heparin Sodium (Porcine) (HEParin 5,000 UNIT VIAL) 5,000 unit BID SQ 07/07/25 21:00 08/06/25 20:59 07/10/25 10:08 5,000 UNIT Hydralazine HCl (APRESOLine 20MG INJ) 10 mg Q6H PRN IV For:SBP above 160;DBP above 90 07/07/25 15:00 08/06/25 14:59 Ibuprofen (moTRIN) 800 mg Q8H PRN PO MODERATE PAIN (4-6) 07/07/25 15:00 08/06/25 14:59 Insulin Human Regular (humuLIN R 100 UNIT/ML 3ML) INSULIN SLIDING SCAL... ACHS SQ 07/07/25 16:30 08/06/25 16:29 Ketorolac Tromethamine (toRADol) 15 mg Q8H PRN IV MODERATE PAIN (4-6) IF NPO 07/07/25 15:00 07/12/25 14:59 07/08/25 19:56 15 MG Lactulose (Constulose 20gm/ 30ml Udcup) 20 gm BID PRN PO CONSTIPATION 07/07/25 15:00 08/06/25 14:59 Magnesium Sulfate 50 ml @ 0 mls/hr PROTOCOL PRN IV other 07/07/25 15:00 08/06/25 14:59 Morphine Sulfate (morPHINE 2MG SYG) 1 mg Q4H PRN IVP SEVERE PAIN (7-10) 07/07/25 15:00 07/14/25 14:59 07/09/25 04:22 1 MG Nitroglycerin (Nitrostat) 0.4 mg PROTOCOL PRN SL CHEST PAIN 07/07/25 15:00 08/06/25 14:59 Ondansetron HCl (zoFRAN 4MG INJ) 4 mg Q6H PRN IV NAUSEA/VOMITING 07/07/25 15:00 08/06/25 14:59 Piperacillin Sod/ Tazobactam Sod 50 ml @ 12.5 mls/hr ZOSY8 IV 07/07/25 21:00 07/17/25 20:59 07/10/25 04:19 12.5 MLS/HR Potassium Chloride 100 ml @ 100 mls/hr AD PRN IV POTASSIUM PROTOCOL 07/07/25 15:00 08/06/25 14:59 Potassium Chloride (K-Dur/Klor-Con 20meq) 20 meq AD PRN PO POTASSIUM PROTOCOL 07/07/25 15:00 08/06/25 14:59 Potassium Chloride (KCl 10% Elixir 20meq/15ml) 20 meq AD PRN PO POTASSIUM PROTOCOL 07/07/25 15:00 08/06/25 14:59 Sodium Chloride 1,000 ml @ 100 mls/hr Q10H IV 07/07/25 15:00 08/06/25 14:59 07/09/25 15:19 100 MLS/HR Zolpidem Tartrate (AmbIEN) 5 mg HS PRN PO INSOMNIA 07/07/25 15:00 08/06/25 14:59 DIAGNOSTICS / RADIOLOGY: [ ] ASSESSMENT: [ Nares tract Infection with E coli, POA Acute small bowel obstruction POA Severe nausea and vomiting POA Intractable abdominal pain POA Diverticulosis as per CT abdomen/pelvis Bilateral renal cyst as per CT abdomen/pelvis Asthma POA Hyperlipidemia POA Uncontrolled diabetes mellitus type 2 with hypoglycemia POA Uncontrolled hypertension POA History of colostomy reversal History of small-bowel obstruction ] PLAN: Continue clear liquid diet; advance as tolerated per general surgery recommendations Continue IV fluids Continue pain management as needed Monitor blood glucose closely Continue GI and DVT prophylaxis Monitor for return of GI symptoms If tolerating diet advancement, anticipate discharge today Follow up on AM labs and ID recommendations for E. coli UTI Discussed plan with Dr. Chakraborty, above plan was formulated ATTESTATION BY PHYSICIAN I have seen and examined the patient. I reviewed the documentation, medical decision making, and treatment plan as noted by the mid-level provider above. I agree with the findings and plan of care. ROSS CHAKRABORTY MD, [facility] Jul 10, 2025 12:21
--- NOTE | 2025-07-10 13:35 | PN ---
INFECTIOUS DISEASE FOLLOWUP NOTE DATE OF SERVICE: 07/09/2025 SUBJECTIVE: The patient is seen and examined at bedside today. The patient has no fever or chills. No sore throat or rhinorrhea. No neck pain or swelling. . No depression. No suicidal ideation. No bleeding tendency. PHYSICAL EXAMINATION: VITAL SIGNS: Temperature 97.5. EYES: No icterus. Pupils equal and reactive. HENT: No oral thrush. Moist oral mucosa. NECK: Supple. No JVD or thyromegaly. LUNGS: Good air entry. No rales. No rhonchi. CARDIOVASCULAR: S1 and S2, regular. No murmur heard. ABDOMEN: Soft, nontender. Bowel sound is present. CENTRAL NERVOUS SYSTEM: Awake, alert, oriented x 3. No focal deficits. SKIN: No rashes, no itchiness. LYMPHATIC: No peripheral lymphadenopathy. BACK: No deformity. No pressure ulcers. ASSESSMENT: A 70-year-old female with multiple problems: * Urinary tract infection. * Bowel obstruction. * Dehydration. * Obesity. PLAN: * Continue antibiotics. * Continue antimetic. * Continue pain management. * Continue nutritional support. * Monitor electrolytes. * The patient will be followed up closely as needed. TID: [id number] RECEIPT: [id number]
--- NOTE | 2025-07-10 15:21 | PN ---
This is a 70-year-old female with concerns of small bowel obstruction Interval history: This 70-year-old female seen in her room resting Patient is able to pass flatus today Patient also reporting small bowel movement This significant abdominal pain Patient has been started on clear liquid diet Physical exam General: Awake alert and oriented Heart: Regular rate and rhythm} Lungs: Clear to auscultation no distress Abdomen: [Soft, nontender, nondistended Assessment : This is a 70-year-old female small-bowel obstruction plan: At this point in time Nursing to report small-bowel follow-through findings once complete Patient to continue with clears for today and if unable to be performed made NPO at midnight in preparation for small-bowel follow-through No surgical intervention at this time Dr. Oliveira to be updated on patient's status At this point in time we will await small-bowel follow-through results After imaging patient continues with bowel function patient to advance diet Surgical team to follow patient closely No immediate plans for surgical intervention Dr. Oliveira to be updated in patient's status and nursing report any further acute events Surgical case has been discussed with my supervising physician in the above plan was formulated and agreed upon We appreciate the hospitalist team for us to participate in patient's care. Greater than 45 minutes of time spent patient, reviewing chart, working on documentation Vitals/Labs Vital Signs Date Time Temp Pulse Resp B/P (MAP) Pulse Ox O2 Delivery O2 Flow Rate FiO2 07/10/25 11:34 98.1 56 18 128/75 97 Room Air 07/09/25 20:00 0 21 Laboratory Tests 07/10/25 04:20 Medications Current Medications Iohexol 75 ml STK-MED ONCE IV; Start 07/07/25 at 12:19; Stop 07/07/25 at 12:19; Status DC Insulin Human Regular INSULIN SLIDING SCAL... ACHS SQ; Start 07/07/25 at 16:30; Stop 08/06/25 at 16:29 Dextrose 50 ml AD PRN IV; Start 07/07/25 at 15:00; Stop 08/06/25 at 14:59 Glucagon 1 mg AD PRN IM; Start 07/07/25 at 15:00; Stop 08/06/25 at 14:59 Potassium Chloride 100 ml @ 100 mls/hr AD PRN IV; Start 07/07/25 at 15:00; Stop 08/06/25 at 14:59 Potassium Chloride 20 meq AD PRN PO; Start 07/07/25 at 15:00; Stop 08/06/25 at 14:59 Potassium Chloride 20 meq AD PRN PO; Start 07/07/25 at 15:00; Stop 08/06/25 at 14:59 Magnesium Sulfate 50 ml @ 0 mls/hr PROTOCOL PRN IV; Start 07/07/25 at 15:00; Stop 08/06/25 at 14:59 Diphenhydramine HCl 25 mg Q6H PRN IV; Start 07/07/25 at 15:00; Stop 08/06/25 at 14:59 Acetaminophen 650 mg Q6H PRN PO; Start 07/07/25 at 15:00; Stop 08/06/25 at 14:59 Acetaminophen 650 mg Q4H PRN PO Last administered on 07/10/25at 10:03; Start 07/07/25 at 15:00; Stop 08/06/25 at 14:59 Ondansetron HCl 4 mg Q6H PRN IV; Start 07/07/25 at 15:00; Stop 08/06/25 at 14:59 Zolpidem Tartrate 5 mg HS PRN PO; Start 07/07/25 at 15:00; Stop 08/06/25 at 14:59 Al Hydroxide/Mg Hydroxide 30 ml Q6H PRN PO; Start 07/07/25 at 15:00; Stop 08/06/25 at 14:59 Lactulose 20 gm BID PRN PO; Start 07/07/25 at 15:00; Stop 08/06/25 at 14:59 Nitroglycerin 0.4 mg PROTOCOL PRN SL; Start 07/07/25 at 15:00; Stop 08/06/25 at 14:59 Guaifenesin/ Dextromethorphan 10 ml Q4H PRN PO; Start 07/07/25 at 15:00; Stop 08/06/25 at 14:59 Famotidine 20 mg BID PRN IV; Start 07/07/25 at 15:00; Stop 07/07/25 at 14:50; Status DC Heparin Sodium (Porcine) 5,000 unit BID SQ Last administered on 07/10/25at 10:08; Start 07/07/25 at 21:00; Stop 08/06/25 at 20:59 Acetaminophen 650 mg Q6H PRN PO; Start 07/07/25 at 15:00; Stop 07/07/25 at 14:50; Status DC Ibuprofen 800 mg Q8H PRN PO; Start 07/07/25 at 15:00; Stop 08/06/25 at 14:59 Ketorolac Tromethamine 15 mg Q8H PRN IV Last administered on 07/08/25at 19:56; Start 07/07/25 at 15:00; Stop 07/12/25 at 14:59 Morphine Sulfate 1 mg Q4H PRN IVP Last administered on 07/09/25at 04:22; Start 07/07/25 at 15:00; Stop 07/14/25 at 14:59 Piperacillin Sod/ Tazobactam Sod 50 ml @ 12.5 mls/hr ZOSY8 IV Last administered on 07/10/25at 12:26; Start 07/07/25 at 21:00; Stop 07/17/25 at 20:59 Sodium Chloride 1,000 ml @ 100 mls/hr Q10H IV Last administered on 07/10/25at 12:26; Start 07/07/25 at 15:00; Stop 08/06/25 at 14:59 Hydralazine HCl 10 mg Q6H PRN IV; Start 07/07/25 at 15:00; Stop 08/06/25 at 14:59 Famotidine 20 mg BID IV Last administered on 07/10/25at 10:03; Start 07/07/25 at 21:00; Stop 08/06/25 at 20:59 Potassium Chloride 40 meq ONCE ONCE PO; Start 07/08/25 at 21:00; Stop 07/08/25 at 21:01; Status DC CELINE FLOWER Jr. PAC Jul 10, 2025 15:21
[2025-07-11 03:59] VITALS: BP 130/72; PULSE 52; RESP 16; TEMP 97.7
[2025-07-11 08:00] VITALS: BP 138/79; PULSE 54; RESP 18; TEMP 97.7
[2025-07-11] MEDS ORDERED: DIATR MEGLU/DIATRIZOATE SODIUM 30 ML BOTTLE ONE (08:46)
[2025-07-11 10:00] VITALS: O2SAT 94
--- NOTE | 2025-07-11 10:51 | PN ---
INFECTIOUS DISEASE PROGRESS NOTE Date of Service: Jul 11, 2025 SUBJECTIVE: This is a 70-year-old female patient whose abdominal pain is resolving and having bowel movements. Patient had a small bowel series done this morning and pending interpretation, Per report diet will be advanced depending on these results. No reports of fever, temperature 97.7 and a WBC of 4.8. We will continue on Zosyn for UTI. PHYSICAL EXAM EYES: Anicteric. Pupils equal and reactive. HENT: No oral thrush seen, moist Oral mucosa. NECK: Supple, no JVD or thyromegaly. LUNGS: Good air entry. No rales, no rhonchi. CARDIOVASCULAR: S1, S2 regular. No murmur heard. ABDOMEN: Soft, non tender, bowel sounds present. Abdominal pain POA. CENTRAL NERVOUS SYSTEM: Awake, alert, oriented x 3. SKIN: No rashes, no swelling. LYMPHATICS: No peripheral lymphadenopathy. MUSCULOSKELETAL: No joint swelling, erythema or tenderness. EXTREMITIES: No cyanosis or clubbing. BACK: No deformity, no pressure ulcer. GENITOURINARY: No dysuria or hematuria. Vital Sign (Last 12 Hours) 07/10/25 07/11/25 07/11/25 23:49 03:59 08:00 Temp 98.1 97.7 97.7 Pulse 57 52 54 Resp 17 16 18 B/P (MAP) 134/74 130/72 138/79 Pulse Ox 95 94 94 O2 Delivery Room Air Room Air Room Air Intake & Output (last 24hrs) 07/10/25 07/10/25 07/11/25 15:00 23:00 07:00 Intake Total 300 ml 1020.0 ml Balance 300 ml 1020.0 ml LABS: Laboratory: Test 07/11/25 05:37 07/10/25 04:20 Range/Units Whole Blood Glucose 94 70-110 MG/DL White Blood Count 4.8 4.8-10.8 K/uL Red Blood Count 3.87 L 4.00-5.50 MIL/uL Hemoglobin 11.2 L 12.0-16.0 g/dL Hematocrit 35.1 L 36-48 % Mean Corpuscular Volume 90.7 79-99 fL Mean Corpuscular Hemoglobin 28.9 27.0-33.0 pg Mean Corpuscular Hemoglobin Concent 31.9 L 32.0-36.0 g/dL Red Cell Distribution Width 13.2 11.0-15.5 % Platelet Count 287 130-400 K/uL Mean Platelet Volume 9.7 7.5-10.5 fL Immature Granulocyte % (Auto) 0.2 0-1 % Neutrophils (%) (Auto) 52.5 40.0-77.0 % Lymphocytes (%) (Auto) 30.7 21.0-51.0 % Monocytes (%) (Auto) 10.0 3.0-13.0 % Eosinophils (%) (Auto) 5.4 0.0-8.0 % Basophils (%) (Auto) 1.2 0.0-5.0 % Neutrophils # (Auto) 2.5 1.8-7.7 K/uL Lymphocytes # (Auto) 1.5 1.0-4.8 K/uL Monocytes # (Auto) 0.5 0.1-1.0 K/uL Eosinophils # (Auto) 0.26 0.00-0.70 K/uL Basophils # (Auto) 0.06 0.00-0.20 K/uL Absolute Immature Granulocyte (auto 0.01 0-1 K/uL Nucleated Red Blood Cells 0.0 0.0-0.19 % Sodium Level 138 136-145 mmol/L Potassium Level 3.8 3.5-5.1 mmol/L Chloride Level 105 101-111 mmol/L Carbon Dioxide Level 24 21-32 mmol/L Blood Urea Nitrogen 14 7-18 mg/dL Creatinine 0.8 0.5-1.0 mg/dL Glomerular Filtration Rate Calc 79 >90 mL/min Random Glucose 89 70-105 mg/dL Total Calcium 9.3 8.5-10.1 mg/dL Magnesium Level 2.10 1.80-2.40 mg/dL Total Bilirubin 0.3 0.2-1.0 mg/dL Aspartate Amino Transf (AST/SGOT) 17 10-37 U/L Alanine Aminotransferase (ALT/SGPT) 23 12-78 U/L Alkaline Phosphatase 52 50-136 U/L Total Protein 6.9 6.0-8.3 g/dL Albumin 3.1 L 3.5-5.0 g/dL ASSESSMENT: Urinary tract infection with E coli. Abdominal pain. Small-bowel obstruction, resolved. PLAN: Continue Zosyn. Continue pain management. Continue GI prophylaxis. Continues on clear liquid diet. Patient had a small bowel series and pending interpretation. Continue antiemetics as needed. This case was reviewed and discussed with my supervising physician Dr. Anguiano and the above assessment and plan was formulated and agreed upon. ATTESTATION BY PHYSICIAN I have seen and examined the patient. I reviewed the documentation, medical decision making, and treatment plan as noted by the mid-level provider above. I agree with the findings and plan of care. AMANDEEP ANGUIANO MD, [facility] Jul 11, 2025 10:51
[2025-07-11 11:54] VITALS: BP 133/94; PULSE 71; RESP 18; TEMP 98.2
--- NOTE | 2025-07-11 12:44 | PN ---
[facility] PROGRESS NOTE Date of Service: Jul 11, 2025 Time of Service: 12:26 SUBJECTIVE: [ 07/07 Patient is 70 years old female with a past medical history of asthma, hyperlipidemia, hypertension, colostomy reversal, who came to emergency department with a complaint of diffuse abdominal pain that started last night. Patient stated that just recently she was discharged from [facility] with the same diagnosis of small-bowel obstructions were it resolved on its own. Patient has been vomiting since yesterday no vomiting reported today at all. 07/08 patient was seen by nurse practitioner and physician during rounding in room 119. Patient on this moment has a NG tube drain about 180 cc overnight. As per surgeon Dr. Oliveira, patient remain NPO and we will repeat CT abdomen/pelvis in the morning. Further plan given based on results. Patient denies any shortness of breath, chest pain, nausea, vomiting and any other discomfort other than NG tube. Continue Zosyn. We will continue to monitor patient in the meantime. A.m. labs. 07/09 patient was seen by nurse practitioner and physician during rounding in room 119. Patient was evaluated by the surgeon and at this moment they recommending to discontinue NG tube. Patient will be started on a clear liquid diet and then in the afternoon patient will undergo ultrasound abdomen. Urine culture grew E coli. Infectious disease doctor was consulted for antibiotic treatment. We will continue to monitor patient in the meantime. Anticipated discharge [id number] hours.] 07/10 patient was seen in the room today, NG tube has been discontinued. Patient was started with clear liquid diet for which she has tolerated. The KUB showed no evidence of current small-bowel obstruction or acute abdominal complication. There is an improvement in fecal loading compared to previous imaging. The findings are reassuring by clinically correlation of ongoing monitoring are recommended. Patient today is asymptomatic. We are awaiting for general surgeon if we can advance her diet. She can also be discharged if her diet has been tolerated. So far her abdomen is soft nontender with hypoactive bowel sounds. 07/11/25 patient was evaluated today, she just came back from small-bowel follow- through. Patient has no pain at this time no nausea no vomiting. The patient complained of having loose stool/diarrhea that started yesterday so far she has had two episodes today. We will continue to monitor closely, we will request labs right now. REVIEW OF SYSTEMS CONSTITUTIONAL: Denies fevers, chills, or night sweats. No unintentional weight loss reported. NEUROLOGICAL: Denies headache, amaurosis fugax, motor weakness, sensory deficit, vertigo/spinning sensation, gait abnormalities, or tremors. ENT: No hearing loss, otalgia, otorrhea, rhinitis, rhinorrhea, hoarseness, or sore throat. CARDIOVASCULAR: Denies any exertional angina, dyspnea on exertion, orthopnea, paroxysmal nocturnal dyspnea, palpitations, life-threatening arrhythmias, claudication. PULMONARY: Denies any shortness of breath, cough, phlegm/sputum, hemoptysis, pleuritic chest pain. SLEEP: Denies morning headaches, daytime somnolence or napping. Denies difficulty falling asleep, staying asleep, waking from sleep. Denies knowledge of snoring. GASTROINTESTINAL: Denies any type of dysphagia to either liquids or solids. Denies pyrosis, early satiety, diarrhea, constipation, or changes in stool consistency or caliber. Denies coffee-ground emesis, hematemesis, hematochezia, or melanotic stools. Denies any abdominal pain with no nausea and no vomiting GENITOURINARY: Denies frequency, urgency, nocturia, hematuria or incontinence (Storage/Irritative symptoms.) Low urinary stream, straining to void, urinary intermittency or hesitancy, splitting of the voiding stream, terminal dribbling. ENDOCRINOLOGIC: Denies polyuria, polydipsia, polyphagia or heat/cold intolerances. HEMATOLOGIC: Denies thrombophilia/previous clots, or coagulopathy/bleeding disorders. ONCOLOGIC: Denies personal history of malignancy. DERMATOLOGIC: Denies rashes or pruritus. PSYCHIATRIC: Denies any suicidal or homicidal ideation. Denies hallucinations. PHYSICAL EXAM GENERAL APPEARANCE: The patient is awake, alert, and oriented, in no acute cardiopulmonary distress. NEUROLOGICAL: Cranial nerves II-XII grossly intact. Motor is 5/5 in bilateral upper and lower extremities proximal to distal. No sensory deficits. HEENT: Face is symmetric. Pupils are equal and reactive. Extraocular movements are intact. NECK: Supple. No JVD. No thyromegaly. No submental, submandibular, pre- /postauricular, occipital or supraclavicular lymphadenopathy. CHEST: Normal chest expansion. No Telemetry. LUNGS: Absence of any rales, rhonchi or any wheezing. CARDIOVASCULAR: Regular. S1 and S2 normal. No appreciable rubs, murmurs or gallops. ABDOMEN: Soft, nontender, and nondistended. There is no rebound, voluntary guarding, or rigidity. : Deferred. No Carter. EXTREMITIES: Non-edematous and not cyanotic. No clubbing. Good capillary refill. SKIN: No skin breakdown. Vital Signs (last 8hr) Date Time Temp Pulse Resp B/P (MAP) Pulse Ox O2 Delivery O2 Flow Rate FiO2 07/11/25 11:54 98.2 71 18 133/94 95 Room Air 07/11/25 08:00 97.7 54 18 138/79 94 Room Air LABS: Laboratory: Test 07/11/25 11:29 07/10/25 04:20 Range/Units Whole Blood Glucose 91 70-110 MG/DL White Blood Count 4.8 4.8-10.8 K/uL Red Blood Count 3.87 L 4.00-5.50 MIL/uL Hemoglobin 11.2 L 12.0-16.0 g/dL Hematocrit 35.1 L 36-48 % Mean Corpuscular Volume 90.7 79-99 fL Mean Corpuscular Hemoglobin 28.9 27.0-33.0 pg Mean Corpuscular Hemoglobin Concent 31.9 L 32.0-36.0 g/dL Red Cell Distribution Width 13.2 11.0-15.5 % Platelet Count 287 130-400 K/uL Mean Platelet Volume 9.7 7.5-10.5 fL Immature Granulocyte % (Auto) 0.2 0-1 % Neutrophils (%) (Auto) 52.5 40.0-77.0 % Lymphocytes (%) (Auto) 30.7 21.0-51.0 % Monocytes (%) (Auto) 10.0 3.0-13.0 % Eosinophils (%) (Auto) 5.4 0.0-8.0 % Basophils (%) (Auto) 1.2 0.0-5.0 % Neutrophils # (Auto) 2.5 1.8-7.7 K/uL Lymphocytes # (Auto) 1.5 1.0-4.8 K/uL Monocytes # (Auto) 0.5 0.1-1.0 K/uL Eosinophils # (Auto) 0.26 0.00-0.70 K/uL Basophils # (Auto) 0.06 0.00-0.20 K/uL Absolute Immature Granulocyte (auto 0.01 0-1 K/uL Nucleated Red Blood Cells 0.0 0.0-0.19 % Sodium Level 138 136-145 mmol/L Potassium Level 3.8 3.5-5.1 mmol/L Chloride Level 105 101-111 mmol/L Carbon Dioxide Level 24 21-32 mmol/L Blood Urea Nitrogen 14 7-18 mg/dL Creatinine 0.8 0.5-1.0 mg/dL Glomerular Filtration Rate Calc 79 >90 mL/min Random Glucose 89 70-105 mg/dL Total Calcium 9.3 8.5-10.1 mg/dL Magnesium Level 2.10 1.80-2.40 mg/dL Total Bilirubin 0.3 0.2-1.0 mg/dL Aspartate Amino Transf (AST/SGOT) 17 10-37 U/L Alanine Aminotransferase (ALT/SGPT) 23 12-78 U/L Alkaline Phosphatase 52 50-136 U/L Total Protein 6.9 6.0-8.3 g/dL Albumin 3.1 L 3.5-5.0 g/dL Current Medications Medications (Trade) Dose Ordered Sig/Paul Route PRN Reason Start Time Stop Time Status Last Admin Dose Admin Acetaminophen (TYLenol 325MG TAB) 650 mg Q4H PRN PO MILD PAIN (1-3) 07/07/25 15:00 08/06/25 14:59 07/10/25 10:03 650 MG Acetaminophen (TYLenol 325MG TAB) 650 mg Q6H PRN PO MILD PAIN (1-3) 07/07/25 15:00 07/07/25 14:50 DC Acetaminophen (TYLenol 325MG TAB) 650 mg Q6H PRN PO TEMPERATURE GREATER THAN 101.5 07/07/25 15:00 08/06/25 14:59 Al Hydroxide/Mg Hydroxide (MAALox PLUS 30ML) 30 ml Q6H PRN PO INDIGESTION 07/07/25 15:00 08/06/25 14:59 Dextrose (D50w) 50 ml AD PRN IV HYPOGLYCEMIA PROTOCOL 07/07/25 15:00 08/06/25 14:59 Diphenhydramine HCl (BENAdryl INJ) 25 mg Q6H PRN IV SEVERE ITCHING/RASH 07/07/25 15:00 08/06/25 14:59 Famotidine (Pepcid 20mg Vial) 20 mg BID IV 07/07/25 21:00 08/06/25 20:59 07/11/25 09:30 20 MG Famotidine (Pepcid 20mg Vial) 20 mg BID PRN IV NAUSEA/VOMITING 07/07/25 15:00 07/07/25 14:50 DC Glucagon (Glucagon 1mg Kit) 1 mg AD PRN IM HYPOGLYCEMIA PROTOCOL 07/07/25 15:00 08/06/25 14:59 Guaifenesin/ Dextromethorphan (RobiTUSSin DM 200/20MG 10ML) 10 ml Q4H PRN PO COUGH 07/07/25 15:00 08/06/25 14:59 Heparin Sodium (Porcine) (HEParin 5,000 UNIT VIAL) 5,000 unit BID SQ 07/07/25 21:00 08/06/25 20:59 07/11/25 10:33 5,000 UNIT Hydralazine HCl (APRESOLine 20MG INJ) 10 mg Q6H PRN IV For:SBP above 160;DBP above 90 07/07/25 15:00 08/06/25 14:59 Ibuprofen (moTRIN) 800 mg Q8H PRN PO MODERATE PAIN (4-6) 07/07/25 15:00 07/11/25 07:57 DC Insulin Human Regular (humuLIN R 100 UNIT/ML 3ML) INSULIN SLIDING SCAL... ACHS SQ 07/07/25 16:30 08/06/25 16:29 Ketorolac Tromethamine (toRADol) 15 mg Q8H PRN IV MODERATE PAIN (4-6) IF NPO 07/07/25 15:00 07/12/25 14:59 07/11/25 12:18 15 MG Lactulose (Constulose 20gm/ 30ml Udcup) 20 gm BID PRN PO CONSTIPATION 07/07/25 15:00 08/06/25 14:59 Magnesium Sulfate 50 ml @ 0 mls/hr PROTOCOL PRN IV other 07/07/25 15:00 08/06/25 14:59 Morphine Sulfate (morPHINE 2MG SYG) 1 mg Q4H PRN IVP SEVERE PAIN (7-10) 07/07/25 15:00 07/14/25 14:59 07/09/25 04:22 1 MG Nitroglycerin (Nitrostat) 0.4 mg PROTOCOL PRN SL CHEST PAIN 07/07/25 15:00 08/06/25 14:59 Ondansetron HCl (zoFRAN 4MG INJ) 4 mg Q6H PRN IV NAUSEA/VOMITING 07/07/25 15:00 08/06/25 14:59 Piperacillin Sod/ Tazobactam Sod 50 ml @ 12.5 mls/hr ZOSY8 IV 07/07/25 21:00 07/17/25 20:59 07/11/25 05:14 12.5 MLS/HR Potassium Chloride 100 ml @ 100 mls/hr AD PRN IV POTASSIUM PROTOCOL 07/07/25 15:00 08/06/25 14:59 Potassium Chloride (K-Dur/Klor-Con 20meq) 20 meq AD PRN PO POTASSIUM PROTOCOL 07/07/25 15:00 08/06/25 14:59 Potassium Chloride (KCl 10% Elixir 20meq/15ml) 20 meq AD PRN PO POTASSIUM PROTOCOL 07/07/25 15:00 08/06/25 14:59 Sodium Chloride 1,000 ml @ 100 mls/hr Q10H IV 07/07/25 15:00 08/06/25 14:59 07/11/25 10:33 100 MLS/HR Zolpidem Tartrate (AmbIEN) 5 mg HS PRN PO INSOMNIA 07/07/25 15:00 08/06/25 14:59 DIAGNOSTICS / RADIOLOGY: [ ] ASSESSMENT: [Acute diarrhea Urinary tract Infection with E coli, POA Acute small bowel obstruction POA Severe nausea and vomiting POA Intractable abdominal pain POA Diverticulosis as per CT abdomen/pelvis Bilateral renal cyst as per CT abdomen/pelvis Asthma POA Hyperlipidemia POA Uncontrolled diabetes mellitus type 2 with hypoglycemia POA Uncontrolled hypertension POA History of colostomy reversal History of small-bowel obstruction ] PLAN: Continue NPO until surgery clears advance diet Post small-bowel follow-through we will follow up with the results Continue IV fluids Continue pain management as needed Monitor blood glucose closely Continue GI and DVT prophylaxis Monitor for return of GI symptoms If tolerating diet advancement, anticipate discharge today Follow up on AM labs and ID recommendations for E. coli UTI We will continue to monitor electrolytes and replete as necessary specially down that she has diarrhea Discussed plan with Dr. Chakraborty, above plan was formulated ATTESTATION BY PHYSICIAN I have seen and examined the patient. I reviewed the documentation, medical decision making, and treatment plan as noted by the mid-level provider above. I agree with the findings and plan of care. ROSS CHAKRABORTY MD, [facility] Jul 11, 2025 12:44
[2025-07-11 13:05] LABS: NUCLEATED RED BLOOD CELLS 0.0 % (0.0-0.19); PLATELET COUNT (AUTO) 286.0 K/uL (130-400); RED BLOOD CELL COUNT(AUTO) 4.01 MIL/uL (4.00-5.50); RED CELL DISTRIBUTION WIDTH 13.1 % (11.0-15.5); WHITE BLOOD COUNT (AUTO) 5.7 K/uL (4.8-10.8)
[2025-07-11 13:12] LABS: CREATININE 0.8 mg/dL (0.5-1.0); GLOMERULAR FILTR. RATE CALC 79.0 mL/min (>90); GLUCOSE,RANDOM 84.0 mg/dL (70-105); SODIUM SERUM 139.0 mmol/L (136-145); UREA NITROGEN, BLOOD 12.0 mg/dL (7-18)
--- NOTE | 2025-07-11 15:55 | PN ---
This is a 70-year-old female with concerns of small bowel obstruction which appears to be resolving Interval history: This 70-year-old female seen in her room resting Patient underwent small bowel series currently pending results Since ingestion of contrast patient has had multiple bowel movements No abdominal pain reported Labs and vitals stable Physical exam General: Awake alert and oriented Heart: Regular rate and rhythm} Lungs: Clear to auscultation no distress Abdomen: [Soft, nontender, nondistended Assessment : This is a 70-year-old female with what appears to be resolving small-bowel obstruction Plan: At this point in time we will outpatient clear liquids Patient to continue ambulating Patient to advance diet as tolerated Surgical team to follow patient closely Continue with conservative management Dr. Oliveira to be updated in patient's status Surgical case has been discussed with my supervising physician in the above plan was formulated and agreed upon We appreciate the hospitalist team for us to participate in patient's care. Greater than 45 minutes of time spent patient, reviewing chart, working on documentation Vitals/Labs Vital Signs Date Time Temp Pulse Resp B/P (MAP) Pulse Ox O2 Delivery O2 Flow Rate FiO2 07/11/25 11:54 98.2 71 18 133/94 95 Room Air 07/10/25 20:00 0 21 Laboratory Tests 07/11/25 12:42 Medications Current Medications Iohexol 75 ml STK-MED ONCE IV; Start 07/07/25 at 12:19; Stop 07/07/25 at 12:19; Status DC Insulin Human Regular INSULIN SLIDING SCAL... ACHS SQ; Start 07/07/25 at 16:30; Stop 08/06/25 at 16:29 Dextrose 50 ml AD PRN IV; Start 07/07/25 at 15:00; Stop 08/06/25 at 14:59 Glucagon 1 mg AD PRN IM; Start 07/07/25 at 15:00; Stop 08/06/25 at 14:59 Potassium Chloride 100 ml @ 100 mls/hr AD PRN IV; Start 07/07/25 at 15:00; Stop 08/06/25 at 14:59 Potassium Chloride 20 meq AD PRN PO; Start 07/07/25 at 15:00; Stop 08/06/25 at 14:59 Potassium Chloride 20 meq AD PRN PO; Start 07/07/25 at 15:00; Stop 08/06/25 at 14:59 Magnesium Sulfate 50 ml @ 0 mls/hr PROTOCOL PRN IV; Start 07/07/25 at 15:00; Stop 08/06/25 at 14:59 Diphenhydramine HCl 25 mg Q6H PRN IV; Start 07/07/25 at 15:00; Stop 08/06/25 at 14:59 Acetaminophen 650 mg Q6H PRN PO; Start 07/07/25 at 15:00; Stop 08/06/25 at 14:59 Acetaminophen 650 mg Q4H PRN PO Last administered on 07/10/25at 10:03; Start 07/07/25 at 15:00; Stop 08/06/25 at 14:59 Ondansetron HCl 4 mg Q6H PRN IV; Start 07/07/25 at 15:00; Stop 08/06/25 at 14:59 Zolpidem Tartrate 5 mg HS PRN PO; Start 07/07/25 at 15:00; Stop 08/06/25 at 14:59 Al Hydroxide/Mg Hydroxide 30 ml Q6H PRN PO; Start 07/07/25 at 15:00; Stop 08/06/25 at 14:59 Lactulose 20 gm BID PRN PO; Start 07/07/25 at 15:00; Stop 08/06/25 at 14:59 Nitroglycerin 0.4 mg PROTOCOL PRN SL; Start 07/07/25 at 15:00; Stop 08/06/25 at 14:59 Guaifenesin/ Dextromethorphan 10 ml Q4H PRN PO; Start 07/07/25 at 15:00; Stop 08/06/25 at 14:59 Famotidine 20 mg BID PRN IV; Start 07/07/25 at 15:00; Stop 07/07/25 at 14:50; Status DC Heparin Sodium (Porcine) 5,000 unit BID SQ Last administered on 07/11/25at 10:33; Start 07/07/25 at 21:00; Stop 08/06/25 at 20:59 Acetaminophen 650 mg Q6H PRN PO; Start 07/07/25 at 15:00; Stop 07/07/25 at 14:50; Status DC Ibuprofen 800 mg Q8H PRN PO; Start 07/07/25 at 15:00; Stop 07/11/25 at 07:57; Status DC Ketorolac Tromethamine 15 mg Q8H PRN IV Last administered on 07/11/25at 12:18; Start 07/07/25 at 15:00; Stop 07/12/25 at 14:59 Morphine Sulfate 1 mg Q4H PRN IVP Last administered on 07/09/25at 04:22; Start 07/07/25 at 15:00; Stop 07/14/25 at 14:59 Piperacillin Sod/ Tazobactam Sod 50 ml @ 12.5 mls/hr ZOSY8 IV Last administered on 07/11/25at 14:20; Start 07/07/25 at 21:00; Stop 07/17/25 at 20:59 Sodium Chloride 1,000 ml @ 100 mls/hr Q10H IV Last administered on 07/11/25at 10:33; Start 07/07/25 at 15:00; Stop 08/06/25 at 14:59 Hydralazine HCl 10 mg Q6H PRN IV; Start 07/07/25 at 15:00; Stop 08/06/25 at 14:59 Famotidine 20 mg BID IV Last administered on 07/11/25at 09:30; Start 07/07/25 at 21:00; Stop 08/06/25 at 20:59 Potassium Chloride 40 meq ONCE ONCE PO; Start 07/08/25 at 21:00; Stop 07/08/25 at 21:01; Status DC Diatrizoate Meglum/ Diatrizoate Sod 30 ml STK-MED ONCE .ROUTE; Start 07/11/25 at 08:46; Stop 07/11/25 at 08:46; Status DC CELINE FLOWER Jr. PAC Jul 11, 2025 15:54
[2025-07-11 16:00] VITALS: BP 161/90; PULSE 97; RESP 18; TEMP 97.9
[2025-07-11 20:00] VITALS: BP 161/83; PULSE 56; RESP 18; TEMP 98
[2025-07-12] VITALS (7 sets, daily range): BP systolic 123–156; BP diastolic 74–84; PULSE 56–63; RESP 16–20; TEMP 97.4–98.1; O2SAT 95–96
[2025-07-12 04:53] LABS: NUCLEATED RED BLOOD CELLS 0.0 % (0.0-0.19); PLATELET COUNT (AUTO) 267.0 K/uL (130-400); RED BLOOD CELL COUNT(AUTO) 3.88 MIL/uL (4.00-5.50); RED CELL DISTRIBUTION WIDTH 13.2 % (11.0-15.5); WHITE BLOOD COUNT (AUTO) 6.7 K/uL (4.8-10.8)
[2025-07-12 05:09] LABS: ASPARTATE AMINOTRANSFERASE 24.0 U/L (10-37); CREATININE 0.8 mg/dL (0.5-1.0); GLOMERULAR FILTR. RATE CALC 79.0 mL/min (>90); GLUCOSE,RANDOM 82.0 mg/dL (70-105); SODIUM SERUM 139.0 mmol/L (136-145); TOTAL PROTEIN, SERUM 7.0 g/dL (6.0-8.3); UREA NITROGEN, BLOOD 14.0 mg/dL (7-18)
--- NOTE | 2025-07-12 10:05 | DS ---
Discharge Summary Hospital Course Summary: Presentation & Initial Management: 70-year-old female with PMH of asthma, hyperlipidemia, hypertension, prior colostomy reversal, and recent SBO (resolved conservatively) presented with diffuse abdominal pain and vomiting. On admission: afebrile, hemodynamically stable, no acute cardiopulmonary distress. Labs: mild leukocytosis, elevated BUN, mild hyperglycemia, normal LFTs, mild proteinuria, and hematuria on UA. CT abdomen/pelvis: recurrent small bowel obstruction, diverticulosis, bilateral renal cysts. Admitted to medical-surgical floor under hospitalist care. NPO, IV fluids, NG tube to LIS, DVT and GI prophylaxis, empiric Zosyn started. Surgical & Medical Management: General surgery consulted: history of prior exploratory laparotomy and ileostomy reversal. Conservative management recommended as patient began passing gas and pain resolved. Serial abdominal exams and imaging (KUB, CT) showed resolution of obstruction. NG tube discontinued on hospital day 3; clear liquid diet initiated and tolerated. Small bowel follow-through performed to evaluate for anastomotic stricture; no evidence of persistent obstruction. Infectious Disease Course: Urine culture on admission grew >100,000 CFU/mL E. coli (sensitive to Zosyn, resistant to ampicillin, ciprofloxacin, levofloxacin, TMP/SMX). No dysuria or hematuria; UTI likely secondary to hospitalization and/or instrumentation. Continued Zosyn per ID recommendations. Glycemic and Electrolyte Management: Sliding scale insulin for hyperglycemia; hypoglycemia protocol in place. Electrolytes monitored and repleted as needed, especially with onset of diarrhea after contrast administration for small bowel series. Complications: Developed acute diarrhea after contrast study; monitored for dehydration and electrolyte imbalance. No evidence of C. difficile or other infectious etiology; symptoms self-limited. Functional Status: Remained hemodynamically stable throughout admission. Ambulating, tolerating clear liquids, no abdominal pain, nausea, or vomiting at discharge. Bowel function returned (passing flatus, bowel movements). summary This patient was admitted for recurrent small bowel obstruction, managed conservatively with bowel rest, NG decompression, and supportive care. She developed a hospital-acquired UTI (E. coli), treated with Zosyn per sensitivities. Her SBO resolved without surgical intervention. She tolerated diet advancement and was discharged in stable condition with appropriate follow- up. [place] Faller(s): DR. WANG- GENERAL SURGEON DR ANGUIANO- ID Assessment/Plan: Discharge Diagnoses Resolved small bowel obstruction (adhesive, post-surgical, no surgical intervention required) Urinary tract infection (E. coli, treated with Zosyn) Type 2 diabetes mellitus (uncontrolled, with episodes of hypoglycemia) Hypertension (uncontrolled) Asthma Hyperlipidemia History of colostomy reversal Diverticulosis Bilateral renal cysts Obesity Dehydration (resolved) Acute diarrhea (post-contrast, resolved) ASSESSMENT: [Acute diarrhea Urinary tract Infection with E coli, POA Acute small bowel obstruction POA Severe nausea and vomiting POA Intractable abdominal pain POA Diverticulosis as per CT abdomen/pelvis Bilateral renal cyst as per CT abdomen/pelvis Asthma POA Hyperlipidemia POA Uncontrolled diabetes mellitus type 2 with hypoglycemia POA Uncontrolled hypertension POA History of colostomy reversal History of small-bowel obstruction ] Discharge Instructions: Discharge Instructions & Follow-Up Advance diet as tolerated. Monitor for recurrence of abdominal pain, vomiting, or signs of obstruction. Monitor blood glucose and blood pressure at home. Complete prescribed antibiotic course. Outpatient follow-up with: Primary care for chronic disease management General surgery for post-obstruction and anastomosis evaluation Infectious disease if symptoms recur Return to ED for fever, severe abdominal pain, persistent vomiting, or inability to tolerate oral intake. Home Medications: Active Scripts Amoxicillin/Potassium Clav (Amox Tr-K Clv 875-125 mg Tab) 875 Mg-125 Mg Tablet, 1 TAB PO BID for 5 Days, #20 TAB 0 Refills Prov:DOM OLSON [facility] 06/23/25 Pantoprazole Sodium (Protonix) 40 Mg Ectab, 1 TAB PO DAILY for 30 Days, #30 TAB 0 Refills Prov:DOM OLSON [facility] 06/23/25 Reported Medications Rosuvastatin Calcium (Rosuvastatin Calcium) 5 Mg Tablet, 1 TAB PO DAILY for high cholesterol for 30 Days, #30 TAB 0 Refills 06/21/25 Losartan Potassium (Losartan Potassium) 25 Mg Tablet, 1 TAB PO DAILY for 30 Days, #30 TAB 0 Refills 06/21/25 Discontinued Scripts Polyethylene Glycol 3350 (Miralax) 17 Gram/Dose Powder, 17 GM PO DAILY for constipation for 30 Days, #255 GM 0 Refills dissolve in water Prov:DOM OLSON [facility] 06/23/25 New Medications: Nitrofurantoin Macrocrystal (Nitrofurantoin) 100 Mg Capsule 1 CAP PO BID for 5 Days, #10 CAP 0 Refills Continued Medications: Losartan Potassium (Losartan Potassium) 25 Mg Tablet 1 TAB PO DAILY for 30 Days, #30 TAB 0 Refills Pantoprazole Sodium (Protonix) 40 Mg Ectab 1 TAB PO DAILY for 30 Days, #30 TAB 0 Refills Rosuvastatin Calcium (Rosuvastatin Calcium) 5 Mg Tablet 1 TAB PO DAILY for high cholesterol for 30 Days, #30 TAB 0 Refills Discontinued Medications: Amoxicillin/Potassium Clav (Amox Tr-K Clv 875-125 mg Tab) 875 Mg-125 Mg Tablet 1 TAB PO BID for 5 Days, #20 TAB 0 Refills Time spent arranging discharge: 31-60 minutes ATTESTATION BY PHYSICIAN I have seen and examined the patient. I reviewed the documentation, medical decision making, and treatment plan as noted by the mid-level provider above. I agree with the findings and plan of care. ROSS CHAKRABORTY MD, JANICE B [facility] Jul 12, 2025 10:05
--- NOTE | 2025-07-12 14:50 | NUR ---
ORDER FROM [facility] TO ASK ABOUT PO MEDS MACROBID? CALL TO DR. Robles, STATED KEFLEX, CALL TO [facility], GOT RX FOR KEFLEX 500 BID X 5 DAYS WILL ADJUST DC MEDS
[2025-07-12] MEDS ORDERED: CEPH500B PO (14:58)
--- NOTE | 2025-07-12 15:25 | NUR ---
ENTERED KEFLEX 500 MG B PO BID #10 NO REFILLS IN DISCHARGE SCREEN- SHOWED UP " CONTINUED" INSTEAD OF " EW, SO CALLED TO PHARMACY OF CHOICE. CONFIRMED
--- NOTE | 2025-07-12 16:57 | PN ---
INFECTIOUS DISEASE PROGRESS NOTE Date of Service: Jul 12, 2025 SUBJECTIVE: This is a 70-year-old female patient who was seen and examined at bedside in room 119. Still pending interpretation of the small-bowel series. Patient's diet has been advanced to full liquid diet and will be monitored for possible discharge later today. We will continue on Zosyn for UTI for now. PHYSICAL EXAM EYES: Anicteric. Pupils equal and reactive. HENT: No oral thrush seen, moist Oral mucosa. NECK: Supple, no JVD or thyromegaly. LUNGS: Good air entry. No rales, no rhonchi. CARDIOVASCULAR: S1, S2 regular. No murmur heard. ABDOMEN: Soft, non tender, bowel sounds present. Abdominal pain POA, resolved. CENTRAL NERVOUS SYSTEM: Awake, alert, oriented x 3. SKIN: No rashes, no swelling. LYMPHATICS: No peripheral lymphadenopathy. MUSCULOSKELETAL: No joint swelling, erythema or tenderness. EXTREMITIES: No cyanosis or clubbing. BACK: No deformity, no pressure ulcer. GENITOURINARY: No dysuria or hematuria. Vital Sign (Last 12 Hours) 07/12/25 07/12/25 07/12/25 07:45 11:38 16:00 Temp 98.1 97.9 97.3 Pulse 56 56 62 Resp 20 19 19 B/P (MAP) 148/75 140/75 156/84 Pulse Ox 95 96 96 O2 Delivery Room Air Room Air Room Air FiO2 21 21 21 LABS: Laboratory: Test 07/12/25 15:30 07/12/25 04:36 07/11/25 12:42 Range/Units Whole Blood Glucose 90 70-110 MG/DL White Blood Count 6.7 4.8-10.8 K/uL Red Blood Count 3.88 L 4.00-5.50 MIL/uL Hemoglobin 11.4 L 12.0-16.0 g/dL Hematocrit 35.1 L 36-48 % Mean Corpuscular Volume 90.5 79-99 fL Mean Corpuscular Hemoglobin 29.4 27.0-33.0 pg Mean Corpuscular Hemoglobin Concent 32.5 32.0-36.0 g/dL Red Cell Distribution Width 13.2 11.0-15.5 % Platelet Count 267 130-400 K/uL Mean Platelet Volume 9.5 7.5-10.5 fL Nucleated Red Blood Cells 0.0 0.0-0.19 % Sodium Level 139 136-145 mmol/L Potassium Level 4.0 3.5-5.1 mmol/L Chloride Level 105 101-111 mmol/L Carbon Dioxide Level 25 21-32 mmol/L Blood Urea Nitrogen 14 7-18 mg/dL Creatinine 0.8 0.5-1.0 mg/dL Glomerular Filtration Rate Calc 79 >90 mL/min Random Glucose 82 70-105 mg/dL Total Calcium 9.4 8.5-10.1 mg/dL Total Bilirubin 0.3 0.2-1.0 mg/dL Aspartate Amino Transf (AST/SGOT) 24 10-37 U/L Alanine Aminotransferase (ALT/SGPT) 29 12-78 U/L Alkaline Phosphatase 54 50-136 U/L Total Protein 7.0 6.0-8.3 g/dL Albumin 3.1 L 3.5-5.0 g/dL Magnesium Level 2.20 1.80-2.40 mg/dL ASSESSMENT: Urinary tract infection with E coli. Abdominal pain. Small-bowel obstruction, resolved. PLAN: Continue Zosyn. Continue pain management. Continue GI prophylaxis. Diet will be advanced to full liquid diet.and will be monitored. Pending a small bowel series radiology interpretation. This case was reviewed and discussed with my supervising physician Dr. Anguiano and the above assessment and plan was formulated and agreed upon. ATTESTATION BY PHYSICIAN I have seen and examined the patient. I reviewed the documentation, medical decision making, and treatment plan as noted by the mid-level provider above. I agree with the findings and plan of care. AMANDEEP ANGUIANO MD, [facility] Jul 12, 2025 16:57
--- NOTE | 2025-07-12 18:29 | PN ---
GENERAL SURGERY PROGRESS NOTE Date/Time Patient Seen: [ 07/12/2025 1730] Interval History: This 70-year-old female seen in her room resting Patient underwent small bowel series currently pending results but images show Gastrografin throughout small-bowel without any signs of obstruction No abdominal pain reported Patient has been tolerating regular diet Patient has been passing gas and having multiple bowel movements Labs and vitals stable Physical exam General: Awake alert and oriented Heart: Regular rate and rhythm} Lungs: Clear to auscultation no distress Abdomen: [Soft, nontender, nondistended Assessment : This is a 70-year-old female with what appears to be resolving small-bowel obstruction Plan: From surgical standpoint, patient may be discharged home today Patient instructed to continue ambulating at home Patient was also instructed on maintaining good hydration and increasing dietary fiber intake Follow-up with Dr. Oliveira he in the office in 2-[address] Oliveira to be updated in patient's status Surgical case has been discussed with my supervising physician in the above plan was formulated and agreed upon We appreciate the hospitalist team for us to participate in patient's care. Greater than 45 minutes of time spent patient, reviewing chart, working on documentation Current Medications Medications (Trade) Dose Ordered Sig/Paul Route Start Time Stop Time Status Last Admin Dose Admin Famotidine (Pepcid 20mg Vial) 20 mg BID IV 07/07/25 21:00 08/06/25 20:59 07/12/25 09:32 20 MG Heparin Sodium (Porcine) (HEParin 5,000 UNIT VIAL) 5,000 unit BID SQ 07/07/25 21:00 08/06/25 20:59 07/12/25 11:17 5,000 UNIT Insulin Human Regular (humuLIN R 100 UNIT/ML 3ML) INSULIN SLIDING SCAL... ACHS SQ 07/07/25 16:30 08/06/25 16:29 Piperacillin Sod/ Tazobactam Sod 50 ml @ 12.5 mls/hr [id number] IV 07/07/25 21:00 07/17/25 20:59 07/12/25 13:00 12.5 MLS/HR Sodium Chloride 1,000 ml @ 100 mls/hr Q10H IV 07/07/25 15:00 08/06/25 14:59 07/12/25 15:27 100 MLS/HR Vital Signs (last 8hr) Date Time Temp Pulse Resp B/P (MAP) Pulse Ox O2 Delivery O2 Flow Rate FiO2 07/12/25 16:00 97.3 62 19 156/84 96 Room Air 21 07/12/25 11:38 97.9 56 19 140/75 96 Room Air 21 07/12/25 11:00 96 Room Air* 0 21 Laboratory: [ ] Hematology Labs: Test 07/12/25 04:36 Range/Units White Blood Count 6.7 4.8-10.8 K/uL Red Blood Count 3.88 L 4.00-5.50 MIL/uL Hemoglobin 11.4 L 12.0-16.0 g/dL Hematocrit 35.1 L 36-48 % Mean Corpuscular Volume 90.5 79-99 fL Mean Corpuscular Hemoglobin 29.4 27.0-33.0 pg Mean Corpuscular Hemoglobin Concent 32.5 32.0-36.0 g/dL Red Cell Distribution Width 13.2 11.0-15.5 % Platelet Count 267 130-400 K/uL Mean Platelet Volume 9.5 7.5-10.5 fL Nucleated Red Blood Cells 0.0 0.0-0.19 % Chemistry Labs: Test 07/12/25 15:30 07/12/25 04:36 07/11/25 12:42 Range/Units Whole Blood Glucose 90 70-110 MG/DL Sodium Level 139 136-145 mmol/L Potassium Level 4.0 3.5-5.1 mmol/L Chloride Level 105 101-111 mmol/L Carbon Dioxide Level 25 21-32 mmol/L Blood Urea Nitrogen 14 7-18 mg/dL Creatinine 0.8 0.5-1.0 mg/dL Glomerular Filtration Rate Calc 79 >90 mL/min Random Glucose 82 70-105 mg/dL Total Calcium 9.4 8.5-10.1 mg/dL Total Bilirubin 0.3 0.2-1.0 mg/dL Aspartate Amino Transf (AST/SGOT) 24 10-37 U/L Alanine Aminotransferase (ALT/SGPT) 29 12-78 U/L Alkaline Phosphatase 54 50-136 U/L Total Protein 7.0 6.0-8.3 g/dL Albumin 3.1 L 3.5-5.0 g/dL Magnesium Level 2.20 1.80-2.40 mg/dL Diagnostics / Radiology: [Copy/Paste Echos/Imaging Report here] Impression and Plan: [ ] ATTESTATION BY PHYSICIAN I have seen and examined the patient. I reviewed the documentation, medical decision making, and treatment plan as noted by the mid-level provider above. I agree with the findings and plan of care. MD PRASANNA HUNT [facility] Jul 12, 2025 18:29
[2025-07-12] MEDS ORDERED: NITR100C PO (18:35)
--- NOTE | 2025-07-12 18:43 | NUR ---
GAVE PATIENT DISCHARGE INSTRUCTIONS, REMOVED PATIENTS IV WITH CATHETER INTACT.PATIENT WAS TAKEN OUT VIA WHEELCHAIR TO A PRIVATE VEHICLE.
== END 2025-07-12 18:53 | disposition home or self-care (01) | DRG 389 ==
LOC: EDH 11:31 → EDHIP 11:32 → 1MS 17:26
PROVIDERS: ADMIT Internal Medicine; ATTEND Internal Medicine
PROC: 0D9670Z Drainage of Stomach with Drainage Device, Via Natural or Artificial Opening (ICD-10-PCS; principal; 2025-07-08)
DX: K56.609 Unspecified intestinal obstruction, unspecified as to partial versus complete obstruction (principal); N39.0 Urinary tract infection, site not specified; B96.20 Unspecified Escherichia coli [E. coli] as the cause of diseases classified elsewhere; E11.649 Type 2 diabetes mellitus with hypoglycemia without coma; E66.9 Obesity, unspecified; E78.00 Pure hypercholesterolemia, unspecified; I10 Essential (primary) hypertension; J45.909 Unspecified asthma, uncomplicated; K57.30 Diverticulosis of large intestine without perforation or abscess without bleeding; N28.1 Cyst of kidney, acquired; E86.0 Dehydration; Z79.899 Other long term (current) drug therapy
CPT/HCPCS: 36415; 71045; 74018; 74177; 74250; 80048; 80053; 80076; 81001; 82140; 82150; 82550; 82948; 83036; 83605; 83690; 83735; 83880; 84145; 84439; 84443; 85025; 85027; 87040; 87086; 87186; 87804; 99285; J0360; J1644; J1885; J2270; J2405; J2543; J7030; Q9963; Q9967; J1308